=== PATIENT | female | born 1950 | race Caucasian/White ===

== ENCOUNTER 2018-04-26 20:00 | Emergency (ER) | payer MEDICARE, OTHER, SELFPAY ==
[2018-04-26 20:12] VITALS: BP 182/98; PULSE 77; RESP 18; TEMP 36.9; O2SAT 97; BMI 31.4
[2018-04-26 20:30] LABS: Bacteria Urine None Seen; RBC Urine None Seen (0-5/HPF); WBC Urine None Seen (0-5/HPF)
[2018-04-26 20:32] LABS: Appearance Urine UA CLEAR; Bilirubin Urine UA NEGATIVE (NEGATIVE); Color Urine UA YELLOW; Glucose Urine UA NEGATIVE (Normal); Ketones Urine UA NEGATIVE (NEGATIVE); Leukocyte Esterase Urine UA NEGATIVE (NEGATIVE); Nitrite Urine UA Negative (Negative); Occult Blood Urine UA NEGATIVE (Negative); Protein Urine UA NEGATIVE (Negative); Specific Gravity Urine UA <=1.005 (1.000-1.035); Urobilinogen Urine UA 0.2 E.U./dL (0.2)
[2018-04-26 20:35] LABS: Culture Indicated Urine Cult Not Indicated; Urine Comments Microscopic Normal
[2018-04-26 22:00] VITALS: BP 186/99; PULSE 69; O2SAT 97
[2018-04-26 22:30] VITALS: BP 167/99; PULSE 72; O2SAT 97
--- NOTE | 2018-04-26 23:18 | ED.GENADULT ---
HPI - General Adult General Chief complaint: Hypertension Stated complaint: HIGH BLOOD PRESSURE MIGHT HAVE BLADDER INFECTION Time Seen by Provider: 04/26/18 20:34 Source: patient Mode of arrival: ambulatory Limitations: no limitations History of Present Illness HPI narrative: 68-year-old female here for evaluation of high blood pressure not feeling well and also concerns for a bladder infection. Patient sustained a right fibula fracture her approximately 1 week ago. Has been in a walking boot since then. Patient also has a history of hypertrophic cardiomyopathy and history of atrial fibrillation. She has a defibrillator in place. This was placed at the end of last year. She states that since January of this year she has been on metoprolol and lisinopril ordered by her runner worker. She states that since she has been on the metoprolol she has been sick to her stomach and has not been feeling very well. She states that she talk to her runner worker about who states that he recommended that she stay on it for 10 weeks to see if the symptoms did not improve. She states that today she was not feeling well and took her blood pressure and it was elevated. She came in to be evaluated. Related Data Home Medications Medication Instructions Recorded Confirmed warfarin [Coumadin] 2.5 mg PO QDAY #0 11/05/12 04/26/18 lorazepam [Ativan] 0.5 mg PO PRN PRN #0 03/10/13 04/26/18 latanoprost 1 applic EYE-BOTH DAILY 04/26/18 04/26/18 lisinopril 2.5 mg PO DAILY 04/26/18 04/26/18 metoprolol succinate 12.5 mg PO QAM 04/26/18 04/26/18 metoprolol succinate 25 mg PO BEDTIME 04/26/18 04/26/18 omega 3,6,9 combination no.7 1 tab PO DAILY 04/26/18 04/26/18 [[place] DHA] plant stanol alejandro [Cholest Off] 1 tab PO DAILY 04/26/18 04/26/18 vitamin Z62-[id number] acid 1 tab SUBLINGUAL DAILY 04/26/18 04/26/18 Allergies Allergy/AdvReac Type Severity Reaction Status Date / Time flecainide [FLECAINIDE] Allergy Unknown CONFUSION, Verified 04/26/18 20:15 CAN'T THINK, DIZZY meperidine [MEPERIDINE] Allergy Unknown N/V Verified 04/26/18 20:15 atenolol [ATENOLOL] AdvReac Unknown MAKES ME Verified 04/26/18 20:15 VERY TIRED, NO ENERGY Review of Systems Constitutional Denies chills, Reports fatigue, Denies fever(s), Denies frequent falls and Reports lethargy ENT Ears, Nose, Mouth, and Throat: Denies dizziness Cardiovascular Denies chest pain, Denies irregular heart rhythm, Denies lightheadedness, Denies palpitations, Denies dyspnea, Denies dyspnea on exertion and Denies orthopnea Respiratory Denies cough, Denies dyspnea, Denies dyspnea on exertion and Denies wheezing Gastrointestinal Gastrointestinal: Denies abdominal pain, Denies change in bowel habits, Denies diarrhea, Denies nausea and Denies vomiting Genitourinary Reports dysuria Musculoskeletal Denies numbness Comments: Walking the right lower extremity Integumentary/Breasts Denies pruritus, Denies erythema, Denies rash and Denies wounds Neurologic Denies behavioral changes, Denies confusion, Denies dizziness, Denies frequent falls and Denies numbness Psychiatric Denies behavioral changes and Denies confusion Endocrine Reports fatigue and Denies palpitations Allergic/Immunologic Denies wheezing [facility] Social History Smoking Status: Never smoker Exam Initial Vital Signs Initial Vital Signs: Vital Signs Temperature 98.5 F 04/26/18 20:12 Pulse Rate 77 04/26/18 20:12 Respiratory Rate 18 04/26/18 20:12 Blood Pressure 182/98 H 04/26/18 20:12 Pulse Oximetry 97 04/26/18 20:12 [facility] Head: normal to inspection, normocephalic and atraumatic Chest Chest: normal inspection of the chest Resp Effort & Inspection: normal respiratory effort, able to speak in complete sentences, no respiratory distress and no use of accessory muscles Auscultation: clear to auscultation bilaterally, no rales, no rhonchi and no wheezes Cardio Rate: regular rate Rhythm: regular rhythm Heart Sounds: murmur systolic late, III/ and at the left sternal border Skin General: no rashes or lesions noted, No jaundice and No petechiae Extrem Other: Walking to right lower extremity Course Orders Ordered: ED Orders 04/26/18 20:19 Urinalysis and Microscopic Stat Vital Signs - 8 hr 04/26/18 20:12 04/26/18 22:00 04/26/18 22:30 Temperature 98.5 F Pulse Rate 77 69 72 Respiratory Rate 18 Blood Pressure 182/98 H Blood Pressure [Left Arm] 186/99 H 167/99 H Pulse Oximetry 97 97 97 04/26/18 23:24 Temperature Pulse Rate 64 Respiratory Rate 16 Blood Pressure 173/95 H Blood Pressure [Left Arm] Pulse Oximetry 96 Medical Decision Making MDM Narrative Medical decision making narrative: Patient without signs of urinary tract infection. Was hypertensive here in the emergency department but has no physical exam signs or history consistent for end-organ dysfunction. Will hold on any testing for now. She is on metoprolol and lisinopril. Informed her that if she would like to stop her metoprolol secondary to the symptoms that she does need to talk with her runner worker about this. We had a long discussion regarding high blood pressure and what to return to the emergency department for. She was given return precautions. She was instructed she needed to contact her primary doctor and her runner worker. She was instructed on the proper way to take her blood pressure at home. She expressed understanding. Her was at bedside for this discussion. They expressed agreement with plan. Lab Data Lab results reviewed: Yes I reviewed the patient's lab results. Lab Results 04/26/18 Range/Units 20:19 Urine Color Yellow Urine Appearance Clear Urine pH 6.0 (4.5-8.0) Ur Specific [place] <=1.005 (1.000-1.035) Urine Protein Negative (Negative) Urine Glucose (UA) Negative (Normal) g/dL Urine Ketones Negative (NEGATIVE) Urine Occult Blood Negative (Negative) Urine Nitrate Negative (Negative) Urine Bilirubin Negative (NEGATIVE) Urine Urobilinogen 0.2 (0.2) E.U./dL Ur Leukocyte Esterase Negative (NEGATIVE) Urine RBC None seen (0-5/HPF) Urine WBC None seen (0-5/HPF) Urine Bacteria None seen (None) Ur Culture Indicated? Cult not indicated Micro UA Comment Microscopic normal Discharge Plan Departure Patient Disposition: Home, Self-Care Clinical Impression: Hypertension, Cardiomyopathy, hypertrophic Discharge Date/Time: 04/26/18 23:26 Interventions: ED Discharge Assessment Last Done: 04/26/18 23:24 Instructions: DI for High Blood Pressure Activity Restrictions/Additional Instructions: Recommend that you contact your runner worker for a follow-up and to discuss your medications. Return to the emergency department for any new symptoms, year defibrillator going off, chest pain, or any other concerning symptoms. I would also recommend that you continue all of your medications as directed into you talk with your runner worker. Prescriptions: No Action warfarin [Coumadin] 2.5 MG tablet 2.5 mg PO QDAY Qty: 0 RF: 0 lorazepam [Ativan] 0.5 MG tablet 0.5 mg PO PRN PRN (Reason: Anxiety) Qty: 0 RF: 0 metoprolol succinate 25 mg tablet extended release 24 hr 25 mg PO BEDTIME RF: 0 metoprolol succinate 25 mg tablet extended release 24 hr 12.5 mg PO QAM RF: 0 lisinopril 2.5 mg tablet 2.5 mg PO DAILY RF: 0 plant stanol alejandro [Cholest Off] 450 mg Tablet 1 tab PO DAILY RF: 0 omega 3,6,9 combination no.7 [[place] DHA] 92 mg (43 mg-22 [id number]) Tablet,Chewable 1 tab PO DAILY RF: 0 vitamin X04-pjnck acid 1,000-400 mcg Lozenge 1 tab Sublingual DAILY RF: 0 latanoprost 0.005 % drops 1 applic EYE-BOTH DAILY RF: 0
[2018-04-26 23:24] VITALS: BP 173/95; PULSE 64; RESP 16; O2SAT 96
== END 2018-04-26 23:26 | disposition home or self-care (01) ==
PROVIDERS: Nurse Practitioner Family; Emergency Provider Emergency Medicine; Family Provider Family Medicine; PCP Family Medicine
DX: I10 Essential (primary) hypertension (principal); I42.9 Cardiomyopathy, unspecified
CPT/HCPCS: 81001; 99282

== ENCOUNTER 2018-12-10 08:09 | Emergency (ER) | payer MEDICARE, OTHER, SELFPAY ==
[2018-12-10] VITALS (7 sets, daily range): BP systolic 124–138; BP diastolic 71–89; PULSE 57–70; RESP 15–20; TEMP 36.6; O2SAT 96–100; BMI 36.8
--- NOTE | 2018-12-10 08:14 | DI.RAD.S_ITS ---
PROCEDURE: XR CHEST 1V INDICATIONS: chest pain TECHNIQUE: One view of the chest was acquired. COMPARISON: [facility], , CHEST 1 VIEW, 02/02/2018, 17:53. FINDINGS: Surgical changes and devices: Median sternotomy. Left-sided pacer. Lungs and pleura: No pneumothorax. Trace right pleural effusion, new since the prior examination. Mild diffuse interstitial pulmonary opacity. Mediastinum: Mediastinal contours appear normal. Heart size is enlarged. Bones and chest wall: No suspicious bony lesions. Overlying soft tissues appear unremarkable. IMPRESSION: 1. Mild CHF. 2. Trace right pleural effusion. Dictated by: Lico Campuzano M.D. on 12/10/2018 at 9:13 Approved by: Lico Campuzano M.D. on 12/10/2018 at 9:14
--- NOTE | 2018-12-10 08:35 | PC.NURSE ---
Lab unable to draw pt. 2nd lab person to come.
--- NOTE | 2018-12-10 08:39 | ED.CHESTPAIN ---
HPI - Chest Pain General Chief Complaint: Chest Pain Stated Complaint: Nauseated Time Seen by Provider: 12/10/18 08:13 Source: patient Mode of arrival: EMS Limitations: no limitations History of Present Illness HPI narrative: Patient is a 68-year-old female with a pacemaker in place on Coumadin and also on Lasix for edema. She does see a mechanical car checker. She is also on a beta edward. Here for evaluation of nausea and not feeling well for the past couple days. Last week she was started on 80 mg Lasix 2 times a day to try to help with the edema. She states that she has lost 4 lb over the past week but is still quite edematous. No chest pain. Some dyspnea on exertion. Was brought in by EMS. Received Zofran in route which she states has helped her symptoms somewhat. Related Data Home Medications Medication Instructions Recorded Confirmed warfarin [Coumadin] 2.5 mg PO QDAY #0 11/05/12 04/26/18 lorazepam [Ativan] 0.5 mg PO PRN PRN #0 03/10/13 04/26/18 latanoprost 1 applic EYE-BOTH DAILY 04/26/18 04/26/18 lisinopril 2.5 mg PO DAILY 04/26/18 04/26/18 metoprolol succinate 12.5 mg PO QAM 04/26/18 04/26/18 metoprolol succinate 25 mg PO BEDTIME 04/26/18 04/26/18 omega 3,6,9 combination no.7 1 tab PO DAILY 04/26/18 04/26/18 [[place] DHA] plant stanol alejandro [Cholest Off] 1 tab PO DAILY 04/26/18 04/26/18 vitamin X95-hidei acid 1 tab SUBLINGUAL DAILY 04/26/18 04/26/18 Previous Rx's Medication Instructions Recorded ondansetron 4 mg PO Q6-8H PRN #10 tab 12/10/18 spironolactone 12.5 mg PO DAILY #30 tab 12/10/18 torsemide 20 mg PO BID #60 tab 12/10/18 Allergies Allergy/AdvReac Type Severity Reaction Status Date / Time flecainide [FLECAINIDE] Allergy Unknown CONFUSION, Verified 04/26/18 20:15 CAN'T THINK, DIZZY meperidine [MEPERIDINE] Allergy Unknown N/V Verified 04/26/18 20:15 atenolol [ATENOLOL] AdvReac Unknown MAKES ME Verified 04/26/18 20:15 VERY TIRED, NO ENERGY Review of Systems Constitutional Reports fatigue, Denies fever(s) and Reports lethargy Cardiovascular Denies chest pain, Reports edema, Reports leg edema and Reports dyspnea on exertion Respiratory Denies cough and Reports dyspnea on exertion Gastrointestinal Gastrointestinal: Denies abdominal pain, Denies nausea and Denies vomiting Musculoskeletal Denies myalgias and Denies arthralgias Integumentary/Breasts Denies rash Neurologic Denies behavioral changes Psychiatric Denies behavioral changes Endocrine Reports fatigue Hematologic/Lymphatic Comments: On Coumadin PFS Medical History Edema (Acute) Hypertension (Acute) Surgical History History of permanent cardiac pacemaker placement (Acute) Social History Smoking Status: Never smoker Exam Initial Vital Signs Initial Vital Signs: Vital Signs Temperature 97.8 F 12/10/18 08:00 Pulse Rate 57 L 12/10/18 08:00 Respiratory Rate 20 12/10/18 08:00 Blood Pressure 138/85 12/10/18 08:00 Pulse Oximetry 100 12/10/18 08:00 Const General: cooperative, comfortable, well developed, well groomed and No acute distress Orientation: alert, awake and oriented x3 HENMT Head: normal to inspection and normocephalic Resp Effort & Inspection: normal respiratory effort Auscultation: clear to auscultation bilaterally Cardio Rate: regular rate Rhythm: regular rhythm Pulses: radial pulses present GI Inspection: non-distended Palpation: soft and No tender Skin Lesions: no lesions Rashes: no rashes Neuro General: alert, awake and oriented x3 Extrem General: capillary refill normal and edema Psych Appearance: grossly normal and well kempt Course Orders Ordered: ED Orders 12/10/18 08:14 XR chest 1V Stat EKG-12 Lead Stat 12/10/18 08:30 Urine Culture Stat Urine Microscopic Stat 12/10/18 08:55 B Type Natriuretic Peptide Stat Complete Blood Count AUTO DIFF Stat Comprehensive Metabolic Panel Stat Lipase Stat Partial Thromboplastin Time Stat Prothrombin Time INR Stat Troponin & CK Cardiac Panel Stat Discontinued Medications Ondansetron HCl (Zofran) 4 mg IV NOW ONE Stop: 12/10/18 09:14 Last Admin: 12/10/18 09:15 Dose: 4 mg Vital Signs - 8 hr 12/10/18 08:00 12/10/18 09:10 12/10/18 09:30 Temperature 97.8 F Pulse Rate 57 L 59 L 62 Respiratory Rate 20 17 15 Blood Pressure 138/85 Blood Pressure [Right Arm] 128/89 124/71 Pulse Oximetry 100 96 96 12/10/18 10:00 12/10/18 10:30 Temperature Pulse Rate 60 60 Respiratory Rate 16 18 Blood Pressure Blood Pressure [Right Arm] 136/74 132/86 Pulse Oximetry 97 97 MDM - Chest Pain Medical Records Data Attestation: I reviewed the patient's medical records. Lab Data Attestation: I reviewed the patient's lab results. Result diagrams: 12/10/18 08:55 12/10/18 08:55 Lab Results 12/10/18 12/10/18 12/10/18 Range/Units 08:30 08:55 08:55 WBC 9.4 (4.5-11.0) X10^3/uL RBC 5.14 (4.0-5.2) X10^6/uL Hgb 15.0 (12.0-16.0) g/dL Hct 45.1 (36-46) % MCV 87.7 (80-100) fL MCH 29.3 (26-34) PG MCHC 33.4 (30-36) % RDW 16.8 H (11.6-14.8) % Plt Count 328 (150-400) X10^3/uL Neut % (Auto) 73.2 (50-75) % Lymph % (Auto) 14.4 L (25-40) % [place] % (Auto) 10.3 (3-14) % Eos % (Auto) 1.3 L (2-4) % Baso % (Auto) 0.8 (0-2) % Neut # (Auto) 6800 (6225-9394) /uL Lymph # (Auto) 1300 (2980-3932) /uL [place] # (Auto) 1000 H (0-900) /uL Eos # (Auto) 100 (0-450) /uL Baso # (Auto) 100 (0-100) /uL PT 33.5 H (10.1-12.7) SECONDS INR 2.9 H (0.9-1.3) APTT 45 H (26.4-36.2) SECONDS Sodium (137-145) mmol/L Potassium (3.4-5.1) mmol/L Chloride (98-107) mmol/L Carbon Dioxide (22-32) mmol/L BUN (7-17) mg/dL Creatinine (0.52-1.04) mg/dL Estimated GFR (>60) mL/min BUN/Creatinine Ratio (6-22) Glucose (80-110) mg/dL Calcium (8.4-10.2) mg/dL Total Bilirubin (0.2-1.3) mg/dL AST (14-36) IU/L ALT (9-52) IU/L Alkaline Phosphatase (38-126) U/L Total Creatine Kinase (30-135) U/L CK-MB (CK-2) CK-MB (CK-2) Rel Index Troponin I (0.01-0.034) ng/mL B-Natriuretic Peptide (<100) Total Protein (6.3-8.2) g/dL Albumin (3.5-5.0) g/dL Globulin (1.7-4.1) g/dL Albumin/Globulin Ratio (1.0-2.8) Lipase (23-300) U/L Urine RBC 10-30/hpf H (0-5/HPF) Urine WBC 5-10/hpf H (0-5/HPF) Ur Squamous Epith Cells 0-1 /hpf Urine Bacteria Many (>30) H (None) Ur Culture Indicated? Specimen cultured 12/10/18 12/10/18 Range/Units 08:55 08:55 WBC (4.5-11.0) X10^3/uL RBC (4.0-5.2) X10^6/uL Hgb (12.0-16.0) g/dL Hct (36-46) % MCV (80-100) fL MCH (26-34) PG MCHC (30-36) % RDW (11.6-14.8) % Plt Count (150-400) X10^3/uL Neut % (Auto) (50-75) % Lymph % (Auto) (25-40) % [place] % (Auto) (3-14) % Eos % (Auto) (2-4) % Baso % (Auto) (0-2) % Neut # (Auto) (8697-1481) /uL Lymph # (Auto) (3594-8361) /uL [place] # (Auto) (0-900) /uL Eos # (Auto) (0-450) /uL Baso # (Auto) (0-100) /uL PT (10.1-12.7) SECONDS INR (0.9-1.3) APTT (26.4-36.2) SECONDS Sodium 137 (137-145) mmol/L Potassium 3.4 (3.4-5.1) mmol/L Chloride 98 (98-107) mmol/L Carbon Dioxide 27 (22-32) mmol/L BUN 16 (7-17) mg/dL Creatinine 0.70 (0.52-1.04) mg/dL Estimated GFR > 60.0 (>60) mL/min BUN/Creatinine Ratio 22.9 H (6-22) Glucose 102 (80-110) mg/dL Calcium 9.4 (8.4-10.2) mg/dL Total Bilirubin 2.8 H (0.2-1.3) mg/dL AST 28 (14-36) IU/L ALT 21 (9-52) IU/L Alkaline Phosphatase 131 H (38-126) U/L Total Creatine Kinase 43 (30-135) U/L CK-MB (CK-2) TNP CK-MB (CK-2) Rel Index TNP Troponin I 0.029 (0.01-0.034) ng/mL B-Natriuretic Peptide 434 H (<100) Total Protein 7.5 (6.3-8.2) g/dL Albumin 4.1 (3.5-5.0) g/dL Globulin 3.4 (1.7-4.1) g/dL Albumin/Globulin Ratio 1.2 (1.0-2.8) Lipase 109 (23-300) U/L Urine RBC (0-5/HPF) Urine WBC (0-5/HPF) Ur Squamous Epith Cells Urine Bacteria (None) Ur Culture Indicated? Urine Dip Bedside Urine Glucose Negative Bedside Urine Bilirubin - Negative Bedside Urine Ketone +/- 5 Urine Specific [place] 1.025 Bedside Urine Occult Blood +++ Bedside Urine pH 5 Bedside Urine Protein ++ 100 Bedside Urine Urobilinogen +/- 1mg Bedside Urine Nitrite - Negative Bedside Urine Leukocytes + 70 Esterase Imaging Data Chest x-ray: Radiologist's impression: ROCEDURE: XR CHEST 1V INDICATIONS: chest pain TECHNIQUE: One view of the chest was acquired. COMPARISON: [facility], , CHEST 1 VIEW, 02/02/2018, 17:53. FINDINGS: Surgical changes and devices: Median sternotomy. Left-sided pacer. Lungs and pleura: No pneumothorax. Trace right pleural effusion, new since the prior examination. Mild diffuse interstitial pulmonary opacity. Mediastinum: Mediastinal contours appear normal. Heart size is enlarged. Bones and chest wall: No suspicious bony lesions. Overlying soft tissues appear unremarkable. IMPRESSION: 1. Mild CHF. 2. Trace right pleural effusion. Dictated by: Lico Campuzano M.D. on 12/10/2018 at 9:13 Approved by: Lico Campuzano M.D. on 12/10/2018 at 9:14 ECG Data Attestation: I personally reviewed and interpreted this ECG as follows: Prior ECG tracings: not available for review Interpretation: Atrial paced Ventricular rate is 61 Normal axis Normal QRS Normal QTC No ST T wave changes MDM Narrative Medical decision making narrative: Clinically today the patient is not in heart failure. She is not hypoxic. She is not tachypneic. She has clear lung exam. Her BNP is slightly elevated. She does have lower extremity edema. Her urine today does have bacteria and white blood cells however she has no symptoms of UTI. She has self-diagnosed herself with interstitial cystitis. Had a discussion with her regarding this. She would rather wait for the culture results before treating with antibiotics. I do not feel that this is unreasonable. I discussed the case with Dr. montano who was on-call for her mechanical car checker who stated that given her labs in her physical exam today that he did not feel like she needed admitted to the hospital and that her edema could be treated as an outpatient. I agree with this. He recommended switching her to torasemide and spironolactone which I will do. Will also give her Zofran for the nausea. I discussed the case with Dr. Harding who was on-call for the patient's primary doctor who agrees with this plan. Patient was given return precautions. Discharge Plan Departure Patient Disposition: Home Clinical Impression: Edema Instructions: Edema (Alternative Therapy), DI for Dependent Edema, DI for Peripheral Edema -- Bilateral Activity Restrictions/Additional Instructions: The mechanical car checker up at [facility] recommended that you stop the Lasix and start the medications that you were given a prescription for today. They also recommend a low-salt diet. Also keeping her legs elevated as much as possible. You can take the nausea medication to help with those symptoms. Contact your primary doctor on Thursday for a follow-up. Prescriptions: New torsemide 20 mg tablet 20 mg PO BID Qty: 60 RF: 0 spironolactone 25 mg tablet 12.5 mg PO DAILY Qty: 30 RF: 0 ondansetron 4 mg tablet,disintegrating 4 mg PO Q6-8H PRN (Reason: nausea and vomiting) Qty: 10 RF: 0 No Action warfarin [Coumadin] 2.5 MG tablet 2.5 mg PO QDAY Qty: 0 RF: 0 lorazepam [Ativan] 0.5 MG tablet 0.5 mg PO PRN PRN (Reason: Anxiety) Qty: 0 RF: 0 metoprolol succinate 25 mg tablet extended release 24 hr 25 mg PO BEDTIME RF: 0 metoprolol succinate 25 mg tablet extended release 24 hr 12.5 mg PO QAM RF: 0 lisinopril 2.5 mg tablet 2.5 mg PO DAILY RF: 0 plant stanol alejandro [Cholest Off] 450 mg Tablet 1 tab PO DAILY RF: 0 omega 3,6,9 combination no.7 [[place] DHA] 92 mg (43 mg-22 [id number]) Tablet,Chewable 1 tab PO DAILY RF: 0 vitamin I55-jgpxv acid 1,000-400 mcg Lozenge 1 tab Sublingual DAILY RF: 0 latanoprost 0.005 % drops 1 applic EYE-BOTH DAILY RF: 0
--- NOTE | 2018-12-10 08:48 | PC.NURSE ---
Pt will go from atrial pacing to ventricle pacing.
[2018-12-10 09:05] LABS: Add Manual Diff / Slide Review NO; Basophils Absolute Auto 100 /uL (0-100); Basophils Percent Auto 0.8 % (0-2); Eosinophils Absolute Auto 100 /uL (0-450); Eosinophils Percent Auto 1.3 % (2-4); Hematocrit 45.1 % (36-46); Lymphocytes Absolute Auto 1300 /uL (1100-4500); Lymphocytes Percent Auto 14.4 % (25-40); Mean Corpuscular HGB Conc 33.4 % (30-36); Mean Corpuscular Hemoglobin 29.3 PG (26-34); Mean Corpuscular Volume 87.7 fL (80-100); Monocytes Absolute Auto 1000 /uL (0-900); Monocytes Percent Auto 10.3 % (3-14); Neutrophils Absolute Auto 6800 /uL (1500-7000); Neutrophils Percent Auto 73.2 % (50-75); Platelet Count 328 X10^3/uL (150-400); Red Blood Cell Count 5.14 X10^6/uL (4.0-5.2); Red Cell Distribution Width 16.8 % (11.6-14.8); White Blood Cell Count 9.4 X10^3/uL (4.5-11.0)
[2018-12-10 09:10] LABS: INR 2.9 (0.9-1.3); Prothrombin Time 33.5 SECONDS (10.1-12.7)
[2018-12-10 09:13] LABS: PTT Partial Thromboplastin Tim 45 SECONDS (26.4-36.2)
[2018-12-10] MEDS: ONDANSETRON 4 MG/2 ML INJ IV (09:15)
[2018-12-10 09:17] LABS: Alanine Aminotransferase 21 IU/L (9-52); Albumin 4.1 g/dL (3.5-5.0); Albumin Globulin Ratio 1.2 (1.0-2.8); Alkaline Phosphatase 131 U/L (38-126); Aspartate Aminotransferase 28 IU/L (14-36); BUN Creatinine Ratio 22.9 (6-22); Bilirubin Total 2.8 mg/dL (0.2-1.3); Blood Urea Nitrogen 16 mg/dL (7-17); Calcium 9.4 mg/dL (8.4-10.2); Carbon Dioxide 27 mmol/L (22-32); Chloride 98 mmol/L (98-107); Creatine Kinase 43 U/L (30-135); Estimated Glomerular Filt Rate > 60.0 mL/min (>60); Globulin 3.4 g/dL (1.7-4.1); Glucose 102 mg/dL (80-110); Lipase 109 U/L (23-300); Potassium 3.4 mmol/L (3.4-5.1); Sodium 137 mmol/L (137-145); Total Protein 7.5 g/dL (6.3-8.2)
[2018-12-10 09:23] LABS: B Type Natriuretic Peptide 434 (<100)
[2018-12-10 09:30] LABS: RBC Urine 10-30/HPF (0-5/HPF); Squamous Epithelial Cell Urine 0-1 /HPF; WBC Urine 5-10/HPF (0-5/HPF)
[2018-12-10 09:31] LABS: Bacteria Urine Many (>30); Culture Indicated Urine Specimen Cultured
[2018-12-10 10:10] LABS: HEMOLYSIS < 15 (0-50); Troponin I 0.029 ng/mL (0.01-0.034)
[2018-12-10] MEDS: METOCLOPRAMIDE 10 MG/2 ML INJ 5 MG IV (11:05)
== END 2018-12-10 12:02 | disposition home or self-care (01) ==
PROVIDERS: Emergency Provider Emergency Medicine; PCP Family Medicine
DX: R60.9 Edema, unspecified (principal); I10 Essential (primary) hypertension; Z95.0 Presence of cardiac pacemaker
CPT/HCPCS: 36415; 71045; 80053; 81003; 81015; 82550; 83690; 83880; 84484; 85025; 85610; 85730; 87077; 87086; 87186; 93005; 93010; 93041; 96374; 96375; 99285; J2405; J2765

== ENCOUNTER → 2019-01-11 17:00 | Outpatient (CLI) | payer MEDICARE, OTHER, SELFPAY ==
[2019-01-11 19:51] LABS: B Type Natriuretic Peptide 437 (<100)
[2019-01-11 20:57] LABS: Alanine Aminotransferase 23 IU/L (9-52); Albumin 4.4 g/dL (3.5-5.0); Albumin Globulin Ratio 1.3 (1.0-2.8); Alkaline Phosphatase 128 U/L (38-126); Aspartate Aminotransferase 28 IU/L (14-36); BUN Creatinine Ratio 26.3 (6-22); Bilirubin Total 2.4 mg/dL (0.2-1.3); Blood Urea Nitrogen 21 mg/dL (7-17); Calcium 9.6 mg/dL (8.4-10.2); Carbon Dioxide 27 mmol/L (22-32); Chloride 97 mmol/L (98-107); Estimated Glomerular Filt Rate > 60.0 mL/min (>60); Globulin 3.3 g/dL (1.7-4.1); Glucose 107 mg/dL (80-110); HEMOLYSIS < 15 (0-50); Magnesium 2.2 mg/dL (1.6-2.3); Potassium 4.5 mmol/L (3.4-5.1); Sodium 137 mmol/L (137-145); Total Protein 7.7 g/dL (6.3-8.2)
[2019-01-11 21:28] LABS: Cancer Antigen 125 535 U/mL (0-35); Carcinoembryonic Antigen 4.8 ng/mL (0.1-3.0)
== END ==
PROVIDERS: PCP Family Medicine; Referring Provider Nurse Practitioner Acute Care; Visit Provider Family Medicine
DX: R94.5 Abnormal results of liver function studies (principal); R06.02 Shortness of breath; I42.2 Other hypertrophic cardiomyopathy; I48.0 Paroxysmal atrial fibrillation
CPT/HCPCS: 36415; 80053; 82378; 83735; 83880; 86304

== ENCOUNTER → 2019-01-31 13:00 | Outpatient (CLI) | payer MEDICARE, OTHER, SELFPAY ==
--- NOTE | 2019-01-31 | DI.US.S_ITS ---
PROCEDURE: US ABDOMEN LIMITED INDICATIONS: ASCITES TECHNIQUE: Real-time focused scanning was performed of the abdomen, with image documentation. COMPARISON: [facility], US, PELVIC COMPLETE, 09/10/2010, 16:33. US, ABDOMEN COMPLETE, 11/02/2007, 9:18. FINDINGS: Minimal ascites within the right upper quadrant of the abdomen with volume not sufficient for safe diagnostic or therapeutic paracentesis. IMPRESSION: Minimal ascites within the right upper quadrant of the abdomen with volume not sufficient for safe diagnostic or therapeutic paracentesis. Dictated by: Lawson Willis [facility] Interpreted: Jose Rubin MD on 01/31/2019 at 15:48 Approved by: Jose Rubin M.D. on 02/01/2019 at 1:44
[2019-01-31 13:25] LABS: INR 1.8 (0.9-1.3); Prothrombin Time 20.8 SECONDS (10.1-12.7)
[2019-01-31 15:11] LABS: Add Manual Diff / Slide Review NO; Basophils Absolute Auto 100 /uL (0-100); Basophils Percent Auto 1.5 % (0-2); Eosinophils Absolute Auto 200 /uL (0-450); Hematocrit 46.4 % (36-46); Hemoglobin 14.8 g/dL (12.0-16.0); Lymphocytes Absolute Auto 1700 /uL (1100-4500); Lymphocytes Percent Auto 21.3 % (25-40); Mean Corpuscular HGB Conc 31.9 % (30-36); Mean Corpuscular Hemoglobin 28.4 PG (26-34); Monocytes Absolute Auto 800 /uL (0-900); Monocytes Percent Auto 9.7 % (3-14); Neutrophils Absolute Auto 5300 /uL (1500-7000); Neutrophils Percent Auto 65.5 % (50-75); Platelet Count 349 X10^3/uL (150-400); Red Blood Cell Count 5.21 X10^6/uL (4.0-5.2); Red Cell Distribution Width 17.2 % (11.6-14.8)
== END ==
PROVIDERS: PCP Family Medicine; Visit Provider Obstetrics & Gynecology
DX: R18.8 Other ascites (principal); N83.9 Noninflammatory disorder of ovary, fallopian tube and broad ligament, unspecified
CPT/HCPCS: 36415; 76705; 85025; 85610

== ENCOUNTER → 2019-05-06 15:05 | Outpatient (ROUT) | payer MEDICARE, OTHER, SELFPAY ==
[2019-05-06 15:27] LABS: Prothrombin Time 130.9 SECONDS (10.1-12.7)
[2019-05-06 15:36] LABS: INR > 4.5 (0.9-1.3)
== END ==
PROVIDERS: PCP Family Medicine; Visit Provider Student in an Organized Health Care Education/Training Program
DX: Z79.01 Long term (current) use of anticoagulants (principal)
CPT/HCPCS: 85610

== ENCOUNTER → 2019-05-10 13:26 | Outpatient (ROUT) | payer MEDICARE, OTHER, SELFPAY ==
[2019-05-10 14:12] LABS: INR 6.8 (0.9-1.3); Prothrombin Time 80.9 SECONDS (10.1-12.7)
== END ==
PROVIDERS: PCP Family Medicine; Visit Provider Family Medicine
DX: R74.8 Abnormal levels of other serum enzymes (principal); I50.9 Heart failure, unspecified; E80.7 Disorder of bilirubin metabolism, unspecified; R53.81 Other malaise; R53.1 Weakness; I47.2 Ventricular tachycardia; I48.0 Paroxysmal atrial fibrillation; Z79.01 Long term (current) use of anticoagulants
CPT/HCPCS: 85610

== ENCOUNTER 2019-05-17 06:25 | Inpatient (IN) | payer MEDICARE, OTHER, SELFPAY ==
[2019-05-17] VITALS (13 sets, daily range): BP systolic 103–127; BP diastolic 55–88; PULSE 65–95; RESP 15–23; TEMP 36.4–37.4; O2SAT 88–98; BMI 31.5
--- NOTE | 2019-05-17 06:33 | ED.ABDPAIN ---
HPI - Abdominal Pain <Apollo Tenorio, DO - Last Filed: 05/21/19 23:47> General Chief Complaint: Nausea/Vomiting/Diarrhea Stated Complaint: vomiting since yesterday stomach ache Time Seen by Provider: 05/17/19 06:25 Source: patient Mode of arrival: ambulatory Limitations: no limitations History of Present Illness HPI narrative: Patient is a 69-year-old female 2 months status post hysterectomy. A couple days ago had a couple episodes of diarrhea. This was after her grandson and also had similar symptoms. She then started having multiple episodes of nausea and vomiting over the past 24 hours. She states that she has had countless episodes of vomiting. States she has had a problem eating since her hysterectomy. Has generalized abdominal pain. No fevers. No urinary symptoms. Related Data Home Medications Medication Instructions Recorded Confirmed warfarin [Coumadin] 1.25 mg PO QDAY #0 11/05/12 05/17/19 latanoprost 1 applic EYE-BOTH QPM 04/26/18 05/17/19 omega 3,6,9 combination no.7 1 tab PO DAILY 04/26/18 05/17/19 [Gary DHA] plant stanol alejandro [Cholest Off] 1 tab PO DAILY 04/26/18 05/17/19 Cysto Protek 2 cap PO BID 05/17/19 05/17/19 Ortho Molecular Probiotic 1 cap PO QPM 05/17/19 05/17/19 atenolol 50 mg PO QPM 05/17/19 05/17/19 cholecalciferol (vitamin D3) 5,000 unit PO DAILY 05/17/19 05/17/19 [Vitamin D3] coenzyme Q10 [Co Q-10] 300 mg PO DAILY 05/17/19 05/17/19 metoclopramide HCl 10 mg PO PRN PRN 05/17/19 05/17/19 potassium chloride 10 meq PO DAILY 05/17/19 05/17/19 spironolactone 25 mg PO DAILY 05/17/19 05/17/19 torsemide 20 mg PO BID 05/17/19 05/17/19 Allergies Allergy/AdvReac Type Severity Reaction Status Date / Time flecainide [FLECAINIDE] Allergy Unknown CONFUSION, Verified 05/17/19 10:24 CAN'T THINK, DIZZY meperidine [MEPERIDINE] Allergy Unknown N/V Verified 04/26/18 20:15 amiodarone [From Pacerone] AdvReac Intermediate Redness of Verified 05/17/19 10:24 Skin lisinopril AdvReac Intermediate Dizziness Verified 05/17/19 10:24 polyethylene glycol 3350 AdvReac Intermediate Fainting Verified 05/17/19 10:24 [From Miralax] atenolol [ATENOLOL] AdvReac Unknown MAKES ME Verified 04/26/18 20:15 VERY TIRED, NO ENERGY Review of Systems <Apollo Tenorio DO - Last Filed: 05/21/19 23:47> Constitutional Denies fever(s) and Denies headache(s) ENT Ears, Nose, Mouth, and Throat: Denies headache(s) Cardiovascular Denies chest pain and Denies dyspnea Respiratory Denies dyspnea Gastrointestinal Gastrointestinal: Reports abdominal pain, Reports bloating, Reports diarrhea, Reports nausea and Reports vomiting Genitourinary Denies dysuria Musculoskeletal Denies myalgias and Denies arthralgias Integumentary/Breasts Denies rash Neurologic Denies headache(s) Hematologic/Lymphatic Denies easy bleeding and Denies easy bruising PFSH <Apollo Tenorio DO - Last Filed: 05/21/19 23:47> Medical History (Updated 05/17/19 @ 16:46 by Breanna Guerrier MD) Atrial fibrillation (Chronic) Cardiomyopathy (Chronic) Edema (Chronic) History of hysterectomy (Chronic) Hypertension (Chronic) Surgical History (Updated 05/17/19 @ 16:46 by Breanna Guerrier MD) Hx of prior ablation treatment (Chronic) History of permanent cardiac pacemaker placement (Chronic) Social History household members: spouse Smoking Status: Never smoker Social History household members: spouse Smoking Status: Never smoker Exam <DO Michael Samano Last Filed: 05/21/19 23:47> Initial Vital Signs Initial Vital Signs: Vital Signs Temperature 98.9 F 05/17/19 06:32 Pulse Rate 88 05/17/19 06:32 Respiratory Rate 16 05/17/19 06:32 Blood Pressure 127/82 05/17/19 06:32 Pulse Oximetry 93 05/17/19 06:32 Const General: cooperative, well developed and well groomed Orientation: alert and awake Resp Effort & Inspection: normal respiratory effort Auscultation: clear to auscultation bilaterally Cardio Rate: regular rate Rhythm: regular rhythm GI Inspection: distended Palpation: soft, No firm and tender (Diffusely tender) Skin Lesions: no lesions Rashes: no rashes Neuro General: alert and awake Cognition: normal cognition Speech: speech normal Gait: normal gait Extrem General: capillary refill normal and edema Psych Appearance: grossly normal and well kempt <Jessy Alatorre MD - Last Filed: 05/17/19 19:09> Initial Vital Signs Initial Vital Signs: Vital Signs Temperature 98.9 F 05/17/19 06:32 Pulse Rate 88 05/17/19 06:32 Respiratory Rate 16 05/17/19 06:32 Blood Pressure 127/82 05/17/19 06:32 Pulse Oximetry 93 05/17/19 06:32 Scores <Apollo Tenorio DO - Last Filed: 05/21/19 23:47> GCS [place] coma scale eye opening: Spontaneous [place] coma scale verbal response: Orientated [place] coma scale motor response: Obey commands [place] coma scale total score: 15 Course <Apollo Tenorio DO - Last Filed: 05/21/19 23:47> Orders Ordered: ED Orders 05/22/19 05:00 B Type Natriuretic Peptide Routine Complete Blood Count AUTO DIFF Routine Comprehensive Metabolic Panel Routine Prothrombin Time INR Routine Troponin I Routine 06/02/19 12:43 Basic Metabolic Panel Stat Atenolol (Tenormin) 50 mg PO DAILY [facility] Benzocaine (Cepacol Lozenge) 1 each PO Q4HR PRN PRN Reason: Sore Throat Last Admin: 05/18/19 00:49 Dose: 1 each Cholestyramine Resin (Prevalite Packet) 4 gm PO BID [facility] Last Admin: 05/21/19 20:44 Dose: 4 gm Admin: 05/21/19 12:16 Dose: Not Given Ciprofloxacin (Cipro) 500 mg PO BID [facility] Last Admin: 05/21/19 19:59 Dose: 500 mg Admin: 05/21/19 10:21 Dose: Not Given Furosemide (Lasix) 20 mg IV DAILY [facility] Last Admin: 05/21/19 10:58 Dose: 20 mg Lorazepam (Ativan) 0.5 mg PO Q6HR PRN PRN Reason: Anxiety Last Admin: 05/21/19 11:06 Dose: 0.5 mg Morphine Sulfate (Morphine) 2 mg IV Q6H PRN PRN Reason: Pain, Moderate (4-6) Last Admin: 05/18/19 23:39 Dose: 2 mg Ondansetron HCl (Zofran) 4 mg IV Q8HR PRN PRN Reason: Nausea And Vomiting Last Admin: 05/20/19 00:11 Dose: 4 mg Admin: 05/19/19 14:39 Dose: 4 mg Admin: 05/18/19 23:40 Dose: 4 mg Admin: 05/18/19 18:03 Dose: 4 mg Admin: 05/18/19 05:33 Dose: 4 mg Phytonadione (Mephyton) 10 mg PO DAILY [facility] Last Admin: 05/21/19 09:05 Dose: 10 mg Admin: 05/20/19 09:25 Dose: 10 mg Admin: 05/19/19 17:36 Dose: 10 mg Discontinued Medications Atenolol (Tenormin) 50 mg PO DAILY [facility] Last Admin: 05/21/19 09:06 Dose: 50 mg Admin: 05/20/19 09:25 Dose: 50 mg Admin: 05/19/19 09:56 Dose: 50 mg Admin: 05/18/19 10:43 Dose: 50 mg Diltiazem HCl (Cardizem) 10 mg IV NOW ONE Stop: 05/18/19 07:17 Last Admin: 05/18/19 07:21 Dose: 10 mg Furosemide (Lasix) 20 mg IV NOW ONE Stop: 05/19/19 12:20 Last Admin: 05/19/19 14:00 Dose: 20 mg Furosemide (Lasix) 20 mg IV NOW ONE Stop: 05/20/19 12:51 Last Admin: 05/20/19 14:08 Dose: 20 mg Hydromorphone HCl (Dilaudid) 0.5 mg IV NOW ONE Stop: 05/17/19 09:16 Last Admin: 05/17/19 09:28 Dose: 0.5 mg Sodium Chloride (Normal Saline 0.9%) 1,000 mls @ 1,000 mls/hr IV BOLUS ONE Stop: 05/17/19 07:31 Last Infusion: 05/17/19 09:07 Dose: 0 mls/hr Admin: 05/17/19 06:48 Dose: 1,000 mls/hr Sodium Chloride (Normal Saline 0.9%) 1,000 mls @ 80 mls/hr IV CONT MARLEEN Last Infusion: 05/18/19 14:59 Dose: 0 mls/hr Infusion: 05/18/19 14:55 Dose: 0 mls/hr Admin: 05/18/19 08:10 Dose: 80 mls/hr Infusion: 05/18/19 05:03 Dose: 150 mls/hr Admin: 05/18/19 00:46 Dose: 150 mls/hr Infusion: 05/18/19 00:02 Dose: 150 mls/hr Admin: 05/17/19 17:21 Dose: 150 mls/hr Infusion: 05/17/19 16:27 Dose: 150 mls/hr Admin: 05/17/19 09:46 Dose: 150 mls/hr Sodium Chloride (Normal Saline 0.9%) 1,000 mls @ 1,000 mls/hr IV BOLUS ONE Stop: 05/18/19 04:52 Last Infusion: 05/18/19 05:02 Dose: 1,000 mls/hr Admin: 05/18/19 04:00 Dose: 1,000 mls/hr Potassium Chloride 20 meq/ (Sodium Chloride) 260 mls @ 130 mls/hr IV NOW ONE Stop: 05/18/19 06:27 Last Infusion: 05/18/19 14:57 Dose: 0 mls/hr Admin: 05/18/19 05:05 Dose: 130 mls/hr DILTIAZEM (Diltiazem 125 Mg/125 Ml-D5w) 125 mg in 125 mls @ 5 mls/hr IV TITRATE MARLEEN; Protocol Last Titration: 05/18/19 09:20 Dose: 0 mg/hr, 0 mls/hr Titration: 05/18/19 08:30 Dose: 20 mg/hr, 20 mls/hr Titration: 05/18/19 08:20 Dose: 10 mg/hr, 10 mls/hr Admin: 05/18/19 08:14 Dose: 5 mg/hr, 5 mls/hr Ceftriaxone Sodium/Dextrose (Rocephin) 1 gm in 50 mls @ 100 mls/hr IV Q24H MARLEEN Last Infusion: 05/21/19 10:51 Dose: 0 mls/hr Admin: 05/21/19 09:03 Dose: 100 mls/hr Infusion: 05/20/19 09:25 Dose: 0 mls/hr Admin: 05/20/19 08:23 Dose: 100 mls/hr Infusion: 05/19/19 12:13 Dose: 0 mls/hr Admin: 05/19/19 09:59 Dose: 100 mls/hr Infusion: 05/18/19 11:27 Dose: 0 mls/hr Admin: 05/18/19 10:33 Dose: 100 mls/hr Potassium Chloride 40 meq/ (Sodium Chloride) 1,020 mls @ 75 mls/hr IV CONT MARLEEN Last Infusion: 05/21/19 09:40 Dose: 0 mls/hr Admin: 05/20/19 22:39 Dose: 75 mls/hr Infusion: 05/20/19 16:38 Dose: 75 mls/hr Admin: 05/20/19 03:02 Dose: 75 mls/hr Infusion: 05/20/19 03:02 Dose: 75 mls/hr Admin: 05/19/19 14:00 Dose: 75 mls/hr Lorazepam (Ativan) 1 mg IV NOW ONE Stop: 05/18/19 07:34 Last Admin: 05/18/19 07:46 Dose: 1 mg Lorazepam (Ativan) 0.5 mg IV Q2HR PRN PRN Reason: Anxiety Last Admin: 05/21/19 02:21 Dose: 0.5 mg Admin: 05/20/19 10:47 Dose: 0.5 mg Admin: 05/20/19 04:45 Dose: 0.5 mg Admin: 05/19/19 15:43 Dose: 0.5 mg Admin: 05/18/19 20:21 Dose: 0.5 mg Metoprolol Tartrate (Lopressor) 5 mg IV NOW ONE Stop: 05/18/19 04:08 Last Admin: 05/18/19 04:28 Dose: 5 mg Metoprolol Tartrate (Lopressor) 5 mg IV NOW ONE Stop: 05/18/19 04:45 Last Admin: 05/18/19 05:18 Dose: 5 mg Ondansetron HCl (Zofran) 4 mg IV NOW ONE Stop: 05/17/19 06:33 Last Admin: 05/17/19 06:36 Dose: 4 mg Phytonadione (Vitamin K) 10 mg IM NOW ONE Stop: 05/19/19 05:33 Last Admin: 05/19/19 06:15 Dose: Not Given Phytonadione (Mephyton) 5 mg PO NOW ONE Stop: 05/19/19 06:10 Last Admin: 05/19/19 06:20 Dose: 5 mg Potassium Chloride (Potassium Chloride) 60 meq PO NOW ONE Stop: 05/19/19 12:20 Last Admin: 05/19/19 14:00 Dose: 60 meq Vital Signs - 8 hr 05/21/19 20:28 Temperature 97.5 F L Pulse Rate 65 Respiratory Rate 16 Blood Pressure 110/73 Pulse Oximetry 98 <Jessy Alatorre MD - Last Filed: 05/17/19 19:09> Course Narrative: The patient was signed out to me at change of shift by Dr. Tenorio, pending CT of the abdomen and pelvis. This was done, and showed a small-bowel obstruction verses adynamic ileus. I discussed the findings with the patient, and that we would need to put an NG tube in and admit the patient to the hospital. Patient was agreeable to the plan. I spoke with Dr. Alonso who was on-call for surgery, and he stated that the patient could be admitted to medicine service and that he could be consulted if necessary, but that he did not feel further intervention would be undertaken at this time. I spoke with Dr. Guerrier, who did ultimately agree to admit the patient to her service. Orders Ordered: ED Orders 05/22/19 05:00 B Type Natriuretic Peptide Routine Complete Blood Count AUTO DIFF Routine Comprehensive Metabolic Panel Routine Prothrombin Time INR Routine Troponin I Routine 06/02/19 12:43 Basic Metabolic Panel Stat Atenolol (Tenormin) 50 mg PO DAILY [facility] Benzocaine (Cepacol Lozenge) 1 each PO Q4HR PRN PRN Reason: Sore Throat Last Admin: 05/18/19 00:49 Dose: 1 each Cholestyramine Resin (Prevalite Packet) 4 gm PO BID [facility] Last Admin: 05/21/19 20:44 Dose: 4 gm Admin: 05/21/19 12:16 Dose: Not Given Ciprofloxacin (Cipro) 500 mg PO BID [facility] Last Admin: 05/21/19 19:59 Dose: 500 mg Admin: 05/21/19 10:21 Dose: Not Given Furosemide (Lasix) 20 mg IV DAILY [facility] Last Admin: 05/21/19 10:58 Dose: 20 mg Lorazepam (Ativan) 0.5 mg PO Q6HR PRN PRN Reason: Anxiety Last Admin: 05/21/19 11:06 Dose: 0.5 mg Morphine Sulfate (Morphine) 2 mg IV Q6H PRN PRN Reason: Pain, Moderate (4-6) Last Admin: 05/18/19 23:39 Dose: 2 mg Ondansetron HCl (Zofran) 4 mg IV Q8HR PRN PRN Reason: Nausea And Vomiting Last Admin: 05/20/19 00:11 Dose: 4 mg Admin: 05/19/19 14:39 Dose: 4 mg Admin: 05/18/19 23:40 Dose: 4 mg Admin: 05/18/19 18:03 Dose: 4 mg Admin: 05/18/19 05:33 Dose: 4 mg Phytonadione (Mephyton) 10 mg PO DAILY [facility] Last Admin: 05/21/19 09:05 Dose: 10 mg Admin: 05/20/19 09:25 Dose: 10 mg Admin: 05/19/19 17:36 Dose: 10 mg Discontinued Medications Atenolol (Tenormin) 50 mg PO DAILY [facility] Last Admin: 05/21/19 09:06 Dose: 50 mg Admin: 05/20/19 09:25 Dose: 50 mg Admin: 05/19/19 09:56 Dose: 50 mg Admin: 05/18/19 10:43 Dose: 50 mg Diltiazem HCl (Cardizem) 10 mg IV NOW ONE Stop: 05/18/19 07:17 Last Admin: 05/18/19 07:21 Dose: 10 mg Furosemide (Lasix) 20 mg IV NOW ONE Stop: 05/19/19 12:20 Last Admin: 05/19/19 14:00 Dose: 20 mg Furosemide (Lasix) 20 mg IV NOW ONE Stop: 05/20/19 12:51 Last Admin: 05/20/19 14:08 Dose: 20 mg Hydromorphone HCl (Dilaudid) 0.5 mg IV NOW ONE Stop: 05/17/19 09:16 Last Admin: 05/17/19 09:28 Dose: 0.5 mg Sodium Chloride (Normal Saline 0.9%) 1,000 mls @ 1,000 mls/hr IV BOLUS ONE Stop: 05/17/19 07:31 Last Infusion: 05/17/19 09:07 Dose: 0 mls/hr Admin: 05/17/19 06:48 Dose: 1,000 mls/hr Sodium Chloride (Normal Saline 0.9%) 1,000 mls @ 80 mls/hr IV CONT MARLEEN Last Infusion: 05/18/19 14:59 Dose: 0 mls/hr Infusion: 05/18/19 14:55 Dose: 0 mls/hr Admin: 05/18/19 08:10 Dose: 80 mls/hr Infusion: 05/18/19 05:03 Dose: 150 mls/hr Admin: 05/18/19 00:46 Dose: 150 mls/hr Infusion: 05/18/19 00:02 Dose: 150 mls/hr Admin: 05/17/19 17:21 Dose: 150 mls/hr Infusion: 05/17/19 16:27 Dose: 150 mls/hr Admin: 05/17/19 09:46 Dose: 150 mls/hr Sodium Chloride (Normal Saline 0.9%) 1,000 mls @ 1,000 mls/hr IV BOLUS ONE Stop: 05/18/19 04:52 Last Infusion: 05/18/19 05:02 Dose: 1,000 mls/hr Admin: 05/18/19 04:00 Dose: 1,000 mls/hr Potassium Chloride 20 meq/ (Sodium Chloride) 260 mls @ 130 mls/hr IV NOW ONE Stop: 05/18/19 06:27 Last Infusion: 05/18/19 14:57 Dose: 0 mls/hr Admin: 05/18/19 05:05 Dose: 130 mls/hr DILTIAZEM (Diltiazem 125 Mg/125 Ml-D5w) 125 mg in 125 mls @ 5 mls/hr IV TITRATE MARLEEN; Protocol Last Titration: 05/18/19 09:20 Dose: 0 mg/hr, 0 mls/hr Titration: 05/18/19 08:30 Dose: 20 mg/hr, 20 mls/hr Titration: 05/18/19 08:20 Dose: 10 mg/hr, 10 mls/hr Admin: 05/18/19 08:14 Dose: 5 mg/hr, 5 mls/hr Ceftriaxone Sodium/Dextrose (Rocephin) 1 gm in 50 mls @ 100 mls/hr IV Q24H MARLEEN Last Infusion: 05/21/19 10:51 Dose: 0 mls/hr Admin: 05/21/19 09:03 Dose: 100 mls/hr Infusion: 05/20/19 09:25 Dose: 0 mls/hr Admin: 05/20/19 08:23 Dose: 100 mls/hr Infusion: 05/19/19 12:13 Dose: 0 mls/hr Admin: 05/19/19 09:59 Dose: 100 mls/hr Infusion: 05/18/19 11:27 Dose: 0 mls/hr Admin: 05/18/19 10:33 Dose: 100 mls/hr Potassium Chloride 40 meq/ (Sodium Chloride) 1,020 mls @ 75 mls/hr IV CONT MARLEEN Last Infusion: 05/21/19 09:40 Dose: 0 mls/hr Admin: 05/20/19 22:39 Dose: 75 mls/hr Infusion: 05/20/19 16:38 Dose: 75 mls/hr Admin: 05/20/19 03:02 Dose: 75 mls/hr Infusion: 05/20/19 03:02 Dose: 75 mls/hr Admin: 05/19/19 14:00 Dose: 75 mls/hr Lorazepam (Ativan) 1 mg IV NOW ONE Stop: 05/18/19 07:34 Last Admin: 05/18/19 07:46 Dose: 1 mg Lorazepam (Ativan) 0.5 mg IV Q2HR PRN PRN Reason: Anxiety Last Admin: 05/21/19 02:21 Dose: 0.5 mg Admin: 05/20/19 10:47 Dose: 0.5 mg Admin: 05/20/19 04:45 Dose: 0.5 mg Admin: 05/19/19 15:43 Dose: 0.5 mg Admin: 05/18/19 20:21 Dose: 0.5 mg Metoprolol Tartrate (Lopressor) 5 mg IV NOW ONE Stop: 05/18/19 04:08 Last Admin: 05/18/19 04:28 Dose: 5 mg Metoprolol Tartrate (Lopressor) 5 mg IV NOW ONE Stop: 05/18/19 04:45 Last Admin: 05/18/19 05:18 Dose: 5 mg Ondansetron HCl (Zofran) 4 mg IV NOW ONE Stop: 05/17/19 06:33 Last Admin: 05/17/19 06:36 Dose: 4 mg Phytonadione (Vitamin K) 10 mg IM NOW ONE Stop: 05/19/19 05:33 Last Admin: 05/19/19 06:15 Dose: Not Given Phytonadione (Mephyton) 5 mg PO NOW ONE Stop: 05/19/19 06:10 Last Admin: 05/19/19 06:20 Dose: 5 mg Potassium Chloride (Potassium Chloride) 60 meq PO NOW ONE Stop: 05/19/19 12:20 Last Admin: 05/19/19 14:00 Dose: 60 meq Vital Signs - 8 hr 05/21/19 20:28 Temperature 97.5 F L Pulse Rate 65 Respiratory Rate 16 Blood Pressure 110/73 Pulse Oximetry 98 MDM - Abdominal Pain <Apollo Tenorio DO - Last Filed: 05/21/19 23:47> Lab Data Attestation: I reviewed the patient's lab results. Result diagrams: 05/21/19 04:44 05/21/19 04:44 Lab Results 05/17/19 05/17/19 05/17/19 Range/Units 06:45 06:45 06:45 WBC 11.9 H (4.5-11.0) X10^3/uL RBC 4.63 (4.0-5.2) X10^6/uL Hgb 13.7 (12.0-16.0) g/dL Hct 40.2 (36-46) % MCV 86.8 (80-100) fL MCH 29.6 (26-34) PG MCHC 34.1 (30-36) % RDW 16.6 H (11.6-14.8) % Plt Count 649 H (150-400) X10^3/uL Neut % (Auto) 72.5 (50-75) % Lymph % (Auto) 9.2 L (25-40) % [place] % (Auto) 16.8 H (3-14) % Eos % (Auto) 0.8 L (2-4) % Baso % (Auto) 0.7 (0-2) % Neut # (Auto) 8600 H (7006-3110) /uL Lymph # (Auto) 1100 (4089-1716) /uL [place] # (Auto) 2000 H (0-900) /uL Eos # (Auto) 100 (0-450) /uL Baso # (Auto) 100 (0-100) /uL Total Counted Seg Neutrophils % (38-70) % Band Neutrophils % (3-7) % Lymphocytes % (Manual) (25-45) % Atypical Lymphs % ( - 0) % Monocytes % (Manual) (2-11) % Eosinophils % (Manual) (2-4) % Neutrophils # (Manual) (7121-4273) /uL RBC Morphology PT 46.4 H D (10.1-12.7) SECONDS INR 3.9 H (0.9-1.3) APTT 50 H D (26.4-36.2) SECONDS Fibrinogen (211-428) mg/dL Sodium 136 L (137-145) mmol/L Potassium 3.8 (3.4-5.1) mmol/L Chloride 92 L (98-107) mmol/L Carbon Dioxide 32 (22-32) mmol/L BUN 18 H (7-17) mg/dL Creatinine 0.80 (0.52-1.04) mg/dL Estimated GFR > 60.0 (>60) mL/min BUN/Creatinine Ratio 22.5 H (6-22) Glucose 125 H (80-110) mg/dL Calcium 8.9 (8.4-10.2) mg/dL Magnesium (1.6-2.3) mg/dL Total Bilirubin 4.0 H (0.2-1.3) mg/dL Conjugated Bilirubin (0.0-0.3) md/dL AST 20 (14-36) IU/L ALT 7 L (9-52) IU/L Alkaline Phosphatase 224 H (38-126) U/L Lactate Dehydrogenase (313-618) U/L Troponin I (0.01-0.034) ng/mL B-Natriuretic Peptide (<100) Total Protein 7.8 (6.3-8.2) g/dL Albumin 3.4 L (3.5-5.0) g/dL Globulin 4.4 H (1.7-4.1) g/dL Albumin/Globulin Ratio 0.8 L (1.0-2.8) Lipase 98 (23-300) U/L Urine RBC (0-5/HPF) Urine WBC (0-5/HPF) Amorphous Sediment Urine Bacteria (None) Ur Culture Indicated? Nasal Screen MRSA (PCR) (Negative) Stl C. cayetanensis PCR (Not Detect) Stool Rotavirus (PCR) (Not Detect) Stool Adenovirus (PCR) (Not Detect) Stool Astrovirus (PCR) (Not Detect) Stool Cryptosporidium PCR (Not Detect) Stl E.coli Shiga Tox PCR (Not Detect) St Sh/Enteroin Ecoli PCR (Not Detect) Stool E coli O157 PCR (Not Detect) Stl Enterotoxigenic E PCR (Not Detect) Stool EPEC (PCR) (Not Detect) Stl E. histolytica PCR (Not Detect) Stool Giardia Lamblia PCR (Not Detect) Stl P. shigelloides PCR (Not Detect) St Y.enterocolitica PCR (Not Detect) Stool Vibrio (PCR) (Not Detect) Stl Vibrio cholerae PCR (Not Detect) Stl Enteroaggr Ecoli PCR (Not Detect) Stl Norovirus GI/GII PCR (Not Detect) Campylobacter (PCR) (Not Detect) C. difficile Tox (PCR) Salmonella (PCR) (Not Detect) Blood Type Antibody Screen 05/17/19 05/18/19 05/18/19 Range/Units Unknown 04:00 04:00 WBC 11.2 H (4.5-11.0) X10^3/uL RBC 4.64 (4.0-5.2) X10^6/uL Hgb 13.4 (12.0-16.0) g/dL Hct 40.0 (36-46) % MCV 86.2 (80-100) fL MCH 28.9 (26-34) PG MCHC 33.6 (30-36) % RDW 16.8 H (11.6-14.8) % Plt Count 606 H (150-400) X10^3/uL Neut % (Auto) Not Reportable (50-75) % Lymph % (Auto) Not Reportable (25-40) % [place] % (Auto) Not Reportable (3-14) % Eos % (Auto) Not Reportable (2-4) % Baso % (Auto) Not Reportable (0-2) % Neut # (Auto) (5463-4851) /uL Lymph # (Auto) Not Reportable (1292-7815) /uL [place] # (Auto) Not Reportable (0-900) /uL Eos # (Auto) (0-450) /uL Baso # (Auto) Not Reportable (0-100) /uL Total Counted 100 Seg Neutrophils % 61.0 (38-70) % Band Neutrophils % 3.0 (3-7) % Lymphocytes % (Manual) 14.0 L (25-45) % Atypical Lymphs % 1.0 H ( - 0) % Monocytes % (Manual) 20.0 H (2-11) % Eosinophils % (Manual) 1.0 L (2-4) % Neutrophils # (Manual) 7168 H (2910-4465) /uL RBC Morphology Normal morphology PT 59.1 H D (10.1-12.7) SECONDS INR 4.9 H* (0.9-1.3) APTT (26.4-36.2) SECONDS Fibrinogen (211-428) mg/dL Sodium (137-145) mmol/L Potassium (3.4-5.1) mmol/L Chloride (98-107) mmol/L Carbon Dioxide (22-32) mmol/L BUN (7-17) mg/dL Creatinine (0.52-1.04) mg/dL Estimated GFR (>60) mL/min BUN/Creatinine Ratio (6-22) Glucose (80-110) mg/dL Calcium (8.4-10.2) mg/dL Magnesium (1.6-2.3) mg/dL Total Bilirubin (0.2-1.3) mg/dL Conjugated Bilirubin (0.0-0.3) md/dL AST (14-36) IU/L ALT (9-52) IU/L Alkaline Phosphatase (38-126) U/L Lactate Dehydrogenase (313-618) U/L Troponin I (0.01-0.034) ng/mL B-Natriuretic Peptide (<100) Total Protein (6.3-8.2) g/dL Albumin (3.5-5.0) g/dL Globulin (1.7-4.1) g/dL Albumin/Globulin Ratio (1.0-2.8) Lipase (23-300) U/L Urine RBC 5-10/hpf H (0-5/HPF) Urine WBC 30-100/hpf H (0-5/HPF) Amorphous Sediment 1+ Urine Bacteria Many (>30) H (None) Ur Culture Indicated? Specimen cultured Nasal Screen MRSA (PCR) (Negative) Stl C. cayetanensis PCR (Not Detect) Stool Rotavirus (PCR) (Not Detect) Stool Adenovirus (PCR) (Not Detect) Stool Astrovirus (PCR) (Not Detect) Stool Cryptosporidium PCR (Not Detect) Stl E.coli Shiga Tox PCR (Not Detect) St Sh/Enteroin Ecoli PCR (Not Detect) Stool E coli O157 PCR (Not Detect) Stl Enterotoxigenic E PCR (Not Detect) Stool EPEC (PCR) (Not Detect) Stl E. histolytica PCR (Not Detect) Stool Giardia Lamblia PCR (Not Detect) Stl P. shigelloides PCR (Not Detect) St Y.enterocolitica PCR (Not Detect) Stool Vibrio (PCR) (Not Detect) Stl Vibrio cholerae PCR (Not Detect) Stl Enteroaggr Ecoli PCR (Not Detect) Stl Norovirus GI/GII PCR (Not Detect) Campylobacter (PCR) (Not Detect) C. difficile Tox (PCR) Salmonella (PCR) (Not Detect) Blood Type Antibody Screen 05/18/19 05/18/19 05/18/19 Range/Units 04:00 04:00 08:00 WBC (4.5-11.0) X10^3/uL RBC (4.0-5.2) X10^6/uL Hgb (12.0-16.0) g/dL Hct (36-46) % MCV (80-100) fL MCH (26-34) PG MCHC (30-36) % RDW (11.6-14.8) % Plt Count (150-400) X10^3/uL Neut % (Auto) (50-75) % Lymph % (Auto) (25-40) % [place] % (Auto) (3-14) % Eos % (Auto) (2-4) % Baso % (Auto) (0-2) % Neut # (Auto) (0963-6770) /uL Lymph # (Auto) (6564-9382) /uL [place] # (Auto) (0-900) /uL Eos # (Auto) (0-450) /uL Baso # (Auto) (0-100) /uL Total Counted Seg Neutrophils % (38-70) % Band Neutrophils % (3-7) % Lymphocytes % (Manual) (25-45) % Atypical Lymphs % ( - 0) % Monocytes % (Manual) (2-11) % Eosinophils % (Manual) (2-4) % Neutrophils # (Manual) (7382-2023) /uL RBC Morphology PT (10.1-12.7) SECONDS INR (0.9-1.3) APTT (26.4-36.2) SECONDS Fibrinogen (211-428) mg/dL Sodium 141 (137-145) mmol/L Potassium 3.6 (3.4-5.1) mmol/L Chloride 98 (98-107) mmol/L Carbon Dioxide 31 (22-32) mmol/L BUN 19 H (7-17) mg/dL Creatinine 0.70 (0.52-1.04) mg/dL Estimated GFR > 60.0 (>60) mL/min BUN/Creatinine Ratio 27.1 H (6-22) Glucose 110 (80-110) mg/dL Calcium 8.6 (8.4-10.2) mg/dL Magnesium 2.3 (1.6-2.3) mg/dL Total Bilirubin (0.2-1.3) mg/dL Conjugated Bilirubin (0.0-0.3) md/dL AST (14-36) IU/L ALT (9-52) IU/L Alkaline Phosphatase (38-126) U/L Lactate Dehydrogenase (313-618) U/L Troponin I (0.01-0.034) ng/mL B-Natriuretic Peptide (<100) Total Protein (6.3-8.2) g/dL Albumin (3.5-5.0) g/dL Globulin (1.7-4.1) g/dL Albumin/Globulin Ratio (1.0-2.8) Lipase (23-300) U/L Urine RBC (0-5/HPF) Urine WBC (0-5/HPF) Amorphous Sediment Urine Bacteria (None) Ur Culture Indicated? Nasal Screen MRSA (PCR) Negative for mrsa (Negative) Stl C. cayetanensis PCR (Not Detect) Stool Rotavirus (PCR) (Not Detect) Stool Adenovirus (PCR) (Not Detect) Stool Astrovirus (PCR) (Not Detect) Stool Cryptosporidium PCR (Not Detect) Stl E.coli Shiga Tox PCR (Not Detect) St Sh/Enteroin Ecoli PCR (Not Detect) Stool E coli O157 PCR (Not Detect) Stl Enterotoxigenic E PCR (Not Detect) Stool EPEC (PCR) (Not Detect) Stl E. histolytica PCR (Not Detect) Stool Giardia Lamblia PCR (Not Detect) Stl P. shigelloides PCR (Not Detect) St Y.enterocolitica PCR (Not Detect) Stool Vibrio (PCR) (Not Detect) Stl Vibrio cholerae PCR (Not Detect) Stl Enteroaggr Ecoli PCR (Not Detect) Stl Norovirus GI/GII PCR (Not Detect) Campylobacter (PCR) (Not Detect) C. difficile Tox (PCR) Salmonella (PCR) (Not Detect) Blood Type Antibody Screen 05/19/19 05/19/19 05/19/19 Range/Units 04:40 04:40 04:40 WBC 9.7 (4.5-11.0) X10^3/uL RBC 4.39 (4.0-5.2) X10^6/uL Hgb 12.9 (12.0-16.0) g/dL Hct 38.9 (36-46) % MCV 88.6 (80-100) fL MCH 29.3 (26-34) PG MCHC 33.1 (30-36) % RDW 17.0 H (11.6-14.8) % Plt Count 607 H (150-400) X10^3/uL Neut % (Auto) 64.8 (50-75) % Lymph % (Auto) 11.1 L (25-40) % [place] % (Auto) 19.8 H (3-14) % Eos % (Auto) 3.6 (2-4) % Baso % (Auto) 0.7 (0-2) % Neut # (Auto) 6300 (1016-5497) /uL Lymph # (Auto) 1100 (5441-4891) /uL [place] # (Auto) 1900 H (0-900) /uL Eos # (Auto) 300 (0-450) /uL Baso # (Auto) 100 (0-100) /uL Total Counted Seg Neutrophils % (38-70) % Band Neutrophils % (3-7) % Lymphocytes % (Manual) (25-45) % Atypical Lymphs % ( - 0) % Monocytes % (Manual) (2-11) % Eosinophils % (Manual) (2-4) % Neutrophils # (Manual) (8544-7439) /uL RBC Morphology PT (10.1-12.7) SECONDS INR (0.9-1.3) APTT (26.4-36.2) SECONDS Fibrinogen (211-428) mg/dL Sodium 141 (137-145) mmol/L Potassium 3.4 (3.4-5.1) mmol/L Chloride 99 (98-107) mmol/L Carbon Dioxide 33 H (22-32) mmol/L BUN 22 H (7-17) mg/dL Creatinine 0.70 (0.52-1.04) mg/dL Estimated GFR > 60.0 (>60) mL/min BUN/Creatinine Ratio 31.4 H (6-22) Glucose 136 H (80-110) mg/dL Calcium 8.3 L (8.4-10.2) mg/dL Magnesium (1.6-2.3) mg/dL Total Bilirubin 3.5 H (0.2-1.3) mg/dL Conjugated Bilirubin (0.0-0.3) md/dL AST 19 (14-36) IU/L ALT 11 (9-52) IU/L Alkaline Phosphatase 159 H (38-126) U/L Lactate Dehydrogenase (313-618) U/L Troponin I (0.01-0.034) ng/mL B-Natriuretic Peptide 942 H (<100) Total Protein 7.2 (6.3-8.2) g/dL Albumin 3.0 L (3.5-5.0) g/dL Globulin 4.2 H (1.7-4.1) g/dL Albumin/Globulin Ratio 0.7 L (1.0-2.8) Lipase (23-300) U/L Urine RBC (0-5/HPF) Urine WBC (0-5/HPF) Amorphous Sediment Urine Bacteria (None) Ur Culture Indicated? Nasal Screen MRSA (PCR) (Negative) Stl C. cayetanensis PCR (Not Detect) Stool Rotavirus (PCR) (Not Detect) Stool Adenovirus (PCR) (Not Detect) Stool Astrovirus (PCR) (Not Detect) Stool Cryptosporidium PCR (Not Detect) Stl E.coli Shiga Tox PCR (Not Detect) St Sh/Enteroin Ecoli PCR (Not Detect) Stool E coli O157 PCR (Not Detect) Stl Enterotoxigenic E PCR (Not Detect) Stool EPEC (PCR) (Not Detect) Stl E. histolytica PCR (Not Detect) Stool Giardia Lamblia PCR (Not Detect) Stl P. shigelloides PCR (Not Detect) St Y.enterocolitica PCR (Not Detect) Stool Vibrio (PCR) (Not Detect) Stl Vibrio cholerae PCR (Not Detect) Stl Enteroaggr Ecoli PCR (Not Detect) Stl Norovirus GI/GII PCR (Not Detect) Campylobacter (PCR) (Not Detect) C. difficile Tox (PCR) Salmonella (PCR) (Not Detect) Blood Type Antibody Screen 05/19/19 05/19/19 05/19/19 Range/Units 04:40 08:50 08:50 WBC (4.5-11.0) X10^3/uL RBC (4.0-5.2) X10^6/uL Hgb (12.0-16.0) g/dL Hct (36-46) % MCV (80-100) fL MCH (26-34) PG MCHC (30-36) % RDW (11.6-14.8) % Plt Count (150-400) X10^3/uL Neut % (Auto) (50-75) % Lymph % (Auto) (25-40) % [place] % (Auto) (3-14) % Eos % (Auto) (2-4) % Baso % (Auto) (0-2) % Neut # (Auto) (8663-7692) /uL Lymph # (Auto) (8931-1857) /uL [place] # (Auto) (0-900) /uL Eos # (Auto) (0-450) /uL Baso # (Auto) (0-100) /uL Total Counted Seg Neutrophils % (38-70) % Band Neutrophils % (3-7) % Lymphocytes % (Manual) (25-45) % Atypical Lymphs % ( - 0) % Monocytes % (Manual) (2-11) % Eosinophils % (Manual) (2-4) % Neutrophils # (Manual) (4177-5724) /uL RBC Morphology PT 91.6 H D 91.0 H (10.1-12.7) SECONDS INR 7.6 H* 7.5 H* (0.9-1.3) APTT (26.4-36.2) SECONDS Fibrinogen (211-428) mg/dL Sodium (137-145) mmol/L Potassium (3.4-5.1) mmol/L Chloride (98-107) mmol/L Carbon Dioxide (22-32) mmol/L BUN (7-17) mg/dL Creatinine (0.52-1.04) mg/dL Estimated GFR (>60) mL/min BUN/Creatinine Ratio (6-22) Glucose (80-110) mg/dL Calcium (8.4-10.2) mg/dL Magnesium 2.7 H (1.6-2.3) mg/dL Total Bilirubin (0.2-1.3) mg/dL Conjugated Bilirubin (0.0-0.3) md/dL AST (14-36) IU/L ALT (9-52) IU/L Alkaline Phosphatase (38-126) U/L Lactate Dehydrogenase (313-618) U/L Troponin I (0.01-0.034) ng/mL B-Natriuretic Peptide (<100) Total Protein (6.3-8.2) g/dL Albumin (3.5-5.0) g/dL Globulin (1.7-4.1) g/dL Albumin/Globulin Ratio (1.0-2.8) Lipase (23-300) U/L Urine RBC (0-5/HPF) Urine WBC (0-5/HPF) Amorphous Sediment Urine Bacteria (None) Ur Culture Indicated? Nasal Screen MRSA (PCR) (Negative) Stl C. cayetanensis PCR (Not Detect) Stool Rotavirus (PCR) (Not Detect) Stool Adenovirus (PCR) (Not Detect) Stool Astrovirus (PCR) (Not Detect) Stool Cryptosporidium PCR (Not Detect) Stl E.coli Shiga Tox PCR (Not Detect) St Sh/Enteroin Ecoli PCR (Not Detect) Stool E coli O157 PCR (Not Detect) Stl Enterotoxigenic E PCR (Not Detect) Stool EPEC (PCR) (Not Detect) Stl E. histolytica PCR (Not Detect) Stool Giardia Lamblia PCR (Not Detect) Stl P. shigelloides PCR (Not Detect) St Y.enterocolitica PCR (Not Detect) Stool Vibrio (PCR) (Not Detect) Stl Vibrio cholerae PCR (Not Detect) Stl Enteroaggr Ecoli PCR (Not Detect) Stl Norovirus GI/GII PCR (Not Detect) Campylobacter (PCR) (Not Detect) C. difficile Tox (PCR) Salmonella (PCR) (Not Detect) Blood Type Antibody Screen 05/19/19 05/19/19 05/19/19 Range/Units 16:50 16:50 16:50 WBC (4.5-11.0) X10^3/uL RBC (4.0-5.2) X10^6/uL Hgb (12.0-16.0) g/dL Hct (36-46) % MCV (80-100) fL MCH (26-34) PG MCHC (30-36) % RDW (11.6-14.8) % Plt Count (150-400) X10^3/uL Neut % (Auto) (50-75) % Lymph % (Auto) (25-40) % [place] % (Auto) (3-14) % Eos % (Auto) (2-4) % Baso % (Auto) (0-2) % Neut # (Auto) (6060-9336) /uL Lymph # (Auto) (9295-1307) /uL [place] # (Auto) (0-900) /uL Eos # (Auto) (0-450) /uL Baso # (Auto) (0-100) /uL Total Counted Seg Neutrophils % (38-70) % Band Neutrophils % (3-7) % Lymphocytes % (Manual) (25-45) % Atypical Lymphs % ( - 0) % Monocytes % (Manual) (2-11) % Eosinophils % (Manual) (2-4) % Neutrophils # (Manual) (4575-6242) /uL RBC Morphology PT 96.2 H D (10.1-12.7) SECONDS INR 8.0 H* (0.9-1.3) APTT (26.4-36.2) SECONDS Fibrinogen 312 (211-428) mg/dL Sodium (137-145) mmol/L Potassium (3.4-5.1) mmol/L Chloride (98-107) mmol/L Carbon Dioxide (22-32) mmol/L BUN (7-17) mg/dL Creatinine (0.52-1.04) mg/dL Estimated GFR (>60) mL/min BUN/Creatinine Ratio (6-22) Glucose (80-110) mg/dL Calcium (8.4-10.2) mg/dL Magnesium (1.6-2.3) mg/dL Total Bilirubin (0.2-1.3) mg/dL Conjugated Bilirubin 1.3 H (0.0-0.3) md/dL AST (14-36) IU/L ALT (9-52) IU/L Alkaline Phosphatase (38-126) U/L Lactate Dehydrogenase (313-618) U/L Troponin I (0.01-0.034) ng/mL B-Natriuretic Peptide (<100) Total Protein (6.3-8.2) g/dL Albumin (3.5-5.0) g/dL Globulin (1.7-4.1) g/dL Albumin/Globulin Ratio (1.0-2.8) Lipase (23-300) U/L Urine RBC (0-5/HPF) Urine WBC (0-5/HPF) Amorphous Sediment Urine Bacteria (None) Ur Culture Indicated? Nasal Screen MRSA (PCR) (Negative) Stl C. cayetanensis PCR (Not Detect) Stool Rotavirus (PCR) (Not Detect) Stool Adenovirus (PCR) (Not Detect) Stool Astrovirus (PCR) (Not Detect) Stool Cryptosporidium PCR (Not Detect) Stl E.coli Shiga Tox PCR (Not Detect) St Sh/Enteroin Ecoli PCR (Not Detect) Stool E coli O157 PCR (Not Detect) Stl Enterotoxigenic E PCR (Not Detect) Stool EPEC (PCR) (Not Detect) Stl E. histolytica PCR (Not Detect) Stool Giardia Lamblia PCR (Not Detect) Stl P. shigelloides PCR (Not Detect) St Y.enterocolitica PCR (Not Detect) Stool Vibrio (PCR) (Not Detect) Stl Vibrio cholerae PCR (Not Detect) Stl Enteroaggr Ecoli PCR (Not Detect) Stl Norovirus GI/GII PCR (Not Detect) Campylobacter (PCR) (Not Detect) C. difficile Tox (PCR) Salmonella (PCR) (Not Detect) Blood Type Antibody Screen 05/19/19 05/19/19 05/20/19 Range/Units 16:50 17:00 04:39 WBC (4.5-11.0) X10^3/uL RBC (4.0-5.2) X10^6/uL Hgb (12.0-16.0) g/dL Hct (36-46) % MCV (80-100) fL MCH (26-34) PG MCHC (30-36) % RDW (11.6-14.8) % Plt Count (150-400) X10^3/uL Neut % (Auto) (50-75) % Lymph % (Auto) (25-40) % [place] % (Auto) (3-14) % Eos % (Auto) (2-4) % Baso % (Auto) (0-2) % Neut # (Auto) (4173-8404) /uL Lymph # (Auto) (7728-2168) /uL [place] # (Auto) (0-900) /uL Eos # (Auto) (0-450) /uL Baso # (Auto) (0-100) /uL Total Counted Seg Neutrophils % (38-70) % Band Neutrophils % (3-7) % Lymphocytes % (Manual) (25-45) % Atypical Lymphs % ( - 0) % Monocytes % (Manual) (2-11) % Eosinophils % (Manual) (2-4) % Neutrophils # (Manual) (9543-0152) /uL RBC Morphology PT (10.1-12.7) SECONDS INR (0.9-1.3) APTT (26.4-36.2) SECONDS Fibrinogen (211-428) mg/dL Sodium (137-145) mmol/L Potassium (3.4-5.1) mmol/L Chloride (98-107) mmol/L Carbon Dioxide (22-32) mmol/L BUN (7-17) mg/dL Creatinine (0.52-1.04) mg/dL Estimated GFR (>60) mL/min BUN/Creatinine Ratio (6-22) Glucose (80-110) mg/dL Calcium (8.4-10.2) mg/dL Magnesium (1.6-2.3) mg/dL Total Bilirubin (0.2-1.3) mg/dL Conjugated Bilirubin (0.0-0.3) md/dL AST (14-36) IU/L ALT (9-52) IU/L Alkaline Phosphatase (38-126) U/L Lactate Dehydrogenase (313-618) U/L Troponin I (0.01-0.034) ng/mL B-Natriuretic Peptide 635 H (<100) Total Protein (6.3-8.2) g/dL Albumin (3.5-5.0) g/dL Globulin (1.7-4.1) g/dL Albumin/Globulin Ratio (1.0-2.8) Lipase (23-300) U/L Urine RBC (0-5/HPF) Urine WBC (0-5/HPF) Amorphous Sediment Urine Bacteria (None) Ur Culture Indicated? Nasal Screen MRSA (PCR) (Negative) Stl C. cayetanensis PCR (Not Detect) Stool Rotavirus (PCR) (Not Detect) Stool Adenovirus (PCR) (Not Detect) Stool Astrovirus (PCR) (Not Detect) Stool Cryptosporidium PCR (Not Detect) Stl E.coli Shiga Tox PCR (Not Detect) St Sh/Enteroin Ecoli PCR (Not Detect) Stool E coli O157 PCR (Not Detect) Stl Enterotoxigenic E PCR (Not Detect) Stool EPEC (PCR) (Not Detect) Stl E. histolytica PCR (Not Detect) Stool Giardia Lamblia PCR (Not Detect) Stl P. shigelloides PCR (Not Detect) St Y.enterocolitica PCR (Not Detect) Stool Vibrio (PCR) (Not Detect) Stl Vibrio cholerae PCR (Not Detect) Stl Enteroaggr Ecoli PCR (Not Detect) Stl Norovirus GI/GII PCR (Not Detect) Campylobacter (PCR) (Not Detect) C. difficile Tox (PCR) Negative for c. diff Salmonella (PCR) (Not Detect) Blood Type AB Positive Antibody Screen Negative 05/20/19 05/20/19 05/20/19 Range/Units 04:39 04:39 04:39 WBC 10.8 (4.5-11.0) X10^3/uL RBC 4.45 (4.0-5.2) X10^6/uL Hgb 13.3 (12.0-16.0) g/dL Hct 39.2 (36-46) % MCV 88.2 (80-100) fL MCH 29.8 (26-34) PG MCHC 33.8 (30-36) % RDW 17.6 H (11.6-14.8) % Plt Count 596 H (150-400) X10^3/uL Neut % (Auto) 71.0 (50-75) % Lymph % (Auto) 9.7 L (25-40) % [place] % (Auto) 15.9 H (3-14) % Eos % (Auto) 3.0 (2-4) % Baso % (Auto) 0.4 (0-2) % Neut # (Auto) 7600 H (5048-4393) /uL Lymph # (Auto) 1000 L (0579-9274) /uL [place] # (Auto) 1700 H (0-900) /uL Eos # (Auto) 300 (0-450) /uL Baso # (Auto) 0 (0-100) /uL Total Counted Seg Neutrophils % (38-70) % Band Neutrophils % (3-7) % Lymphocytes % (Manual) (25-45) % Atypical Lymphs % ( - 0) % Monocytes % (Manual) (2-11) % Eosinophils % (Manual) (2-4) % Neutrophils # (Manual) (5642-0020) /uL RBC Morphology PT 97.9 H (10.1-12.7) SECONDS INR 8.1 H* (0.9-1.3) APTT (26.4-36.2) SECONDS Fibrinogen (211-428) mg/dL Sodium (137-145) mmol/L Potassium (3.4-5.1) mmol/L Chloride (98-107) mmol/L Carbon Dioxide (22-32) mmol/L BUN (7-17) mg/dL Creatinine (0.52-1.04) mg/dL Estimated GFR (>60) mL/min BUN/Creatinine Ratio (6-22) Glucose (80-110) mg/dL Calcium (8.4-10.2) mg/dL Magnesium 2.5 H (1.6-2.3) mg/dL Total Bilirubin (0.2-1.3) mg/dL Conjugated Bilirubin (0.0-0.3) md/dL AST (14-36) IU/L ALT (9-52) IU/L Alkaline Phosphatase (38-126) U/L Lactate Dehydrogenase (313-618) U/L Troponin I (0.01-0.034) ng/mL B-Natriuretic Peptide (<100) Total Protein (6.3-8.2) g/dL Albumin (3.5-5.0) g/dL Globulin (1.7-4.1) g/dL Albumin/Globulin Ratio (1.0-2.8) Lipase (23-300) U/L Urine RBC (0-5/HPF) Urine WBC (0-5/HPF) Amorphous Sediment Urine Bacteria (None) Ur Culture Indicated? Nasal Screen MRSA (PCR) (Negative) Stl C. cayetanensis PCR (Not Detect) Stool Rotavirus (PCR) (Not Detect) Stool Adenovirus (PCR) (Not Detect) Stool Astrovirus (PCR) (Not Detect) Stool Cryptosporidium PCR (Not Detect) Stl E.coli Shiga Tox PCR (Not Detect) St Sh/Enteroin Ecoli PCR (Not Detect) Stool E coli O157 PCR (Not Detect) Stl Enterotoxigenic E PCR (Not Detect) Stool EPEC (PCR) (Not Detect) Stl E. histolytica PCR (Not Detect) Stool Giardia Lamblia PCR (Not Detect) Stl P. shigelloides PCR (Not Detect) St Y.enterocolitica PCR (Not Detect) Stool Vibrio (PCR) (Not Detect) Stl Vibrio cholerae PCR (Not Detect) Stl Enteroaggr Ecoli PCR (Not Detect) Stl Norovirus GI/GII PCR (Not Detect) Campylobacter (PCR) (Not Detect) C. difficile Tox (PCR) Salmonella (PCR) (Not Detect) Blood Type Antibody Screen 05/20/19 05/20/19 05/20/19 Range/Units 04:39 04:39 17:25 WBC (4.5-11.0) X10^3/uL RBC (4.0-5.2) X10^6/uL Hgb (12.0-16.0) g/dL Hct (36-46) % MCV (80-100) fL MCH (26-34) PG MCHC (30-36) % RDW (11.6-14.8) % Plt Count (150-400) X10^3/uL Neut % (Auto) (50-75) % Lymph % (Auto) (25-40) % [place] % (Auto) (3-14) % Eos % (Auto) (2-4) % Baso % (Auto) (0-2) % Neut # (Auto) (3014-4554) /uL Lymph # (Auto) (3585-2931) /uL [place] # (Auto) (0-900) /uL Eos # (Auto) (0-450) /uL Baso # (Auto) (0-100) /uL Total Counted Seg Neutrophils % (38-70) % Band Neutrophils % (3-7) % Lymphocytes % (Manual) (25-45) % Atypical Lymphs % ( - 0) % Monocytes % (Manual) (2-11) % Eosinophils % (Manual) (2-4) % Neutrophils # (Manual) (7740-6920) /uL RBC Morphology PT 49.6 H D (10.1-12.7) SECONDS INR 4.2 H (0.9-1.3) APTT (26.4-36.2) SECONDS Fibrinogen (211-428) mg/dL Sodium 140 (137-145) mmol/L Potassium 3.9 (3.4-5.1) mmol/L Chloride 101 (98-107) mmol/L Carbon Dioxide 32 (22-32) mmol/L BUN 19 H (7-17) mg/dL Creatinine 0.70 (0.52-1.04) mg/dL Estimated GFR > 60.0 (>60) mL/min BUN/Creatinine Ratio 27.1 H (6-22) Glucose 121 H (80-110) mg/dL Calcium 8.3 L (8.4-10.2) mg/dL Magnesium (1.6-2.3) mg/dL Total Bilirubin 3.4 H (0.2-1.3) mg/dL Conjugated Bilirubin (0.0-0.3) md/dL AST 23 (14-36) IU/L ALT 13 (9-52) IU/L Alkaline Phosphatase 166 H (38-126) U/L Lactate Dehydrogenase 685 H (313-618) U/L Troponin I (0.01-0.034) ng/mL B-Natriuretic Peptide (<100) Total Protein 7.4 (6.3-8.2) g/dL Albumin 3.0 L (3.5-5.0) g/dL Globulin 4.4 H (1.7-4.1) g/dL Albumin/Globulin Ratio 0.7 L (1.0-2.8) Lipase (23-300) U/L Urine RBC (0-5/HPF) Urine WBC (0-5/HPF) Amorphous Sediment Urine Bacteria (None) Ur Culture Indicated? Nasal Screen MRSA (PCR) (Negative) Stl C. cayetanensis PCR (Not Detect) Stool Rotavirus (PCR) (Not Detect) Stool Adenovirus (PCR) (Not Detect) Stool Astrovirus (PCR) (Not Detect) Stool Cryptosporidium PCR (Not Detect) Stl E.coli Shiga Tox PCR (Not Detect) St Sh/Enteroin Ecoli PCR (Not Detect) Stool E coli O157 PCR (Not Detect) Stl Enterotoxigenic E PCR (Not Detect) Stool EPEC (PCR) (Not Detect) Stl E. histolytica PCR (Not Detect) Stool Giardia Lamblia PCR (Not Detect) Stl P. shigelloides PCR (Not Detect) St Y.enterocolitica PCR (Not Detect) Stool Vibrio (PCR) (Not Detect) Stl Vibrio cholerae PCR (Not Detect) Stl Enteroaggr Ecoli PCR (Not Detect) Stl Norovirus GI/GII PCR (Not Detect) Campylobacter (PCR) (Not Detect) C. difficile Tox (PCR) Salmonella (PCR) (Not Detect) Blood Type Antibody Screen 05/21/19 05/21/19 05/21/19 Range/Units 04:44 04:44 04:44 WBC 11.4 H (4.5-11.0) X10^3/uL RBC 4.28 (4.0-5.2) X10^6/uL Hgb 12.6 (12.0-16.0) g/dL Hct 37.7 (36-46) % MCV 88.0 (80-100) fL MCH 29.4 (26-34) PG MCHC 33.4 (30-36) % RDW 17.2 H (11.6-14.8) % Plt Count 532 H (150-400) X10^3/uL Neut % (Auto) 69.8 (50-75) % Lymph % (Auto) 10.7 L (25-40) % [place] % (Auto) 15.8 H (3-14) % Eos % (Auto) 3.4 (2-4) % Baso % (Auto) 0.3 (0-2) % Neut # (Auto) 8000 H (9846-5615) /uL Lymph # (Auto) 1200 (0433-0975) /uL [place] # (Auto) 1800 H (0-900) /uL Eos # (Auto) 400 (0-450) /uL Baso # (Auto) 0 (0-100) /uL Total Counted Seg Neutrophils % (38-70) % Band Neutrophils % (3-7) % Lymphocytes % (Manual) (25-45) % Atypical Lymphs % ( - 0) % Monocytes % (Manual) (2-11) % Eosinophils % (Manual) (2-4) % Neutrophils # (Manual) (3559-6547) /uL RBC Morphology PT 50.3 H (10.1-12.7) SECONDS INR 4.2 H (0.9-1.3) APTT (26.4-36.2) SECONDS Fibrinogen (211-428) mg/dL Sodium 139 (137-145) mmol/L Potassium 4.1 (3.4-5.1) mmol/L Chloride 101 (98-107) mmol/L Carbon Dioxide 31 (22-32) mmol/L BUN 16 (7-17) mg/dL Creatinine 0.70 (0.52-1.04) mg/dL Estimated GFR > 60.0 (>60) mL/min BUN/Creatinine Ratio 22.9 H (6-22) Glucose 84 (80-110) mg/dL Calcium 8.4 (8.4-10.2) mg/dL Magnesium (1.6-2.3) mg/dL Total Bilirubin 3.1 H (0.2-1.3) mg/dL Conjugated Bilirubin (0.0-0.3) md/dL AST 24 (14-36) IU/L ALT 15 (9-52) IU/L Alkaline Phosphatase 156 H (38-126) U/L Lactate Dehydrogenase (313-618) U/L Troponin I < 0.012 (0.01-0.034) ng/mL B-Natriuretic Peptide 571 H (<100) Total Protein 7.4 (6.3-8.2) g/dL Albumin 3.1 L (3.5-5.0) g/dL Globulin 4.3 H (1.7-4.1) g/dL Albumin/Globulin Ratio 0.7 L (1.0-2.8) Lipase (23-300) U/L Urine RBC (0-5/HPF) Urine WBC (0-5/HPF) Amorphous Sediment Urine Bacteria (None) Ur Culture Indicated? Nasal Screen MRSA (PCR) (Negative) Stl C. cayetanensis PCR (Not Detect) Stool Rotavirus (PCR) (Not Detect) Stool Adenovirus (PCR) (Not Detect) Stool Astrovirus (PCR) (Not Detect) Stool Cryptosporidium PCR (Not Detect) Stl E.coli Shiga Tox PCR (Not Detect) St Sh/Enteroin Ecoli PCR (Not Detect) Stool E coli O157 PCR (Not Detect) Stl Enterotoxigenic E PCR (Not Detect) Stool EPEC (PCR) (Not Detect) Stl E. histolytica PCR (Not Detect) Stool Giardia Lamblia PCR (Not Detect) Stl P. shigelloides PCR (Not Detect) St Y.enterocolitica PCR (Not Detect) Stool Vibrio (PCR) (Not Detect) Stl Vibrio cholerae PCR (Not Detect) Stl Enteroaggr Ecoli PCR (Not Detect) Stl Norovirus GI/GII PCR (Not Detect) Campylobacter (PCR) (Not Detect) C. difficile Tox (PCR) Salmonella (PCR) (Not Detect) Blood Type Antibody Screen 05/21/19 Range/Units 09:10 WBC (4.5-11.0) X10^3/uL RBC (4.0-5.2) X10^6/uL Hgb (12.0-16.0) g/dL Hct (36-46) % MCV (80-100) fL MCH (26-34) PG MCHC (30-36) % RDW (11.6-14.8) % Plt Count (150-400) X10^3/uL Neut % (Auto) (50-75) % Lymph % (Auto) (25-40) % [place] % (Auto) (3-14) % Eos % (Auto) (2-4) % Baso % (Auto) (0-2) % Neut # (Auto) (2934-3791) /uL Lymph # (Auto) (5653-4151) /uL [place] # (Auto) (0-900) /uL Eos # (Auto) (0-450) /uL Baso # (Auto) (0-100) /uL Total Counted Seg Neutrophils % (38-70) % Band Neutrophils % (3-7) % Lymphocytes % (Manual) (25-45) % Atypical Lymphs % ( - 0) % Monocytes % (Manual) (2-11) % Eosinophils % (Manual) (2-4) % Neutrophils # (Manual) (8744-6119) /uL RBC Morphology PT (10.1-12.7) SECONDS INR (0.9-1.3) APTT (26.4-36.2) SECONDS Fibrinogen (211-428) mg/dL Sodium (137-145) mmol/L Potassium (3.4-5.1) mmol/L Chloride (98-107) mmol/L Carbon Dioxide (22-32) mmol/L BUN (7-17) mg/dL Creatinine (0.52-1.04) mg/dL Estimated GFR (>60) mL/min BUN/Creatinine Ratio (6-22) Glucose (80-110) mg/dL Calcium (8.4-10.2) mg/dL Magnesium (1.6-2.3) mg/dL Total Bilirubin (0.2-1.3) mg/dL Conjugated Bilirubin (0.0-0.3) md/dL AST (14-36) IU/L ALT (9-52) IU/L Alkaline Phosphatase (38-126) U/L Lactate Dehydrogenase (313-618) U/L Troponin I (0.01-0.034) ng/mL B-Natriuretic Peptide (<100) Total Protein (6.3-8.2) g/dL Albumin (3.5-5.0) g/dL Globulin (1.7-4.1) g/dL Albumin/Globulin Ratio (1.0-2.8) Lipase (23-300) U/L Urine RBC (0-5/HPF) Urine WBC (0-5/HPF) Amorphous Sediment Urine Bacteria (None) Ur Culture Indicated? Nasal Screen MRSA (PCR) (Negative) Stl C. cayetanensis PCR Not detected (Not Detect) Stool Rotavirus (PCR) Not detected (Not Detect) Stool Adenovirus (PCR) Not detected (Not Detect) Stool Astrovirus (PCR) Not detected (Not Detect) Stool Cryptosporidium PCR Not detected (Not Detect) Stl E.coli Shiga Tox PCR Not detected (Not Detect) St Sh/Enteroin Ecoli PCR Not detected (Not Detect) Stool E coli O157 PCR Not detected (Not Detect) Stl Enterotoxigenic E PCR Not detected (Not Detect) Stool EPEC (PCR) Not detected (Not Detect) Stl E. histolytica PCR Not detected (Not Detect) Stool Giardia Lamblia PCR Not detected (Not Detect) Stl P. shigelloides PCR Not detected (Not Detect) St Y.enterocolitica PCR Not detected (Not Detect) Stool Vibrio (PCR) Not detected (Not Detect) Stl Vibrio cholerae PCR Not detected (Not Detect) Stl Enteroaggr Ecoli PCR Not detected (Not Detect) Stl Norovirus GI/GII PCR Not detected (Not Detect) Campylobacter (PCR) Not detected (Not Detect) C. difficile Tox (PCR) Not detected Salmonella (PCR) Not detected (Not Detect) Blood Type Antibody Screen Point of care testing: Urine Dip Bedside Urine Glucose Negative Bedside Urine Bilirubin + 1 Bedside Urine Ketone - Negative Urine Specific [place] 1.025 Bedside Urine Occult Blood +++ Bedside Urine pH 5.5 Bedside Urine Protein + 30 Bedside Urine Urobilinogen 1+ 2mg Bedside Urine Nitrite - Negative Bedside Urine Leukocytes +++ 500 Esterase <Jessy Alatorre MD - Last Filed: 05/17/19 19:09> Medical Records Attestation: I reviewed the patient's medical records. Lab Data Attestation: I reviewed the patient's lab results. Lab Results 05/17/19 05/17/19 05/17/19 Range/Units 06:45 06:45 06:45 WBC 11.9 H (4.5-11.0) X10^3/uL RBC 4.63 (4.0-5.2) X10^6/uL Hgb 13.7 (12.0-16.0) g/dL Hct 40.2 (36-46) % MCV 86.8 (80-100) fL MCH 29.6 (26-34) PG MCHC 34.1 (30-36) % RDW 16.6 H (11.6-14.8) % Plt Count 649 H (150-400) X10^3/uL Neut % (Auto) 72.5 (50-75) % Lymph % (Auto) 9.2 L (25-40) % [place] % (Auto) 16.8 H (3-14) % Eos % (Auto) 0.8 L (2-4) % Baso % (Auto) 0.7 (0-2) % Neut # (Auto) 8600 H (8251-4817) /uL Lymph # (Auto) 1100 (7030-7812) /uL [place] # (Auto) 2000 H (0-900) /uL Eos # (Auto) 100 (0-450) /uL Baso # (Auto) 100 (0-100) /uL Total Counted Seg Neutrophils % (38-70) % Band Neutrophils % (3-7) % Lymphocytes % (Manual) (25-45) % Atypical Lymphs % ( - 0) % Monocytes % (Manual) (2-11) % Eosinophils % (Manual) (2-4) % Neutrophils # (Manual) (4707-0811) /uL RBC Morphology PT 46.4 H D (10.1-12.7) SECONDS INR 3.9 H (0.9-1.3) APTT 50 H D (26.4-36.2) SECONDS Fibrinogen (211-428) mg/dL Sodium 136 L (137-145) mmol/L Potassium 3.8 (3.4-5.1) mmol/L Chloride 92 L (98-107) mmol/L Carbon Dioxide 32 (22-32) mmol/L BUN 18 H (7-17) mg/dL Creatinine 0.80 (0.52-1.04) mg/dL Estimated GFR > 60.0 (>60) mL/min BUN/Creatinine Ratio 22.5 H (6-22) Glucose 125 H (80-110) mg/dL Calcium 8.9 (8.4-10.2) mg/dL Magnesium (1.6-2.3) mg/dL Total Bilirubin 4.0 H (0.2-1.3) mg/dL Conjugated Bilirubin (0.0-0.3) md/dL AST 20 (14-36) IU/L ALT 7 L (9-52) IU/L Alkaline Phosphatase 224 H (38-126) U/L Lactate Dehydrogenase (313-618) U/L Troponin I (0.01-0.034) ng/mL B-Natriuretic Peptide (<100) Total Protein 7.8 (6.3-8.2) g/dL Albumin 3.4 L (3.5-5.0) g/dL Globulin 4.4 H (1.7-4.1) g/dL Albumin/Globulin Ratio 0.8 L (1.0-2.8) Lipase 98 (23-300) U/L Urine RBC (0-5/HPF) Urine WBC (0-5/HPF) Amorphous Sediment Urine Bacteria (None) Ur Culture Indicated? Nasal Screen MRSA (PCR) (Negative) Stl C. cayetanensis PCR (Not Detect) Stool Rotavirus (PCR) (Not Detect) Stool Adenovirus (PCR) (Not Detect) Stool Astrovirus (PCR) (Not Detect) Stool Cryptosporidium PCR (Not Detect) Stl E.coli Shiga Tox PCR (Not Detect) St Sh/Enteroin Ecoli PCR (Not Detect) Stool E coli O157 PCR (Not Detect) Stl Enterotoxigenic E PCR (Not Detect) Stool EPEC (PCR) (Not Detect) Stl E. histolytica PCR (Not Detect) Stool Giardia Lamblia PCR (Not Detect) Stl P. shigelloides PCR (Not Detect) St Y.enterocolitica PCR (Not Detect) Stool Vibrio (PCR) (Not Detect) Stl Vibrio cholerae PCR (Not Detect) Stl Enteroaggr Ecoli PCR (Not Detect) Stl Norovirus GI/GII PCR (Not Detect) Campylobacter (PCR) (Not Detect) C. difficile Tox (PCR) Salmonella (PCR) (Not Detect) Blood Type Antibody Screen 05/17/19 05/18/19 05/18/19 Range/Units Unknown 04:00 04:00 WBC 11.2 H (4.5-11.0) X10^3/uL RBC 4.64 (4.0-5.2) X10^6/uL Hgb 13.4 (12.0-16.0) g/dL Hct 40.0 (36-46) % MCV 86.2 (80-100) fL MCH 28.9 (26-34) PG MCHC 33.6 (30-36) % RDW 16.8 H (11.6-14.8) % Plt Count 606 H (150-400) X10^3/uL Neut % (Auto) Not Reportable (50-75) % Lymph % (Auto) Not Reportable (25-40) % [place] % (Auto) Not Reportable (3-14) % Eos % (Auto) Not Reportable (2-4) % Baso % (Auto) Not Reportable (0-2) % Neut # (Auto) (1906-0739) /uL Lymph # (Auto) Not Reportable (0138-7347) /uL [place] # (Auto) Not Reportable (0-900) /uL Eos # (Auto) (0-450) /uL Baso # (Auto) Not Reportable (0-100) /uL Total Counted 100 Seg Neutrophils % 61.0 (38-70) % Band Neutrophils % 3.0 (3-7) % Lymphocytes % (Manual) 14.0 L (25-45) % Atypical Lymphs % 1.0 H ( - 0) % Monocytes % (Manual) 20.0 H (2-11) % Eosinophils % (Manual) 1.0 L (2-4) % Neutrophils # (Manual) 7168 H (5797-7944) /uL RBC Morphology Normal morphology PT 59.1 H D (10.1-12.7) SECONDS INR 4.9 H* (0.9-1.3) APTT (26.4-36.2) SECONDS Fibrinogen (211-428) mg/dL Sodium (137-145) mmol/L Potassium (3.4-5.1) mmol/L Chloride (98-107) mmol/L Carbon Dioxide (22-32) mmol/L BUN (7-17) mg/dL Creatinine (0.52-1.04) mg/dL Estimated GFR (>60) mL/min BUN/Creatinine Ratio (6-22) Glucose (80-110) mg/dL Calcium (8.4-10.2) mg/dL Magnesium (1.6-2.3) mg/dL Total Bilirubin (0.2-1.3) mg/dL Conjugated Bilirubin (0.0-0.3) md/dL AST (14-36) IU/L ALT (9-52) IU/L Alkaline Phosphatase (38-126) U/L Lactate Dehydrogenase (313-618) U/L Troponin I (0.01-0.034) ng/mL B-Natriuretic Peptide (<100) Total Protein (6.3-8.2) g/dL Albumin (3.5-5.0) g/dL Globulin (1.7-4.1) g/dL Albumin/Globulin Ratio (1.0-2.8) Lipase (23-300) U/L Urine RBC 5-10/hpf H (0-5/HPF) Urine WBC 30-100/hpf H (0-5/HPF) Amorphous Sediment 1+ Urine Bacteria Many (>30) H (None) Ur Culture Indicated? Specimen cultured Nasal Screen MRSA (PCR) (Negative) Stl C. cayetanensis PCR (Not Detect) Stool Rotavirus (PCR) (Not Detect) Stool Adenovirus (PCR) (Not Detect) Stool Astrovirus (PCR) (Not Detect) Stool Cryptosporidium PCR (Not Detect) Stl E.coli Shiga Tox PCR (Not Detect) St Sh/Enteroin Ecoli PCR (Not Detect) Stool E coli O157 PCR (Not Detect) Stl Enterotoxigenic E PCR (Not Detect) Stool EPEC (PCR) (Not Detect) Stl E. histolytica PCR (Not Detect) Stool Giardia Lamblia PCR (Not Detect) Stl P. shigelloides PCR (Not Detect) St Y.enterocolitica PCR (Not Detect) Stool Vibrio (PCR) (Not Detect) Stl Vibrio cholerae PCR (Not Detect) Stl Enteroaggr Ecoli PCR (Not Detect) Stl Norovirus GI/GII PCR (Not Detect) Campylobacter (PCR) (Not Detect) C. difficile Tox (PCR) Salmonella (PCR) (Not Detect) Blood Type Antibody Screen 05/18/19 05/18/19 05/18/19 Range/Units 04:00 04:00 08:00 WBC (4.5-11.0) X10^3/uL RBC (4.0-5.2) X10^6/uL Hgb (12.0-16.0) g/dL Hct (36-46) % MCV (80-100) fL MCH (26-34) PG MCHC (30-36) % RDW (11.6-14.8) % Plt Count (150-400) X10^3/uL Neut % (Auto) (50-75) % Lymph % (Auto) (25-40) % [place] % (Auto) (3-14) % Eos % (Auto) (2-4) % Baso % (Auto) (0-2) % Neut # (Auto) (2216-6794) /uL Lymph # (Auto) (7835-5250) /uL [place] # (Auto) (0-900) /uL Eos # (Auto) (0-450) /uL Baso # (Auto) (0-100) /uL Total Counted Seg Neutrophils % (38-70) % Band Neutrophils % (3-7) % Lymphocytes % (Manual) (25-45) % Atypical Lymphs % ( - 0) % Monocytes % (Manual) (2-11) % Eosinophils % (Manual) (2-4) % Neutrophils # (Manual) (9914-4195) /uL RBC Morphology PT (10.1-12.7) SECONDS INR (0.9-1.3) APTT (26.4-36.2) SECONDS Fibrinogen (211-428) mg/dL Sodium 141 (137-145) mmol/L Potassium 3.6 (3.4-5.1) mmol/L Chloride 98 (98-107) mmol/L Carbon Dioxide 31 (22-32) mmol/L BUN 19 H (7-17) mg/dL Creatinine 0.70 (0.52-1.04) mg/dL Estimated GFR > 60.0 (>60) mL/min BUN/Creatinine Ratio 27.1 H (6-22) Glucose 110 (80-110) mg/dL Calcium 8.6 (8.4-10.2) mg/dL Magnesium 2.3 (1.6-2.3) mg/dL Total Bilirubin (0.2-1.3) mg/dL Conjugated Bilirubin (0.0-0.3) md/dL AST (14-36) IU/L ALT (9-52) IU/L Alkaline Phosphatase (38-126) U/L Lactate Dehydrogenase (313-618) U/L Troponin I (0.01-0.034) ng/mL B-Natriuretic Peptide (<100) Total Protein (6.3-8.2) g/dL Albumin (3.5-5.0) g/dL Globulin (1.7-4.1) g/dL Albumin/Globulin Ratio (1.0-2.8) Lipase (23-300) U/L Urine RBC (0-5/HPF) Urine WBC (0-5/HPF) Amorphous Sediment Urine Bacteria (None) Ur Culture Indicated? Nasal Screen MRSA (PCR) Negative for mrsa (Negative) Stl C. cayetanensis PCR (Not Detect) Stool Rotavirus (PCR) (Not Detect) Stool Adenovirus (PCR) (Not Detect) Stool Astrovirus (PCR) (Not Detect) Stool Cryptosporidium PCR (Not Detect) Stl E.coli Shiga Tox PCR (Not Detect) St Sh/Enteroin Ecoli PCR (Not Detect) Stool E coli O157 PCR (Not Detect) Stl Enterotoxigenic E PCR (Not Detect) Stool EPEC (PCR) (Not Detect) Stl E. histolytica PCR (Not Detect) Stool Giardia Lamblia PCR (Not Detect) Stl P. shigelloides PCR (Not Detect) St Y.enterocolitica PCR (Not Detect) Stool Vibrio (PCR) (Not Detect) Stl Vibrio cholerae PCR (Not Detect) Stl Enteroaggr Ecoli PCR (Not Detect) Stl Norovirus GI/GII PCR (Not Detect) Campylobacter (PCR) (Not Detect) C. difficile Tox (PCR) Salmonella (PCR) (Not Detect) Blood Type Antibody Screen 05/19/19 05/19/19 05/19/19 Range/Units 04:40 04:40 04:40 WBC 9.7 (4.5-11.0) X10^3/uL RBC 4.39 (4.0-5.2) X10^6/uL Hgb 12.9 (12.0-16.0) g/dL Hct 38.9 (36-46) % MCV 88.6 (80-100) fL MCH 29.3 (26-34) PG MCHC 33.1 (30-36) % RDW 17.0 H (11.6-14.8) % Plt Count 607 H (150-400) X10^3/uL Neut % (Auto) 64.8 (50-75) % Lymph % (Auto) 11.1 L (25-40) % [place] % (Auto) 19.8 H (3-14) % Eos % (Auto) 3.6 (2-4) % Baso % (Auto) 0.7 (0-2) % Neut # (Auto) 6300 (7378-8626) /uL Lymph # (Auto) 1100 (8110-7580) /uL [place] # (Auto) 1900 H (0-900) /uL Eos # (Auto) 300 (0-450) /uL Baso # (Auto) 100 (0-100) /uL Total Counted Seg Neutrophils % (38-70) % Band Neutrophils % (3-7) % Lymphocytes % (Manual) (25-45) % Atypical Lymphs % ( - 0) % Monocytes % (Manual) (2-11) % Eosinophils % (Manual) (2-4) % Neutrophils # (Manual) (9606-8343) /uL RBC Morphology PT (10.1-12.7) SECONDS INR (0.9-1.3) APTT (26.4-36.2) SECONDS Fibrinogen (211-428) mg/dL Sodium 141 (137-145) mmol/L Potassium 3.4 (3.4-5.1) mmol/L Chloride 99 (98-107) mmol/L Carbon Dioxide 33 H (22-32) mmol/L BUN 22 H (7-17) mg/dL Creatinine 0.70 (0.52-1.04) mg/dL Estimated GFR > 60.0 (>60) mL/min BUN/Creatinine Ratio 31.4 H (6-22) Glucose 136 H (80-110) mg/dL Calcium 8.3 L (8.4-10.2) mg/dL Magnesium (1.6-2.3) mg/dL Total Bilirubin 3.5 H (0.2-1.3) mg/dL Conjugated Bilirubin (0.0-0.3) md/dL AST 19 (14-36) IU/L ALT 11 (9-52) IU/L Alkaline Phosphatase 159 H (38-126) U/L Lactate Dehydrogenase (313-618) U/L Troponin I (0.01-0.034) ng/mL B-Natriuretic Peptide 942 H (<100) Total Protein 7.2 (6.3-8.2) g/dL Albumin 3.0 L (3.5-5.0) g/dL Globulin 4.2 H (1.7-4.1) g/dL Albumin/Globulin Ratio 0.7 L (1.0-2.8) Lipase (23-300) U/L Urine RBC (0-5/HPF) Urine WBC (0-5/HPF) Amorphous Sediment Urine Bacteria (None) Ur Culture Indicated? Nasal Screen MRSA (PCR) (Negative) Stl C. cayetanensis PCR (Not Detect) Stool Rotavirus (PCR) (Not Detect) Stool Adenovirus (PCR) (Not Detect) Stool Astrovirus (PCR) (Not Detect) Stool Cryptosporidium PCR (Not Detect) Stl E.coli Shiga Tox PCR (Not Detect) St Sh/Enteroin Ecoli PCR (Not Detect) Stool E coli O157 PCR (Not Detect) Stl Enterotoxigenic E PCR (Not Detect) Stool EPEC (PCR) (Not Detect) Stl E. histolytica PCR (Not Detect) Stool Giardia Lamblia PCR (Not Detect) Stl P. shigelloides PCR (Not Detect) St Y.enterocolitica PCR (Not Detect) Stool Vibrio (PCR) (Not Detect) Stl Vibrio cholerae PCR (Not Detect) Stl Enteroaggr Ecoli PCR (Not Detect) Stl Norovirus GI/GII PCR (Not Detect) Campylobacter (PCR) (Not Detect) C. difficile Tox (PCR) Salmonella (PCR) (Not Detect) Blood Type Antibody Screen 05/19/19 05/19/19 05/19/19 Range/Units 04:40 08:50 08:50 WBC (4.5-11.0) X10^3/uL RBC (4.0-5.2) X10^6/uL Hgb (12.0-16.0) g/dL Hct (36-46) % MCV (80-100) fL MCH (26-34) PG MCHC (30-36) % RDW (11.6-14.8) % Plt Count (150-400) X10^3/uL Neut % (Auto) (50-75) % Lymph % (Auto) (25-40) % [place] % (Auto) (3-14) % Eos % (Auto) (2-4) % Baso % (Auto) (0-2) % Neut # (Auto) (9086-8577) /uL Lymph # (Auto) (6960-2934) /uL [place] # (Auto) (0-900) /uL Eos # (Auto) (0-450) /uL Baso # (Auto) (0-100) /uL Total Counted Seg Neutrophils % (38-70) % Band Neutrophils % (3-7) % Lymphocytes % (Manual) (25-45) % Atypical Lymphs % ( - 0) % Monocytes % (Manual) (2-11) % Eosinophils % (Manual) (2-4) % Neutrophils # (Manual) (8919-9945) /uL RBC Morphology PT 91.6 H D 91.0 H (10.1-12.7) SECONDS INR 7.6 H* 7.5 H* (0.9-1.3) APTT (26.4-36.2) SECONDS Fibrinogen (211-428) mg/dL Sodium (137-145) mmol/L Potassium (3.4-5.1) mmol/L Chloride (98-107) mmol/L Carbon Dioxide (22-32) mmol/L BUN (7-17) mg/dL Creatinine (0.52-1.04) mg/dL Estimated GFR (>60) mL/min BUN/Creatinine Ratio (6-22) Glucose (80-110) mg/dL Calcium (8.4-10.2) mg/dL Magnesium 2.7 H (1.6-2.3) mg/dL Total Bilirubin (0.2-1.3) mg/dL Conjugated Bilirubin (0.0-0.3) md/dL AST (14-36) IU/L ALT (9-52) IU/L Alkaline Phosphatase (38-126) U/L Lactate Dehydrogenase (313-618) U/L Troponin I (0.01-0.034) ng/mL B-Natriuretic Peptide (<100) Total Protein (6.3-8.2) g/dL Albumin (3.5-5.0) g/dL Globulin (1.7-4.1) g/dL Albumin/Globulin Ratio (1.0-2.8) Lipase (23-300) U/L Urine RBC (0-5/HPF) Urine WBC (0-5/HPF) Amorphous Sediment Urine Bacteria (None) Ur Culture Indicated? Nasal Screen MRSA (PCR) (Negative) Stl C. cayetanensis PCR (Not Detect) Stool Rotavirus (PCR) (Not Detect) Stool Adenovirus (PCR) (Not Detect) Stool Astrovirus (PCR) (Not Detect) Stool Cryptosporidium PCR (Not Detect) Stl E.coli Shiga Tox PCR (Not Detect) St Sh/Enteroin Ecoli PCR (Not Detect) Stool E coli O157 PCR (Not Detect) Stl Enterotoxigenic E PCR (Not Detect) Stool EPEC (PCR) (Not Detect) Stl E. histolytica PCR (Not Detect) Stool Giardia Lamblia PCR (Not Detect) Stl P. shigelloides PCR (Not Detect) St Y.enterocolitica PCR (Not Detect) Stool Vibrio (PCR) (Not Detect) Stl Vibrio cholerae PCR (Not Detect) Stl Enteroaggr Ecoli PCR (Not Detect) Stl Norovirus GI/GII PCR (Not Detect) Campylobacter (PCR) (Not Detect) C. difficile Tox (PCR) Salmonella (PCR) (Not Detect) Blood Type Antibody Screen 05/19/19 05/19/19 05/19/19 Range/Units 16:50 16:50 16:50 WBC (4.5-11.0) X10^3/uL RBC (4.0-5.2) X10^6/uL Hgb (12.0-16.0) g/dL Hct (36-46) % MCV (80-100) fL MCH (26-34) PG MCHC (30-36) % RDW (11.6-14.8) % Plt Count (150-400) X10^3/uL Neut % (Auto) (50-75) % Lymph % (Auto) (25-40) % [place] % (Auto) (3-14) % Eos % (Auto) (2-4) % Baso % (Auto) (0-2) % Neut # (Auto) (3367-3512) /uL Lymph # (Auto) (7210-3836) /uL [place] # (Auto) (0-900) /uL Eos # (Auto) (0-450) /uL Baso # (Auto) (0-100) /uL Total Counted Seg Neutrophils % (38-70) % Band Neutrophils % (3-7) % Lymphocytes % (Manual) (25-45) % Atypical Lymphs % ( - 0) % Monocytes % (Manual) (2-11) % Eosinophils % (Manual) (2-4) % Neutrophils # (Manual) (5313-1478) /uL RBC Morphology PT 96.2 H D (10.1-12.7) SECONDS INR 8.0 H* (0.9-1.3) APTT (26.4-36.2) SECONDS Fibrinogen 312 (211-428) mg/dL Sodium (137-145) mmol/L Potassium (3.4-5.1) mmol/L Chloride (98-107) mmol/L Carbon Dioxide (22-32) mmol/L BUN (7-17) mg/dL Creatinine (0.52-1.04) mg/dL Estimated GFR (>60) mL/min BUN/Creatinine Ratio (6-22) Glucose (80-110) mg/dL Calcium (8.4-10.2) mg/dL Magnesium (1.6-2.3) mg/dL Total Bilirubin (0.2-1.3) mg/dL Conjugated Bilirubin 1.3 H (0.0-0.3) md/dL AST (14-36) IU/L ALT (9-52) IU/L Alkaline Phosphatase (38-126) U/L Lactate Dehydrogenase (313-618) U/L Troponin I (0.01-0.034) ng/mL B-Natriuretic Peptide (<100) Total Protein (6.3-8.2) g/dL Albumin (3.5-5.0) g/dL Globulin (1.7-4.1) g/dL Albumin/Globulin Ratio (1.0-2.8) Lipase (23-300) U/L Urine RBC (0-5/HPF) Urine WBC (0-5/HPF) Amorphous Sediment Urine Bacteria (None) Ur Culture Indicated? Nasal Screen MRSA (PCR) (Negative) Stl C. cayetanensis PCR (Not Detect) Stool Rotavirus (PCR) (Not Detect) Stool Adenovirus (PCR) (Not Detect) Stool Astrovirus (PCR) (Not Detect) Stool Cryptosporidium PCR (Not Detect) Stl E.coli Shiga Tox PCR (Not Detect) St Sh/Enteroin Ecoli PCR (Not Detect) Stool E coli O157 PCR (Not Detect) Stl Enterotoxigenic E PCR (Not Detect) Stool EPEC (PCR) (Not Detect) Stl E. histolytica PCR (Not Detect) Stool Giardia Lamblia PCR (Not Detect) Stl P. shigelloides PCR (Not Detect) St Y.enterocolitica PCR (Not Detect) Stool Vibrio (PCR) (Not Detect) Stl Vibrio cholerae PCR (Not Detect) Stl Enteroaggr Ecoli PCR (Not Detect) Stl Norovirus GI/GII PCR (Not Detect) Campylobacter (PCR) (Not Detect) C. difficile Tox (PCR) Salmonella (PCR) (Not Detect) Blood Type Antibody Screen 05/19/19 05/19/19 05/20/19 Range/Units 16:50 17:00 04:39 WBC (4.5-11.0) X10^3/uL RBC (4.0-5.2) X10^6/uL Hgb (12.0-16.0) g/dL Hct (36-46) % MCV (80-100) fL MCH (26-34) PG MCHC (30-36) % RDW (11.6-14.8) % Plt Count (150-400) X10^3/uL Neut % (Auto) (50-75) % Lymph % (Auto) (25-40) % [place] % (Auto) (3-14) % Eos % (Auto) (2-4) % Baso % (Auto) (0-2) % Neut # (Auto) (9420-6094) /uL Lymph # (Auto) (0865-5755) /uL [place] # (Auto) (0-900) /uL Eos # (Auto) (0-450) /uL Baso # (Auto) (0-100) /uL Total Counted Seg Neutrophils % (38-70) % Band Neutrophils % (3-7) % Lymphocytes % (Manual) (25-45) % Atypical Lymphs % ( - 0) % Monocytes % (Manual) (2-11) % Eosinophils % (Manual) (2-4) % Neutrophils # (Manual) (9375-2883) /uL RBC Morphology PT (10.1-12.7) SECONDS INR (0.9-1.3) APTT (26.4-36.2) SECONDS Fibrinogen (211-428) mg/dL Sodium (137-145) mmol/L Potassium (3.4-5.1) mmol/L Chloride (98-107) mmol/L Carbon Dioxide (22-32) mmol/L BUN (7-17) mg/dL Creatinine (0.52-1.04) mg/dL Estimated GFR (>60) mL/min BUN/Creatinine Ratio (6-22) Glucose (80-110) mg/dL Calcium (8.4-10.2) mg/dL Magnesium (1.6-2.3) mg/dL Total Bilirubin (0.2-1.3) mg/dL Conjugated Bilirubin (0.0-0.3) md/dL AST (14-36) IU/L ALT (9-52) IU/L Alkaline Phosphatase (38-126) U/L Lactate Dehydrogenase (313-618) U/L Troponin I (0.01-0.034) ng/mL B-Natriuretic Peptide 635 H (<100) Total Protein (6.3-8.2) g/dL Albumin (3.5-5.0) g/dL Globulin (1.7-4.1) g/dL Albumin/Globulin Ratio (1.0-2.8) Lipase (23-300) U/L Urine RBC (0-5/HPF) Urine WBC (0-5/HPF) Amorphous Sediment Urine Bacteria (None) Ur Culture Indicated? Nasal Screen MRSA (PCR) (Negative) Stl C. cayetanensis PCR (Not Detect) Stool Rotavirus (PCR) (Not Detect) Stool Adenovirus (PCR) (Not Detect) Stool Astrovirus (PCR) (Not Detect) Stool Cryptosporidium PCR (Not Detect) Stl E.coli Shiga Tox PCR (Not Detect) St Sh/Enteroin Ecoli PCR (Not Detect) Stool E coli O157 PCR (Not Detect) Stl Enterotoxigenic E PCR (Not Detect) Stool EPEC (PCR) (Not Detect) Stl E. histolytica PCR (Not Detect) Stool Giardia Lamblia PCR (Not Detect) Stl P. shigelloides PCR (Not Detect) St Y.enterocolitica PCR (Not Detect) Stool Vibrio (PCR) (Not Detect) Stl Vibrio cholerae PCR (Not Detect) Stl Enteroaggr Ecoli PCR (Not Detect) Stl Norovirus GI/GII PCR (Not Detect) Campylobacter (PCR) (Not Detect) C. difficile Tox (PCR) Negative for c. diff Salmonella (PCR) (Not Detect) Blood Type AB Positive Antibody Screen Negative 05/20/19 05/20/19 05/20/19 Range/Units 04:39 04:39 04:39 WBC 10.8 (4.5-11.0) X10^3/uL RBC 4.45 (4.0-5.2) X10^6/uL Hgb 13.3 (12.0-16.0) g/dL Hct 39.2 (36-46) % MCV 88.2 (80-100) fL MCH 29.8 (26-34) PG MCHC 33.8 (30-36) % RDW 17.6 H (11.6-14.8) % Plt Count 596 H (150-400) X10^3/uL Neut % (Auto) 71.0 (50-75) % Lymph % (Auto) 9.7 L (25-40) % [place] % (Auto) 15.9 H (3-14) % Eos % (Auto) 3.0 (2-4) % Baso % (Auto) 0.4 (0-2) % Neut # (Auto) 7600 H (5184-8794) /uL Lymph # (Auto) 1000 L (4980-2502) /uL [place] # (Auto) 1700 H (0-900) /uL Eos # (Auto) 300 (0-450) /uL Baso # (Auto) 0 (0-100) /uL Total Counted Seg Neutrophils % (38-70) % Band Neutrophils % (3-7) % Lymphocytes % (Manual) (25-45) % Atypical Lymphs % ( - 0) % Monocytes % (Manual) (2-11) % Eosinophils % (Manual) (2-4) % Neutrophils # (Manual) (8043-7632) /uL RBC Morphology PT 97.9 H (10.1-12.7) SECONDS INR 8.1 H* (0.9-1.3) APTT (26.4-36.2) SECONDS Fibrinogen (211-428) mg/dL Sodium (137-145) mmol/L Potassium (3.4-5.1) mmol/L Chloride (98-107) mmol/L Carbon Dioxide (22-32) mmol/L BUN (7-17) mg/dL Creatinine (0.52-1.04) mg/dL Estimated GFR (>60) mL/min BUN/Creatinine Ratio (6-22) Glucose (80-110) mg/dL Calcium (8.4-10.2) mg/dL Magnesium 2.5 H (1.6-2.3) mg/dL Total Bilirubin (0.2-1.3) mg/dL Conjugated Bilirubin (0.0-0.3) md/dL AST (14-36) IU/L ALT (9-52) IU/L Alkaline Phosphatase (38-126) U/L Lactate Dehydrogenase (313-618) U/L Troponin I (0.01-0.034) ng/mL B-Natriuretic Peptide (<100) Total Protein (6.3-8.2) g/dL Albumin (3.5-5.0) g/dL Globulin (1.7-4.1) g/dL Albumin/Globulin Ratio (1.0-2.8) Lipase (23-300) U/L Urine RBC (0-5/HPF) Urine WBC (0-5/HPF) Amorphous Sediment Urine Bacteria (None) Ur Culture Indicated? Nasal Screen MRSA (PCR) (Negative) Stl C. cayetanensis PCR (Not Detect) Stool Rotavirus (PCR) (Not Detect) Stool Adenovirus (PCR) (Not Detect) Stool Astrovirus (PCR) (Not Detect) Stool Cryptosporidium PCR (Not Detect) Stl E.coli Shiga Tox PCR (Not Detect) St Sh/Enteroin Ecoli PCR (Not Detect) Stool E coli O157 PCR (Not Detect) Stl Enterotoxigenic E PCR (Not Detect) Stool EPEC (PCR) (Not Detect) Stl E. histolytica PCR (Not Detect) Stool Giardia Lamblia PCR (Not Detect) Stl P. shigelloides PCR (Not Detect) St Y.enterocolitica PCR (Not Detect) Stool Vibrio (PCR) (Not Detect) Stl Vibrio cholerae PCR (Not Detect) Stl Enteroaggr Ecoli PCR (Not Detect) Stl Norovirus GI/GII PCR (Not Detect) Campylobacter (PCR) (Not Detect) C. difficile Tox (PCR) Salmonella (PCR) (Not Detect) Blood Type Antibody Screen 05/20/19 05/20/19 05/20/19 Range/Units 04:39 04:39 17:25 WBC (4.5-11.0) X10^3/uL RBC (4.0-5.2) X10^6/uL Hgb (12.0-16.0) g/dL Hct (36-46) % MCV (80-100) fL MCH (26-34) PG MCHC (30-36) % RDW (11.6-14.8) % Plt Count (150-400) X10^3/uL Neut % (Auto) (50-75) % Lymph % (Auto) (25-40) % [place] % (Auto) (3-14) % Eos % (Auto) (2-4) % Baso % (Auto) (0-2) % Neut # (Auto) (2267-4181) /uL Lymph # (Auto) (6317-2241) /uL [place] # (Auto) (0-900) /uL Eos # (Auto) (0-450) /uL Baso # (Auto) (0-100) /uL Total Counted Seg Neutrophils % (38-70) % Band Neutrophils % (3-7) % Lymphocytes % (Manual) (25-45) % Atypical Lymphs % ( - 0) % Monocytes % (Manual) (2-11) % Eosinophils % (Manual) (2-4) % Neutrophils # (Manual) (4026-6815) /uL RBC Morphology PT 49.6 H D (10.1-12.7) SECONDS INR 4.2 H (0.9-1.3) APTT (26.4-36.2) SECONDS Fibrinogen (211-428) mg/dL Sodium 140 (137-145) mmol/L Potassium 3.9 (3.4-5.1) mmol/L Chloride 101 (98-107) mmol/L Carbon Dioxide 32 (22-32) mmol/L BUN 19 H (7-17) mg/dL Creatinine 0.70 (0.52-1.04) mg/dL Estimated GFR > 60.0 (>60) mL/min BUN/Creatinine Ratio 27.1 H (6-22) Glucose 121 H (80-110) mg/dL Calcium 8.3 L (8.4-10.2) mg/dL Magnesium (1.6-2.3) mg/dL Total Bilirubin 3.4 H (0.2-1.3) mg/dL Conjugated Bilirubin (0.0-0.3) md/dL AST 23 (14-36) IU/L ALT 13 (9-52) IU/L Alkaline Phosphatase 166 H (38-126) U/L Lactate Dehydrogenase 685 H (313-618) U/L Troponin I (0.01-0.034) ng/mL B-Natriuretic Peptide (<100) Total Protein 7.4 (6.3-8.2) g/dL Albumin 3.0 L (3.5-5.0) g/dL Globulin 4.4 H (1.7-4.1) g/dL Albumin/Globulin Ratio 0.7 L (1.0-2.8) Lipase (23-300) U/L Urine RBC (0-5/HPF) Urine WBC (0-5/HPF) Amorphous Sediment Urine Bacteria (None) Ur Culture Indicated? Nasal Screen MRSA (PCR) (Negative) Stl C. cayetanensis PCR (Not Detect) Stool Rotavirus (PCR) (Not Detect) Stool Adenovirus (PCR) (Not Detect) Stool Astrovirus (PCR) (Not Detect) Stool Cryptosporidium PCR (Not Detect) Stl E.coli Shiga Tox PCR (Not Detect) St Sh/Enteroin Ecoli PCR (Not Detect) Stool E coli O157 PCR (Not Detect) Stl Enterotoxigenic E PCR (Not Detect) Stool EPEC (PCR) (Not Detect) Stl E. histolytica PCR (Not Detect) Stool Giardia Lamblia PCR (Not Detect) Stl P. shigelloides PCR (Not Detect) St Y.enterocolitica PCR (Not Detect) Stool Vibrio (PCR) (Not Detect) Stl Vibrio cholerae PCR (Not Detect) Stl Enteroaggr Ecoli PCR (Not Detect) Stl Norovirus GI/GII PCR (Not Detect) Campylobacter (PCR) (Not Detect) C. difficile Tox (PCR) Salmonella (PCR) (Not Detect) Blood Type Antibody Screen 05/21/19 05/21/19 05/21/19 Range/Units 04:44 04:44 04:44 WBC 11.4 H (4.5-11.0) X10^3/uL RBC 4.28 (4.0-5.2) X10^6/uL Hgb 12.6 (12.0-16.0) g/dL Hct 37.7 (36-46) % MCV 88.0 (80-100) fL MCH 29.4 (26-34) PG MCHC 33.4 (30-36) % RDW 17.2 H (11.6-14.8) % Plt Count 532 H (150-400) X10^3/uL Neut % (Auto) 69.8 (50-75) % Lymph % (Auto) 10.7 L (25-40) % [place] % (Auto) 15.8 H (3-14) % Eos % (Auto) 3.4 (2-4) % Baso % (Auto) 0.3 (0-2) % Neut # (Auto) 8000 H (9677-1722) /uL Lymph # (Auto) 1200 (9098-1184) /uL [place] # (Auto) 1800 H (0-900) /uL Eos # (Auto) 400 (0-450) /uL Baso # (Auto) 0 (0-100) /uL Total Counted Seg Neutrophils % (38-70) % Band Neutrophils % (3-7) % Lymphocytes % (Manual) (25-45) % Atypical Lymphs % ( - 0) % Monocytes % (Manual) (2-11) % Eosinophils % (Manual) (2-4) % Neutrophils # (Manual) (7632-5090) /uL RBC Morphology PT 50.3 H (10.1-12.7) SECONDS INR 4.2 H (0.9-1.3) APTT (26.4-36.2) SECONDS Fibrinogen (211-428) mg/dL Sodium 139 (137-145) mmol/L Potassium 4.1 (3.4-5.1) mmol/L Chloride 101 (98-107) mmol/L Carbon Dioxide 31 (22-32) mmol/L BUN 16 (7-17) mg/dL Creatinine 0.70 (0.52-1.04) mg/dL Estimated GFR > 60.0 (>60) mL/min BUN/Creatinine Ratio 22.9 H (6-22) Glucose 84 (80-110) mg/dL Calcium 8.4 (8.4-10.2) mg/dL Magnesium (1.6-2.3) mg/dL Total Bilirubin 3.1 H (0.2-1.3) mg/dL Conjugated Bilirubin (0.0-0.3) md/dL AST 24 (14-36) IU/L ALT 15 (9-52) IU/L Alkaline Phosphatase 156 H (38-126) U/L Lactate Dehydrogenase (313-618) U/L Troponin I < 0.012 (0.01-0.034) ng/mL B-Natriuretic Peptide 571 H (<100) Total Protein 7.4 (6.3-8.2) g/dL Albumin 3.1 L (3.5-5.0) g/dL Globulin 4.3 H (1.7-4.1) g/dL Albumin/Globulin Ratio 0.7 L (1.0-2.8) Lipase (23-300) U/L Urine RBC (0-5/HPF) Urine WBC (0-5/HPF) Amorphous Sediment Urine Bacteria (None) Ur Culture Indicated? Nasal Screen MRSA (PCR) (Negative) Stl C. cayetanensis PCR (Not Detect) Stool Rotavirus (PCR) (Not Detect) Stool Adenovirus (PCR) (Not Detect) Stool Astrovirus (PCR) (Not Detect) Stool Cryptosporidium PCR (Not Detect) Stl E.coli Shiga Tox PCR (Not Detect) St Sh/Enteroin Ecoli PCR (Not Detect) Stool E coli O157 PCR (Not Detect) Stl Enterotoxigenic E PCR (Not Detect) Stool EPEC (PCR) (Not Detect) Stl E. histolytica PCR (Not Detect) Stool Giardia Lamblia PCR (Not Detect) Stl P. shigelloides PCR (Not Detect) St Y.enterocolitica PCR (Not Detect) Stool Vibrio (PCR) (Not Detect) Stl Vibrio cholerae PCR (Not Detect) Stl Enteroaggr Ecoli PCR (Not Detect) Stl Norovirus GI/GII PCR (Not Detect) Campylobacter (PCR) (Not Detect) C. difficile Tox (PCR) Salmonella (PCR) (Not Detect) Blood Type Antibody Screen 05/21/19 Range/Units 09:10 WBC (4.5-11.0) X10^3/uL RBC (4.0-5.2) X10^6/uL Hgb (12.0-16.0) g/dL Hct (36-46) % MCV (80-100) fL MCH (26-34) PG MCHC (30-36) % RDW (11.6-14.8) % Plt Count (150-400) X10^3/uL Neut % (Auto) (50-75) % Lymph % (Auto) (25-40) % [place] % (Auto) (3-14) % Eos % (Auto) (2-4) % Baso % (Auto) (0-2) % Neut # (Auto) (0504-0401) /uL Lymph # (Auto) (8392-9332) /uL [place] # (Auto) (0-900) /uL Eos # (Auto) (0-450) /uL Baso # (Auto) (0-100) /uL Total Counted Seg Neutrophils % (38-70) % Band Neutrophils % (3-7) % Lymphocytes % (Manual) (25-45) % Atypical Lymphs % ( - 0) % Monocytes % (Manual) (2-11) % Eosinophils % (Manual) (2-4) % Neutrophils # (Manual) (6225-8296) /uL RBC Morphology PT (10.1-12.7) SECONDS INR (0.9-1.3) APTT (26.4-36.2) SECONDS Fibrinogen (211-428) mg/dL Sodium (137-145) mmol/L Potassium (3.4-5.1) mmol/L Chloride (98-107) mmol/L Carbon Dioxide (22-32) mmol/L BUN (7-17) mg/dL Creatinine (0.52-1.04) mg/dL Estimated GFR (>60) mL/min BUN/Creatinine Ratio (6-22) Glucose (80-110) mg/dL Calcium (8.4-10.2) mg/dL Magnesium (1.6-2.3) mg/dL Total Bilirubin (0.2-1.3) mg/dL Conjugated Bilirubin (0.0-0.3) md/dL AST (14-36) IU/L ALT (9-52) IU/L Alkaline Phosphatase (38-126) U/L Lactate Dehydrogenase (313-618) U/L Troponin I (0.01-0.034) ng/mL B-Natriuretic Peptide (<100) Total Protein (6.3-8.2) g/dL Albumin (3.5-5.0) g/dL Globulin (1.7-4.1) g/dL Albumin/Globulin Ratio (1.0-2.8) Lipase (23-300) U/L Urine RBC (0-5/HPF) Urine WBC (0-5/HPF) Amorphous Sediment Urine Bacteria (None) Ur Culture Indicated? Nasal Screen MRSA (PCR) (Negative) Stl C. cayetanensis PCR Not detected (Not Detect) Stool Rotavirus (PCR) Not detected (Not Detect) Stool Adenovirus (PCR) Not detected (Not Detect) Stool Astrovirus (PCR) Not detected (Not Detect) Stool Cryptosporidium PCR Not detected (Not Detect) Stl E.coli Shiga Tox PCR Not detected (Not Detect) St Sh/Enteroin Ecoli PCR Not detected (Not Detect) Stool E coli O157 PCR Not detected (Not Detect) Stl Enterotoxigenic E PCR Not detected (Not Detect) Stool EPEC (PCR) Not detected (Not Detect) Stl E. histolytica PCR Not detected (Not Detect) Stool Giardia Lamblia PCR Not detected (Not Detect) Stl P. shigelloides PCR Not detected (Not Detect) St Y.enterocolitica PCR Not detected (Not Detect) Stool Vibrio (PCR) Not detected (Not Detect) Stl Vibrio cholerae PCR Not detected (Not Detect) Stl Enteroaggr Ecoli PCR Not detected (Not Detect) Stl Norovirus GI/GII PCR Not detected (Not Detect) Campylobacter (PCR) Not detected (Not Detect) C. difficile Tox (PCR) Not detected Salmonella (PCR) Not detected (Not Detect) Blood Type Antibody Screen Point of care testing: Urine Dip Bedside Urine Glucose Negative Bedside Urine Bilirubin + 1 Bedside Urine Ketone - Negative Urine Specific [place] 1.025 Bedside Urine Occult Blood +++ Bedside Urine pH 5.5 Bedside Urine Protein + 30 Bedside Urine Urobilinogen 1+ 2mg Bedside Urine Nitrite - Negative Bedside Urine Leukocytes +++ [address] scan - abdomen: Radiologist's impression: PROCEDURE: CT ABDOMEN PELVIS W CON INDICATIONS: Abdominal distention with nausea and vomiting TECHNIQUE: After the administration of intravenous contrast, 5 mm thick sections acquired from the diaphragm to the symphysis. 5 mm coronal and sagittal reformats were acquired. For radiation dose reduction, the following was used: automated exposure control, adjustment of mA and/or kV according to patient size. COMPARISON: None. FINDINGS: Image quality: Excellent. ABDOMEN: Lung bases: Small-moderate right pleural effusion with adjacent atelectasis. Marked cardiomegaly. Fluid is seen within the distal esophagus. Solid organs: Extensive diffuse hepatic steatosis noted. Focal enhancement with slightly tubular configuration seen within the right lobe liver image 30 series 2 which could represent vascular anomaly although continued surveillance and monitoring with ultrasound could be performed as clinically warranted. Gallbladder contracted otherwise unremarkable. Biliary system is non dilated. Pancreas enhances normally. Spleen is normal in size and enhancement. No adrenal nodules. Prominent right pelviectasis, and dilatation of the proximal right ureter although the exact etiology is unclear. Bilateral cortical thinning and atrophy. No urolithiasis is seen. Peritoneum and bowel: Mild scattered ascites. There is also prominent thickening and possible diffuse enhancement of the peritoneum. Dilatation of the stomach, duodenum and proximal small bowel. The ileum appears relatively decompressed although there is diffuse small bowel wall thickening. No definite transition point is seen. The rectum contains stool and gas and is otherwise unremarkable. The colon is relatively decompressed. Nodes and vessels: Shotty retroperitoneal and mesenteric lymph nodes without definite pathologic enlargement. Appendix is not clearly identified however no suspicious pericecal inflammatory changes are identified Miscellaneous: No ventral hernias. PELVIS: Genitourinary: Bladder partially contracted otherwise unremarkable Miscellaneous: No inguinal hernias or adenopathy. Bones: No suspicious bony lesions. No vertebral body compression fractures. Diffuse spondylosis IMPRESSION: Jejunal and gastric dilatation, with diffuse small bowel mural thickening suggestive of nonspecific enteritis with superimposed obstruction versus adynamic ileus. Please correlate clinically recommend continued surveillance with abdominal series. Diffuse hepatic steatosis. Possible 1 cm hyperenhancing lesion within the right lobe liver although this could be vascular in nature, or atypical flash filling hemangioma. Recommend continued surveillance with ultrasound, or at clinical discretion, MRI/ CT. Small-moderate right pleural effusion with adjacent atelectasis. Severe cardiomegaly. Mild to moderate scattered ascites, with prominent thickening/enhancement of the peritoneum suggestive of peritonitis. Dictated by: Pete Neal M.D. on 05/17/2019 at 8:08 Approved by: Pete Neal M.D. on 05/17/2019 at 8:22 Discharge Plan Departure Patient Disposition: Admitted As Inpatient Clinical Impression: SBO (small bowel obstruction) Discharge Date/Time: 05/17/19 11:13 Interventions: ED Discharge Assessment Last Done: 05/17/19 10:50 Referrals: Lizzie Bailey MD [Primary Care Provider] - Admit Date/Time: 05/17/19 10:18 Admit Provider: Breanna Guerrier
[2019-05-17] MEDS: ONDANSETRON 4 MG/2 ML INJ IV (06:36)
[2019-05-17] MEDS: SODIUM CHLORIDE 0.9% 1,000 ML 1000 ML IV (06:48)
--- NOTE | 2019-05-17 07:01 | DI.CT.S_ITS ---
PROCEDURE: CT ABDOMEN PELVIS W CON INDICATIONS: Abdominal distention with nausea and vomiting TECHNIQUE: After the administration of intravenous contrast, 5 mm thick sections acquired from the diaphragm to the symphysis. 5 mm coronal and sagittal reformats were acquired. For radiation dose reduction, the following was used: automated exposure control, adjustment of mA and/or kV according to patient size. COMPARISON: None. FINDINGS: Image quality: Excellent. ABDOMEN: Lung bases: Small-moderate right pleural effusion with adjacent atelectasis. Marked cardiomegaly. Fluid is seen within the distal esophagus. Solid organs: Extensive diffuse hepatic steatosis noted. Focal enhancement with slightly tubular configuration seen within the right lobe liver image 30 series 2 which could represent vascular anomaly although continued surveillance and monitoring with ultrasound could be performed as clinically warranted. Gallbladder contracted otherwise unremarkable. Biliary system is non dilated. Pancreas enhances normally. Spleen is normal in size and enhancement. No adrenal nodules. Prominent right pelviectasis, and dilatation of the proximal right ureter although the exact etiology is unclear. Bilateral cortical thinning and atrophy. No urolithiasis is seen. Peritoneum and bowel: Mild scattered ascites. There is also prominent thickening and possible diffuse enhancement of the peritoneum. Dilatation of the stomach, duodenum and proximal small bowel. The ileum appears relatively decompressed although there is diffuse small bowel wall thickening. No definite transition point is seen. The rectum contains stool and gas and is otherwise unremarkable. The colon is relatively decompressed. Nodes and vessels: Shotty retroperitoneal and mesenteric lymph nodes without definite pathologic enlargement. Appendix is not clearly identified however no suspicious pericecal inflammatory changes are identified Miscellaneous: No ventral hernias. PELVIS: Genitourinary: Bladder partially contracted otherwise unremarkable Miscellaneous: No inguinal hernias or adenopathy. Bones: No suspicious bony lesions. No vertebral body compression fractures. Diffuse spondylosis IMPRESSION: Jejunal and gastric dilatation, with diffuse small bowel mural thickening suggestive of nonspecific enteritis with superimposed obstruction versus adynamic ileus. Please correlate clinically recommend continued surveillance with abdominal series. Diffuse hepatic steatosis. Possible 1 cm hyperenhancing lesion within the right lobe liver although this could be vascular in nature, or atypical flash filling hemangioma. Recommend continued surveillance with ultrasound, or at clinical discretion, MRI/ CT. Small-moderate right pleural effusion with adjacent atelectasis. Severe cardiomegaly. Mild to moderate scattered ascites, with prominent thickening/enhancement of the peritoneum suggestive of peritonitis. Dictated by: Pete Neal M.D. on 05/17/2019 at 8:08 Approved by: Pete Neal M.D. on 05/17/2019 at 8:22
[2019-05-17 07:03] LABS: INR 3.9 (0.9-1.3); Prothrombin Time 46.4 SECONDS (10.1-12.7)
[2019-05-17 07:04] LABS: Add Manual Diff / Slide Review NO; Basophils Absolute Auto 100 /uL (0-100); Basophils Percent Auto 0.7 % (0-2); Eosinophils Absolute Auto 100 /uL (0-450); Eosinophils Percent Auto 0.8 % (2-4); Hematocrit 40.2 % (36-46); Hemoglobin 13.7 g/dL (12.0-16.0); Lymphocytes Absolute Auto 1100 /uL (1100-4500); Lymphocytes Percent Auto 9.2 % (25-40); Mean Corpuscular HGB Conc 34.1 % (30-36); Mean Corpuscular Hemoglobin 29.6 PG (26-34); Mean Corpuscular Volume 86.8 fL (80-100); Monocytes Absolute Auto 2000 /uL (0-900); Monocytes Percent Auto 16.8 % (3-14); Neutrophils Absolute Auto 8600 /uL (1500-7000); Neutrophils Percent Auto 72.5 % (50-75); Platelet Count 649 X10^3/uL (150-400); Red Blood Cell Count 4.63 X10^6/uL (4.0-5.2); Red Cell Distribution Width 16.6 % (11.6-14.8); White Blood Cell Count 11.9 X10^3/uL (4.5-11.0)
[2019-05-17 07:05] LABS: PTT Partial Thromboplastin Tim 50 SECONDS (26.4-36.2)
[2019-05-17 07:08] LABS: Alanine Aminotransferase 7 IU/L (9-52); Albumin 3.4 g/dL (3.5-5.0); Albumin Globulin Ratio 0.8 (1.0-2.8); Alkaline Phosphatase 224 U/L (38-126); Aspartate Aminotransferase 20 IU/L (14-36); BUN Creatinine Ratio 22.5 (6-22); Blood Urea Nitrogen 18 mg/dL (7-17); Calcium 8.9 mg/dL (8.4-10.2); Carbon Dioxide 32 mmol/L (22-32); Chloride 92 mmol/L (98-107); Estimated Glomerular Filt Rate > 60.0 mL/min (>60); Globulin 4.4 g/dL (1.7-4.1); Glucose 125 mg/dL (80-110); HEMOLYSIS < 15 (0-50); Lipase 98 U/L (23-300); Potassium 3.8 mmol/L (3.4-5.1); Sodium 136 mmol/L (137-145); Total Protein 7.8 g/dL (6.3-8.2)
[2019-05-17] MEDS: HYDROMORPHONE 1 MG INJ 0.5 MG IV (09:28)
[2019-05-17] MEDS: SODIUM CHLORIDE 0.9% 1,000 ML 150 ML IV ×2 (09:46→17:21)
[2019-05-17 10:17] LABS: Amorphous Sediment Urine 1+; Bacteria Urine Many (>30); Culture Indicated Urine Specimen Cultured; RBC Urine 5-10/HPF (0-5/HPF); WBC Urine 30-100/HPF (0-5/HPF)
--- NOTE | 2019-05-17 10:53 | PC.NURSE ---
0700 Per Abdiaziz RN, patient was 88% on room air placed, on 2L NC.
--- NOTE | 2019-05-17 10:59 | PC.NURSE ---
Patient has Nasal cannula in R nare, NG tube in Left nare. Patient trialed on room air and is still 86-90% on room air. Patient reports she normally has a CPAP while lying down/resting but cannot use it since it is a nasal CPAP.
--- NOTE | 2019-05-17 16:43 | P.HP_ITS ---
History of Present Illness Date Patient Seen: 05/17/19 Time Patient Seen: 16:31 Chief complaint: vomiting since yesterday stomach ache Narrative: 69-year-old female with past medical history of hypertrophic cardiomyopathy status post ICD placed, atrial fibrillation on Coumadin therapy, status post recent hysterectomy, status post ablation x2, Lilly Maze procedure presented to emergency department with nausea and vomiting. Patient states 2 days ago she developed moderate stomach cramps and had 1 episode of volume is nonbloody nonbilious diarrhea. Patient did not think much of it, as her grandson had viral bug at the same time, so patient's thought she got it from him. The next day patient became nauseous and started vomiting in the morning, and continued all through the day. She had multiple episodes of vomiting, which initially was yellow in color, however turned green later on. It was volume is despite patient not eating much food or drinking anything. Because patient was getting up to the bathroom every hour to vomit, she came to emergency room for further elevation. She denies any fevers or chills, loss of consciousness, headache, blurry vision, but did have a little bit of dizziness and lightheadedness. Denied any chest pain, shortness of breath, cough. Denied any symptoms. Denied any bowel movements after 1 episode of diarrhea 2 days ago. Patient is passing gas. She does not have much of an appetite. Patient continues to have mild bloody spotting status post hysterectomy, which is normal. In ED, patient's vitals revealed blood pressure 127/82, pulse 88, respirations 16, saturating 93% on room air, and temperature 98.9? F. lab work revealed CBC pertinent for WBC of 11.9, hemoglobin 13.7, hematocrit 40.2, platelet count 649. BMP revealed sodium of 136, potassium 3.8, chloride 92, carbon dioxide 32, BUN 18, creatinine 0.8, blood glucose 125. Total bilirubin elevated of 4.0, AST normal at 20, ALT normal at 7, alkaline phosphatase elevated at 224. PT prolonged at 46.4, INR at 3.9. Lipase normal at 98. CT abdomen/pelvis was performed which revealed jejunal and gastric dilation, with diffuse small bowel mural thickening suggestive of nonspecific enteritis with superimposed obstruction versus adynamic ileus. There was also 1 cm hyper enhancing lesion within the hepatic right lower lobe likely vascular in nature. There was also severe cardiomegaly, diffuse hepatic steatosis, small moderate right pleural effusion, and mild to moderate scattered ascites with prominent thickening/enhancement of peritoneum suggestive of peritonitis. Surgery was called from the emergency room, who recommended patient be admitted under hospitalist team and monitored. No surgical intervention was indicated at this time, however they were willing to be consulted. Patient was given Zofran for nausea, 1 L normal saline bolus and continued on maintenance 0.9 NS at 150 cc/hour, and Dilaudid x1 IV for pain control. NG tube to low suctioning was placed and patient was admitted for further management of SBO. Patient History Medical History (Updated 05/17/19 @ 16:46 by Breanna Guerrier MD) Atrial fibrillation (Chronic) Cardiomyopathy (Chronic) Edema (Chronic) History of hysterectomy (Chronic) Hypertension (Chronic) Surgical History (Updated 05/17/19 @ 16:46 by Breanna Guerrier MD) Hx of prior ablation treatment (Chronic) History of permanent cardiac pacemaker placement (Chronic) Social History household members: spouse Smoking Status: Never smoker Family & Social History Social History: household members spouse Prior Living Arrangements House Safety & Behavioral: Feels Safe in Current Yes Environment Been Physically Hurt or No Threatened By a Person Suicidal Ideation Description None Suicide Plan Description No Plan Tobacco & Substance use: Smoking Status Never smoker alcohol intake frequency 0-2 drinks per day Substance Use Type does not use Meds Home Medications Medication Instructions Recorded Confirmed Type warfarin [Coumadin] 1.25 mg PO QDAY #0 11/05/12 05/17/19 History latanoprost 1 applic EYE-BOTH QPM 04/26/18 05/17/19 History omega 3,6,9 combination no.7 1 tab PO DAILY 04/26/18 05/17/19 History [[place] DHA] plant stanol alejandro [Cholest Off] 1 tab PO DAILY 04/26/18 05/17/19 History Cysto Protek 2 cap PO BID 05/17/19 05/17/19 History Ortho Molecular Probiotic 1 cap PO QPM 05/17/19 05/17/19 History atenolol 50 mg PO QPM 05/17/19 05/17/19 History cholecalciferol (vitamin D3) 5,000 unit PO DAILY 05/17/19 05/17/19 History [Vitamin D3] coenzyme Q10 [Co Q-10] 300 mg PO DAILY 05/17/19 05/17/19 History metoclopramide HCl 10 mg PO PRN PRN 05/17/19 05/17/19 History potassium chloride 10 meq PO DAILY 05/17/19 05/17/19 History spironolactone 25 mg PO DAILY 05/17/19 05/17/19 History torsemide 20 mg PO BID 05/17/19 05/17/19 History Allergies Allergy/AdvReac Type Severity Reaction Status Date / Time flecainide [FLECAINIDE] Allergy Unknown CONFUSION, Verified 05/17/19 10:24 CAN'T THINK, DIZZY meperidine [MEPERIDINE] Allergy Unknown N/V Verified 04/26/18 20:15 amiodarone [From Pacerone] AdvReac Intermediate Redness of Verified 05/17/19 10:24 Skin lisinopril AdvReac Intermediate Dizziness Verified 05/17/19 10:24 polyethylene glycol 3350 AdvReac Intermediate Fainting Verified 05/17/19 10:24 [From Miralax] atenolol [ATENOLOL] AdvReac Unknown MAKES ME Verified 04/26/18 20:15 VERY TIRED, NO ENERGY Review of Systems Review of Systems All systems reviewed & are unremarkable except as noted in HPI and below Exam Vital Signs (past 8 hours): - 05/17/19 09:00 05/17/19 09:53 05/17/19 10:30 Temperature Pulse Rate 68 76 68 Respiratory Rate 17 17 19 Blood Pressure Blood Pressure [Left Arm] 114/63 106/79 107/73 Pulse Oximetry 95 95 96 05/17/19 10:50 05/17/19 13:28 05/17/19 15:25 Temperature 98.7 F 99.3 F 97.6 F Pulse Rate 82 68 86 Respiratory Rate 15 16 18 Blood Pressure 122/88 103/55 L 104/66 Blood Pressure [Left Arm] Pulse Oximetry 93 97 98 Oxygen Delivery Method Nasal Cannula Oxygen Flow Rate 1 Narrative Exam Narrative: General: No acute distress, A/O x3 HEENT: PERRLA and EOMI bilaterally. NG tube in place, to low intermittent suctioning, draining green bile. Moist mucous membranes Neck: Supple, no LAD or JVD CV: Regular rate rhythm, no murmurs or gallops. ICD in place Respiratory: Clear to auscultation bilaterally, no wheezing or crackles GI: Positive bowel sounds in all quadrants, hypoactive. No organomegaly. Mild ascites present. Musculoskeletal: Normal range of motion Extremities: Trace pitting edema in lower extremities bilaterally up to knees. 2+ pulses in all extremities Neuro: No focal deficits Psych: AAO x3, patient is able to make her own decisions Objective Labs Result Diagrams: 05/17/19 06:45 05/17/19 06:45 Labs: Laboratory Results - last 24 hr 05/17/19 05/17/19 05/17/19 06:45 06:45 06:45 WBC 11.9 H RBC 4.63 Hgb 13.7 Hct 40.2 MCV 86.8 MCH 29.6 MCHC 34.1 RDW 16.6 H Plt Count 649 H Neut % (Auto) 72.5 Lymph % (Auto) 9.2 L [place] % (Auto) 16.8 H Eos % (Auto) 0.8 L Baso % (Auto) 0.7 Neut # (Auto) 8600 H Lymph # (Auto) 1100 [place] # (Auto) 2000 H Eos # (Auto) 100 Baso # (Auto) 100 PT 46.4 H D INR 3.9 H APTT 50 H D Sodium 136 L Potassium 3.8 Chloride 92 L Carbon Dioxide 32 BUN 18 H Creatinine 0.80 Estimated GFR > 60.0 BUN/Creatinine Ratio 22.5 H Glucose 125 H Calcium 8.9 Total Bilirubin 4.0 H AST 20 ALT 7 L Alkaline Phosphatase 224 H Total Protein 7.8 Albumin 3.4 L Globulin 4.4 H Albumin/Globulin Ratio 0.8 L Lipase 98 Urine RBC Urine WBC Amorphous Sediment Urine Bacteria Ur Culture Indicated? 05/17/19 Unknown WBC RBC Hgb Hct MCV MCH MCHC RDW Plt Count Neut % (Auto) Lymph % (Auto) [place] % (Auto) Eos % (Auto) Baso % (Auto) Neut # (Auto) Lymph # (Auto) [place] # (Auto) Eos # (Auto) Baso # (Auto) PT INR APTT Sodium Potassium Chloride Carbon Dioxide BUN Creatinine Estimated GFR BUN/Creatinine Ratio Glucose Calcium Total Bilirubin AST ALT Alkaline Phosphatase Total Protein Albumin Globulin Albumin/Globulin Ratio Lipase Urine RBC 5-10/hpf H Urine WBC 30-100/hpf H Amorphous Sediment 1+ Urine Bacteria Many (>30) H Ur Culture Indicated? Specimen cultured Assessment & Plan Assessment & Plan narrative: 69-year-old female with past medical history of hypertrophic cardiomyopathy status post ICD placed, atrial fibrillation on Coumadin therapy, status post recent hysterectomy, status post ablation x2, Lilly Maze procedure presented to emergency department with nausea and vomiting. She was found to have small-bowel obstruction versus adynamic ileus and admitted for further management. 1. Nausea/vomiting, acute, present on admission -likely due to small bowel obstruction versus adynamic ileus due to viral gastroenteritis -patient is hemodynamically stable, afebrile -WBCs 11.9 -CT abdomen and pelvis revealedjejunal and gastric dilation, with diffuse small bowel mural thickening suggestive of nonspecific enteritis with superimposed o bstruction versus adynamic ileus. There was also 1 cm hyper enhancing lesion within the hepatic right lower lobe likely vascular in nature. There was also severe cardiomegaly, diffuse hepatic steatosis, small moderate right pleural effusion, and mild to moderate scattered ascites with prominent th ickening/enhancement of peritoneum suggestive of peritonitis. -NG tube to low intermittent suctioning placed, will continue at this time -will continue NPO and monitor for improvement. Advanced to clear liquid diet possibly tomorrow -Zofran as needed for nausea, morphine as needed for pain, 0.9 NS at 80 cc/hour -KUB repeated in the morning and consider surgical consult if patient is not better 2. Atrial fibrillation chronic, present on admission, stable -status post ablation x2 and Lilly Maze procedure. Patient failed multiple antiarrhythmic trials in the past, as she was sensitive to all the medications. -will hold patient's atenolol in light of NPO -will hold Coumadin as patient's INR 3.9 today and repeat INR levels in the morning 3. Chronic lower extremity edema, present on admission, stable -likely due to atenolol side effect -hold spironolactone and torsemide at this time because patient is NPO, but resume in the morning if she improves -decreased hydration of 0.9 NS to 80 cc/hour -monitor for fluid overload 4. Hypertrophic cardiomyopathy, present on admission, chronic -status post ICD placement -will resume atenolol once patient is able to tolerate p.o. DNR/DNI DVT prophylaxis with SCD and holding warfarin due to supratherapeutic INR Disposition: Patient is here with SBO/adynamic ileus. Supportive care. Quality VTE Deep Vein Thrombosis/Pulmonary Embolism Present on Admission: No
[2019-05-18] VITALS (18 sets, daily range): BP systolic 97–139; BP diastolic 58–96; PULSE 64–168; RESP 16–28; TEMP 36.8–37.1; O2SAT 88–99
[2019-05-18] MEDS: SODIUM CHLORIDE 0.9% 1,000 ML 150 ML IV (00:46)
[2019-05-18] MEDS: BENZOCAINE/MENTHOL 1 LOZ PKT 1 EACH PO (00:49)
[2019-05-18] MEDS: SODIUM CHLORIDE 0.9% 1,000 ML 1000 ML IV (04:00)
[2019-05-18 04:14] LABS: Hemoglobin 13.4 g/dL (12.0-16.0); Mean Corpuscular HGB Conc 33.6 % (30-36); Mean Corpuscular Hemoglobin 28.9 PG (26-34); Mean Corpuscular Volume 86.2 fL (80-100); Platelet Count 606 X10^3/uL (150-400); Prothrombin Time 59.1 SECONDS (10.1-12.7); Red Blood Cell Count 4.64 X10^6/uL (4.0-5.2); Red Cell Distribution Width 16.8 % (11.6-14.8); White Blood Cell Count 11.2 X10^3/uL (4.5-11.0)
[2019-05-18 04:18] LABS: Magnesium 2.3 mg/dL (1.6-2.3)
[2019-05-18 04:23] LABS: INR 4.9 (0.9-1.3)
--- NOTE | 2019-05-18 04:23 | PM.EVENT ---
Date Patient Seen: 05/18/19 Time Patient Seen: 04:24 Patient went into AFib RVR (rate 130). Asymptomatic. NG output of 650 mL since 11:00 p.m. - EKG - Started NS 1L bolus - STAT lab mg, bmp, and rest of am labs (cbc, coags) - place 2nd IV, as likely will have depleted electrolytes
[2019-05-18] MEDS: METOPROLOL TARTRATE 5 MG/5 ML INJ IV ×2 (04:28→05:18)
[2019-05-18 04:32] LABS: Add Manual Diff / Slide Review YES
[2019-05-18 04:35] LABS: BUN Creatinine Ratio 27.1 (6-22); Blood Urea Nitrogen 19 mg/dL (7-17); Calcium 8.6 mg/dL (8.4-10.2); Carbon Dioxide 31 mmol/L (22-32); Chloride 98 mmol/L (98-107); Estimated Glomerular Filt Rate > 60.0 mL/min (>60); Glucose 110 mg/dL (80-110); HEMOLYSIS < 15 (0-50); Potassium 3.6 mmol/L (3.4-5.1); Sodium 141 mmol/L (137-145)
--- NOTE | 2019-05-18 04:53 | PC.NURSE ---
Pt was feeling like her heart was racing when she got up to the bathroom. Pulse showed 150's BP 125/72. Arianne was notified and ordered Tele, EKG, STAT labs. Tele showed pt was in rapid A-fib. Pt was given fluid bolus 1000ml/hr of NS over one hour, 2nd IV was started and at 0441 Pt was given 5mg metoprolol. Pt started on K+ rider at 130ml/hr, had to turn down to 120ml/hr for burning. Vitals at 0446 were 116/83 P 120's. 0509 vitals 124/81 P 121. 5 mg metoprolol given at 0520. 0530 Pt complains of nausea 4mg zofran given. 0640 BP 116/68 P 118
--- NOTE | 2019-05-18 05:00 | DI.RAD.S_ITS ---
PROCEDURE: XR KUB INDICATIONS: SBO follow up TECHNIQUE: One view of the abdomen acquired. COMPARISON: [facility], CT, CT ABDOMEN PELVIS W CON, 05/17/2019, 7:38. FINDINGS: Surgical changes and devices: None. Bowel: Dilated, gas-filled loops of small bowel persist within the left mid abdomen. Stool and gas are visualized throughout the colon. Soft tissues: No suspicious abdominal calcifications. Visualized solid organ contours appear normal in size. Bones: No suspicious bony lesions. IMPRESSION: Persistent gas-filled dilated small bowel within the left mid abdomen in the presence of gas and stool within the colon suggesting persistent partial small bowel obstruction. Dictated by: Sara Torres M.D. on 05/18/2019 at 9:10 Approved by: Sara Torres M.D. on 05/18/2019 at 9:12
[2019-05-18] MEDS: POTASSIUM CHLORIDE 20 MEQ in SODIUM CHLORIDE 0.9% 250 ML 130 ML IV (05:05)
[2019-05-18] MEDS: ONDANSETRON 4 MG/2 ML INJ IV ×3 (05:33→23:40)
[2019-05-18 05:48] LABS: Neutrophils Absolute Manual 7168 /uL (3000-5900); RBC Morphology Normal Morphology; Total Cells Counted 100
[2019-05-18] MEDS: dilTIAZem 5 MG/ML SDV 10 MG IV (07:21)
[2019-05-18] MEDS: LORazepam 2 MG/ML INJ 1 MG IV (07:46)
--- NOTE | 2019-05-18 07:54 | PC.NURSE ---
Transfer Arrived on shift and alerted by ICU that pt was tachy. Pt upset and anxious bc she wanted to get up to bathroom but cant bc of elevated HR. agreed to use the bedpan but this increases her anxiety. arrived in room and she is in tears, hands clenched at her chest. Denies chest pain but states she can feel her heart beating fast and that the rate is going up and down. Gave pt 10 mg IVP diltiazem, HR decreased to 120-130's after giving however, within a few minutes back up to 150-170's. EKG obtained. Notified MD of pt's anxiety level and gave pt 1mg IV ativan. Pt transfered down to ICU for closer monitoring. Belongings were packed and sent with pt. Report given to LIZANDRO Trujillo. Pt re-educated on limiting ice chips while on NGT. She states understanding.
[2019-05-18] MEDS: SODIUM CHLORIDE 0.9% 1,000 ML 80 ML IV (08:10)
[2019-05-18] MEDS: DILTIAZEM 125 MG/125 ML PIGGYBACK IV (08:14)
--- NOTE | 2019-05-18 08:54 | P.PN_ITS ---
Subjective Date Patient Seen: 05/18/19 Time Patient Seen: 08:44 Interval history: Follow-up on small bowel obstruction, as well as AFib with RVR. Patient seen at bedside. Her heart rate increased to 130 over night, but was asymptomatic. Stat EKG revealed AFib with RVR. Patient received 1 L bolus with no improvement in heart rate. Patient then received metoprolol 5 mg IV x2 with mild resolution of heart rate to 115-120. Patient then became severely anxious and tearful, but continued to have no chest pain or abdominal pain or shortness of breath. Heart rate again increased to 160-170. Patient was given Cardizem 10 mg IV push and Ativan 1 mg IV without any improvement. Patient was transferred to ICU and started on Cardizem drip. Patient is now calm, not agitated, but is somnolent. She denies any abdominal pain, nausea, vomiting. States that she is overall improving. When reviewing labs, patient was noted to have UA with WBCs 30-100. Reflex urine culture was positive for over 100, 000 g negative bacilli. I re- interviewed patient, who now tells me that she indeed has been having trouble urinating. She states that she has the urge to urinate, however it does not come out as much as it should. She also has slight burning with urination. She states she has been treated for UTI just recently and symptoms have mildly improved, but not fully went away. Exam Vital Signs (past 8 hours): - 05/18/19 03:33 05/18/19 04:58 05/18/19 05:00 Pulse Rate 154 H 120 H 120 H Respiratory Rate 18 Blood Pressure 125/72 116/83 124/81 Pulse Oximetry 97 97 96 05/18/19 05:38 05/18/19 06:00 05/18/19 07:00 Pulse Rate 118 H 113 H 165 H Respiratory Rate 18 22 Blood Pressure 116/68 120/84 129/90 Pulse Oximetry 96 99 96 05/18/19 07:21 05/18/19 08:09 Pulse Rate 168 H 151 H Respiratory Rate 27 H Blood Pressure 129/90 111/65 Pulse Oximetry 93 Oxygen Delivery Method Nasal Cannula Oxygen Flow Rate 1.5 Narrative Exam Narrative: General: No acute distress, A/O x3. Slightly somnolent from Ativan push. HEENT: PERRLA and EOMI bilaterally. NG tube in place, to low intermittent suctioning, draining small amount of brown fluid. Moist mucous membranes Neck: Supple, no LAD or JVD CV: Regular rate rhythm, no murmurs or gallops. ICD in place Respiratory: Clear to auscultation bilaterally, no wheezing or crackles GI: Positive bowel sounds in all quadrants, normooactive. No organomegaly. Mild ascites present. Musculoskeletal: Normal range of motion Extremities: Trace pitting edema in lower extremities bilaterally up to knees. 2+ pulses in all extremities Neuro: No focal deficits. Psych: AAO x3, patient is able to make her own decisions Objective Labs Result Diagrams: 05/18/19 04:00 05/18/19 04:00 Labs: Laboratory Results - last 24 hr 05/17/19 05/18/19 05/18/19 Unknown 04:00 04:00 WBC 11.2 H RBC 4.64 Hgb 13.4 Hct 40.0 MCV 86.2 MCH 28.9 MCHC 33.6 RDW 16.8 H Plt Count 606 H Neut % (Auto) Not Reportable Lymph % (Auto) Not Reportable Davidson % (Auto) Not Reportable Eos % (Auto) Not Reportable Baso % (Auto) Not Reportable Lymph # (Auto) Not Reportable Davidson # (Auto) Not Reportable Baso # (Auto) Not Reportable Total Counted 100 Seg Neutrophils % 61.0 Band Neutrophils % 3.0 Lymphocytes % (Manual) 14.0 L Atypical Lymphs % 1.0 H Monocytes % (Manual) 20.0 H Eosinophils % (Manual) 1.0 L Neutrophils # (Manual) 7168 H RBC Morphology Normal morphology PT 59.1 H D INR 4.9 H* Sodium Potassium Chloride Carbon Dioxide BUN Creatinine Estimated GFR BUN/Creatinine Ratio Glucose Calcium Magnesium Urine RBC 5-10/hpf H Urine WBC 30-100/hpf H Amorphous Sediment 1+ Urine Bacteria Many (>30) H Ur Culture Indicated? Specimen cultured 05/18/19 05/18/19 04:00 04:00 WBC RBC Hgb Hct MCV MCH MCHC RDW Plt Count Neut % (Auto) Lymph % (Auto) Davidson % (Auto) Eos % (Auto) Baso % (Auto) Lymph # (Auto) Davidson # (Auto) Baso # (Auto) Total Counted Seg Neutrophils % Band Neutrophils % Lymphocytes % (Manual) Atypical Lymphs % Monocytes % (Manual) Eosinophils % (Manual) Neutrophils # (Manual) RBC Morphology PT INR Sodium 141 Potassium 3.6 Chloride 98 Carbon Dioxide 31 BUN 19 H Creatinine 0.70 Estimated GFR > 60.0 BUN/Creatinine Ratio 27.1 H Glucose 110 Calcium 8.6 Magnesium 2.3 Urine RBC Urine WBC Amorphous Sediment Urine Bacteria Ur Culture Indicated? Assessment & Plan Assessment & Plan narrative: 69-year-old female with past medical history of hypertrophic cardiomyopathy status post ICD placed, atrial fibrillation on Coumadin therapy, status post recent hysterectomy, status post ablation x2, Lilly Maze procedure presented to emergency department with nausea and vomiting. She was found to have small-bowel obstruction versus adynamic ileus and admitted for further management. 1. Small Bowel obstruction vs Adynamic Ileus, acute, present on admission, improving -patient is hemodynamically stable, afebrile -WBCs 11.9->11.2 -CT abdomen and pelvis revealedjejunal and gastric dilation, with diffuse small bowel mural thickening suggestive of nonspecific enteritis with superimposed obstruction versus adynamic ileus. There was also 1 cm hyper enhancing lesion within the hepatic right lower lobe likely vascular in nature. There was also severe cardiomegaly, diffuse hepatic steatosis, small moderate right pleural effusion, and mild to moderate scattered ascites with prominent thickening/enhancement of peritoneum suggestive of peritonitis. -NG tube to low intermittent suctioning in place, drained 650cc out overnight (however has been taking a lot of ice chips). Patient is passing gas -If KUB is showing improvement in bowel gas pattern, will take out NG tube and advance to CLD -Zofran as needed for nausea, morphine as needed for pain, 0.9 NS at 80 cc/hour 2. Urinary tract infection, acute, present on admission -UA revealed WBC 30-100, with many bacteria -urine culture revealed gram-negative bacilli,>100K -will start patient on ceftriaxone IV 1 g Q 24 hours -pending blood cultures 3. Atrial fibrillation now in RVR, not present on admission, active -status post ablation x2 and Lilly Maze procedure. Patient failed multiple antiarrhythmic trials in the past, as she was sensitive to all the medications. -EKG shows Afib with RVR, HR 130-160 -s/p metoprolol 5 mg IV x2 and Cardizem 10 mg IV without improvement of heart rate -started on Cardizem drip, will continue and titrate off as possible -if patient is able to tolerate p.o., will start on home regimen atenolol 50mg QPM -will continue to hold Coumadin as patient's INR is 4.9 today 4. Supratherapeutic INR, present on admission, active -patient states her INR is always erratic, with constant need for readjustment -INR increased from 3.6->4.9 this morning -continue to hold Coumadin and recheck INR levels in the morning 5. Chronic lower extremity edema, present on admission, stable -likely due to atenolol side effect -resume spironolactone and torsemide when patient is able to tolerate p.o. -continue hydration of 0.9 NS to 80 cc/hour and stop if patient is able to take clear liquid diet -monitor for fluid overload 6. Hypertrophic cardiomyopathy, present on admission, chronic -status post ICD placement -will resume atenolol once patient is able to tolerate p.o. DNR/DNI DVT prophylaxis with SCD and holding warfarin due to supratherapeutic INR Disposition: Patient is here with SBO/adynamic ileus, improving. Will advance to clear liquid diet if KUB is improved. Treating AFib with RVR with Cardizem drip. Treating UTI with ceftriaxone. Quality VTE Deep Vein Thrombosis/Pulmonary Embolism Present on Admission: No
[2019-05-18] MEDS: CEFTRIAXONE 1 GM/50 ML FROZ.PIGGY IV (10:33)
[2019-05-18] MEDS: ATENOLOL 50 MG TABLET PO (10:43)
--- NOTE | 2019-05-18 12:14 | PC.NURSE ---
Addendum entered by Ameena Laurent R.N. 05/18/19 15:15: Callback from Dr. Bailey and updated on HR, PVR, and diet. New orders received. NG tube discontinued at 1505 without issue. Addendum entered by Ameena Laurent R.N. 05/18/19 14:29: Notified by Dr. Guerrier that Dr. Bailey now attending. Call placed to Dr. Bailey's office and message left concerning intermittent HR increases up to 120s (while V paced), PVR of 330 ml, and update on diet toleration. Awaiting callback. Original Note: Day Shift Note Pt transferred to ICU room 106 at 0810 via bed. Drowsy but oriented. In afib RVR with rate in the 160s. Rate unchanged post-Ativan administration. Started on diltiazem gtt at 0815, titrating up to 20 mg/hr - see MAR. Pt declining any chest pain or SOB but states she can feel my heart racing and stating I don't feel well. On 2L NC with oxygen sats 92-94%. Pt converted to NSR in the 60s at 0917 and confirmed via EKG, diltiazem gtt off at 0920. Dr. Guerrier updated on the above and ordered PO atenolol which was administered. Pt reports feeling much better and is taking in a clear liquid diet. NG tube clamped. Up 1 person assist to bathroom without issue. HR continues in the 60s with occasional A/V pacing. Call light within reach, using appropriately to make needs known.
--- NOTE | 2019-05-18 15:04 | CM.DANOTE ---
DCP/Assessment: Reviewed chart. Patient is a 69yr old female admitted to [facility] with abdominal pain. PCP is Dr. Bailey. Primary payor is 1)Medicare 2)Errol ALEXANDRA. Met with patient and spouse/Ochoa at bedside explained CM/SW role. Patient currently with NG tube and started on clears today. It is anticipated that patient will have NG removed later today. Patient and spouse report that patient I with all ADL's. Patient resides in [place] with spouse. Spouse reports that they have senior friendly residence. Patient does have DME if needed. Does not use any devices at baseline. P: Home when stable. CM team to continue to follow. DANETTE Fields Discharge Planning/Care Management CM Discharge Assessment Start: 05/18/19 15:02 Freq: Status: Active Protocol: Document 05/18/19 15:02 KJS (Rec: 05/18/19 15:04 KJS [id number]) Discharge Planning Assessment Assigned Motor Coach Tour Operator DANETTE Fields Contact Information Ochoa Kathleenhelder (spouse) Advance Directives? Yes: in old hospital files Advance Directives on File No History Provided By Patient Significant Other Medical Record Prior Living Arrangements House Household Members spouse Type of transporation used prior to Drives own vehicle admit Independent with ADL's Yes Is patient alert and oriented? Yes Caregiver for Another No Comment Has DME in the residence but does not use. Barriers to Discharge No Discharge Plan Home Transportation Arrangement Spouse to provide transport. Whiteboard Updated in Patient Room with Yes name and ext. # of Motor Coach Tour Operator Review Status In Process Next Review Type Continued Stay Review
--- NOTE | 2019-05-18 17:06 | PC.NURSE ---
Addendum entered by Ayleen Fu R.N. 05/18/19 20:33: 2000 - Pt continues to be mildly anxious. C/o abd upset, no emesis. Taking sips of clears. Reports erructation and flatus. No emesis, no BM. Pt agreeable to ambulate, around unit x 1. Return to bed. Assist to position for comfort. SCD's on. Ativan given. Call light in reach. Bed alarm on. Addendum entered by Ayleen Fu R.N. 05/18/19 19:01: 1830 - Pt up to the bathroom. Tearful, reports stomach upset. When asked if she was nauseated pt said yes, offered nausea rx and pt was agreeable. Returned with nausea medication pt is crying, I need to eat my food. Discussed nausea, pt states that maybe she was just feeling hungry. Encouraged slow po intake. Set up for sips of tea. Dr. Bailey at bedside. Pt poor historian r/t events of recent illness. Verbal order obtained to replace NGT if pt has emesis. Reviewed orders for labs, current vitals, and test results. Pt agreeable to try ativan if anxiety persists. Monitor. Original Note: 1600 - Pt had NGT d/c'd at 1500. Pt reports mild intermittent nausea, with sour burps. Denies need for nausea rx. Encouraged ambulation. Pt agreeable. Placed on portable telemetry. FWW provided. Pt ambulate, SBA in [place] x2. Pt reports abd feeling distended. +Flatus. Encouraged slow PO intake and repeat ambulation this shift. Pt verbalized understanding. Denies lightheadedness, dizziness or pain. Request break from SCDs upon return to bed. O2 sats 88% on RA, replaced on 1L, 92%. Pt to bring in home c-pap tomorrow. Monitor. Reinforced safety and call light use. Call light in reach.
[2019-05-18] MEDS: LORazepam 2 MG/ML INJ 0.5 MG IV (20:21)
[2019-05-18] MEDS: MORPHINE 2 MG/ML INJ IV (23:39)
[2019-05-19] VITALS (9 sets, daily range): BP systolic 113–153; BP diastolic 63–89; PULSE 63–71; RESP 16–20; TEMP 35.9–37.1; O2SAT 92–96
--- NOTE | 2019-05-19 | DI.RAD.S_ITS ---
PROCEDURE: XR ABDOMEN 1V INDICATIONS: SBO TECHNIQUE: One view of the abdomen acquired. COMPARISON: [facility], CR, XR KUB, 05/18/2019, 8:46. FINDINGS: Surgical changes and devices: None. Bowel: There is oral contrast seen within distended stomach lumen and small bowel loops. Small bowel loops in left side of abdomen measures up to 4.5 cm in diameter. Oral contrast is seen reaching sigmoid colon and rectum. Soft tissues: No suspicious abdominal calcifications. Visualized solid organ contours appear normal in size. Bones: No suspicious bony lesions. IMPRESSION: The finding is suggestive of resolving small bowel obstruction with oral contrast seen reaching the rectum. Dictated by: Edward Raymond M.D. on 05/19/2019 at 16:33 Approved by: Edward Raymond M.D. on 05/19/2019 at 16:35
--- NOTE | 2019-05-19 | PC.NURSE ---
Addendum entered by Loan Morrow R.N. 05/19/19 05:39: Pt with one more emesis episode around 0400 of approximately 40 mL. She still declines to have an NGT at this time. Education of need provided and pt continues to decline. Critical INR 7.6 - no signs of bleeding. Dr. Packer made aware, orders for vitamin K and to recheck level in 2 hours. Original Note: Pt up to BR with SBA at start of shift. Upon return to bed she reports that she had emesis - per CONSTRUCTION TRADES TEACHER Roopa it was approximately 20 mL at most. Discussed option and plan of care, pt declines NGT reinsertion at this time. Discussed that if emesis continues we will need to revisit the idea and she is agreeable to that. She reports nausea improved at this time but c/o abd pain localized to the epigastrium. Medicated with zofran and morphine per orders.
[2019-05-19 05:07] LABS: Add Manual Diff / Slide Review NO; Basophils Absolute Auto 100 /uL (0-100); Basophils Percent Auto 0.7 % (0-2); Eosinophils Absolute Auto 300 /uL (0-450); Eosinophils Percent Auto 3.6 % (2-4); Hematocrit 38.9 % (36-46); Hemoglobin 12.9 g/dL (12.0-16.0); Lymphocytes Absolute Auto 1100 /uL (1100-4500); Lymphocytes Percent Auto 11.1 % (25-40); Mean Corpuscular HGB Conc 33.1 % (30-36); Mean Corpuscular Hemoglobin 29.3 PG (26-34); Mean Corpuscular Volume 88.6 fL (80-100); Monocytes Absolute Auto 1900 /uL (0-900); Monocytes Percent Auto 19.8 % (3-14); Neutrophils Absolute Auto 6300 /uL (1500-7000); Neutrophils Percent Auto 64.8 % (50-75); Platelet Count 607 X10^3/uL (150-400); Red Blood Cell Count 4.39 X10^6/uL (4.0-5.2); White Blood Cell Count 9.7 X10^3/uL (4.5-11.0)
[2019-05-19 05:09] LABS: Prothrombin Time 91.6 SECONDS (10.1-12.7)
[2019-05-19 05:17] LABS: Alanine Aminotransferase 11 IU/L (9-52); Albumin Globulin Ratio 0.7 (1.0-2.8); Alkaline Phosphatase 159 U/L (38-126); Aspartate Aminotransferase 19 IU/L (14-36); BUN Creatinine Ratio 31.4 (6-22); Bilirubin Total 3.5 mg/dL (0.2-1.3); Blood Urea Nitrogen 22 mg/dL (7-17); Calcium 8.3 mg/dL (8.4-10.2); Carbon Dioxide 33 mmol/L (22-32); Chloride 99 mmol/L (98-107); Estimated Glomerular Filt Rate > 60.0 mL/min (>60); Globulin 4.2 g/dL (1.7-4.1); Glucose 136 mg/dL (80-110); HEMOLYSIS < 15 (0-50); Potassium 3.4 mmol/L (3.4-5.1); Sodium 141 mmol/L (137-145); Total Protein 7.2 g/dL (6.3-8.2)
[2019-05-19 05:18] LABS: INR 7.6 (0.9-1.3)
[2019-05-19 05:30] LABS: B Type Natriuretic Peptide 942 (<100)
[2019-05-19] MEDS: PHYTONADIONE (VIT K1) 5 MG TABLET PO (06:20)
--- NOTE | 2019-05-19 08:31 | DI.US.S_ITS ---
PROCEDURE: US ABDOMEN COMPLETE INDICATIONS: ASCITIES TECHNIQUE: Real-time scanning was performed of the abdominal and retroperitoneal organs, with image documentation. COMPARISON: [facility], CT, CT ABDOMEN PELVIS W CON, 05/17/2019, 7:38. [facility], US, ABDOMEN COMPLETE, 11/02/2007, 9:18. FINDINGS: Liver: Liver is normal in size and homogeneous in echotexture. Gallbladder: There is no gallstone. No gallbladder wall thickening. No sonographic Valdez's sign. Ill-defined soft tissue septation in the dependent portion of gallbladder is seen. Biliary ducts: Intrahepatic bile ducts are non-dilated. Extrahepatic bile duct caliber measures 5.3 mm. Normal is 6-7 mm or less in diameter, or 10 mm or less post-cholecystectomy. Pancreas: Visualized portions of the pancreas are sonographically normal. Spleen: Spleen is normal in size and homogeneous in echotexture. Kidneys: Kidneys are normal in size and echotexture. Right kidney measures 11.1 cm long; left kidney measures 11.2 cm long. No hydronephrosis or nephrolithiasis. No solid masses. Aorta: Visualized aorta is normal in caliber at less than 3 cm. Iliacs: Not well-seen due to overlying bowel gas. IVC: Intrahepatic inferior vena cava is patent. Miscellaneous: Trace amount of free fluid is seen in right and left lower quadrant abdomen. IMPRESSION: 1. No significant ascites fluid is seen. Small amount of fluid is noted in lower abdomen. 2. Ill-defined soft tissue septation in dependent portion of gallbladder, which could represent folds. No gallstones or sonographic signs of acute cholecystitis is seen. Dictated by: Edward Raymond M.D. on 05/19/2019 at 8:41 Approved by: Edward Raymond M.D. on 05/19/2019 at 8:45
--- NOTE | 2019-05-19 08:33 | DI.RAD.S_ITS ---
PROCEDURE: XR CHEST 2V INDICATIONS: pleural effusion TECHNIQUE: 2 views of the chest were acquired. COMPARISON: None. FINDINGS: Surgical changes and devices: Left chest wall cardiac device and median sternotomy wires are seen. Lungs and pleura: Moderate size right pleural effusion with atelectasis of right middle and lower lobe is seen. Mild pulmonary vascular congestion is noted with pulmonary edema. No gross pneumothorax. Mediastinum: Mediastinal contours are normal. Heart size is normal. Bones and chest wall: No suspicious bony abnormalities. Soft tissues appear unremarkable. IMPRESSION: Moderate right pleural effusion. Mild pulmonary vascular congestion and pulmonary edema. Dictated by: Edward Raymond M.D. on 05/19/2019 at 8:37 Approved by: Edward Raymond M.D. on 05/19/2019 at 8:38
--- NOTE | 2019-05-19 08:44 | PC.NURSE ---
Addendum entered by Unique Galeano R.N. 05/19/19 14:26: Gastrograph PO given and finished @ 1300 , films to be obtained at 4, 8 and 12 hours post. Monitor until contrast is in colon. IVF started @ 75mls/hr 1/2 NS with 40 K added. Po K+ given as well. Pt didn't tolerate this PO well, retching sounds, no emesis. Pt 1PA to BR, voiding hematuria and concentrated output. Addendum entered by Unique Galeano R.N. 05/19/19 13:43: 1130-Dr Bailey into see Pt, update given on imaging this Am. Plan to give Lasix and continue with supportive IV therapy for poor PO intake. Pt reporting that she is feeling a lot better, no nausea. Remains on 1L for O2 sats > 94% Original Note: Am shift Pt Is A/o x4, ambulating to BR with 1PA and FWW, denies nausea, tolerating clear liq. Voiding small amounts, with hematuria noted. Denies bleeding to peripad this am, left in place. U/s in this am for ABD study. Pt tolerating well. Xrays ordered. Tele remains in place. Apaced. Up to w/c for xrays @ 0900.
[2019-05-19 09:11] LABS: INR 7.5 (0.9-1.3)
[2019-05-19] MEDS: ATENOLOL 50 MG TABLET PO (09:56)
[2019-05-19] MEDS: CEFTRIAXONE 1 GM/50 ML FROZ.PIGGY IV (09:59)
--- NOTE | 2019-05-19 12:25 | PM.PN.1 ---
Subjective Date Patient Seen: 05/19/19 Time Patient Seen: 12:25 Interval history: The patient who is well known to me who was unfortunately admitted to the hospitalist service and we resumed care last night. I met with patient last night and she was given lorazepam for anxiety. She did very well and slept well. She is feeling much better. In fact today she feels 100% better than she did yesterday. She is weak and tired but is able to ambulate and perform activities of daily living with some help. She is having in urine output. She is not taking significant amounts of fluid in. Her IV fluids were stopped last night. She is passing gas but is not having any stool. She has 2 small episodes of emesis last night after she had clear liquids after the NG tube was removed. She feels that her stomach is not as distended and she feels that she is not cramping. She denies any shortness of breath she denies any racing heart. She still having some blood in her urine which is related to her urinary tract infection. Twelve point review of systems is negative. Met with patient and reviewed chart and proceedings and workup from ThursdayMay 17 and May 18. Exam Vital Signs (past 8 hours): - 05/19/19 04:55 05/19/19 07:00 05/19/19 07:49 Temperature 96.6 F L 97.2 F L Pulse Rate 63 71 Respiratory Rate 16 18 Blood Pressure 123/76 127/80 Pulse Oximetry 93 94 92 05/19/19 11:00 05/19/19 12:00 Temperature 98 F 98.5 F Pulse Rate 68 70 Respiratory Rate 18 18 Blood Pressure 130/72 130/72 Pulse Oximetry 95 95 Oxygen Delivery Method Nasal Cannula Oxygen Flow Rate 0 Narrative Exam Narrative: Patient has continued to be afebrile. Patient had AFib with rapid ventricular rate and now heart rate has been stable and regular. Blood pressure has been stable. She has been afebrile. She is alert and oriented x3 today. She is less anxious. HEENT: Mucous membranes slightly dry and pink Neck: Supple without significant jugular venous Distention or bruits Cor regular rate and rhythm with distant S1 and S2 and unchanged murmur. Chest: Decreased breath sounds on the right base but otherwise clear to auscultation without wheezes rhonchi or crackles Abdomen: Hypoactive bowel sounds, distended, guarding, diffusely tender Extremities: No lower extremity edema which is unusual for patient. Skin no rashes. Incisions healing. Neurologic exam nonfocal Objective Labs Result Diagrams: 05/19/19 04:40 05/19/19 04:40 Labs: Laboratory Results - last 24 hr 05/19/19 05/19/19 05/19/19 04:40 04:40 04:40 WBC 9.7 RBC 4.39 Hgb 12.9 Hct 38.9 MCV 88.6 MCH 29.3 MCHC 33.1 RDW 17.0 H Plt Count 607 H Neut % (Auto) 64.8 Lymph % (Auto) 11.1 L Prentiss % (Auto) 19.8 H Eos % (Auto) 3.6 Baso % (Auto) 0.7 Neut # (Auto) 6300 Lymph # (Auto) 1100 Prentiss # (Auto) 1900 H Eos # (Auto) 300 Baso # (Auto) 100 PT INR Sodium 141 Potassium 3.4 Chloride 99 Carbon Dioxide 33 H BUN 22 H Creatinine 0.70 Estimated GFR > 60.0 BUN/Creatinine Ratio 31.4 H Glucose 136 H Calcium 8.3 L Total Bilirubin 3.5 H AST 19 ALT 11 Alkaline Phosphatase 159 H B-Natriuretic Peptide 942 H Total Protein 7.2 Albumin 3.0 L Globulin 4.2 H Albumin/Globulin Ratio 0.7 L 05/19/19 05/19/19 04:40 08:50 WBC RBC Hgb Hct MCV MCH MCHC RDW Plt Count Neut % (Auto) Lymph % (Auto) Prentiss % (Auto) Eos % (Auto) Baso % (Auto) Neut # (Auto) Lymph # (Auto) Prentiss # (Auto) Eos # (Auto) Baso # (Auto) PT 91.6 H D 91.0 H INR 7.6 H* 7.5 H* Sodium Potassium Chloride Carbon Dioxide BUN Creatinine Estimated GFR BUN/Creatinine Ratio Glucose Calcium Total Bilirubin AST ALT Alkaline Phosphatase B-Natriuretic Peptide Total Protein Albumin Globulin Albumin/Globulin Ratio Assessment & Plan Assessment & Plan narrative: 69-year-old female admitted for intractable nausea, vomiting and diarrhea with suspected small bowel obstruction versus adynamic ileus secondary to gastroenteritis. Assessment 1. Ileus versus small-bowel obstruction. Patient is tolerating clears but is not having significant intake. Her abdominal exam is concerning for worsening condition in this regard. I discussed with Dr. Montoya who graciously agrees to see the patient. We will start with a Gastrografin 200 cc orally and then do KUB at 4 8 and 12 hours to see if there is truly an obstruction or this is an ileus. In the interim we will continue just with clear liquids. We will add IV fluids. We will check a magnesium level and we will optimize electrolytes. We will give potassium orally. Assessment 2. Infectious Disease. Patient with gram-negative bacilli in her urine and being treated with ceftriaxone. She seems to be improving and that she is afebrile and her white count has normalized. We will continue the same. At this juncture no other evidence of infectious process although continuing to monitor her for intra-abdominal infection. Assessment 3. Atrial fibrillation with rapid ventricular rate now well controlled. Plan: She will continue on the atenolol. She will continue with telemetry. Assessment 4. Supratherapeutic INR of unclear etiology. Concern for possible liver dysfunction versus dysmotility in the gut contributing to prolonged supratherapeutic INR. She has not had Coumadin for over a week. She was given vitamin K today. We will reassess in the a.m.. She is not acutely bleeding. Assessment 5. Elevated liver function tests with supratherapeutic INR. Ultrasound reviewed. Call in to Radiology about findings. No acute findings. Will continue to monitor. No significan ascites found on abdominal ultrasound today. Assessment 6. Right pleural effusion with interstitial edema suspected fluid overload and acute on chronic congestive heart failure Plan: Will give 20 mg IV Lasix and then reassess Assessment 7. Anxiety and depression related to situational stressor doing much better and lorazepam. Failed serotonin reuptake inhibitors previously and was unable to tolerate side effects. Assessment 8. DVT prophylaxis. Continue SCDs. Other anticoagulation contraindicated due to INR supratherapeutic Quality VTE Deep Vein Thrombosis/Pulmonary Embolism Present on Admission: No
[2019-05-19 12:38] LABS: Magnesium 2.7 mg/dL (1.6-2.3)
[2019-05-19] MEDS: POTASSIUM CHLORIDE 20 MEQ/15 ML UDC 60 MEQ PO (14:00)
[2019-05-19] MEDS: POTASSIUM CHLORIDE 40 MEQ in SODIUM CHLORIDE 0.45% 1,000 ML 75 MEQ IV (14:00)
[2019-05-19] MEDS: FUROSEMIDE 20 MG/2 ML VIAL IV (14:00)
[2019-05-19] MEDS: ONDANSETRON 4 MG/2 ML INJ IV (14:39)
[2019-05-19] MEDS: LORazepam 2 MG/ML INJ 0.5 MG IV (15:43)
--- NOTE | 2019-05-19 16:30 | PC.NURSE ---
Addendum entered by Ayleen Fu R.N. 05/20/19 00:53: 1215 - Pt up to the bathroom. Diarrhea persists. Pt also continues to have emesis with activity/up to bathroom. Pt reports feeling acid Zofran given. Set up to brush teeth. Pt requesting tea. Repeated attempts to encourage pt to decrease po intake r/t emesis. Pt states but I need something. Pt continues to insist that she is only taking small sips. Tea provided. C-pap available for sleep, 1L O2 bleed in. Pt on 1L NC while awake, sats 95%. Reinforced safety and call light use. Pt verbalized understanding. Original Note: 1530 - Pt up to the bathroom. 200cc emesis. Inc of small amount of brown stool. Assist with care. Abd distended and mildly tender. Tearful and anxious. Supportive at bedside. Reassurance provided. Ativan given. Reinforced safety and call light use. Bed alarm on.
--- NOTE | 2019-05-19 16:45 | P.CONS_ITS ---
History of Present Illness Date Patient Seen: 05/19/19 Time Patient Seen: 16:42 Chief complaint: vomiting since yesterday stomach ache Reason for consult: sbo and coagulopathy Requesting provider: Lizzie Bailey Narrative: 69 yo woman HD3 admitted for what was thought to be SBO vs enteritis based on CT read in the setting of supratheriputic INR on warfarin for afib. Pt reports several weeks on nausea followed 5days ago by diarrhea and emesis. An NGT was place near admission and subsiquently removed yesterday. Pt reports today feeling better with passage of loose stool and gas. Continues to report abdominal pain and distention. [facility] Medical History (Updated 05/17/19 @ 16:46 by Breanna Guerrier MD) Atrial fibrillation (Chronic) Cardiomyopathy (Chronic) Edema (Chronic) History of hysterectomy (Chronic) Hypertension (Chronic) Surgical History (Updated 05/17/19 @ 16:46 by Breanna Guerrier MD) Hx of prior ablation treatment (Chronic) History of permanent cardiac pacemaker placement (Chronic) Social History household members: spouse Smoking Status: Never smoker Social History household members: spouse Smoking Status: Never smoker Meds Home Medications Medication Instructions Recorded Confirmed Type warfarin [Coumadin] 1.25 mg PO QDAY #0 11/05/12 05/17/19 History latanoprost 1 applic EYE-BOTH QPM 04/26/18 05/17/19 History omega 3,6,9 combination no.7 1 tab PO DAILY 04/26/18 05/17/19 History [[place] DHA] plant stanol alejandro [Cholest Off] 1 tab PO DAILY 04/26/18 05/17/19 History Cysto Protek 2 cap PO BID 05/17/19 05/17/19 History Ortho Molecular Probiotic 1 cap PO QPM 05/17/19 05/17/19 History atenolol 50 mg PO QPM 05/17/19 05/17/19 History cholecalciferol (vitamin D3) 5,000 unit PO DAILY 05/17/19 05/17/19 History [Vitamin D3] coenzyme Q10 [Co Q-10] 300 mg PO DAILY 05/17/19 05/17/19 History metoclopramide HCl 10 mg PO PRN PRN 05/17/19 05/17/19 History potassium chloride 10 meq PO DAILY 05/17/19 05/17/19 History spironolactone 25 mg PO DAILY 05/17/19 05/17/19 History torsemide 20 mg PO BID 05/17/19 05/17/19 History Allergies Allergy/AdvReac Type Severity Reaction Status Date / Time flecainide [FLECAINIDE] Allergy Unknown CONFUSION, Verified 05/17/19 10:24 CAN'T THINK, DIZZY meperidine [MEPERIDINE] Allergy Unknown N/V Verified 04/26/18 20:15 amiodarone [From Pacerone] AdvReac Intermediate Redness of Verified 05/17/19 10: 24 Skin lisinopril AdvReac Intermediate Dizziness Verified 05/17/19 10:24 polyethylene glycol 3350 AdvReac Intermediate Fainting Verified 05/17/19 10:24 [From Miralax] atenolol [ATENOLOL] AdvReac Unknown MAKES ME Verified 04/26/18 20:15 VERY TIRED, NO ENERGY Review of Systems Constitutional Constitutional: Denies fever(s) Eyes Eyes: Denies bulging eyes ENT Ears, Nose, Mouth, and Throat: No lip swelling Cardiovascular Cardiovascular: Denies generalize swelling Respiratory Respiratory: Denies stridor Gastrointestinal Gastrointestinal: Denies coffee ground emesis Musculoskeletal Musculoskeletal: Denies loss of height Integumentary/Breasts Skin/Breast: Denies wounds Neurologic Neurologic: Denies abnormal speech and Denies confusion Psychiatric Psychiatric: Denies confusion Endocrine Endocrine: Denies deepening of the voice Hematologic/Lymphatic Hematologic/Lymphatic: Denies lymphadenopathy Allergic/Immunologic Allergic/Immunologic: Denies lip swelling Exam Vital Signs (past 8 hours): - 05/19/19 11:00 05/19/19 12:00 05/19/19 14:24 Temperature 98 F 98.5 F Pulse Rate 68 70 Respiratory Rate 18 18 Blood Pressure 130/72 130/72 Pulse Oximetry 95 95 96 05/19/19 15:30 Temperature Pulse Rate Respiratory Rate Blood Pressure Pulse Oximetry 93 Oxygen Delivery Method Nasal Cannula Oxygen Flow Rate 1 Const General: cooperative HENMT Head: normal to inspection Nose: nares normal Mouth: oral mucosae normal and lip normal Eyes Eyelids: eyelids normal Conjunctivae: conjunctivae normal Sclera: sclerae normal Neck Neck: supple and other (No thyromegally) Chest Chest: other (LCTAB , regular respiratory effort) Cardio Rhythm: regular rhythm Heart Sounds: S1 normal, S2 normal, no gallops, no murmurs and no rubs GI Other: abdomen with single port site scar near umbilicus. distended, dull to percussion. Globally and moderately tender without reflexive guarding. Not peritoneal Skin General: no rashes or lesions noted Neuro General: alert and awake Psych Appearance: grossly normal Affect: normal affect Objective Labs Result Diagrams: 05/19/19 04:40 05/19/19 04:40 Labs: Laboratory Results - last 24 hr 05/19/19 05/19/19 05/19/19 04:40 04:40 04:40 WBC 9.7 RBC 4.39 Hgb 12.9 Hct 38.9 MCV 88.6 MCH 29.3 MCHC 33.1 RDW 17.0 H Plt Count 607 H Neut % (Auto) 64.8 Lymph % (Auto) 11.1 L [place] % (Auto) 19.8 H Eos % (Auto) 3.6 Baso % (Auto) 0.7 Neut # (Auto) 6300 Lymph # (Auto) 1100 [place] # (Auto) 1900 H Eos # (Auto) 300 Baso # (Auto) 100 PT INR Sodium 141 Potassium 3.4 Chloride 99 Carbon Dioxide 33 H BUN 22 H Creatinine 0.70 Estimated GFR > 60.0 BUN/Creatinine Ratio 31.4 H Glucose 136 H Calcium 8.3 L Magnesium Total Bilirubin 3.5 H AST 19 ALT 11 Alkaline Phosphatase 159 H B-Natriuretic Peptide 942 H Total Protein 7.2 Albumin 3.0 L Globulin 4.2 H Albumin/Globulin Ratio 0.7 L 05/19/19 05/19/19 05/19/19 04:40 08:50 08:50 WBC RBC Hgb Hct MCV MCH MCHC RDW Plt Count Neut % (Auto) Lymph % (Auto) [place] % (Auto) Eos % (Auto) Baso % (Auto) Neut # (Auto) Lymph # (Auto) [place] # (Auto) Eos # (Auto) Baso # (Auto) PT 91.6 H D 91.0 H INR 7.6 H* 7.5 H* Sodium Potassium Chloride Carbon Dioxide BUN Creatinine Estimated GFR BUN/Creatinine Ratio Glucose Calcium Magnesium 2.7 H Total Bilirubin AST ALT Alkaline Phosphatase B-Natriuretic Peptide Total Protein Albumin Globulin Albumin/Globulin Ratio Assessment & Plan Assessment & Plan narrative: 69 yo woman with rising INR after 5mg of vit k this am in the setting of abdominal pain with distention Abdominal pain - pt with clear enteritis - majority of small bowel is thickened with significant mesenteric stranding and some free fluid and increased vascularity within the bowel dhaliwal. - all suggestive of small bowel inflamation. While there are some loops of dialated small bowel the signfiicant amount of gas in the colon and abscence of a transition point are not suggestive of a small bowel obstruciton. Clinically her GI track is open with passage of stool and flatus today. Gastrographin study shows contrast in rectum 4hrs after ingestion. Does not have SBO Enteritis with bowel edema is the source of abdominal distention Rec- Stool culture to eval for salmonella, campylobacter, shigella Sending C diff Elevated INR Dx - delayed absorption of warfarin with intestinal dysmotility from enteritis. However in the setting of hyperbilirubinemia and ascites on CT may be underlying liver synthetic dysfuntion, consumption process also possible ie DIC from infection: Rec: Scheduled Vit K 10/daily to remove wafarin effect from differential fractionate hyperbili - direct hyperbilirubiemia much less ominous then indirect picture. Sending fibrinogen - if low supports a consumptive process type and screen in case of bleeding - will need plasma May be non obsorbed warfarin still
[2019-05-19 17:08] LABS: Prothrombin Time 96.2 SECONDS (10.1-12.7)
[2019-05-19 17:10] LABS: Bilirubin Conjugated 1.3 md/dL (0.0-0.3)
[2019-05-19 17:18] LABS: Fibrinogen 312 mg/dL (211-428)
[2019-05-19] MEDS: PHYTONADIONE (VIT K1) 5 MG TABLET 10 MG PO (17:36)
[2019-05-19 18:27] LABS: Clostridium Difficile Tox PCR Negative for C. diff
[2019-05-20] VITALS (15 sets, daily range): BP systolic 109–130; BP diastolic 62–76; PULSE 68–78; RESP 16–18; TEMP 36.2–36.9; O2SAT 90–98
[2019-05-20] MEDS: ONDANSETRON 4 MG/2 ML INJ IV (00:11)
[2019-05-20] MEDS: POTASSIUM CHLORIDE 40 MEQ in SODIUM CHLORIDE 0.45% 1,000 ML 75 MEQ IV ×2 (03:02→22:39)
[2019-05-20] MEDS: LORazepam 2 MG/ML INJ 0.5 MG IV ×2 (04:45→10:47)
[2019-05-20 05:15] LABS: Prothrombin Time 97.9 SECONDS (10.1-12.7)
[2019-05-20 05:18] LABS: Add Manual Diff / Slide Review NO; Basophils Absolute Auto 0 /uL (0-100); Basophils Percent Auto 0.4 % (0-2); Eosinophils Absolute Auto 300 /uL (0-450); Hematocrit 39.2 % (36-46); Hemoglobin 13.3 g/dL (12.0-16.0); Lymphocytes Absolute Auto 1000 /uL (1100-4500); Lymphocytes Percent Auto 9.7 % (25-40); Mean Corpuscular HGB Conc 33.8 % (30-36); Mean Corpuscular Hemoglobin 29.8 PG (26-34); Mean Corpuscular Volume 88.2 fL (80-100); Monocytes Absolute Auto 1700 /uL (0-900); Monocytes Percent Auto 15.9 % (3-14); Neutrophils Absolute Auto 7600 /uL (1500-7000); Platelet Count 596 X10^3/uL (150-400); Red Blood Cell Count 4.45 X10^6/uL (4.0-5.2); Red Cell Distribution Width 17.6 % (11.6-14.8); White Blood Cell Count 10.8 X10^3/uL (4.5-11.0)
[2019-05-20 05:20] LABS: Alanine Aminotransferase 13 IU/L (9-52); Albumin Globulin Ratio 0.7 (1.0-2.8); Alkaline Phosphatase 166 U/L (38-126); Aspartate Aminotransferase 23 IU/L (14-36); BUN Creatinine Ratio 27.1 (6-22); Bilirubin Total 3.4 mg/dL (0.2-1.3); Blood Urea Nitrogen 19 mg/dL (7-17); Calcium 8.3 mg/dL (8.4-10.2); Carbon Dioxide 32 mmol/L (22-32); Chloride 101 mmol/L (98-107); Estimated Glomerular Filt Rate > 60.0 mL/min (>60); Globulin 4.4 g/dL (1.7-4.1); Glucose 121 mg/dL (80-110); HEMOLYSIS < 15 (0-50); Potassium 3.9 mmol/L (3.4-5.1); Sodium 140 mmol/L (137-145); Total Protein 7.4 g/dL (6.3-8.2)
[2019-05-20 05:21] LABS: INR 8.1 (0.9-1.3)
[2019-05-20 05:30] LABS: Magnesium 2.5 mg/dL (1.6-2.3)
[2019-05-20 05:36] LABS: B Type Natriuretic Peptide 635 (<100)
[2019-05-20] MEDS: CEFTRIAXONE 1 GM/50 ML FROZ.PIGGY IV (08:23)
--- NOTE | 2019-05-20 08:47 | P.PN_ITS ---
Subjective Date Patient Seen: 05/20/19 Time Patient Seen: 08:11 Interval history: Patient is 69 year old female who is sent to hospital and is admitted for a complex presentation of multiple issues. Seems to be in an infectious with an enteritis and fluid within the abdomen suggestive of a possible peritonitis is on IV antibiotics for that. Also urinary tract infection growing out gram-negative rods. This covered for that as well. Also has significant history of cardiac arrhythmia is based on cardiomyopathy in good rhythm and blood pressure control at this point. Has implanted defibrillator because of her cardiomyopathy and prior cardiac arrest secondary to rhythm issue. Chest pain significant shortness breath using her CPAP appropriately without complication is tolerating clear liquids without any nausea sings are moving through her gut even though she has on scan what looks like enteritis. Her ascites does not seem to be increasing is nontender this morning. Some que stion as to whether her ascites is due to the got abnormality possible enteritis or being contributed to by her cardiomyopathy shows a small pleural effusion and some liver changes. Could possibly be a combination of liver and cardiac issues. BNP was 900 early in this admission is down to 650 today. Patient is listed her preference as no code Patient also has an increase in her INR which is of uncertain etiology she has not had any Coumadin does not show other signs of progressing liver insu fficiency. Could be congestive issues. Today's INR has gone up to 8.1. No sign of bleeding Patient's past medical history complex with fatty liver arrhythmia hypertension congestive heart failure secondary to cardiomyopathy glaucoma and atrial arrhythmia with anticoagulation. Has implanted defibrillator Patient surgical history with ablation and permanent implantable defibrillator Past medical history as above Social history patient lives with spouse in home. Nonsmoker. 0-2 alcoholic b everages a day. Exam Vital Signs (past 8 hours): - 05/20/19 00:43 05/20/19 04:47 Temperature 98.5 F Pulse Rate 69 Respiratory Rate 18 Blood Pressure 119/73 Pulse Oximetry 95 95 Oxygen Delivery Method Nasal Cannula Oxygen Flow Rate 1 Narrative Exam Narrative: PERRLA EOMs intact Lang comfortably in bed without complaints of pain vital signs stable Neck without mass Lungs decreased breath sounds slight crackle and intermittently. Not floridly wet or consistent with congestive failure Cardiovascular shows regular rate and rhythm at pulse at about 60 with a pacing regularity. Trace murmur. No dependent edema on exam this morning Abdomen feels is bullish slightly firm but nontender no significant mass or hepatosplenomegaly noted Extremities without edema Skin without significant rashes Neuro intact symmetrical cognitive clear sensory motor intact and symmetrical as well Objective Labs Result Diagrams: 05/20/19 04:39 05/20/19 04:39 Labs: Laboratory Results - last 24 hr 05/19/19 05/19/19 05/19/19 08:50 08:50 16:50 WBC RBC Hgb Hct MCV MCH MCHC RDW Plt Count Neut % (Auto) Lymph % (Auto) [place] % (Auto) Eos % (Auto) Baso % (Auto) Neut # (Auto) Lymph # (Auto) [place] # (Auto) Eos # (Auto) Baso # (Auto) PT 91.0 H INR 7.5 H* Fibrinogen 312 Sodium Potassium Chloride Carbon Dioxide BUN Creatinine Estimated GFR BUN/Creatinine Ratio Glucose Calcium Magnesium 2.7 H Total Bilirubin Conjugated Bilirubin AST ALT Alkaline Phosphatase B-Natriuretic Peptide Total Protein Albumin Globulin Albumin/Globulin Ratio C. difficile Tox (PCR) Blood Type Antibody Screen 05/19/19 05/19/19 05/19/19 16:50 16:50 16:50 WBC RBC Hgb Hct MCV MCH MCHC RDW Plt Count Neut % (Auto) Lymph % (Auto) [place] % (Auto) Eos % (Auto) Baso % (Auto) Neut # (Auto) Lymph # (Auto) [place] # (Auto) Eos # (Auto) Baso # (Auto) PT 96.2 H D INR 8.0 H* Fibrinogen Sodium Potassium Chloride Carbon Dioxide BUN Creatinine Estimated GFR BUN/Creatinine Ratio Glucose Calcium Magnesium Total Bilirubin Conjugated Bilirubin 1.3 H AST ALT Alkaline Phosphatase B-Natriuretic Peptide Total Protein Albumin Globulin Albumin/Globulin Ratio C. difficile Tox (PCR) Blood Type AB Positive Antibody Screen Negative 05/19/19 05/20/19 05/20/19 17:00 04:39 04:39 WBC RBC Hgb Hct MCV MCH MCHC RDW Plt Count Neut % (Auto) Lymph % (Auto) [place] % (Auto) Eos % (Auto) Baso % (Auto) Neut # (Auto) Lymph # (Auto) [place] # (Auto) Eos # (Auto) Baso # (Auto) PT 97.9 H INR 8.1 H* Fibrinogen Sodium Potassium Chloride Carbon Dioxide BUN Creatinine Estimated GFR BUN/Creatinine Ratio Glucose Calcium Magnesium Total Bilirubin Conjugated Bilirubin AST ALT Alkaline Phosphatase B-Natriuretic Peptide 635 H Total Protein Albumin Globulin Albumin/Globulin Ratio C. difficile Tox (PCR) Negative for c. diff Blood Type Antibody Screen 05/20/19 05/20/19 05/20/19 04:39 04:39 04:39 WBC 10.8 RBC 4.45 Hgb 13.3 Hct 39.2 MCV 88.2 MCH 29.8 MCHC 33.8 RDW 17.6 H Plt Count 596 H Neut % (Auto) 71.0 Lymph % (Auto) 9.7 L [place] % (Auto) 15.9 H Eos % (Auto) 3.0 Baso % (Auto) 0.4 Neut # (Auto) 7600 H Lymph # (Auto) 1000 L [place] # (Auto) 1700 H Eos # (Auto) 300 Baso # (Auto) 0 PT INR Fibrinogen Sodium 140 Potassium 3.9 Chloride 101 Carbon Dioxide 32 BUN 19 H Creatinine 0.70 Estimated GFR > 60.0 BUN/Creatinine Ratio 27.1 H Glucose 121 H Calcium 8.3 L Magnesium 2.5 H Total Bilirubin 3.4 H Conjugated Bilirubin AST 23 ALT 13 Alkaline Phosphatase 166 H B-Natriuretic Peptide Total Protein 7.4 Albumin 3.0 L Globulin 4.4 H Albumin/Globulin Ratio 0.7 L C. difficile Tox (PCR) Blood Type Antibody Screen Assessment & Plan Assessment & Plan narrative: Assist 1. Enteritis with structural changes and dilatation in proximal gut consistent with an enteritis potentially a cause of her ascites. Assessment 2. Ascites. I think this probably has a component from her current got inflammatory process. One wonders if there could be some ischemic bowel but that did not look consistent with that on her scan. Assessment 3. Cardiomyopathy with fluid management issues dilated heart and good rate control at this point is slight pleural effusion with ongoing history of diuretics for her management with her glove boarder. Her BNP dropped from 950- 650 this morning. Will continue on current regimen Assessment 4. Hypertension blood pressure in good control at this point will continue with her atenolol and monitor closely. Assessment 5. Coagulopathy patient INR is up to 8.1. Will continue her on vitamin K at 5 mg per day but will give her 2 units of fresh frozen plasma this morning. There is no acute sign of bleeding but that is awfully high. Assessment 6. History of significant arrhythmias including AFib and previous dysrhythmic cardiac arrest that required cardioversion. Concurrently good rate control negative cardiac enzymes and improving BNP will continue to monitor. Assessment 7 possible liver disease there is fatty liver changes no enlargement of spleen noted on imaging but part of her ascites another edema issues superimposed over her cardiomyopathy may be contributing. Quality VTE Deep Vein Thrombosis/Pulmonary Embolism Present on Admission: No
[2019-05-20] MEDS: PHYTONADIONE (VIT K1) 5 MG TABLET 10 MG PO (09:25)
[2019-05-20] MEDS: ATENOLOL 50 MG TABLET PO (09:25)
--- NOTE | 2019-05-20 09:42 | PC.NURSE ---
Addendum entered by Lucia Baca R.N. 05/20/19 14:21: 2nd unit of ffp transfusing well will check pt/int at 1730 ( 2 h post transfusion) awaiting bm for gi panel to send- echo complete Original Note: PT SLEPT WELL WITH IV LORAZEPAM GIVEN ON NOC SHIFT- THIS ALLOWED HER SEVERAL HOURS OF COMFORTABLE SLEEP WITH NO EMESIS DURING FELA TIME- ALSO, LESSENED SENSE OF DREAD THIS AM. TOOK SMALL AMOUNT OF FULL LIQUID BREAKFAST (APPLESAUCE/YOGURT) WITH NO PROBLEMS- WILL BE TRANSFUSING FFP X 2 U FOR ELEVATED INR AND RECHECK PT/INR LATER THIS DATE 2-3 HOURS POST TRANSFUSION
--- NOTE | 2019-05-20 09:48 | PT.IIE ---
Current Diagnoses Unspecified intestinal obstruction, unspecified as to partial versus complete obstruction (05/17/19) Surgical History (Last Updated 05/17/19 @ 16:46 by Breanna Guerrier MD) Hx of prior ablation treatment (Chronic) History of permanent cardiac pacemaker placement (Chronic) Medical History (Last Updated 05/17/19 @ 16:46 by Breanna Guerrier MD) Atrial fibrillation (Chronic) Cardiomyopathy (Chronic) Edema (Chronic) History of hysterectomy (Chronic) Hypertension (Chronic) Physical Therapy Inpatient Evaluation/Re-Eval M1 PT/OT-IP Prior Functional Status Start: 05/20/19 14:26 Freq: NEEDED Status: Active Protocol: Document 05/20/19 09:48 AB (Rec: 05/20/19 14:42 AB [id number]) Medical Review Prior Functional Status Medical History Reviewed Yes Communication able to make needs known Mobility and Gait pt stated that she is independent with all mobilities and ambulation without AD Social History Household Members spouse Living Arrangements House Number of Floors (Floors) One Floor Number of Stairs To Enter/Railing? 2 steps to enter with R rail Home Environment High Toilet Walk in Shower Home Equipment Front Wheel Walker Shower Seat without Backrest Hand Held Shower Grab Bars Near Toilet Grab Bars In Shower Employment Status Retired M2 PT-IP Current Condition Start: 05/20/19 14:26 Freq: NEEDED Status: Active Protocol: Document 05/20/19 09:48 AB (Rec: 05/20/19 14:42 AB [id number]) Physical Therapy Current Condition Current Condition Evaluation Date 05/20/19 Treatment Diagnosis enteritis; generalized weakness Onset Date 05/17/19 M3 PT-IP Subjective Start: 05/20/19 14:26 Freq: NEEDED Status: Active Protocol: Document 05/20/19 09:48 AB (Rec: 05/20/19 14:42 AB [id number]) Subjective Physical Therapy Visit Type Type Initial Evaluation Visit Start Time 09:48 Visit Stop Time 10:28 Total Visit Minutes 40 Number of SENIOR INTERACTION DESIGNER Visits 0 Physical Therapy Visit Comments Patient Comments pt agreeable to do PT Therapy Pain Assessment Pain Present Pain Present Denied Pain M4 PT-IP Mobility and Gait Start: 05/20/19 14:26 Freq: NEEDED Status: Active Protocol: Document 05/20/19 09:48 AB (Rec: 07/05/19 14:42 AB [id number]) PT-Bed Mobility Assessment Supine to Sit Supine to Sit Standby Assistance Sit to Supine Sit to Supine Standby Assistance Scooting Scooting to Edge of Bed Standby Assistance Scooting Up and Down in Bed Standby Assistance PT-Transfer Assessment Sit to and From Stand Sit to and from Stand Standby Assistance Equipment Transfer Assistive Device Gait Belt Front Wheeled Walker Orthotic/Prosthetic Devices or Brace: No Transfers Transfer Destination Toilet Transfer Technique pt ambulated using FWW Transfer Ability Level of Assist Standby Assistance Comments Mobility Comments pt requested to use the toilet and ambulated using FWW SBA. Pt also ambulated towards the sink using FWW SBA and was able to maintain standing SBA while completing ADLs (tooth brushing, grooming) Gait Assessment Gait Gait Assistance Required: Standby Assistance Contact Guard Assist Distance (Feet) 100 Able to Maintain Weight Bearing Status Yes During Gait Assistive Devices Assistive Device None Gait Belt Front Wheeled Walker Orthotic/Prosthetic Devices or Brace: No Factors Limiting Gait Function Factors Limiting Gait Function Decreased Activity Tolerance Comments Gait Comments pt completed ambulation using FWW ~ 100 ft SBA. Assessed ambulation without AD and pt completed with CGA ~ 20 ft. pt presents with unsteady step to gait. PT-Balance Assessment Sitting Balance and Reactions Static Sitting Balance Ability Good Dynamic Sitting Balance Ability Good Standing Balance and Reactions Static Standing Balance Ability Fair Dynamic Standing Balance Ability Fair Device Used without AD M5 PT-IP Objective Assessments Start: 05/20/19 14:26 Freq: NEEDED Status: Active Protocol: Document 05/20/19 09:48 AB (Rec: 05/20/19 14:42 AB [id number]) Orientation Orientation/Cognition Orientation Name Place Situation Language Function Ability No Deficits Noted Safety Awareness Decreased Safety Awareness Gross Range of Motion Lower Extremity ROM Assessment Within Functional Limits Strength Lower Extremity Strength Assessment Bilaterally Impaired Hip 4-/5 Knee 4-/5 Coordination Assessment Gross Coordination Gross Coordination WNL Sensation Assessment Sensation Gross Sensation WNL Muscle Tone Muscle Tone WNL Yes M6 PT-IP Treatment Start: 05/20/19 14:26 Freq: NEEDED Status: Active Protocol: Document 05/20/19 09:48 AB (Rec: 05/20/19 14:42 AB [id number]) Physical Therapy Treatment Education Education Provided Safety M7 PT-IP Assessment and Plan Start: 05/20/19 14:26 Freq: NEEDED Status: Active Protocol: Document 05/20/19 09:48 AB (Rec: 05/20/19 14:42 AB [id number]) PT Summary Assessment and Plan Potential Rehabilitation Potential Good Status of Condition at Evaluation Stable Summary Impairments Pain ROM Strength Balance Coordination Sensation Tone Cognition Bed Mobility Transfers Gait Activity Tolerance Assessment Summary pt requiring SBA with ambulation using FWW but is unsteady ambulating without AD . pt will likely progress during hospital stay and may go home when medicall stable. Goals Bed Mobility Goal Independent Transfer Goal Independent Gait Goal Independent Gait Distance 200 Other Goals up/down 2 steps with R rail ascending SBA Days to Meet Goals 5 Frequency of Treatment Frequency Of Treatment Once a Day Treatment Plan Physical Therapy Treatment Plan Bed Mobility Training Transfer Training Gait Training Therapeutic Exercise Balance Retraining Discharge Planning Neuromuscular Re-ed Recommendations To Nursing Amount of Assist Needed Standby Assistance Discharge Recommendations PT Discharge Recommendations Home with Assistance
--- NOTE | 2019-05-20 12:48 | P.PN_ITS ---
Subjective Date Patient Seen: 05/20/19 Time Patient Seen: 12:42 Interval history: Less abdominal pain today Now having regular stools -diarrhea Requesting more solid food/advancement of clear liquid diet notes presence of rat poison on property, feels cross contamination with food extremely unlikely Exam Vital Signs (past 8 hours): - 05/20/19 04:47 05/20/19 08:40 05/20/19 08:45 Temperature 98.5 F 98.5 F Pulse Rate 69 68 Respiratory Rate 18 18 Blood Pressure 119/73 114/65 Pulse Oximetry 95 95 96 05/20/19 11:10 05/20/19 11:30 Temperature 97.2 F L 97.6 F Pulse Rate 68 69 Respiratory Rate 16 16 Blood Pressure 109/76 Pulse Oximetry Oxygen Delivery Method Room Air Oxygen Flow Rate 1 Narrative Exam Narrative: Comfortable, heart hard to arouse however, this been given dose of benzodiazepine Breathing comfortably on room air Has in jugular venous distension to earlobes, lower extremity edema present Irregular heart rate Abdomen is soft, distended, minimally tender, exam improved over yesterday Periphery warm Objective Labs Result Diagrams: 05/20/19 04:39 05/20/19 04:39 Labs: Laboratory Results - last 24 hr 05/19/19 05/19/19 05/19/19 08:50 16:50 16:50 WBC RBC Hgb Hct MCV MCH MCHC RDW Plt Count Neut % (Auto) Lymph % (Auto) [place] % (Auto) Eos % (Auto) Baso % (Auto) Neut # (Auto) Lymph # (Auto) [place] # (Auto) Eos # (Auto) Baso # (Auto) PT 96.2 H D INR 8.0 H* Fibrinogen 312 Sodium Potassium Chloride Carbon Dioxide BUN Creatinine Estimated GFR BUN/Creatinine Ratio Glucose Calcium Magnesium 2.7 H Total Bilirubin Conjugated Bilirubin AST ALT Alkaline Phosphatase B-Natriuretic Peptide Total Protein Albumin Globulin Albumin/Globulin Ratio C. difficile Tox (PCR) Blood Type Antibody Screen 05/19/19 05/19/19 05/19/19 16:50 16:50 17:00 WBC RBC Hgb Hct MCV MCH MCHC RDW Plt Count Neut % (Auto) Lymph % (Auto) [place] % (Auto) Eos % (Auto) Baso % (Auto) Neut # (Auto) Lymph # (Auto) [place] # (Auto) Eos # (Auto) Baso # (Auto) PT INR Fibrinogen Sodium Potassium Chloride Carbon Dioxide BUN Creatinine Estimated GFR BUN/Creatinine Ratio Glucose Calcium Magnesium Total Bilirubin Conjugated Bilirubin 1.3 H AST ALT Alkaline Phosphatase B-Natriuretic Peptide Total Protein Albumin Globulin Albumin/Globulin Ratio C. difficile Tox (PCR) Negative for c. diff Blood Type AB Positive Antibody Screen Negative 05/20/19 05/20/19 05/20/19 04:39 04:39 04:39 WBC RBC Hgb Hct MCV MCH MCHC RDW Plt Count Neut % (Auto) Lymph % (Auto) [place] % (Auto) Eos % (Auto) Baso % (Auto) Neut # (Auto) Lymph # (Auto) [place] # (Auto) Eos # (Auto) Baso # (Auto) PT 97.9 H INR 8.1 H* Fibrinogen Sodium Potassium Chloride Carbon Dioxide BUN Creatinine Estimated GFR BUN/Creatinine Ratio Glucose Calcium Magnesium 2.5 H Total Bilirubin Conjugated Bilirubin AST ALT Alkaline Phosphatase B-Natriuretic Peptide 635 H Total Protein Albumin Globulin Albumin/Globulin Ratio C. difficile Tox (PCR) Blood Type Antibody Screen 05/20/19 05/20/19 04:39 04:39 WBC 10.8 RBC 4.45 Hgb 13.3 Hct 39.2 MCV 88.2 MCH 29.8 MCHC 33.8 RDW 17.6 H Plt Count 596 H Neut % (Auto) 71.0 Lymph % (Auto) 9.7 L [place] % (Auto) 15.9 H Eos % (Auto) 3.0 Baso % (Auto) 0.4 Neut # (Auto) 7600 H Lymph # (Auto) 1000 L [place] # (Auto) 1700 H Eos # (Auto) 300 Baso # (Auto) 0 PT INR Fibrinogen Sodium 140 Potassium 3.9 Chloride 101 Carbon Dioxide 32 BUN 19 H Creatinine 0.70 Estimated GFR > 60.0 BUN/Creatinine Ratio 27.1 H Glucose 121 H Calcium 8.3 L Magnesium Total Bilirubin 3.4 H Conjugated Bilirubin AST 23 ALT 13 Alkaline Phosphatase 166 H B-Natriuretic Peptide Total Protein 7.4 Albumin 3.0 L Globulin 4.4 H Albumin/Globulin Ratio 0.7 L C. difficile Tox (PCR) Blood Type Antibody Screen Assessment & Plan Assessment & Plan narrative: 69-year-old female current we with diagnostic history with enteritis, bowel edema in the setting of indirect hyperbilirubinemia, and quite elevated INR even after significant vitamin K adm inistration. Surgery 1st consulted for evaluation of possible small bowel obstruction -no small-bowel obstruction present Patient does appear to be volume overloaded with right-sided pleural effusion, congestive ascites, JVD, peripheral edema -suggest trial of diuresis, administration of FFP today may exacerbate volume overload. Strongly consider echo. Elevated INR -hepatic dysfunction versus sustained warfarin effect in the setting of intestinal dysfunction. Agree with continuing Vit K. Consider hematology consult. Quality VTE Deep Vein Thrombosis/Pulmonary Embolism Present on Admission: No
--- NOTE | 2019-05-20 12:48 | DI.ECHO.S_ITS ---
[place] [facility]---------+ [facility] +---------+ : : [address] [place] : : : : [id number] : : : : Phone: [phone] Echocardiogram Report + + :Name: HANSEL MONTERO Study Date: 05/20/2019 Height: 63 in : :[facility] Weight: 182 lb : : Gender: Female BSA: 1.9 m2 : :: 1950 Age: 69 yrs BP: 120/71 mmHg: :Reason For Study: Hypertension : : Performed By: Ivania Fish : :Referring: BRENDA BARRIOS : + + Interpretation Summary Normal sinus rhythm. Normal LV size; severe eccentric LVH particularly involving the septum. There is septal dyskinesis. EF is 60-65%. Stage III diasolic dysfunction. Severe biatrial enlargement; otherwise normal chamber sizes. Mitral valve leaflets are normal; moderate MAC with mild MR. Aortic valve is a trileaflet structure. There is mild thickening of the left coronary leaflet. There is a small threadlike lesion protruding into the proximal aorta, most consistent with lambl's excrescence. There is a pacing lead traversing the tricuspid valve with severe associated tricuspid regurgitation. Estimated pulmonary artery systolic pressure is 35 mmHg assuming right atrial pressure of 15 mmHg. Compared to prior study performed February 19, 2012, pacemaker placement is new. Otherwise no significant changes have occurred. In hindsight, small aortic valve filamentous lesion was there back in 2011. Procedure: A two-dimensional transthoracic echocardiogram with color flow and Doppler was performed. The study quality was technically good. Comparison is made with the echocardiogram of 02-19-12. The heart rate ranged between 65-71 bpm during the study. Left Ventricle: The left ventricle is normal in size. There is moderate asymmetric left ventricular hypertrophy. Apical hypertrophy is present. The ejection fraction is estimated to be 55-60%. Flattened septum is consistent with RV pressure/volume overload. Right Ventricle: The right ventricle is moderately dilated. There is a pacemaker lead in the right ventricle. Right ventricular systolic function is mild to moderately reduced. Atria: The left atrium is severely dilated. The right atrium is severely dilated. The interatrial septum is intact with no evidence for an atrial septal defect. Mitral Valve: The mitral valve leaflets appear moderately thickened, but open well. There is moderate mitral annular calcification. There is trace mitral regurgitation. Aortic Valve: The aortic valve is trileaflet. The aortic valve opens well. Mobile echogenic structure measuring approx. 0.07 cm is noted on the distal side of aortic valve. There is trace aortic regurgitation. Tricuspid Valve: The tricuspid valve leaflets are thin and pliable. TV annulus measures arrpx. 4 cm. TV leaflets do not coapt. There is severe tricuspid regurgitation. The right ventricular systolic pressure is estimated to be at least 35 mmHg based on an estimated right atrial pressure of 15 mm Hg. Pulmonic Valve: The pulmonic valve is normal in structure and function. There is trace pulmonic regurgitation. Great Vessels: The aortic root is normal size. The dimensions of the ascending aorta are normal. The aortic arch is at the upper limits of normal in size. The IVC is dilated (diameter is greater than 2.1 cm) and it collapses less than 50% with a sniff. This suggests a high right atrial pressure of 15 mm Hg. Pericardium/ Pleura There is no pericardial effusion. There is a small right-sided pleural effusion. MMode/2D Measurements & Calculations LVIDd: 4.0 cm Ao root diam: 3.0 cm LVIDs: 2.4 cm Aortic Jxn: 2.8 cm FS: 39.0 % asc Aorta Diam: 3.2 cm IVSd: 1.3 cm Ao Arch Diam (Prox Trans): 3.1 cm LVPWd: 0.82 cm LV long. diameter/BSA (cm/m^2): 2.1 LV sys. diameter/BSA (cm/m^2): 1.3 LA dimension: 5.6 cm RA long axis: 7.4 cm LA A2 area: 34.0 cm2 RA area: 34.9 cm2 LA A4 area: 31.2 cm2 RA vol: 140.7 ml LA length (vol): 7.3 cm RA : 75.8 ml/m2 LA vol: 123.3 ml IVC diam: 2.9 cm LA vol index: 66.4 ml/m2 RVDd major: 6.6 cm RVD1 (basal): 4.9 cm RVD2 (mid): 4.0 cm Doppler Measurements & Calculations Ao V2 max: 155.6 cm/sec MV E max buddy: 119.8 cm/sec Ao V2 mean: 97.6 cm/sec MV A max buddy: 42.4 cm/sec Ao max P.7 mmHg MV E/A: 2.8 Ao mean P.5 mmHg Med Peak E' Buddy: 4.3 cm/sec Ao V2 VTI: 27.6 cm E/E' med: 27.8 Lat Peak E' Buddy: 10.0 cm/sec E/E' lat: 12.0 E/e' average: 19.9 MV dec time: 0.18 sec MV P1/2t: 53.1 msec TR max buddy: 222.3 cm/sec MV V2 mean: 51.1 cm/sec TR max P.8 mmHg MV mean P.4 mmHg PA V2 max: 78.6 cm/sec MV V2 VTI: 23.8 cm PA V2 mean: 43.9 cm/sec PA mean P.0 mmHg PA Accel Time: 0.13 sec MV P1/2t max buddy: 119.3 cm/sec MVA(P1/2t): 4.1 cm2 Electronically signed by: Santa Jansen M.D. on Reading Physician:05/20/2019 04:01 PM
[2019-05-20 13:00] LABS: Lactate Dehydrogenase 685 U/L (313-618)
[2019-05-20] MEDS: FUROSEMIDE 20 MG/2 ML VIAL IV (14:08)
--- NOTE | 2019-05-20 16:05 | PC.NURSE ---
1600- Nuclear medicine called to say gastric emptying study could not be done as there is no isotope available and the patient has been having nausea and vomiting. Study can be done as out patient or reordered if the nausea and vomiting carmela.
--- NOTE | 2019-05-20 16:42 | PC.NURSE ---
1630- FFP infused patient tolerated well. Will monitor.
[2019-05-20 17:44] LABS: INR 4.2 (0.9-1.3); Prothrombin Time 49.6 SECONDS (10.1-12.7)
[2019-05-21] VITALS (9 sets, daily range): BP systolic 110–148; BP diastolic 61–88; PULSE 60–78; RESP 16–18; TEMP 35.9–36.9; O2SAT 91–98
[2019-05-21] MEDS: LORazepam 2 MG/ML INJ 0.5 MG IV (02:21)
[2019-05-21 05:00] LABS: INR 4.2 (0.9-1.3); Prothrombin Time 50.3 SECONDS (10.1-12.7)
[2019-05-21 05:02] LABS: Add Manual Diff / Slide Review NO; Basophils Absolute Auto 0 /uL (0-100); Basophils Percent Auto 0.3 % (0-2); Eosinophils Absolute Auto 400 /uL (0-450); Eosinophils Percent Auto 3.4 % (2-4); Hematocrit 37.7 % (36-46); Hemoglobin 12.6 g/dL (12.0-16.0); Lymphocytes Absolute Auto 1200 /uL (1100-4500); Lymphocytes Percent Auto 10.7 % (25-40); Mean Corpuscular HGB Conc 33.4 % (30-36); Mean Corpuscular Hemoglobin 29.4 PG (26-34); Monocytes Absolute Auto 1800 /uL (0-900); Monocytes Percent Auto 15.8 % (3-14); Neutrophils Absolute Auto 8000 /uL (1500-7000); Neutrophils Percent Auto 69.8 % (50-75); Platelet Count 532 X10^3/uL (150-400); Red Blood Cell Count 4.28 X10^6/uL (4.0-5.2); Red Cell Distribution Width 17.2 % (11.6-14.8); White Blood Cell Count 11.4 X10^3/uL (4.5-11.0)
[2019-05-21 05:06] LABS: Alanine Aminotransferase 15 IU/L (9-52); Albumin 3.1 g/dL (3.5-5.0); Albumin Globulin Ratio 0.7 (1.0-2.8); Alkaline Phosphatase 156 U/L (38-126); Aspartate Aminotransferase 24 IU/L (14-36); BUN Creatinine Ratio 22.9 (6-22); Bilirubin Total 3.1 mg/dL (0.2-1.3); Blood Urea Nitrogen 16 mg/dL (7-17); Calcium 8.4 mg/dL (8.4-10.2); Carbon Dioxide 31 mmol/L (22-32); Chloride 101 mmol/L (98-107); Estimated Glomerular Filt Rate > 60.0 mL/min (>60); Globulin 4.3 g/dL (1.7-4.1); Glucose 84 mg/dL (80-110); HEMOLYSIS < 15 (0-50); Potassium 4.1 mmol/L (3.4-5.1); Sodium 139 mmol/L (137-145); Total Protein 7.4 g/dL (6.3-8.2)
[2019-05-21 05:16] LABS: Troponin I < 0.012 ng/mL (0.01-0.034)
[2019-05-21 05:28] LABS: B Type Natriuretic Peptide 571 (<100)
[2019-05-21] MEDS: CEFTRIAXONE 1 GM/50 ML FROZ.PIGGY IV (09:03)
[2019-05-21] MEDS: PHYTONADIONE (VIT K1) 5 MG TABLET 10 MG PO (09:05)
[2019-05-21] MEDS: ATENOLOL 50 MG TABLET PO (09:06)
--- NOTE | 2019-05-21 09:25 | PT.IPTN ---
Current Diagnoses Unspecified intestinal obstruction, unspecified as to partial versus complete obstruction (05/17/19) Physical Therapy Treatment Note M2 PT-IP Current Condition Start: 05/20/19 14:26 Freq: NEEDED Status: Active Protocol: Document 05/20/19 09:48 AB (Rec: 05/20/19 14:42 AB [id number]) Physical Therapy Current Condition Current Condition Evaluation Date 05/20/19 Treatment Diagnosis enteritis; generalized weakness Onset Date 05/17/19 M3 PT-IP Subjective Start: 05/20/19 14:26 Freq: NEEDED Status: Active Protocol: Document 05/21/19 09:25 GGD (Rec: 05/21/19 11:55 GGD [email or web address]) Subjective Physical Therapy Visit Type Type Treatment Note Visit Start Time 09:00 Visit Stop Time 09:25 Total Visit Minutes 25 Number of [employer] VICE PRESIDENT Visits 1 Physical Therapy Visit Comments Patient Comments Pt willing to work with PT. M4 PT-IP Mobility and Gait Start: 05/20/19 14:26 Freq: NEEDED Status: Active Protocol: Document 05/21/19 09:25 GGD (Rec: 05/21/19 11:55 GGD [email or web address]) PT-Transfer Assessment Sit to and From Stand Sit to and from Stand Standby Assistance Equipment Transfer Assistive Device Gait Belt Front Wheeled Walker Orthotic/Prosthetic Devices or Brace: No Transfers Transfer Destination Bed Transfer Ability Level of Assist Standby Assistance Gait Assessment Gait Gait Assistance Required: Standby Assistance Contact Guard Assist Distance (Feet) 800 Able to Maintain Weight Bearing Status Yes During Gait Assistive Devices Assistive Device None Gait Belt Front Wheeled Walker Orthotic/Prosthetic Devices or Brace: No Factors Limiting Gait Function Factors Limiting Gait Function Decreased Activity Tolerance Comments Gait Comments pt completed ambulation using FWW ~ 780 ft SBA with standing rest breaks. ambulation without AD and pt completed with CGA ~ 20 ft. M5 PT-IP Objective Assessments Start: 05/20/19 14:26 Freq: NEEDED Status: Active Protocol: Document 05/20/19 09:48 AB (Rec: 05/20/19 14:42 AB [id number]) Orientation Orientation/Cognition Orientation Name Place Situation Language Function Ability No Deficits Noted Safety Awareness Decreased Safety Awareness Gross Range of Motion Lower Extremity ROM Assessment Within Functional Limits Strength Lower Extremity Strength Assessment Bilaterally Impaired Hip 4-/5 Knee 4-/5 Coordination Assessment Gross Coordination Gross Coordination WNL Sensation Assessment Sensation Gross Sensation WNL Muscle Tone Muscle Tone WNL Yes M6 PT-IP Treatment Start: 05/20/19 14:26 Freq: NEEDED Status: Active Protocol: Document 05/20/19 09:48 AB (Rec: 05/20/19 14:42 AB [id number]) Physical Therapy Treatment Education Education Provided Safety M7 PT-IP Assessment and Plan Start: 05/20/19 14:26 Freq: NEEDED Status: Active Protocol: Document 05/21/19 09:25 GGD (Rec: 05/21/19 11:55 GGD [email or web address]) PT Summary Assessment and Plan Summary Assessment Summary Pt able to progress gait with FWW. Clotilde is unsteady with gait without AD. She did need standing rest breaks during gait. Frequency of Treatment Frequency Of Treatment Once a Day Treatment Plan Physical Therapy Treatment Plan Bed Mobility Training Transfer Training Gait Training Therapeutic Exercise Balance Retraining Discharge Planning Neuromuscular Re-ed Recommendations To Nursing Amount of Assist Needed Standby Assistance Discharge Recommendations PT Discharge Recommendations Home with Assistance
--- NOTE | 2019-05-21 10:32 | P.PN_ITS ---
Subjective Date Patient Seen: 05/21/19 Time Patient Seen: 09:41 Interval history: Patient 69-year-old female admitted earlier this week for progressive nausea difficulty swallowing shortness of breath weakness fatigue found to be probably fluid overloaded with abdominal pain and ascites pos sibility of bowel obstruction and which is evaluated and found to be the case and presence of urinary tract infection. 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 Small right pleural effusion small to moderate. And ascites diffusely spread out through the abdomen. The scans also showed enteritis approximately 2 bowel. Patient has not had any bleeding. Patient on anticoagulation for history of atrial fibrillation and arrhythmias with a previous resuscitation. When on presentation a INR found to be in the 88.1 range even though medicine had been held. That was reversed with ongoing vitamin K and fresh frozen plasma. His Patient also been diuresed since that point to try to minimize fluid overload and cardiac status. 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 Patient socially lives here in town with her do supportive. Habits patient not a smoker. Past surgical history reviewed. Exam Vital Signs (past 8 hours): - 05/21/19 02:25 05/21/19 04:50 05/21/19 08:11 Temperature 96.6 F L 97.3 F L Pulse Rate 78 76 Respiratory Rate 16 16 Blood Pressure 148/88 H 127/81 Pulse Oximetry 93 94 91 Oxygen Delivery Method CPAP Oxygen Flow Rate 1 Narrative Exam Narrative: Patient much more comfortable this morning. Speaking comfortabl y continues look fatigued but symmetrically functional PERRLA EOMs intact Neck without mass improved jugular venous distention Lungs was slight crackles at bases Heart shows regular rate and rhythm murmur present but continues as a systolic murmur probably secondary to hypertrophic septum affecting aortic function along with some sclerosis of the aortic valve Abdomen is still a little distended very tender feels less painful to patient bowel sounds present Minna she has having bowel movements without any sign of bleeding Neuro is intact symmetrical to sensory motor speech is clear cognition intact skin no breakdown or redness. Objective Labs Result Diagrams: 05/21/19 04:44 05/21/19 04:44 Labs: Laboratory Results - last 24 hr 05/19/19 05/20/1905/20/19 16:50 04:39 17:25 WBC RBC Hgb Hct MCV MCH MCHC RDW Plt Count Neut % (Auto) Lymph % (Auto) [place] % (Auto) Eos % (Auto) Baso % (Auto) Neut # (Auto) Lymph # (Auto) [place] # (Auto) Eos # (Auto) Baso # (Auto) PT 49.6 H D INR 4.2 H Sodium Potassium Chloride Carbon Dioxide BUN Creatinine Estimated GFR BUN/Creatinine Ratio Glucose Calcium Total Bilirubin AST ALT Alkaline Phosphatase Lactate Dehydrogenase 685 H Troponin I B-Natriuretic Peptide Total Protein Albumin Globulin Albumin/Globulin Ratio Blood Type AB Positive Antibody Screen Negative 05/21/19 05/21/19 05/21/19 04:44 04:44 04:44 WBC 11.4 H RBC 4.28 Hgb 12.6 Hct 37.7 MCV 88.0 MCH 29.4 MCHC 33.4 RDW 17.2 H Plt Count 532 H Neut % (Auto) 69.8 Lymph % (Auto) 10.7 L [place] % (Auto) 15.8 H Eos % (Auto) 3.4 Baso % (Auto) 0.3 Neut # (Auto) 8000 H Lymph # (Auto) 1200 [place] # (Auto) 1800 H Eos # (Auto) 400 Baso # (Auto) 0 PT 50.3 H INR 4.2 H Sodium 139 Potassium 4.1 Chloride 101 Carbon Dioxide 31 BUN 16 Creatinine 0.70 Estimated GFR > 60.0 BUN/Creatinine Ratio 22.9 H Glucose 84 Calcium 8.4 Total Bilirubin 3.1 H AST 24 ALT 15 Alkaline Phosphatase 156 H Lactate Dehydrogenase Troponin I < 0.012 B-Natriuretic Peptide 571 H Total Protein 7.4 Albumin 3.1 L Globulin 4.3 H Albumin/Globulin Ratio 0.7 L Blood Type Antibody Screen Assessment & Plan Assessment & Plan narrative: Assessment 1. Cardiomyopathy I think that is secondary to that issue she has got some almost cor pulmonale like fluid back up into the lungs. Improved BNP today and improved symptoms. Patient currently not on any oxygen during my exam. Because of her cardiomyopathy and dilation dilatation she has had a significant dysrhythmia issue with atrial fibrillation and in fact had a prior cardiac arrest secondary to arrhythmia requiring cardioversion and resuscitation. Will stay on current rate control medications. Am currently holding anticoagulation for her AFib because her INR even without meds is for a little bit better yet than yesterday day but had been as high as 8 even without Coumadin. Assessment 2. Fluid overload has been treated with a little diuresis and patient again does feel better will continue that today give her little more Lasix. Also will discontinue her IV fluids at this point. Will continue to watch renal function INR and electrolytes and liver function. Assessment 3 patient had urinary tract infection with E coli she seems to be improving significantly and we have no other source for infection located yet at this point will switch her since she has improved so much to oral Cipro which will cover her E coli and hopefully it if there is occult infection elsewhere cover that. Assessment 4. Enteritis as this may also be aggravated by fluid congestion in although spleen is not enlarged Taniya liver looks more fatty. However the infectious enteritis part could be supported her white count is up a little bit today no fevers at this time he feels better to her. Assessment 5. Anticoagulation. I think this elevation of her INR is not a reflection of underlying coagulopathy as much as it was a factor of her liver status fluid congestion issues since she had been on Coumadin for prolonged period time. Will continue to monitor INR and if that continues to improve and she gets below therapeutic none will need to consider reinstituting much lower dose and can patient I think can be looked at hematologically on outpatient basis. Assessment 6. Patient with hypertension and blood pressure is as is in excellent control at this point only medication that we have her on at this point for her blood pressure is her a tunnel which also important for rate control. Patient has a pacer and I think perhaps medic defibrillator in place but have reviewed her echo which shows thickened septum and preserved left ventricular ejection fraction enlarged heart and significantly enlarged atria. Bilaterally Time Spent With Patient Time with patient: Greater than 35 minutes Quality VTE Deep Vein Thrombosis/Pulmonary Embolism Present on Admission: No
[2019-05-21] MEDS: FUROSEMIDE 20 MG/2 ML VIAL IV (10:58)
[2019-05-21] MEDS: LORazepam 0.5 MG TABLET PO (11:06)
--- NOTE | 2019-05-21 11:27 | PC.NURSE ---
PT WITH [facility]- REQUIRING STRONG ENCOURAGEMENT FOR ALL PERSONAL NEEDS BUT DOES WELL WITH MOST- WORKING WITH PT, AMBULATING IN HALLS, OT TO EVAL AND GIVE TIPS FOR HOME CARE, MENTIONED HOME HEALTH TO BOTH SPOUSE AND PT FOR AT TIME OF DISCHARGE AND THEY ARE CONSIDERING. SALINE LOCKED AND DIET ADVANCED TO GENERAL, ALSO CAHNGED STATUS TO FLOOR CARE WITH TELE MONITORING- ALL RX CHANGED TO PO- LABS IMPROVING,. ROOM AIR
[2019-05-21 12:05] LABS: Adenovirus F 40/41 Not Detected (Not Detect); Astrovirus Not Detected (Not Detect); Campylobacter Not Detected (Not Detect); Clostridium difficile toxin AB Not Detected (Not Detect); Cryptosporidium Not Detected (Not Detect); Cyclospora cayetanensis Not Detected (Not Detect); Entamoeba histolytica Not Detected (Not Detect); Enteroaggregative E.coli Not Detected (Not Detect); Enteropathogenic E.coli Not Detected (Not Detect); Enterotoxigenic E.coli It/st Not Detected (Not Detect); Giardia lamblia Not Detected (Not Detect); Norovirus GI/GII Not Detected (Not Detect); Plesiomonsa shigelloides Not Detected (Not Detect); Rotavirus A Not Detected (Not Detect); Salmonella Not Detected (Not Detect); Shiga-like toxin-prod E.coli Not Detected (Not Detect); Shigella/Enteroinvasive E.coli Not Detected (Not Detect); Vibrio Not Detected (Not Detect); Vibrio cholerae Not Detected (Not Detect); Yersinia enterocolitica Not Detected (Not Detect)
--- NOTE | 2019-05-21 13:14 | OT.IP.EVAL ---
Current Diagnoses Unspecified intestinal obstruction, unspecified as to partial versus complete obstruction (05/17/19) Past Medical History (Last Updated 05/17/19 @ 16:46 by Breanna Guerrier MD) Atrial fibrillation (Chronic) Cardiomyopathy (Chronic) Edema (Chronic) History of hysterectomy (Chronic) Hypertension (Chronic) Surgical History (Last Updated 05/17/19 @ 16:46 by Breanna Guerrier MD) Hx of prior ablation treatment (Chronic) History of permanent cardiac pacemaker placement (Chronic) Occupational Therapy Inpatient Evaluation/Re-Eval M1 PT/OT-IP Prior Functional Status Start: 05/20/19 14:26 Freq: NEEDED Status: Active Protocol: Document 05/21/19 13:06 CGR (Rec: 05/21/19 13:14 CGR [email or web address]) Medical Review Prior Functional Status Medical History Reviewed Yes Communication able to make needs known Mobility and Gait pt stated that she is independent with all mobilities and ambulation without AD Activities of Daily Living and IADL's Pt was IND to MOD I for all ADLs. Pt states she can put on her socks and shoes with the hip kit but that her often does that for her. Social History Household Members spouse Living Arrangements House Number of Floors (Floors) One Floor Number of Stairs To Enter/Railing? 2 steps to enter with R rail Home Environment High Toilet Walk in Shower Home Equipment Front Wheel Walker Shower Seat without Backrest Hand Held Shower Grab Bars In Shower Employment Status Retired M2 OT-IP Current Condition Start: 05/21/19 13:05 Freq: Status: Active Protocol: Document 05/21/19 13:06 CGR (Rec: 05/21/19 13:14 CGR [email or web address]) Occupational Therapy Current Condition Current Condition Evaluation Date 05/21/19 Treatment Diagnosis SBO M3 OT- IP Subjective and Pain Start: 05/21/19 13:05 Freq: Status: Active Protocol: Document 05/21/19 13:06 CGR (Rec: 05/21/19 13:14 CGR [email or web address]) OT- Subjective Occupational Therapy Visit Type Type Initial Evaluation Visit Start Time 12:43 Visit Stop Time 10:01 Total Visit Minutes 18 Occupational Therapy Visit Comments Patient Comments Lets do the shwoer tomorrow. OT Pain Assessment Pain When Pain Assessed At Rest Pain Present Pain Present Denied Pain M4 OT- IP ADL's Start: 05/21/19 13:05 Freq: Status: Active Protocol: Document 05/21/19 13:06 CGR (Rec: 05/21/19 13:14 CGR [email or web address]) OT ADL-Grooming Comments OT Grooming Comments Pt declined OT ADL-Oral Care Comments Oral Care Comments Pt declined OT ADL-Dressing General Eval Lower Body Dressing Ability Maximum Assistance Areas Needing Assistance Socks Comments OT Dressing Comments max a for socks, min a for threading of clean brief OT ADL-Toileting General Evaluation Toileting Ability Standby Assistance Areas Needing Assistance Manage Clothing Perform Perineal Hygiene Devices Toileting Assistive Devices Grab Bars OT ADL-Bathing Comments OT Bathing Comments Pt declined at this time. M5 OT- IP IADL's Start: 05/21/19 13:05 Freq: Status: Active Protocol: Document 05/21/19 13:06 CGR (Rec: 05/21/19 13:14 CGR [email or web address]) OT-Instrumental Activities of Daily Living Deficits IADL Deficits Identified No Deficits Home Safety Awareness Awareness of Need for Assistance at Home Good Awareness Ability to Problem Solve Emergency Able to Problem Solve Situations Medication Management Medication Management No Deficits Identified Money Management Money Management Caregiver Provides Assistance Meal Preparation Meal Preparation Caregiver Provides Assist Hot Roll Laminator Hot Roll Laminator Caregiver Provides Assist Driving Driving Comments Pt does not drive M6 OT- IP Functional Cognition Start: 05/21/19 13:05 Freq: Status: Active Protocol: Document 05/21/19 13:06 CGR (Rec: 05/21/19 13:14 CGR [email or web address]) Cognitive Factors Limiting Selfcare Function Cognitive Ability Level of Alertness Alert Patient Orientation Name Age Birthday Month Date Year Day of Week Place Situation Attention Span Ability Capable of Focused Attention Capable of Sustained Attention Ability to Follow Commands Able to Follow One Step Commands Memory Description No Deficits Noted Safety Awareness No Deficits Noted Problem Solving Ability No deficits Noted Executive Function Ability No Deficits Noted Abstract Thinking Ability No Deficits Noted Cognitive Comments Cognitive Assessment Comments Pt is slow in her responses but this appears to be d/t feeling poorly vs cog. OT- Vision and Hearing OT- Hearing Assessment OT- Hearing Assessment WFL OT- Vision Assessment Visual Acuity Glasses All The Time Visual Attentiveness WFL Occular Pursuits WFL Visual Convergence WFL Visual Haq WFL Vision Assessment Comments bifocals M7 OT- IP Mobility and Balance Start: 05/21/19 13:05 Freq: Status: Active Protocol: Document 05/21/19 13:06 CGR (Rec: 05/21/19 13:14 CGR [email or web address]) OT- Bed Mobility Assessment Rolling Level of Assistance Standby Assistance Supine to Sit Supine to Sit Assist Standby Assistance Bedrails Sit to Supine Sit to Supine Assist Standby Assistance Bedrails Scooting Scooting to Edge of Bed Independent OT-Transfer Assessment Sit to and From Stand Sit to and from Stand Standby Assistance Transfers Transfer Ability Standby Assistance Technique Transfer Destination Bed Toilet Transfer Technique Stand Step Pivot Devices Transfer Assistive Devices Bed Rail Front Wheeled Walker OT- Gait Assessment Gait Gait Assistance Required: Standby Assistance Assistive Devices Assistive Device Front Wheeled Walker Comments Gait Ability Comments Mobility within room. OT- Balance Assessment Sitting Balance and Reactions Static Sitting Balance Ability Good Dynamic Sitting Balance Ability Good Standing Balance and Reactions Static Standing Balance Ability Good Dynamic Standing Balance Ability Good M8 OT- IP Objective Assessments Start: 05/21/19 13:05 Freq: Status: Active Protocol: Document 05/21/19 13:06 CGR (Rec: 05/21/19 13:14 CGR [email or web address]) OT Gross Range of Motion Upper Extremity Range of Motion Assessment Within Functional Limits OT Strength Upper Extremity Strength Assessment Within Functional Limits Comments Strength Comments Grossly 4-/5 OT- Coordination Assessment Upper Extremity Finger to Nose Test Within Functional Limits Finger Tapping Test Within Functional Limits OT-Muscle Tone Assessment Muscle Tone WNL Yes OT Sensation Assessment Edema Edema Absent M9 OT- IP Assessment and Plan Start: 05/21/19 13:05 Freq: Status: Active Protocol: Document 05/21/19 13:06 CGR (Rec: 05/21/19 13:14 CGR [email or web address]) OT Summary Assessment and Plan Potential Rehabilitation Potential Good Analytic Complexity at Evaluation Low Summary OT Impairments Functional Mobility Grooming Dressing Toileting Bathing Toilet Transfers Shower Transfers Progress Towards Goals Slow Progress due to Activity Tolerance Assessment Summary Pt tolerated session well but is slow with all mobility and verbal responses. Pt declined most activity stating that she is just very tired. Pt will benefit from OT services for increased endurance and self care. Goals Grooming Goal Independent Toileting Goal Independent Bathing Goal Independent Toilet Transfer Goal Independent Shower Transfer Goal Independent OT-Other Goals Pt to be ind for donning underwear/brief and pants. Days to Meet Goals 5 Frequency of Treatment Frequency Of Treatment Once a Day Treatment Plan OT Treatment Plan ADL Training Functional Mobility Therapeutic Exercises Patient/Family Education Discharge Planning Other Treatment Recommendations and Next Shower Treatment Focus Discharge Recommendations OT Discharge Recommendations Home with Assistance Home Equipment Needs TBD but likely no needs.
--- NOTE | 2019-05-21 14:02 | PM.PN.1 ---
Subjective Date Patient Seen: 05/21/19 Time Patient Seen: 12:00 Interval history: Feeling better today tolerating regular food Abdominal pain resolved Still with loose stools s/p 2 units FFP yesterday with drop in INR from 8->4 Review of echo: Substantial diasystolic dysfunction (Stage III) with severe tricuspid valve regurg and mild MR. High RV pressures and substantial atrial enlargement all support dx of heart failure and elevated R atrial pressures. Exam Vital Signs (past 8 hours): - 05/21/19 08:11 05/21/19 09:00 05/21/19 11:50 Temperature 98.2 F 98.5 F Pulse Rate 69 60 Respiratory Rate 18 18 Blood Pressure 119/70 120/72 Pulse Oximetry 91 93 94 Oxygen Delivery Method CPAP Oxygen Flow Rate 1 Narrative Exam Narrative: NAD Neck veins dialated to 9cm with JVD Abd distended but improving with minimal tenderness now periphery warm 3+ LE edema - pitting Objective Labs Result Diagrams: 05/21/19 04:44 05/21/19 04:44 Labs: Laboratory Results - last 24 hr 05/20/19 05/21/19 05/21/19 17:25 04:44 04:44 WBC 11.4 H RBC 4.28 Hgb 12.6 Hct 37.7 MCV 88.0 MCH 29.4 MCHC 33.4 RDW 17.2 H Plt Count 532 H Neut % (Auto) 69.8 Lymph % (Auto) 10.7 L [place] % (Auto) 15.8 H Eos % (Auto) 3.4 Baso % (Auto) 0.3 Neut # (Auto) 8000 H Lymph # (Auto) 1200 [place] # (Auto) 1800 H Eos # (Auto) 400 Baso # (Auto) 0 PT 49.6 H D 50.3 H INR 4.2 H 4.2 H Sodium Potassium Chloride Carbon Dioxide BUN Creatinine Estimated GFR BUN/Creatinine Ratio Glucose Calcium Total Bilirubin AST ALT Alkaline Phosphatase Troponin I B-Natriuretic Peptide 571 H Total Protein Albumin Globulin Albumin/Globulin Ratio Stl C. cayetanensis PCR Stool Rotavirus (PCR) Stool Adenovirus (PCR) Stool Astrovirus (PCR) Stool Cryptosporidium PCR Stl E.coli Shiga Tox PCR St Sh/Enteroin Ecoli PCR Stool E coli O157 PCR Stl Enterotoxigenic E PCR Stool EPEC (PCR) Stl E. histolytica PCR Stool Giardia Lamblia PCR Stl P. shigelloides PCR St Y.enterocolitica PCR Stool Vibrio (PCR) Stl Vibrio cholerae PCR Stl Enteroaggr Ecoli PCR Stl Norovirus GI/GII PCR Campylobacter (PCR) C. difficile Tox (PCR) Salmonella (PCR) 05/21/19 05/21/19 04:44 09:10 WBC RBC Hgb Hct MCV MCH MCHC RDW Plt Count Neut % (Auto) Lymph % (Auto) [place] % (Auto) Eos % (Auto) Baso % (Auto) Neut # (Auto) Lymph # (Auto) [place] # (Auto) Eos # (Auto) Baso # (Auto) PT INR Sodium 139 Potassium 4.1 Chloride 101 Carbon Dioxide 31 BUN 16 Creatinine 0.70 Estimated GFR > 60.0 BUN/Creatinine Ratio 22.9 H Glucose 84 Calcium 8.4 Total Bilirubin 3.1 H AST 24 ALT 15 Alkaline Phosphatase 156 H Troponin I < 0.012 B-Natriuretic Peptide Total Protein 7.4 Albumin 3.1 L Globulin 4.3 H Albumin/Globulin Ratio 0.7 L Stl C. cayetanensis PCR Not detected Stool Rotavirus (PCR) Not detected Stool Adenovirus (PCR) Not detected Stool Astrovirus (PCR) Not detected Stool Cryptosporidium PCR Not detected Stl E.coli Shiga Tox PCR Not detected St Sh/Enteroin Ecoli PCR Not detected Stool E coli O157 PCR Not detected Stl Enterotoxigenic E PCR Not detected Stool EPEC (PCR) Not detected Stl E. histolytica PCR Not detected Stool Giardia Lamblia PCR Not detected Stl P. shigelloides PCR Not detected St Y.enterocolitica PCR Not detected Stool Vibrio (PCR) Not detected Stl Vibrio cholerae PCR Not detected Stl Enteroaggr Ecoli PCR Not detected Stl Norovirus GI/GII PCR Not detected Campylobacter (PCR) Not detected C. difficile Tox (PCR) Not detected Salmonella (PCR) Not detected Assessment & Plan Assessment & Plan narrative: 69 yo woman with by CT scan significant bowel edema seen on CT with mesenteric edema and mild ascites with congested hepatic veins. Initially felt to be due to enteritis. However significant work up with GI PCR panel (18 organisms) negative as well as studies for C diff, salmonella, shigella, and campylobacter. Upon rereview of images of abdominal CT on admission - majority of abnormally could be explained by venous congestion in the intestines as a consequence of pts elevated R sided heart pressures and advanced diastolic dysfunction on recent echo. This would account for intestinal wall thickening, diffuse mesenteric edema, and mild amount of free fluid/ascites. It is also possible she in addition to cardiac source intestinal edema pt had an additional infectious source not identified on GI panel. Cardiac intestinal edema would better fit the pts history of a more prolonged prodrome with poor po and nausea weeks ahead of admission. Upon literature review elevated INR could be explained by entrohepatic recycling of warfarin in an dysfunctional gut. In short warfarin is absorbed into portal circulation excreted by the liver into bile and reabsorbed by the gut. This phenomonon is known to occure with chronic and acute diarrhea and other sources of GI dysfunction that reduce motility and enterocyte health. This has the effect of quite protracted half lives of warfarin and resistance to Vit K. Tx is use of bile acid sequesterents. Rec: Treat for Heart failure - volume overloaded clinically, consider aggressive diuresis. Will reduce bowel wall edema and improve GI function I have started cholestyramine Quality VTE Deep Vein Thrombosis/Pulmonary Embolism Present on Admission: No
--- NOTE | 2019-05-21 14:54 | CM.DPC ---
DCP Cont: Per MD, surgical consult and pt currently does not have SBO but small bowel inflamation. Per RN, pt likely could be changed to floor care and making slow progress but off oxygen now and on room air with bowel movements/diarrhea. Per PT, pt ambulated fairly well and will likely progress to home with assist when stable. OT ordered and pending. Pt hesitant with ambulation and self care as well as worried about advancing diet too quickly. Plan: SW to continue to follow for further PT/OT to confirm safe for d/c home with spouse assist when medically stable in likely a couple days. DANETTE Yu
[2019-05-21] MEDS: CIPROFLOXACIN 500 MG TABLET PO (19:59)
[2019-05-21] MEDS: CHOLESTYRAMINE/ASPARTAME 4 GM PACK PO (20:44)
[2019-05-22] VITALS (8 sets, daily range): BP systolic 107–124; BP diastolic 67–77; PULSE 63–75; RESP 16–20; TEMP 36.2–37.2; O2SAT 93–96
[2019-05-22 04:58] LABS: Add Manual Diff / Slide Review NO; Basophils Absolute Auto 0 /uL (0-100); Eosinophils Absolute Auto 400 /uL (0-450); Eosinophils Percent Auto 3.3 % (2-4); Hematocrit 39.6 % (36-46); Hemoglobin 12.8 g/dL (12.0-16.0); Lymphocytes Absolute Auto 1500 /uL (1100-4500); Lymphocytes Percent Auto 12.5 % (25-40); Mean Corpuscular HGB Conc 32.3 % (30-36); Mean Corpuscular Hemoglobin 28.7 PG (26-34); Mean Corpuscular Volume 88.8 fL (80-100); Monocytes Absolute Auto 1600 /uL (0-900); Monocytes Percent Auto 13.1 % (3-14); Neutrophils Absolute Auto 8700 /uL (1500-7000); Neutrophils Percent Auto 71.1 % (50-75); Platelet Count 523 X10^3/uL (150-400); Red Blood Cell Count 4.46 X10^6/uL (4.0-5.2); Red Cell Distribution Width 17.3 % (11.6-14.8); White Blood Cell Count 12.2 X10^3/uL (4.5-11.0)
[2019-05-22 05:01] LABS: INR 3.1 (0.9-1.3); Prothrombin Time 37.1 SECONDS (10.1-12.7)
[2019-05-22 05:06] LABS: Alanine Aminotransferase 8 IU/L (9-52); Albumin 2.9 g/dL (3.5-5.0); Albumin Globulin Ratio 0.7 (1.0-2.8); Alkaline Phosphatase 145 U/L (38-126); Aspartate Aminotransferase 21 IU/L (14-36); BUN Creatinine Ratio 23.3 (6-22); Bilirubin Total 2.8 mg/dL (0.2-1.3); Blood Urea Nitrogen 14 mg/dL (7-17); Calcium 8.3 mg/dL (8.4-10.2); Carbon Dioxide 29 mmol/L (22-32); Chloride 100 mmol/L (98-107); Estimated Glomerular Filt Rate > 60.0 mL/min (>60); Globulin 4.2 g/dL (1.7-4.1); Glucose 82 mg/dL (80-110); HEMOLYSIS < 15 (0-50); Potassium 4.1 mmol/L (3.4-5.1); Sodium 135 mmol/L (137-145); Total Protein 7.1 g/dL (6.3-8.2)
[2019-05-22 05:17] LABS: Troponin I < 0.012 ng/mL (0.01-0.034)
[2019-05-22 05:19] LABS: B Type Natriuretic Peptide 491 (<100)
[2019-05-22] MEDS: SODIUM CHLORIDE 0.9% FLUSH 10 ML IV ×2 (09:10→19:20)
[2019-05-22] MEDS: ATENOLOL 50 MG TABLET PO (09:11)
[2019-05-22] MEDS: PHYTONADIONE (VIT K1) 5 MG TABLET 10 MG PO (09:11)
[2019-05-22] MEDS: FUROSEMIDE 20 MG/2 ML VIAL IV (09:11)
[2019-05-22] MEDS: CHOLESTYRAMINE/ASPARTAME 4 GM PACK PO ×2 (09:11→20:25)
[2019-05-22] MEDS: CIPROFLOXACIN 500 MG TABLET PO ×2 (09:11→20:25)
[2019-05-22] MEDS: LORazepam 0.5 MG TABLET PO (11:05)
--- NOTE | 2019-05-22 11:14 | P.PN_ITS ---
Subjective Date Patient Seen: 05/22/19 Time Patient Seen: 11:02 Interval history: Feeling about the same today as yesterday Minimal abd pain fatigue fustrated with length of hospitalization Pt reports significant abdominal distention started in january. Longer hx of LE edema Exam Vital Signs (past 8 hours): - 05/22/19 05:00 05/22/19 08:20 05/22/19 09:53 Temperature 97.3 F L 97.3 F L Pulse Rate 72 63 Respiratory Rate 18 18 Blood Pressure 124/67 122/70 Pulse Oximetry 93 96 96 Oxygen Delivery Method Room Air Oxygen Flow Rate 0 Narrative Exam Narrative: looks fatigued Neck veins dialated to 11cm, near angle of jaw. bronchial breathsounds with early insp crackles Irregular HR abd distended - dull to percussion. On bed side US bowel wall edemitous with small to moderate pockets of ascites. Very dialated hepatic veins. Periphery warm 3+ LE edema to knees Objective Labs Result Diagrams: 05/22/19 04:43 05/22/19 04:43 Labs: Laboratory Results - last 24 hr 05/21/19 05/22/19 05/22/19 09:10 04:43 04:43 WBC 12.2 H RBC 4.46 Hgb 12.8 Hct 39.6 MCV 88.8 MCH 28.7 MCHC 32.3 RDW 17.3 H Plt Count 523 H Neut % (Auto) 71.1 Lymph % (Auto) 12.5 L [place] % (Auto) 13.1 Eos % (Auto) 3.3 Baso % (Auto) 0.0 Neut # (Auto) 8700 H Lymph # (Auto) 1500 [place] # (Auto) 1600 H Eos # (Auto) 400 Baso # (Auto) 0 PT 37.1 H D INR 3.1 H Sodium Potassium Chloride Carbon Dioxide BUN Creatinine Estimated GFR BUN/Creatinine Ratio Glucose Calcium Total Bilirubin AST ALT Alkaline Phosphatase Troponin I B-Natriuretic Peptide 491 H Total Protein Albumin Globulin Albumin/Globulin Ratio Stl C. cayetanensis PCR Not detected Stool Rotavirus (PCR) Not detected Stool Adenovirus (PCR) Not detected Stool Astrovirus (PCR) Not detected Stool Cryptosporidium PCR Not detected Stl E.coli Shiga Tox PCR Not detected St Sh/Enteroin Ecoli PCR Not detected Stool E coli O157 PCR Not detected Stl Enterotoxigenic E PCR Not detected Stool EPEC (PCR) Not detected Stl E. histolytica PCR Not detected Stool Giardia Lamblia PCR Not detected Stl P. shigelloides PCR Not detected St Y.enterocolitica PCR Not detected Stool Vibrio (PCR) Not detected Stl Vibrio cholerae PCR Not detected Stl Enteroaggr Ecoli PCR Not detected Stl Norovirus GI/GII PCR Not detected Campylobacter (PCR) Not detected C. difficile Tox (PCR) Not detected Salmonella (PCR) Not detected 05/22/19 04:43 WBC RBC Hgb Hct MCV MCH MCHC RDW Plt Count Neut % (Auto) Lymph % (Auto) [place] % (Auto) Eos % (Auto) Baso % (Auto) Neut # (Auto) Lymph # (Auto) [place] # (Auto) Eos # (Auto) Baso # (Auto) PT INR Sodium 135 L Potassium 4.1 Chloride 100 Carbon Dioxide 29 BUN 14 Creatinine 0.60 Estimated GFR > 60.0 BUN/Creatinine Ratio 23.3 H Glucose 82 Calcium 8.3 L Total Bilirubin 2.8 H AST 21 ALT 8 L Alkaline Phosphatase 145 H Troponin I < 0.012 B-Natriuretic Peptide Total Protein 7.1 Albumin 2.9 L Globulin 4.2 H Albumin/Globulin Ratio 0.7 L Stl C. cayetanensis PCR Stool Rotavirus (PCR) Stool Adenovirus (PCR) Stool Astrovirus (PCR) Stool Cryptosporidium PCR Stl E.coli Shiga Tox PCR St Sh/Enteroin Ecoli PCR Stool E coli O157 PCR Stl Enterotoxigenic E PCR Stool EPEC (PCR) Stl E. histolytica PCR Stool Giardia Lamblia PCR Stl P. shigelloides PCR St Y.enterocolitica PCR Stool Vibrio (PCR) Stl Vibrio cholerae PCR Stl Enteroaggr Ecoli PCR Stl Norovirus GI/GII PCR Campylobacter (PCR) C. difficile Tox (PCR) Salmonella (PCR) Assessment & Plan Assessment & Plan narrative: 69 yo woman with HF with presurved ejection fraction/diastolic dysfuntion with dysfunctional gut. Suspect ascites and bowel edema from cardiac source. infectious enteritis less likely. Rec: Continue cholestyramine to clear warfarin with enterohepatic cycling - see not yesterday consider diagnostic paracentesis to make definitive dx of cardiac ascities More aggressive diuresis Quality VTE Deep Vein Thrombosis/Pulmonary Embolism Present on Admission: No
--- NOTE | 2019-05-22 11:19 | P.PN_ITS ---
Subjective Date Patient Seen: 05/22/19 Time Patient Seen: 10:13 Interval history: Patient is a 69-year-old female admitted with a constellation of symptoms including abdominal pain distention and coagulopathy with a INR 8 on her usual dose of Coumadin. Concerns about ascites and possible congestive failure versus infectious ascites versus liver failure [place] no insufficiency. Been trying to sort this out diurese decrease cardiac component and evaluate for complications of infection or other causes of abdominal pain distention and ascites. Ultrasound done today with surgery shows pockets of fluid. Patient is been gently diuresed and her BNP is dropped her O2 sats and blood pressures are good and renal function is stable electrolytes also in good control. This issue that she has been struggling with with abdominal pain and distension and a social symptoms has been going on for several months she feels as though might have been triggered by her atenolol which is for fib control. Her anticoagulation also for fib related issues. She has got a chronic cardiomyopathy of the hypertrophic type with biatrial enlargement and significant diastolic dysfunction. Exam Vital Signs (past 8 hours): - 05/22/19 05:00 05/22/19 08:20 05/22/19 09:53 Temperature 97.3 F L 97.3 F L Pulse Rate 72 63 Respiratory Rate 18 18 Blood Pressure 124/67 122/70 Pulse Oximetry 93 96 96 Oxygen Delivery Method Room Air Oxygen Flow Rate 0 Narrative Exam Narrative: Patient emotional with some tears today although she reports feeling better and numbers look a little bit better. Her BNP has dropped in her lab work looks as though it is slowly improving. Certainly her INR is down into the 3 range. PERRLA Neck with JVD Lungs with rales and crackles. Cardiovascular exam shows a slightly irregular but well controlled rate was trace murmur. Abdomen distension little bit full mildly tender no major mass. CTs and ultrasound reviewed Neuro speech clear cognitive function intact sensory and motor intact and symmetrical Objective Labs Result Diagrams: 05/22/19 04:43 05/22/19 04:43 Labs: Laboratory Results - last 24 hr 05/21/19 05/22/19 05/22/19 09:10 04:43 04:43 WBC 12.2 H RBC 4.46 Hgb 12.8 Hct 39.6 MCV 88.8 MCH 28.7 MCHC 32.3 RDW 17.3 H Plt Count 523 H Neut % (Auto) 71.1 Lymph % (Auto) 12.5 L [place] % (Auto) 13.1 Eos % (Auto) 3.3 Baso % (Auto) 0.0 Neut # (Auto) 8700 H Lymph # (Auto) 1500 [place] # (Auto) 1600 H Eos # (Auto) 400 Baso # (Auto) 0 PT 37.1 H D INR 3.1 H Sodium Potassium Chloride Carbon Dioxide BUN Creatinine Estimated GFR BUN/Creatinine Ratio Glucose Calcium Total Bilirubin AST ALT Alkaline Phosphatase Troponin I B-Natriuretic Peptide 491 H Total Protein Albumin Globulin Albumin/Globulin Ratio Stl C. cayetanensis PCR Not detected Stool Rotavirus (PCR) Not detected Stool Adenovirus (PCR) Not detected Stool Astrovirus (PCR) Not detected Stool Cryptosporidium PCR Not detected Stl E.coli Shiga Tox PCR Not detected St Sh/Enteroin Ecoli PCR Not detected Stool E coli O157 PCR Not detected Stl Enterotoxigenic E PCR Not detected Stool EPEC (PCR) Not detected Stl E. histolytica PCR Not detected Stool Giardia Lamblia PCR Not detected Stl P. shigelloides PCR Not detected St Y.enterocolitica PCR Not detected Stool Vibrio (PCR) Not detected Stl Vibrio cholerae PCR Not detected Stl Enteroaggr Ecoli PCR Not detected Stl Norovirus GI/GII PCR Not detected Campylobacter (PCR) Not detected C. difficile Tox (PCR) Not detected Salmonella (PCR) Not detected 05/22/19 04:43 WBC RBC Hgb Hct MCV MCH MCHC RDW Plt Count Neut % (Auto) Lymph % (Auto) [place] % (Auto) Eos % (Auto) Baso % (Auto) Neut # (Auto) Lymph # (Auto) [place] # (Auto) Eos # (Auto) Baso # (Auto) PT INR Sodium 135 L Potassium 4.1 Chloride 100 Carbon Dioxide 29 BUN 14 Creatinine 0.60 Estimated GFR > 60.0 BUN/Creatinine Ratio 23.3 H Glucose 82 Calcium 8.3 L Total Bilirubin 2.8 H AST 21 ALT 8 L Alkaline Phosphatase 145 H Troponin I < 0.012 B-Natriuretic Peptide Total Protein 7.1 Albumin 2.9 L Globulin 4.2 H Albumin/Globulin Ratio 0.7 L Stl C. cayetanensis PCR Stool Rotavirus (PCR) Stool Adenovirus (PCR) Stool Astrovirus (PCR) Stool Cryptosporidium PCR Stl E.coli Shiga Tox PCR St Sh/Enteroin Ecoli PCR Stool E coli O157 PCR Stl Enterotoxigenic E PCR Stool EPEC (PCR) Stl E. histolytica PCR Stool Giardia Lamblia PCR Stl P. shigelloides PCR St Y.enterocolitica PCR Stool Vibrio (PCR) Stl Vibrio cholerae PCR Stl Enteroaggr Ecoli PCR Stl Norovirus GI/GII PCR Campylobacter (PCR) C. difficile Tox (PCR) Salmonella (PCR) Assessment & Plan Assessment & Plan narrative: Assessment 1. Abdominal pain and distension. At least some component of this has to do with ascites. Surgeon believes that this is most likely to be secondary to cardiac contribution. Next swing and talked prior with coordinator hotels felt it was more likely to be a neuropathic in some way or liver related. Possibly a combination of multiple factors. Will continue wi th diuresis. Surgeon is considering arranging for ultrasound-guided paracentesis for clearly of source of ascites. Assessment 2. Cardiomyopathy. Patient has got a preserved left ventricular ejection fraction but structurally very hypertrophic septum and S2 in diastolic dysfunction. Will diurese but want to be somewhat careful because of the asymmetry and an and and decreased diastolic function we diuresed too much could limit cardiac output. Assessment 3. I think her initial urinary tract infection is taking care of at this point will just finish course of her Cipro which was changed to orally yesterday Assessment 4. Patient beginning to become emotional. I think she has been feeling crummy for number of months and is wondering with if things are going to improve. Reassurance offered and will be more aggressive with the medical treatment and continue to see some slow improvement Assessment 5. History of hypertension. Blood pressure in good control at this point with her combination of atenolol which is also for fib rate control and Lasix and will readmit her spironolactone at this point as well. Assessment 6. History of atrial fibrillation with prior cardiac arrest and c ardioversion requirements in the past. Has an implanted pacer and I believe defibrillator. Will continue with rate control and telemetry and as noted increase diuresis. Assessment 7. Anticoagulation with Coumadin got profoundly elevated at 8 and was resistant to reversal. FFP and vitamin K and binding salts altogether and got it down to 3. Hold on any further administration of Coumadin but continue to monitor her INR. Time Spent With Patient Time with patient: Greater than 35 minutes Quality VTE Deep Vein Thrombosis/Pulmonary Embolism Present on Admission: No
--- NOTE | 2019-05-22 11:28 | DI.US.S_ITS ---
PROCEDURE: US ABDOMEN LIMITED INDICATIONS: EVALUATE FOR CARDIAC ASCITES TECHNIQUE: Real-time scanning was performed of the abdominal and retroperitoneal organs, with image documentation. COMPARISON: [facility], , US ABDOMEN LIMITED, 01/31/2019, 14:30. FINDINGS: Minimal ascites present interdigitating between bowel loops deep within the lower pelvis. IMPRESSION: Insufficient minimal ascites for safe paracentesis. Reportedly the INR also is abnormally elevated. Paracentesis will not be performed. Dictated by: Bud Peoples M.D. on 05/23/2019 at 12:09 Approved by: Bud Peoples M.D. on 05/23/2019 at 12:11
[2019-05-22] MEDS: FUROSEMIDE 40 MG/4 ML VIAL IV (13:01)
--- NOTE | 2019-05-22 13:35 | PT.IPTN ---
Current Diagnoses Unspecified intestinal obstruction, unspecified as to partial versus complete obstruction (05/17/19) Physical Therapy Treatment Note M2 PT-IP Current Condition Start: 05/20/19 14:26 Freq: NEEDED Status: Active Protocol: Document 05/20/19 09:48 AB (Rec: 05/20/19 14:42 AB [id number]) Physical Therapy Current Condition Current Condition Evaluation Date 05/20/19 Treatment Diagnosis enteritis; generalized weakness Onset Date 05/17/19 M3 PT-IP Subjective Start: 05/20/19 14:26 Freq: NEEDED Status: Active Protocol: Document 05/22/19 13:05 CLB (Rec: 05/22/19 13:35 CLB [id number]) Subjective Physical Therapy Visit Type Type Treatment Note Visit Start Time 13:05 Visit Stop Time 13:30 Total Visit Minutes 25 Number of JUKEBOX CHECKER Visits 2 Physical Therapy Visit Comments Patient Comments Pt willing to work with PT. Therapy Pain Assessment Pain Present Pain Present Denied Pain M4 PT-IP Mobility and Gait Start: 05/20/19 14:26 Freq: NEEDED Status: Active Protocol: Document 05/22/19 13:05 CLB (Rec: 05/22/19 13:35 CLB [id number]) PT-Bed Mobility Assessment Supine to Sit Supine to Sit Standby Assistance Sit to Supine Sit to Supine Standby Assistance Scooting Scooting to Edge of Bed Standby Assistance Scooting Up and Down in Bed Standby Assistance PT-Transfer Assessment Sit to and From Stand Sit to and from Stand Standby Assistance Equipment Transfer Assistive Device Bed Rail Front Wheeled Walker Transfers Transfer Destination Bed Toilet Transfer Technique pt ambulated using FWW Transfer Ability Level of Assist Standby Assistance Comments Mobility Comments Pt had BM requiring assist with pericare. Gait Assessment Gait Gait Assistance Required: Standby Assistance Distance (Feet) 600 Assistive Devices Assistive Device Gait Belt Front Wheeled Walker Orthotic/Prosthetic Devices or Brace: No Factors Limiting Gait Function Factors Limiting Gait Function Decreased Activity Tolerance Comments Gait Comments Pt ambulated ~600ft with FWW/ SBA with several rest breaks and slow pace. M5 PT-IP Objective Assessments Start: 05/20/19 14:26 Freq: NEEDED Status: Active Protocol: Document 05/20/19 09:48 AB (Rec: 05/20/19 14:42 AB [id number]) Orientation Orientation/Cognition Orientation Name Place Situation Language Function Ability No Deficits Noted Safety Awareness Decreased Safety Awareness Gross Range of Motion Lower Extremity ROM Assessment Within Functional Limits Strength Lower Extremity Strength Assessment Bilaterally Impaired Hip 4-/5 Knee 4-/5 Coordination Assessment Gross Coordination Gross Coordination WNL Sensation Assessment Sensation Gross Sensation WNL Muscle Tone Muscle Tone WNL Yes M6 PT-IP Treatment Start: 05/20/19 14:26 Freq: NEEDED Status: Active Protocol: Document 05/20/19 09:48 AB (Rec: 05/20/19 14:42 AB [id number]) Physical Therapy Treatment Education Education Provided Safety M7 PT-IP Assessment and Plan Start: 05/20/19 14:26 Freq: NEEDED Status: Active Protocol: Document 05/22/19 13:05 CLB (Rec: 05/22/19 13:35 CLB [id number]) PT Summary Assessment and Plan Summary Assessment Summary Pt continues to require several rest breaks during ambulation but is SBA for all mobility. Goals Bed Mobility Goal Independent Transfer Goal Independent Gait Goal Independent Gait Distance 200 Other Goals up/down 2 steps with R rail ascending SBA Days to Meet Goals 5 Frequency of Treatment Frequency Of Treatment Once a Day Treatment Plan Physical Therapy Treatment Plan Bed Mobility Training Transfer Training Gait Training Therapeutic Exercise Balance Retraining Discharge Planning Neuromuscular Re-ed Recommendations To Nursing Amount of Assist Needed Standby Assistance Discharge Recommendations PT Discharge Recommendations Home with Assistance
--- NOTE | 2019-05-22 13:59 | PC.NURSE ---
pt reports sleeping well- appetite improved as have labs- new rx for spironlactone to start this evening also increased iv lasix dose this date for improved diuresis- lungs with few fine crackles as well on left base. requiring no o2 but does use cpap from home at night. plan is for ultrasound guided pericentesis for am - tolerating regular diet and working with pt/ot- report given to WENCESLAO OLGUIN and pt transferred from room 106 to 211.
--- NOTE | 2019-05-22 14:45 | PC.NURSE ---
ICU TRANSFER 1420 - on arrival, ambul to br using fww, standby assist to void and small loose brown bm, ret to bed, had slight nausea after up, declines medication at this time, positioned comfort in bed, spouse at bedside.
[2019-05-22] MEDS: ONDANSETRON 4 MG/2 ML INJ IV (19:20)
--- NOTE | 2019-05-22 19:24 | PC.NURSE ---
Addendum entered by Siomara Cerda R.N. 05/22/19 22:41: TRANSIT PROOF MACHINE OPERATOR reports pt assisted into bathroom to void and pt had 300 cc's emesis. Reports feeling better and informed TRANSIT PROOF MACHINE OPERATOR does not need any intervention. Original Note: Pt attempts out of bed and alarm sounds. Assisted by staff into bathroom. Walker use with one person assistance. Admits to nausea with eating and with movement. Returned to bed and administered zofran iv. BL calf scd's replaced. Bowel tones are quiet. Distended abdomen. Breath sounds are diminished to posterior chase. Irregular apical rate. Tele in place. Bed alarm in place.
[2019-05-23] VITALS (9 sets, daily range): BP systolic 113–129; BP diastolic 68–81; PULSE 60–66; RESP 16–60; TEMP 36.6–37.2; O2SAT 93–96
[2019-05-23] MEDS: LORazepam 0.5 MG TABLET PO (01:15)
--- NOTE | 2019-05-23 01:36 | PC.NURSE ---
Addendum entered by Kamilla Leigh R.N. 05/23/19 05:53: 600cc bile green emesis after getting out of bed and up to bathroom. States she gets nauseated upon sitting up and then she stick my finger down my throat to make it come up otherwise it'll just keep getting worse and worse. States once she vomits she feels better. Medicated with Zofran. Original Note: Patient is alert and oriented. Breath sounds diminished at bases but CTA with RA sat of 93%. HRR and telemetry reading was a-paced at 0000. Complaining of heartburn so Dr Packer contacted and order received for Zantac per patient request. BT present and is passing flatus; abdomen appears distended. Still with occasional dysuria related to UTI; complains of frequency related to diuretic use. Able to turn self in bed. Up with walker and SBA. Denies pain. Wearing bilateral SCD's. Fall risk score is high and bed alarm is activated.
[2019-05-23] MEDS: SODIUM CHLORIDE 0.9% FLUSH 10 ML IV ×2 (05:46→21:42)
[2019-05-23] MEDS: ONDANSETRON 4 MG/2 ML INJ IV ×2 (05:46→18:45)
[2019-05-23 06:00] LABS: Add Manual Diff / Slide Review NO; Basophils Absolute Auto 100 /uL (0-100); Basophils Percent Auto 0.9 % (0-2); Eosinophils Absolute Auto 400 /uL (0-450); Eosinophils Percent Auto 2.8 % (2-4); Hematocrit 41.2 % (36-46); Hemoglobin 13.4 g/dL (12.0-16.0); Lymphocytes Absolute Auto 1500 /uL (1100-4500); Lymphocytes Percent Auto 10.5 % (25-40); Mean Corpuscular HGB Conc 32.6 % (30-36); Mean Corpuscular Hemoglobin 28.6 PG (26-34); Mean Corpuscular Volume 87.9 fL (80-100); Monocytes Absolute Auto 1800 /uL (0-900); Monocytes Percent Auto 12.3 % (3-14); Neutrophils Absolute Auto 10500 /uL (1500-7000); Neutrophils Percent Auto 73.5 % (50-75); Platelet Count 542 X10^3/uL (150-400); Red Blood Cell Count 4.68 X10^6/uL (4.0-5.2); Red Cell Distribution Width 17.4 % (11.6-14.8); White Blood Cell Count 14.3 X10^3/uL (4.5-11.0)
[2019-05-23 06:04] LABS: INR 3.6 (0.9-1.3); Prothrombin Time 42.7 SECONDS (10.1-12.7)
[2019-05-23 06:13] LABS: Alanine Aminotransferase 9 IU/L (9-52); Albumin Globulin Ratio 0.7 (1.0-2.8); Alkaline Phosphatase 141 U/L (38-126); Aspartate Aminotransferase 19 IU/L (14-36); BUN Creatinine Ratio 21.7 (6-22); Bilirubin Total 2.9 mg/dL (0.2-1.3); Blood Urea Nitrogen 13 mg/dL (7-17); Calcium 8.5 mg/dL (8.4-10.2); Carbon Dioxide 29 mmol/L (22-32); Chloride 97 mmol/L (98-107); Estimated Glomerular Filt Rate > 60.0 mL/min (>60); Globulin 4.4 g/dL (1.7-4.1); Glucose 96 mg/dL (80-110); HEMOLYSIS < 15 (0-50); Sodium 135 mmol/L (137-145); Total Protein 7.4 g/dL (6.3-8.2)
[2019-05-23 06:40] LABS: Thyroid Stimulating Hormone 4.35 uIU/mL (0.47-4.68)
--- NOTE | 2019-05-23 08:40 | PM.PN.1 ---
Subjective Date Patient Seen: 05/23/19 Time Patient Seen: 08:40 Interval history: Patient seen in follow-up of abdominal pain cardiomyopathy Overall not feeling a lot better. Mostly feeling slightly better. Just wants to get out of the hospital. Minimal appetite. Still having quite a bit a reflux. Diarrhea slowed down. Breathing pretty well. No other significant change. No bleeding. No other complaint no chest pain. No shortness of breath dyspnea or orthopnea. Exam Vital Signs (past 8 hours): - 05/23/19 05:30 05/23/19 08:05 Temperature 97.9 F 98.2 F Pulse Rate 60 66 Respiratory Rate 18 16 Blood Pressure 123/78 113/70 Pulse Oximetry 95 95 Oxygen Delivery Method Room Air Oxygen Flow Rate 0 Narrative Exam Narrative: Alert elderly female interactive no acute distress. No JVD or bruits. Lungs are clear. Heart regular rate and rhythm. Abdomen is soft positive bowel sounds mildly distended no past splenomegaly no tenderness. Extremities without cyanosis clubbing edema. Objective Labs Result Diagrams: 05/23/19 05:30 05/23/19 05:30 Labs: Laboratory Results - last 24 hr 05/23/19 05/23/19 05/23/19 05:30 05:30 05:30 WBC 14.3 H RBC 4.68 Hgb 13.4 Hct 41.2 MCV 87.9 MCH 28.6 MCHC 32.6 RDW 17.4 H Plt Count 542 H Neut % (Auto) 73.5 Lymph % (Auto) 10.5 L [place] % (Auto) 12.3 Eos % (Auto) 2.8 Baso % (Auto) 0.9 Neut # (Auto) 41367 H Lymph # (Auto) 1500 [place] # (Auto) 1800 H Eos # (Auto) 400 Baso # (Auto) 100 PT 42.7 H D INR 3.6 H Sodium 135 L Potassium 4.0 Chloride 97 L Carbon Dioxide 29 BUN 13 Creatinine 0.60 Estimated GFR > 60.0 BUN/Creatinine Ratio 21.7 Glucose 96 Calcium 8.5 Total Bilirubin 2.9 H AST 19 ALT 9 Alkaline Phosphatase 141 H Total Protein 7.4 Albumin 3.0 L Globulin 4.4 H Albumin/Globulin Ratio 0.7 L TSH 05/23/19 05:30 WBC RBC Hgb Hct MCV MCH MCHC RDW Plt Count Neut % (Auto) Lymph % (Auto) [place] % (Auto) Eos % (Auto) Baso % (Auto) Neut # (Auto) Lymph # (Auto) [place] # (Auto) Eos # (Auto) Baso # (Auto) PT INR Sodium Potassium Chloride Carbon Dioxide BUN Creatinine Estimated GFR BUN/Creatinine Ratio Glucose Calcium Total Bilirubin AST ALT Alkaline Phosphatase Total Protein Albumin Globulin Albumin/Globulin Ratio TSH 4.35 Assessment & Plan Assessment & Plan narrative: Reflux. Patient breath significant reflux. Will try IV Protonix and see how she does. Seems to be affecting her mostly. May be related to abdominal issue and ascites but will see how things go. Abdominal pain and distention. Ascites believed to be secondary to cardiac output. Biopsy of fluid today. Will see what actual fluid shows. Otherwise no change. Elevated white count. Etiology is somewhat unclear has been persistently elevated. Treated for acute urinary tract infection. No symptoms. Will follow. UTI. On treatment. Cardiomyopathy. Maybe issue. Mostly diastolic. Certainly if fluid is secondary to cardiomyopathy along with INR dysfunction and liver congestion then certainly plaster maker needs to be consulted. Will consider that today or tomorrow. History of hypertension. Stable. History of elevated INR. Slowly improving. Will follow. Hepatitis. [place] to be secondary to fluid congestion. We will see how things go. But may need plaster maker. Atrial fibrillation. Appears stable at this time. INR still 3.5 will follow. Disposition. Appears to be something that will take us for a few more days. Will see what ultrasound shows today. Will consider cardiology consult see how she does over the next 24 hours Quality VTE Deep Vein Thrombosis/Pulmonary Embolism Present on Admission: No
--- NOTE | 2019-05-23 08:46 | P.PN_ITS ---
Subjective Date Patient Seen: 05/23/19 Time Patient Seen: 08:40 Interval history: Patient seen in follow-up of abdominal pain cardiomyopathy Overall not feeling a lot better. Mostly feeling slightly better. Just wants to get out of the hospital. Minimal appetite. Still having quite a bit a reflux. Diarrhea slowed down. Breathing pretty well. No other significant change. No bleeding. No other complaint no chest pain. No shortness of breath dyspnea or orthopnea. Exam Vital Signs (past 8 hours): - 05/23/19 05:30 05/23/19 08:05 Temperature 97.9 F 98.2 F Pulse Rate 60 66 Respiratory Rate 18 16 Blood Pressure 123/78 113/70 Pulse Oximetry 95 95 Oxygen Delivery Method Room Air Oxygen Flow Rate 0 Narrative Exam Narrative: Alert elderly female interactive no acute distress. No JVD or bruits. Lungs are clear. Heart regular rate and rhythm. Abdomen is soft positive bowel sounds mildly distended no past splenomegaly no tenderness. Extremities without cyanosis clubbing edema. Objective Labs Result Diagrams: 05/23/19 05:30 05/23/19 05:30 Labs: Laboratory Results - last 24 hr 05/23/19 05/23/19 05/23/19 05:30 05:30 05:30 WBC 14.3 H RBC 4.68 Hgb 13.4 Hct 41.2 MCV 87.9 MCH 28.6 MCHC 32.6 RDW 17.4 H Plt Count 542 H Neut % (Auto) 73.5 Lymph % (Auto) 10.5 L [place] % (Auto) 12.3 Eos % (Auto) 2.8 Baso % (Auto) 0.9 Neut # (Auto) 02127 H Lymph # (Auto) 1500 [place] # (Auto) 1800 H Eos # (Auto) 400 Baso # (Auto) 100 PT 42.7 H D INR 3.6 H Sodium 135 L Potassium 4.0 Chloride 97 L Carbon Dioxide 29 BUN 13 Creatinine 0.60 Estimated GFR > 60.0 BUN/Creatinine Ratio 21.7 Glucose 96 Calcium 8.5 Total Bilirubin 2.9 H AST 19 ALT 9 Alkaline Phosphatase 141 H Total Protein 7.4 Albumin 3.0 L Globulin 4.4 H Albumin/Globulin Ratio 0.7 L TSH 05/23/19 05:30 WBC RBC Hgb Hct MCV MCH MCHC RDW Plt Count Neut % (Auto) Lymph % (Auto) [place] % (Auto) Eos % (Auto) Baso % (Auto) Neut # (Auto) Lymph # (Auto) [place] # (Auto) Eos # (Auto) Baso # (Auto) PT INR Sodium Potassium Chloride Carbon Dioxide BUN Creatinine Estimated GFR BUN/Creatinine Ratio Glucose Calcium Total Bilirubin AST ALT Alkaline Phosphatase Total Protein Albumin Globulin Albumin/Globulin Ratio TSH 4.35 Assessment & Plan Assessment & Plan narrative: Reflux. Patient breath significant reflux. Will try IV Protonix and see how she does. Seems to be affecting her mostly. May be related to abdominal issue and ascites but will see how things go. Abdominal pain and distention. Ascites believed to be secondary to cardiac output. Biopsy of fluid today. Will see what actual fluid shows. Otherwise no change. Elevated white count. Etiology is somewhat unclear has been persistently elevated. Treated for acute urinary tract infection. No symptoms. Will follow. UTI. On treatment. Cardiomyopathy. Maybe issue. Mostly diastolic. Certainly if fluid is secondary to cardiomyopathy along with INR dysfunction and liver congestion then certainly ethylene compressor operator needs to be consulted. Will consider that today or tomorrow. History of hypertension. Stable. History of elevated INR. Slowly improving. Will follow. Hepatitis. [place] to be secondary to fluid congestion. We will see how things go. But may need ethylene compressor operator. Atrial fibrillation. Appears stable at this time. INR still 3.5 will follow. Disposition. Appears to be something that will take us for a few more days. Will see what ultrasound shows today. Will consider cardiology consult see how she does over the next 24 hours Quality VTE Deep Vein Thrombosis/Pulmonary Embolism Present on Admission: No
--- NOTE | 2019-05-23 09:19 | PT.IPTN ---
Current Diagnoses Unspecified intestinal obstruction, unspecified as to partial versus complete obstruction (05/17/19) Physical Therapy Treatment Note M2 PT-IP Current Condition Start: 05/20/19 14:26 Freq: NEEDED Status: Active Protocol: Document 05/20/19 09:48 AB (Rec: 05/20/19 14:42 AB [id number]) Physical Therapy Current Condition Current Condition Evaluation Date 05/20/19 Treatment Diagnosis enteritis; generalized weakness Onset Date 05/17/19 M3 PT-IP Subjective Start: 05/20/19 14:26 Freq: NEEDED Status: Active Protocol: Document 05/23/19 08:45 CLB (Rec: 05/23/19 09:19 CLB [id number]) Subjective Physical Therapy Visit Type Type Treatment Note Visit Start Time 08:45 Visit Stop Time 09:10 Total Visit Minutes 25 Number of EXPANDER Visits 3 Physical Therapy Visit Comments Patient Comments Pt willing to work with PT. Therapy Pain Assessment Pain Present Pain Present Denied Pain M4 PT-IP Mobility and Gait Start: 05/20/19 14:26 Freq: NEEDED Status: Active Protocol: Document 05/23/19 08:45 CLB (Rec: 05/23/19 09:19 CLB [id number]) PT-Bed Mobility Assessment Supine to Sit Supine to Sit Standby Assistance Sit to Supine Sit to Supine Standby Assistance Scooting Scooting to Edge of Bed Standby Assistance Scooting Up and Down in Bed Standby Assistance PT-Transfer Assessment Sit to and From Stand Sit to and from Stand Standby Assistance Equipment Transfer Assistive Device Bed Rail Front Wheeled Walker Transfers Transfer Destination Bed Toilet Transfer Ability Level of Assist Standby Assistance Comments Mobility Comments Pt required assistance doffing /donning brief. Gait Assessment Gait Gait Assistance Required: Standby Assistance Contact Guard Assist Distance (Feet) 600 Assistive Devices Assistive Device None Gait Belt Front Wheeled Walker Orthotic/Prosthetic Devices or Brace: No Factors Limiting Gait Function Factors Limiting Gait Function Decreased Activity Tolerance Comments Gait Comments Pt ambulated to BR and sink w/ o AD requiring CGA, pt was unsteady and felt she had to reach out for dhaliwal and counters. Pt should continue to use FWW for gait. Pt only required one standing rest break during gait. Pt w/o LOB while standing at sink to brush hair and wash her face. M5 PT-IP Objective Assessments Start: 05/20/19 14:26 Freq: NEEDED Status: Active Protocol: Document 05/20/19 09:48 AB (Rec: 05/20/19 14:42 AB [id number]) Orientation Orientation/Cognition Orientation Name Place Situation Language Function Ability No Deficits Noted Safety Awareness Decreased Safety Awareness Gross Range of Motion Lower Extremity ROM Assessment Within Functional Limits Strength Lower Extremity Strength Assessment Bilaterally Impaired Hip 4-/5 Knee 4-/5 Coordination Assessment Gross Coordination Gross Coordination WNL Sensation Assessment Sensation Gross Sensation WNL Muscle Tone Muscle Tone WNL Yes M6 PT-IP Treatment Start: 05/20/19 14:26 Freq: NEEDED Status: Active Protocol: Document 05/23/19 08:45 CLB (Rec: 05/23/19 09:19 CLB [id number]) Physical Therapy Treatment Exercises Exercises Ankle Pumps Quad Sets Other Treatments Other Treatment Performed Pt refused SCD's but did have them on upon arrival. M7 PT-IP Assessment and Plan Start: 05/20/19 14:26 Freq: NEEDED Status: Active Protocol: Document 05/23/19 08:45 CLB (Rec: 05/23/19 09:19 CLB [id number]) PT Summary Assessment and Plan Summary Assessment Summary Pt required only one rest break today. Pt continues to be unsteady during ambulation w/o AD, pt should continue to use FWW. Goals Bed Mobility Goal Independent Transfer Goal Independent Gait Goal Independent Gait Distance 200 Other Goals up/down 2 steps with R rail ascending SBA Days to Meet Goals 5 Frequency of Treatment Frequency Of Treatment Once a Day Treatment Plan Physical Therapy Treatment Plan Bed Mobility Training Transfer Training Gait Training Therapeutic Exercise Balance Retraining Discharge Planning Neuromuscular Re-ed Recommendations To Nursing Amount of Assist Needed 1 Person Assist Discharge Recommendations PT Discharge Recommendations Home with Assistance
[2019-05-23] MEDS: CHOLESTYRAMINE/ASPARTAME 4 GM PACK PO ×2 (09:58→21:41)
[2019-05-23] MEDS: CIPROFLOXACIN 500 MG TABLET PO ×2 (09:58→21:41)
[2019-05-23] MEDS: ATENOLOL 50 MG TABLET PO (09:58)
[2019-05-23] MEDS: SPIRONOLACTONE 25 MG TABLET PO ×2 (09:59→16:46)
[2019-05-23] MEDS: PHYTONADIONE (VIT K1) 5 MG TABLET 10 MG PO (09:59)
--- NOTE | 2019-05-23 14:04 | OT.IP.TRT ---
Current Diagnoses Unspecified intestinal obstruction, unspecified as to partial versus complete obstruction (05/17/19) Occupational Therapy Treatment Note M2 OT-IP Current Condition Start: 05/21/19 13:05 Freq: Status: Active Protocol: Document 05/21/19 13:06 CGR (Rec: 05/21/19 13:14 CGR [id number]) Occupational Therapy Current Condition Current Condition Evaluation Date 05/21/19 Treatment Diagnosis SBO M3 OT- IP Subjective and Pain Start: 05/21/19 13:05 Freq: Status: Active Protocol: Document 05/23/19 14:10 PJM (Rec: 05/23/19 14:22 PJ [id number]) OT- Subjective Occupational Therapy Visit Type Visit Start Time 13:40 Visit Stop Time 14:04 Total Visit Minutes 24 Notes here observing this session. Pt asleep in bed, but alerts easily to voice and agreeable to tx. Occupational Therapy Visit Comments Patient Comments I just feel like sleeping all the time. I get nauseous when I sit up. Patient/Caregiver Goals to feel better, be able to eat more and go home OT Pain Assessment Pain When Pain Assessed After Treatment Location Upper Abdomen Intensity 3 Scale Used Nausea when sitting on toilet, improved in standing M4 OT- IP ADL's Start: 05/21/19 13:05 Freq: Status: Active Protocol: Document 05/23/19 14:10 PJM (Rec: 05/23/19 14:22 PJ [id number]) OT [id number] Comments OT Self-Feeding Comments poor appetite due to stomach discomfort OT ADL-Grooming General Evaluation Grooming Ability Standby Assistance Areas Needing Assistance Combing/Brushing Hair Comments OT Grooming Comments standing at sink OT ADL-Oral Care Comments Oral Care Comments pt declined this session OT ADL-Dressing Comments OT Dressing Comments Pt has sock aid but pt/ prefer to have assist her at home. Pt independent with slip on shoes. Provided education re: use of abrasive wheel molder to get brief on/off over feet while sitting on toilet. will order abrasive wheel molder for pt on [employer]. OT ADL-Toileting General Evaluation Toileting Ability Standby Assistance Areas Needing Assistance Manage Clothing Perform Perineal Hygiene Devices Toileting Assistive Devices Raised Toilet Seat OT ADL-Bathing Comments OT Bathing Comments pt states seh showered yesterday with SBA to min assist from MUSIC COMPOSITION TEACHER M6 OT- IP Functional Cognition Start: 05/21/19 13:05 Freq: Status: Active Protocol: Document 05/23/19 14:10 PJM (Rec: 05/23/19 14:22 PJ [id number]) Cognitive Factors Limiting Selfcare Function Cognitive Ability Level of Alertness Drowsy Attention Span Ability Capable of Focused Attention Ability to Follow Commands Able to Follow One Step Commands Cognitive Comments Cognitive Assessment Comments Pt needs occasional min cues to avoid obstacles while walking in hallway and to keep FWW moving in straight line. M7 OT- IP Mobility and Balance Start: 05/21/19 13:05 Freq: Status: Active Protocol: Document 05/23/19 14:10 PJM (Rec: 05/23/19 14:22 [facility] [id number]) OT- Bed Mobility Assessment Rolling Type of Rolling Roll to Right Level of Assistance Standby Assistance 1 Person Assistance Head of Bed Elevated Supine to Sit Supine to Sit Assist Standby Assistance 1 Person Assistance Head of Bed Elevated Sit to Supine Sit to Supine Assist Standby Assistance Head of Bed Elevated Scooting Scooting to Edge of Bed Standby Assistance Scooting Up and Down in Bed 1 Person Assistance OT-Transfer Assessment Sit to and From Stand Sit to and from Stand Standby Assistance 1 Person Assistance Transfers Transfer Ability Standby Assistance 1 Person Assistance Technique Transfer Destination Bed Toilet Transfer Technique Stand Step Pivot Devices Transfer Assistive Devices Gait Belt Front Wheeled Walker OT- Gait Assessment Gait Gait Assistance Required: Standby Assistance Distance (Feet) 600 Assistive Devices Assistive Device Gait Belt Front Wheeled Walker Comments Gait Ability Comments pt requesting to walk inhallway to maintain strength OT- Balance Assessment Sitting Balance and Reactions Static Sitting Balance Ability Good Dynamic Sitting Balance Ability Fair Standing Balance and Reactions Static Standing Balance Ability Good Dynamic Standing Balance Ability Good Comments Other Balance Tests/Deviations/Treatment pt has difficulty reaching to M9 OT- IP Assessment and Plan Start: 05/21/19 13:05 Freq: Status: Active Protocol: Document 05/23/19 14:10 PJM (Rec: 05/23/19 14:22 [facility] [id number]) OT Summary Assessment and Plan Potential Rehabilitation Potential Good Summary OT Impairments Pain Functional Mobility Dressing Bathing Shower Transfers Progress Towards Goals Progressing Toward Goals Assessment Summary Pt presents with mildly slowed speed of processing and decreased self monitoring when walking in hallway with FWW with min cues needed to avoid obstacles. Pt progressing with functional mobility and independence in basic self care. will obtain abrasive wheel molder for pt to increase independence with lower body dressing due to large abdomen. Activity tolerance remains limited by abdominal discomfort and nausea when sitting up. Anticipate pt will be able to d/c home with 24 hr assist from supportive when medically stable. Goals Grooming Goal Independent Dressing Goal Standby Assistance Toileting Goal Independent Bathing Goal Independent Toilet Transfer Goal Independent Shower Transfer Goal Independent OT-Other Goals Pt to be ind for donning underwear/brief and pants with abrasive wheel molder Days to Meet Goals 4 Frequency of Treatment Frequency Of Treatment Once a Day Treatment Plan OT Treatment Plan ADL Training Functional Mobility Therapeutic Exercises Patient/Family Education Discharge Planning Discharge Recommendations OT Discharge Recommendations Home with Assistance Home Equipment Needs abrasive wheel molder
--- NOTE | 2019-05-23 14:12 | P.PN_ITS ---
Subjective Date Patient Seen: 05/23/19 Time Patient Seen: 14:11 Interval history: Feeling about the same today. Continues to have abdominal distention Continues to tolerate some diet but also be nauseated with intermitent emesis Exam Vital Signs (past 8 hours): - 05/23/19 08:05 05/23/19 10:02 05/23/19 11:35 Temperature 98.2 F 98.6 F Pulse Rate 66 62 Respiratory Rate 16 16 Blood Pressure 113/70 123/72 Pulse Oximetry 95 96 96 Oxygen Delivery Method Room Air Oxygen Flow Rate 0 Narrative Exam Narrative: Fatigued appearing Dilated neck veins, Abdomen continues to be fairly distended, nontender at this point Objective Labs Result Diagrams: 05/23/19 05:30 05/23/19 05:30 Labs: Laboratory Results - last 24 hr 05/23/19 05/23/19 05/23/19 05:30 05:30 05:30 WBC 14.3 H RBC 4.68 Hgb 13.4 Hct 41.2 MCV 87.9 MCH 28.6 MCHC 32.6 RDW 17.4 H Plt Count 542 H Neut % (Auto) 73.5 Lymph % (Auto) 10.5 L [place] % (Auto) 12.3 Eos % (Auto) 2.8 Baso % (Auto) 0.9 Neut # (Auto) 59298 H Lymph # (Auto) 1500 [place] # (Auto) 1800 H Eos # (Auto) 400 Baso # (Auto) 100 PT 42.7 H D INR 3.6 H Sodium 135 L Potassium 4.0 Chloride 97 L Carbon Dioxide 29 BUN 13 Creatinine 0.60 Estimated GFR > 60.0 BUN/Creatinine Ratio 21.7 Glucose 96 Calcium 8.5 Total Bilirubin 2.9 H AST 19 ALT 9 Alkaline Phosphatase 141 H Total Protein 7.4 Albumin 3.0 L Globulin 4.4 H Albumin/Globulin Ratio 0.7 L TSH 05/23/19 05:30 WBC RBC Hgb Hct MCV MCH MCHC RDW Plt Count Neut % (Auto) Lymph % (Auto) [place] % (Auto) Eos % (Auto) Baso % (Auto) Neut # (Auto) Lymph # (Auto) [place] # (Auto) Eos # (Auto) Baso # (Auto) PT INR Sodium Potassium Chloride Carbon Dioxide BUN Creatinine Estimated GFR BUN/Creatinine Ratio Glucose Calcium Total Bilirubin AST ALT Alkaline Phosphatase Total Protein Albumin Globulin Albumin/Globulin Ratio TSH 4.35 Assessment & Plan Assessment & Plan narrative: 69-year-old woman with dysfunctional GI tract, generalized bowel edema, and small volume ascites. Given her stage III diastolic dysfunction, I suspect she has portal hypertension from high right- sided heart pressures -i.e. post sinusoital portal htn. May be some degree of underlying liver dysfunction given history of fatty liver disease. Recommend Diagnostic paracentesis -to calculate SAAG, and total protein to evaluate for cardiac ascites. Will solve diagnositc dilema re - cardiac vs liver Aggressive diuresis I suspect that once she becomes euvolemic the bowel edema will significantly improve and GI function will improve as well General surgery will sign off Quality VTE Deep Vein Thrombosis/Pulmonary Embolism Present on Admission: No
--- NOTE | 2019-05-23 15:14 | PC.NURSE ---
Shift summary: Alert and oriented X3. SBA with FWW. Just had an episode of 500 ml green colored emesis, did NOT have any emesis earlier in the shift. Complains of intermittent slight nausea, worse with movement. Denies pain or discomfort. BT+, hypoactive. Abd soft, nontender. Flatus+. Peripheral IV was dc'd accidentally this morning. DI in now to place midline IV. Paracentesis cancelled for today. Nuc. med study delayed due to unavailability of isotopes. Resting quietly in bed. Light in reach, bed alarm on. at bedside and attentive.
[2019-05-23] MEDS: FUROSEMIDE 40 MG/4 ML VIAL IV ×2 (16:07→21:41)
[2019-05-23] MEDS: PANTOPRAZOLE 40 MG VIAL IV (21:41)
--- NOTE | 2019-05-23 23:22 | PC.NURSE ---
shift summary- No no emesis this shift, but c/o of mild nausea medicated with zofran @ 1845. ALICIA midline placed and flusing @ 1600. BT hypo, mild distention. VSS. 1PA FWW to BRP to void several times this shift r/t new orders 40mg lasix now (1599) and BID. INR-3.6. @ 2240 ICU informed this typewriter aligner of a 10 beat VT, self limiting, asymptomatic. Bed alarm on.
--- NOTE | 2019-05-23 23:36 | PC.NURSE ---
Addendum entered by Kamilla Leigh R.N. 05/24/19 06:09: Up to bathroom several times at start of shift but then was able to get several hours of sleep. Complains of slight nausea this morning so medicated with Zofran; no emesis this shift. Original Note: Patient is alert and oriented but expressing frustration with having to go to the bathroom so frequently due to IV Lasix. Affect is flat and appears fatigued. Breath sounds diminished at bases but CTA with RA sat of 95%. HRR. Is on telemetry with last recorded rhythm of SR w/1st degree AVB although did have a 10 beat run of v-tach reported on previous shift at 2240. Denies nausea. BT hypoactive. Abdomen is distended, ascites but non tender to palpation. Having urinary frequency, urgency and incontinence related to diuretics but denies further dysuria. Able to move self in bed. Up to bathroom with walker and SBA; due to being up frequently does seem to be weaker tonight. Wearing bilateral SCD's. Denies pain. Fall risk score is high and bed alarm is activated.
[2019-05-24] VITALS (7 sets, daily range): BP systolic 104–115; BP diastolic 53–68; PULSE 61–79; RESP 16–18; TEMP 36.4–37.2; O2SAT 93–96
[2019-05-24 05:52] LABS: Add Manual Diff / Slide Review NO; Basophils Absolute Auto 100 /uL (0-100); Basophils Percent Auto 0.6 % (0-2); Eosinophils Absolute Auto 200 /uL (0-450); Eosinophils Percent Auto 1.8 % (2-4); Hematocrit 37.8 % (36-46); Hemoglobin 12.7 g/dL (12.0-16.0); Lymphocytes Absolute Auto 1500 /uL (1100-4500); Mean Corpuscular HGB Conc 33.6 % (30-36); Mean Corpuscular Hemoglobin 29.2 PG (26-34); Monocytes Absolute Auto 2000 /uL (0-900); Monocytes Percent Auto 15.1 % (3-14); Neutrophils Absolute Auto 9500 /uL (1500-7000); Neutrophils Percent Auto 71.5 % (50-75); Platelet Count 501 X10^3/uL (150-400); Red Blood Cell Count 4.34 X10^6/uL (4.0-5.2); Red Cell Distribution Width 17.3 % (11.6-14.8); White Blood Cell Count 13.3 X10^3/uL (4.5-11.0)
[2019-05-24 06:05] LABS: Alanine Aminotransferase 7 IU/L (9-52); Albumin Globulin Ratio 0.7 (1.0-2.8); Alkaline Phosphatase 129 U/L (38-126); Aspartate Aminotransferase 19 IU/L (14-36); BUN Creatinine Ratio 16.7 (6-22); Blood Urea Nitrogen 10 mg/dL (7-17); Calcium 8.3 mg/dL (8.4-10.2); Carbon Dioxide 28 mmol/L (22-32); Chloride 99 mmol/L (98-107); Estimated Glomerular Filt Rate > 60.0 mL/min (>60); Globulin 4.4 g/dL (1.7-4.1); Glucose 89 mg/dL (80-110); HEMOLYSIS < 15 (0-50); Potassium 3.8 mmol/L (3.4-5.1); Sodium 135 mmol/L (137-145); Total Protein 7.4 g/dL (6.3-8.2)
[2019-05-24] MEDS: ONDANSETRON 4 MG/2 ML INJ IV (06:05)
[2019-05-24] MEDS: SODIUM CHLORIDE 0.9% FLUSH 10 ML IV ×3 (06:06→21:45)
[2019-05-24 06:10] LABS: Prothrombin Time 47.4 SECONDS (10.1-12.7)
--- NOTE | 2019-05-24 08:26 | PM.PN.1 ---
Subjective Date Patient Seen: 05/24/19 Time Patient Seen: 08:26 Interval history: Patient seen in follow-up of small-bowel obstruction and congestive heart failure. Overall she is feeling better this morning. As the 1st morning she has not thrown up since she had been admitted. Was able to eat a little bit. Feels like she is filling up pretty quick after she eats. Was up all night with urine output. Somewhat disappointed in that period otherwise no chest pain. She feels as if everything started after she started her beta-blockers weeks ago. Has been telling the temperature regulator pyrometer about this. Heart rate has been well controlled but feels like the atrial fibrillation is her main problem. She is otherwise feeling pretty good today. Got up and walked around twice yesterday no other changes. Patient thinks she has a long-standing history of elevated bilirubin. Her daughter has similar problem. Reflux is much improved today. Unable to get fluid secondary to 2 small pockets Exam Vital Signs (past 8 hours): - 05/24/19 05:00 Temperature 97.6 F Pulse Rate 63 Respiratory Rate 18 Blood Pressure 104/53 L Pulse Oximetry 95 Oxygen Delivery Method Room Air Oxygen Flow Rate 0 Narrative Exam Narrative: Alert much less fatigued female no acute distress. Mucous membranes are moist. Neck is supple without adenopathy JVD or bruits. Heart irregular rhythm without murmurs clicks rubs or gallops. Lungs are clear. Abdomen is mildly distended soft positive bowel sounds minimally tender diffusely. No past splenomegaly or masses that I can identify. Extremities without cyanosis clubbing edema. Otherwise no changes. Neurologically intact. Psychologically actually improved today seems to be more interactive Objective Labs Result Diagrams: 05/24/19 05:25 05/24/19 05:25 Labs: Laboratory Results - last 24 hr 05/24/19 05/24/19 05/24/19 05:25 05:25 05:25 WBC 13.3 H RBC 4.34 Hgb 12.7 Hct 37.8 MCV 87.0 MCH 29.2 MCHC 33.6 RDW 17.3 H Plt Count 501 H Neut % (Auto) 71.5 Lymph % (Auto) 11.0 L [place] % (Auto) 15.1 H Eos % (Auto) 1.8 L Baso % (Auto) 0.6 Neut # (Auto) 9500 H Lymph # (Auto) 1500 [place] # (Auto) 2000 H Eos # (Auto) 200 Baso # (Auto) 100 PT 47.4 H INR 4.0 H Sodium 135 L Potassium 3.8 Chloride 99 Carbon Dioxide 28 BUN 10 Creatinine 0.60 Estimated GFR > 60.0 BUN/Creatinine Ratio 16.7 Glucose 89 Calcium 8.3 L Total Bilirubin 3.0 H AST 19 ALT 7 L Alkaline Phosphatase 129 H Total Protein 7.4 Albumin 3.0 L Globulin 4.4 H Albumin/Globulin Ratio 0.7 L Assessment & Plan Assessment & Plan narrative: Reflux. Actually improved today. Feeling better. Question whether it is secondary to this or her diuresis is unclear. Still has some abdominal distention but she feels quite a bit better. Will continue Protonix for now. May need to consider EGD. Abdominal pain and distention. Patient certainly had gastric distention on CT scan with some small bowel changes. Circ while this could be from congestive heart failure and now that her diuresis was better yesterday she is feeling better but what the true cause is unclear at this time. Discussed with Dr. Villavicencio. Will have her see her. Interesting that her echo really has not changed over the last several years but she is now having so much more trouble right now. Will continue diuresis and PPI. We will see how she responds. Unable to get gastric emptying study until least . I do not think this is secondary to her beta-blockers but I guess it is possible. Elevated white count with increased platelets. No evidence of definitive infection. She has a pleural effusion she has some ascites exam certainly is not consistent with that. Had history of UTI. Will consider discontinuing treatment soon. Will follow all other areas of exam. Elevated bilirubin. Patient feels as if this is not something significant due to the fact that she has a history or her daughter as a history of elevated bilirubin. She has a documented normal bilirubin back in 2018 so I think this is probably real. She does have some mild elevation of her alk-phos and this could be related to fluid. We will see what happens tomorrow. Re-evaluate after aggressive diuresis. Elevated INR. Concern for liver failure. OT and PT numbers are normal. Would have to consider pretty significant cirrhosis which I would think and likely. We will see what happens with diuresis and Dr. peck consult. Congestive heart failure. Certainly got good diuresis over the last 24 hours will continue aggressive diuresis today and probably decrease tomorrow. We will see how things go. She seems to be doing better. Unsure how much of this is fluid or not. History of hypertension. Stable. Hepatitis. Really just 1000 mild elevation of her alk-phos except for the elevated bilirubin and INR. Will have to see. Follow from there. Atrial fibrillation appears stable. Not sure how much of her symptoms are coming from atenolol but temperature regulator pyrometer will have to make that choice. Disposition. Appears to be improved today. Although unclear which intervention made that difference. We will continue diuresis and PPI and follow from there. We will see what internal medicine consult Fines. Certainly going to be in the next 24-48 hours. Quality VTE Deep Vein Thrombosis/Pulmonary Embolism Present on Admission: No
--- NOTE | 2019-05-24 08:38 | P.PN_ITS ---
Subjective Date Patient Seen: 05/24/19 Time Patient Seen: 08:26 Interval history: Patient seen in follow-up of small-bowel obstruction and congestive heart failure. Overall she is feeling better this morning. As the 1st morning she has not thrown up since she had been admitted. Was able to eat a little bit. Feels like she is filling up pretty quick after she eats. Was up all night with urine output. Somewhat disappointed in that period otherwise no chest pain. She feels as if everything started after she started her beta- blockers weeks ago. Has been telling the electroencephalograph technician about this. Heart rate has been well controlled but feels like the atrial fibrillation is her main pr oblem. She is otherwise feeling pretty good today. Got up and walked around twice yesterday no other changes. Patient thinks she has a long-standing history of elevated bilirubin. Her daughter has similar problem. Reflux is much improved today. Unable to get fluid secondary to 2 small pockets Exam Vital Signs (past 8 hours): - 05/24/19 05:00 Temperature 97.6 F Pulse Rate 63 Respiratory Rate 18 Blood Pressure 104/53 L Pulse Oximetry 95 Oxygen Delivery Method Room Air Oxygen Flow Rate 0 Narrative Exam Narrative: Alert much less fatigued female no acute distress. Mucous membranes are moist. Neck is supple without adenopathy JVD or bruits. Heart irregular rhythm without murmurs clicks rubs or gallops. Lungs are clear. Abdomen is mildly distended soft positive bowel sounds minimally tender d iffusely. No past splenomegaly or masses that I can identify. Extremities without cyanosis clubbing edema. Otherwise no changes. Neurologically intact. Psychologically actually improved today seems to be more interactive Objective Labs Result Diagrams: 05/24/19 05:25 05/24/19 05:25 Labs: Laboratory Results - last 24 hr 05/24/19 05/24/19 05/24/19 05:25 05:25 05:25 WBC 13.3 H RBC 4.34 Hgb 12.7 Hct 37.8 MCV 87.0 MCH 29.2 MCHC 33.6 RDW 17.3 H Plt Count 501 H Neut % (Auto) 71.5 Lymph % (Auto) 11.0 L [place] % (Auto) 15.1 H Eos % (Auto) 1.8 L Baso % (Auto) 0.6 Neut # (Auto) 9500 H Lymph # (Auto) 1500 [place] # (Auto) 2000 H Eos # (Auto) 200 Baso # (Auto) 100 PT 47.4 H INR 4.0 H Sodium 135 L Potassium 3.8 Chloride 99 Carbon Dioxide 28 BUN 10 Creatinine 0.60 Estimated GFR > 60.0 BUN/Creatinine Ratio 16.7 Glucose 89 Calcium 8.3 L Total Bilirubin 3.0 H AST 19 ALT 7 L Alkaline Phosphatase 129 H Total Protein 7.4 Albumin 3.0 L Globulin 4.4 H Albumin/Globulin Ratio 0.7 L Assessment & Plan Assessment & Plan narrative: Reflux. Actually improved today. Feeling better. Question whether it is secondary to this or her diuresis is unclear. Still has some abdominal distention but she feels quite a bit better. Will continue Protonix for now. May need to consider EGD. Abdominal pain and distention. Patient certainly had gastric distention on CT scan with some small bowel changes. Circ while this could be from congestive heart failure and now that her diuresis was better yesterday she is feeling better but what the true cause is unclear at this time. Discussed with Dr. Villavicencio. Will have her see her. Interesting that her echo really has not changed over the last several years but she is now having so much more trouble right now. Will continue diuresis and PPI. We will see how she responds. Unable to get gastric emptying study until least . I do not think this is secondary to her beta-blockers but I guess it is possible. Elevated white count with increased platelets. No evidence of definitive infection. She has a pleural effusion she has some ascites exam certainly is not consistent with that. Had history of UTI. Will consider discontinuing treatment soon. Will follow all other areas of exam. Elevated bilirubin. Patient feels as if this is not something significant due to the fact that she has a history or her daughter as a history of elevated bilirubin. She has a documented normal bilirubin back in 2018 so I think this is probably real. She does have some mild elevation of her alk-phos and this could be related to fluid. We will see what happens tomorrow. Re-evaluate after aggressive diuresis. Elevated INR. Concern for liver failure. OT and PT numbers are normal. Would have to consider pretty significant cirrhosis which I would think and likely. We will see what happens with diuresis and Dr. peck consult. Congestive heart failure. Certainly got good diuresis over the last 24 hours will continue aggressive diuresis today and probably decrease tomorrow. We will see how things go. She seems to be doing better. Unsure how much of this is fluid or not. History of hypertension. Stable. Hepatitis. Really just 1000 mild elevation of her alk-phos except for the elevated bilirubin and INR. Will have to see. Follow from there. Atrial fibrillation appears stable. Not sure how much of her symptoms are coming from atenolol but electroencephalograph technician will have to make that choice. Disposition. Appears to be improved today. Although unclear which intervention made that difference. We will continue diuresis and PPI and follow from there. We will see what internal medicine consult Fines. Certainly going to be in the next 24-48 hours. Quality VTE Deep Vein Thrombosis/Pulmonary Embolism Present on Admission: No
[2019-05-24] MEDS: CHOLESTYRAMINE/ASPARTAME 4 GM PACK PO ×2 (08:58→21:45)
[2019-05-24] MEDS: CIPROFLOXACIN 500 MG TABLET PO (08:59)
[2019-05-24] MEDS: FUROSEMIDE 40 MG/4 ML VIAL IV (09:00)
[2019-05-24] MEDS: PHYTONADIONE (VIT K1) 5 MG TABLET 10 MG PO (09:00)
[2019-05-24] MEDS: SPIRONOLACTONE 25 MG TABLET PO ×2 (09:00→16:40)
[2019-05-24] MEDS: PANTOPRAZOLE 40 MG VIAL IV ×2 (09:00→21:45)
[2019-05-24] MEDS: ATENOLOL 50 MG TABLET PO (09:01)
--- NOTE | 2019-05-24 09:53 | PT.IPTN ---
Current Diagnoses Unspecified intestinal obstruction, unspecified as to partial versus complete obstruction (05/17/19) Physical Therapy Treatment Note M2 PT-IP Current Condition Start: 05/20/19 14:26 Freq: NEEDED Status: Active Protocol: Document 05/20/19 09:48 AB (Rec: 05/20/19 14:42 AB [id number]) Physical Therapy Current Condition Current Condition Evaluation Date 05/20/19 Treatment Diagnosis enteritis; generalized weakness Onset Date 05/17/19 M3 PT-IP Subjective Start: 05/20/19 14:26 Freq: NEEDED Status: Active Protocol: Document 05/24/19 08:55 CLB (Rec: 05/24/19 09:53 CLB [id number]) Subjective Physical Therapy Visit Type Type Treatment Note Visit Start Time 08:55 Visit Stop Time 09:15 Total Visit Minutes 20 Number of [employer]TERNAT[employer] ENGINEER Visits 4 Physical Therapy Visit Comments Patient Comments Pt up ambulating with OT, pt agreed to continue to walk and trial stairs. Therapy Pain Assessment Pain Present Pain Present Denied Pain M4 PT-IP Mobility and Gait Start: 05/20/19 14:26 Freq: NEEDED Status: Active Protocol: Document 05/24/19 08:55 CLB (Rec: 05/24/19 09:53 CLB [id number]) PT-Bed Mobility Assessment Sit to Supine Sit to Supine Standby Assistance Scooting Scooting Up and Down in Bed Standby Assistance PT-Transfer Assessment Sit to and From Stand Sit to and from Stand Standby Assistance Equipment Transfer Assistive Device Front Wheeled Walker Transfers Transfer Destination Bed Transfer Ability Level of Assist Standby Assistance Gait Assessment Gait Gait Assistance Required: Standby Assistance Contact Guard Assist Distance (Feet) 300 Assistive Devices Assistive Device Gait Belt Front Wheeled Walker Factors Limiting Gait Function Factors Limiting Gait Function Decreased Activity Tolerance Comments Gait Comments Pt ambulated in [place] w/o need for rest break, pt with faster pacing and increased foot clearance. Stair Climbing Assessment Evaluation Level of Assist On Stairs Standby Assistance 1 Person Assistance Devices Stair Climbing Assistive Devices Right Railing Technique/Endurance Stair Climbing Direction Ascend and Descend Stair Climbing Technique Step Over Step Step to Step Number of Steps Climbed 3 Stair Climbing Set # Repetitions (reps) 1 Comments Stair Climbing Comments Pt able to climb three steps once but did not feel she would be able to perform another set. M5 PT-IP Objective Assessments Start: 05/20/19 14:26 Freq: NEEDED Status: Active Protocol: Document 05/20/19 09:48 AB (Rec: 05/20/19 14:42 AB [id number]) Orientation Orientation/Cognition Orientation Name Place Situation Language Function Ability No Deficits Noted Safety Awareness Decreased Safety Awareness Gross Range of Motion Lower Extremity ROM Assessment Within Functional Limits Strength Lower Extremity Strength Assessment Bilaterally Impaired Hip 4-/5 Knee 4-/5 Coordination Assessment Gross Coordination Gross Coordination WNL Sensation Assessment Sensation Gross Sensation WNL Muscle Tone Muscle Tone WNL Yes M6 PT-IP Treatment Start: 05/20/19 14:26 Freq: NEEDED Status: Active Protocol: Document 05/24/19 08:55 CLB (Rec: 05/24/19 09:53 CLB [id number]) Physical Therapy Treatment Exercises Exercises Ankle Pumps Quad Sets Other Treatments Other Treatment Performed Pt refused SCD's M7 PT-IP Assessment and Plan Start: 05/20/19 14:26 Freq: NEEDED Status: Active Protocol: Document 05/24/19 08:55 CLB (Rec: 05/24/19 09:53 CLB [id number]) PT Summary Assessment and Plan Summary Assessment Summary Pt improving with pacing and foot clearance during gait. Pt able to climb three steps SBA . Goals Bed Mobility Goal Independent Transfer Goal Independent Gait Goal Independent Gait Distance 200 Other Goals up/down 2 steps with R rail ascending SBA Days to Meet Goals 5 Frequency of Treatment Frequency Of Treatment Once a Day Treatment Plan Physical Therapy Treatment Plan Bed Mobility Training Transfer Training Gait Training Therapeutic Exercise Balance Retraining Discharge Planning Neuromuscular Re-ed Recommendations To Nursing Amount of Assist Needed Standby Assistance Discharge Recommendations PT Discharge Recommendations Home with Assistance
--- NOTE | 2019-05-24 10:04 | OT.IP.TRT ---
Current Diagnoses Unspecified intestinal obstruction, unspecified as to partial versus complete obstruction (05/17/19) Occupational Therapy Treatment Note M2 OT-IP Current Condition Start: 05/21/19 13:05 Freq: Status: Active Protocol: Document 05/21/19 13:06 CGR (Rec: 05/21/19 13:14 CGR [email or web address]) Occupational Therapy Current Condition Current Condition Evaluation Date 05/21/19 Treatment Diagnosis SBO M3 OT- IP Subjective and Pain Start: 05/21/19 13:05 Freq: Status: Active Protocol: Document 05/24/19 10:04 PJM (Rec: 05/24/19 18:19 PJM [id number]) OT- Subjective Occupational Therapy Visit Type Type Treatment Note Visit Start Time 09:40 Visit Stop Time 10:04 Total Visit Minutes 24 Occupational Therapy Visit Comments Patient Comments I didn't get any sleep last night because they gave me Lasix. Patient/Caregiver Goals to figure out what is wrong with me so I can go home OT Pain Assessment Pain When Pain Assessed After Treatment Pain Present Pain Present Denied Pain M4 OT- IP ADL's Start: 05/21/19 13:05 Freq: Status: Active Protocol: Document 05/24/19 10:04 PJM (Rec: 05/24/19 18:19 PJM [id number]) OT UQT-[place] General Evaluation Self-Feeding Ability Independent OT ADL-Grooming General Evaluation Grooming Ability Independent Areas Needing Assistance Combing/Brushing Hair Face Washing Comments OT Grooming Comments standing at sink 4-5 min with no LOB OT ADL-Oral Care Comments Oral Care Comments standing at sink 4-5 min with no LOB OT ADL-Dressing General Eval Upper Body Dressing Ability Independent Lower Body Dressing Ability Minimal Assistance Comments OT Dressing Comments Pt verbalizes understanding of use of packing supervisor for donning and doffing pants/brief. to order packing supervisor online. Pt declines sock aid, prefers to assist with compression hose; has slip on shoes. OT ADL-Toileting General Evaluation Toileting Ability Independent Areas Needing Assistance Manage Clothing Perform Perineal Hygiene OT ADL-Bathing Comments OT Bathing Comments SBA from [employer]RI[employer] WORK[employer] after set up; pt has shower seat at home; can assist PRN M5 OT- IP IADL's Start: 05/21/19 13:05 Freq: Status: Active Protocol: Document 05/21/19 13:06 CGR (Rec: 05/21/19 13:14 CGR [email or web address]) OT-Instrumental Activities of Daily Living Deficits IADL Deficits Identified No Deficits Home Safety Awareness Awareness of Need for Assistance at Home Good Awareness Ability to Problem Solve Emergency Able to Problem Solve Situations Medication Management Medication Management No Deficits Identified Money Management Money Management Caregiver Provides Assistance Meal Preparation Meal Preparation Caregiver Provides Assist Infant Toddler Lead Teacher Infant Toddler Lead Teacher Caregiver Provides Assist Driving Driving Comments Pt does not drive M6 OT- IP Functional Cognition Start: 05/21/19 13:05 Freq: Status: Active Protocol: Document 05/23/19 14:10 PJM (Rec: 05/23/19 14:22 PJM [id number]) Cognitive Factors Limiting Selfcare Function Cognitive Ability Level of Alertness Drowsy Attention Span Ability Capable of Focused Attention Ability to Follow Commands Able to Follow One Step Commands Cognitive Comments Cognitive Assessment Comments Pt needs occasional min cues to avoid obstacles while walking in hallway and to keep FWW moving in straight line. M7 OT- IP Mobility and Balance Start: 05/21/19 13:05 Freq: Status: Active Protocol: Document 05/24/19 10:04 PJM (Rec: 05/24/19 18:19 PJM [email or web address]) OT- Bed Mobility Assessment Rolling Type of Rolling Roll to Right Level of Assistance Independent Supine to Sit Supine to Sit Assist Independent Sit to Supine Sit to Supine Assist Independent Scooting Scooting to Edge of Bed Independent OT-Transfer Assessment Sit to and From Stand Sit to and from Stand Standby Assistance Transfers Transfer Ability Standby Assistance Technique Transfer Destination Chair Transfer Technique Stand Step Pivot Devices Transfer Assistive Devices Front Wheeled Walker OT- Gait Assessment Gait Gait Assistance Required: Standby Assistance Distance (Feet) 300 Comments Gait Ability Comments better awareness of obstacles in [place] today, no cues for steering FWW OT- Balance Assessment Sitting Balance and Reactions Static Sitting Balance Ability Good Dynamic Sitting Balance Ability Good Standing Balance and Reactions Static Standing Balance Ability Good Dynamic Standing Balance Ability Good M8 OT- IP Objective Assessments Start: 05/21/19 13:05 Freq: Status: Active Protocol: Document 05/21/19 13:06 CGR (Rec: 05/21/19 13:14 CGR [email or web address]) OT Gross Range of Motion Upper Extremity Range of Motion Assessment Within Functional Limits OT Strength Upper Extremity Strength Assessment Within Functional Limits Comments Strength Comments Grossly 4-/5 OT- Coordination Assessment Upper Extremity Finger to Nose Test Within Functional Limits Finger Tapping Test Within Functional Limits OT-Muscle Tone Assessment Muscle Tone WNL Yes OT Sensation Assessment Edema Edema Absent M9 OT- IP Assessment and Plan Start: 05/21/19 13:05 Freq: Status: Active Protocol: Document 05/24/19 10:04 PJBrigid (Rec: 05/24/19 18:19 [email or web address] [email or web address]) OT Summary Assessment and Plan Summary Progress Towards Goals Safe For Discharge Assessment Summary All OT goals achieved for this admission. Pt is SBA to independent with basic self care skills in room with FWW. Provided education re: energy conservation/pacing. Supportive will provide 24 hr assist at d/c, when medically stable and clears P.T. Frequency of Treatment Frequency Of Treatment Discharge Discharge Recommendations OT Discharge Recommendations Home with Assistance
--- NOTE | 2019-05-24 11:40 | PM.CN ---
History of Present Illness Date Patient Seen: 05/24/19 Chief complaint: vomiting since yesterday stomach ache Reason for consult: Persistant Nausea Narrative: The patient is a 69-year-old female with a complicated past medical history including atrial fibrillation cardiomyopathy, hypertension history of hysterectomy, and a Lilly procedure. The patient has also had a prior ablation with permanent cardiac pacemaker placement. Patient reports she was well until 2 days prior to admission on May 17. She developed moderate stomach cramps and had an episode nonbloody nonbilious diarrhea. Her grandson had a bug so she did not think much of it. Later that evening she developed persistent nausea and vomiting. The emesis was initially yellow then green. The patient had no fever or chills her laboratory studies upon arrival showed a white count of 11.9. Her total bilirubin was 4.0. Her AST and ALT were normal. The patient underwent a CT scan of the abdomen which showed jejunal and gastric dilatation with diffuse small-bowel nonspecific findings to suggest enteritis. The patient was also found to have severe cardiomegaly and hepatic steatosis. Since then she has continued to have persistent nausea, some intermittent abdominal pain, and abdominal distension. Initially it was felt that the patient had abdominal ascites that however she was unable to undergo a paracentesis because there was no significant fluid identified. In addition she was started on ciprofloxacin for urinary tract infection. Her urinary tract infection appears to be resolved. The patient had a cardiac echo which was markedly abnormal. The cardiac echo showed the following : Normal sinus rhythm. Normal LV size; severe eccentric LVH particularly involving the septum. There is septal dyskinesis. EF is 60-65%. Stage III diasolic dysfunction. Severe biatrial enlargement; otherwise normal chamber sizes. Mitral valve leaflets are normal; moderate MAC with mild MR. Aortic valve is a trileaflet structure. There is mild thickening of the left coronary leaflet. There is a small threadlike lesion protruding into the proximal aorta, most consistent with lambl's excrescence. There is a pacing lead traversing the tricuspid valve with severe associated tricuspid regurgitation. Estimated pulmonary artery systolic pressure is 35 mmHg assuming right atrial pressure of 15 mmHg. The patient feels somewhat better today. However her major complaint is nausea and acid indigestion. She also reports having difficulty swallowing pills for the past several weeks. Of note the patient's white count has increased since admission. Initially was 11.9 and has gone up to 14.9 and now down to 13.3 despite being on ciprofloxacin for her urinary tract infection. At this time she has no abdominal pain. She denies any shortness of breath. She denies any chest pain. Patient is receiving IV Lasix for diuresis. Overall she feels she has made some improved but is markedly concerned about recurrent nausea and symptoms upon returning home. The patient was seen by General surgery. They recommended a GI panel which was completely normal. They suggested her symptoms most likely were really to passive congestion from her right ventricular dysfunction. I have been asked Dr. Thakur to evaluate her case make recommendations for further evaluation. COUNTS INCLUDE 234 BEDS AT THE [facility] Medical History Atrial fibrillation (Chronic) Cardiomyopathy (Chronic) Edema (Chronic) History of hysterectomy (Chronic) Hypertension (Chronic) Surgical History Hx of prior ablation treatment (Chronic) History of permanent cardiac pacemaker placement (Chronic) Social History household members: spouse Smoking Status: Never smoker Social History household members: spouse Smoking Status: Never smoker Meds Home Medications Medication Instructions Recorded Confirmed Type warfarin [Coumadin] 1.25 mg PO QDAY #0 11/05/12 05/17/19 History latanoprost 1 applic EYE-BOTH QPM 04/26/18 05/17/19 History omega 3,6,9 combination no.7 1 tab PO DAILY 04/26/18 05/17/19 History [[place] DHA] plant stanol alejandro [Cholest Off] 1 tab PO DAILY 04/26/18 05/17/19 History Cysto Protek 2 cap PO BID 05/17/19 05/17/19 History Ortho Molecular Probiotic 1 cap PO QPM 05/17/19 05/17/19 History atenolol 50 mg PO QPM 05/17/19 05/17/19 History cholecalciferol (vitamin D3) 5,000 unit PO DAILY 05/17/19 05/17/19 History [Vitamin D3] coenzyme Q10 [Co Q-10] 300 mg PO DAILY 05/17/19 05/17/19 History metoclopramide HCl 10 mg PO PRN PRN 05/17/19 05/17/19 History potassium chloride 10 meq PO DAILY 05/17/19 05/17/19 History spironolactone 25 mg PO DAILY 05/17/19 05/17/19 History torsemide 20 mg PO BID 05/17/19 05/17/19 History Allergies Allergy/AdvReac Type Severity Reaction Status Date / Time flecainide [FLECAINIDE] Allergy Unknown CONFUSION, Verified 05/17/19 10:24 CAN'T THINK, DIZZY meperidine [MEPERIDINE] Allergy Unknown N/V Verified 04/26/18 20:15 amiodarone [From Pacerone] AdvReac Intermediate Redness of Verified 05/17/19 10:24 Skin lisinopril AdvReac Intermediate Dizziness Verified 05/17/19 10:24 polyethylene glycol 3350 AdvReac Intermediate Fainting Verified 05/17/19 10:24 [From Miralax] atenolol [ATENOLOL] AdvReac Unknown MAKES ME Verified 04/26/18 20:15 VERY TIRED, NO ENERGY Review of Systems Review of Systems All systems reviewed & are unremarkable except as noted in HPI and below Exam Vital Signs (past 8 hours): - 05/24/19 05:00 05/24/19 08:00 05/24/19 09:47 Temperature 97.6 F 97.6 F Pulse Rate 63 63 Respiratory Rate 18 16 Blood Pressure 104/53 L 110/67 Pulse Oximetry 95 93 96 05/24/19 11:35 Temperature 98.8 F Pulse Rate 79 Respiratory Rate 17 Blood Pressure 107/53 L Pulse Oximetry 95 Oxygen Delivery Method Room Air Oxygen Flow Rate 0 Narrative Exam Narrative: Pleasant female resting comfortably in no obvious distress HEENT: Normocephalic atraumatic sclerae anicteric extraocular muscles are oropharynx is clear neck is supple without adenopathy or thyromegaly Lungs: Clear to auscultation Cardiac exam: Regular rate and rhythm normal S1-S2 with a 2/6 systolic ejection Abdomen: Soft mildly distended non without hepatosplenomegaly, no board-like rigidity, no palpable mass Extremities: No edema Objective Labs Result Diagrams: 05/24/19 05:25 05/24/19 05:25 Labs: Laboratory Results - last 24 hr 05/24/19 05/24/1905/24/19 05:25 05:25 05:25 WBC 13.3 H RBC 4.34 Hgb 12.7 Hct 37.8 MCV 87.0 MCH 29.2 MCHC 33.6 RDW 17.3 H Plt Count 501 H Neut % (Auto) 71.5 Lymph % (Auto) 11.0 L [place] % (Auto) 15.1 H Eos % (Auto) 1.8 L Baso % (Auto) 0.6 Neut # (Auto) 9500 H Lymph # (Auto) 1500 [place] # (Auto) 2000 H Eos # (Auto) 200 Baso # (Auto) 100 PT 47.4 H INR 4.0 H Sodium 135 L Potassium 3.8 Chloride 99 Carbon Dioxide 28 BUN 10 Creatinine 0.60 Estimated GFR > 60.0 BUN/Creatinine Ratio 16.7 Glucose 89 Calcium 8.3 L Total Bilirubin 3.0 H AST 19 ALT 7 L Alkaline Phosphatase 129 H Total Protein 7.4 Albumin 3.0 L Globulin 4.4 H Albumin/Globulin Ratio 0.7 L Assessment & Plan Assessment & Plan narrative: Number 69-year-old female admitted to the hospital with nausea vomiting and persistent abdominal symptoms. She has had a thorough workup at this point. It is concerning that her white count remains elevated despite the antibiotics for her UTI. Her initial CT suggested enteritis. That coupled with nausea vomiting and diarrhea is highly suggestive. The patient's GI panel a was negative. Despite that she continues to have recurrent symptoms. In addition the patient also complains of nausea and gastric reflux. She was started on Protonix twice daily yesterday for symptomatology. She has had multiple ultrasounds which failed to demonstrate significant ascites. She was unable to undergo a paracentesis. Recommendation: Given the patient's recurrent symptoms of nausea intermittent bloating, and reflux symptoms would continue Protonix as you are doing but recommend upper endoscopy to evaluate further. In addition given the patient's elevated white count while on antibiotic would consider procalcitonin to rule out bacterial infection. Would also consider repeat CT of her abdomen and if evidence of enteritis switch antibiotics from ciprofloxacin to IV levofloxacin and Flagyl. Agree with plan to continue diuresis but unclear whether right heart failure is a major contributor or not. If the patient does not have remarkable findings on endoscopy in repeat abdominal CT would consider outpatient GI consultation. Thank you very much for this consultation.
--- NOTE | 2019-05-24 12:52 | DI.CT.S_ITS ---
PROCEDURE: CT ABDOMEN PELVIS W CON INDICATIONS: Elevated white count/ nausea/ history of enteritis. TECHNIQUE: After the administration of oral and intravenous contrast, 5 mm thick sections acquired from the diaphragms to the symphysis. 5 mm thick coronal and sagittal reformats were performed. For radiation dose reduction, the following was used: automated exposure control, adjustment of mA and/or kV according to patient size. COMPARISON: [facility], US, PELVIC COMPLETE, 09/10/2010, 16:33. [facility], US, US ABDOMEN LIMITED, 01/31/2019, 14:30. [facility], CR, XR ABDOMEN 1V, 05/19/2019, 17:20. [facility], CR, XR CHEST 2V, 05/19/2019, 8:33. [facility], CR, XR KUB, 05/18/2019, 8:46. [facility], CT, CT ABDOMEN PELVIS W CON, 05/17/2019, 7:38. FINDINGS: Image quality: Excellent. ABDOMEN: Lung bases: [id number] size right pleural effusion, similar to the prior exam. Partial collapse of the right lower lobe. Bibasilar atelectasis. Right atrial and right ventricular AICD leads. Marked right atrial enlargement. Mild left atrial enlargement. Dense mitral valvular calcification. Superior IVC is enlarged. Poststernotomy. Solid organs: No focal hepatic lesion. Portal venous shunt in the posterior right hepatic lobe, (2/), is again noted. Diffuse hepatic steatosis. The gallbladder is decompressed. No calcified gallstones. No biliary ductal dilatation. Spleen is unremarkable. There is fatty atrophy of the pancreas. No pancreatic ductal dilatation. No adrenal nodule. Right kidney extrarenal pelvis and prominent proximal right ureter are similar in appearance. Question minimal enhancement of the proximal right ureter. The kidneys enhance symmetrically. No solid renal mass. Peritoneum and bowel: Overall stable moderate small bowel dilatation involving the proximal jejunum. There is a gradual caliber change in the left lower abdomen (2/59). Indeed mural enhancement is less conspicuous likely due to technique with oral contrast now being present, however, the proximal small bowel wall appears thickened. The ileum demonstrates mural enhancement. Mild to moderate volume of ascites with similar-appearing peritoneal enhancement in the stomach is not significantly distended. Small volume of extraluminal gas in the mid pelvis near the vaginal cuff, (5/46), unchanged in quantity, location, and similar configuration compared to 05/17/2019. The colon is nondilated. There is increased on the right colon. Dense contrast in the colon and rectum from the prior small bowel follow-through. Nodes and vessels: No pathologically enlarged nodes. A few shotty retroperitoneal nodes similar to the prior exam. Mildly prominent right pelvic sidewall node measuring 1 cm, (/71). Favor reactive etiology. Aorta and inferior vena cava are normal in caliber. Moderate calcified atherosclerotic plaque Miscellaneous: No ventral hernias. PELVIS: Genitourinary: The superior bladder wall appears thickened possibly reactive adjacent to the enhancing peritoneum. Nondistended. The uterus is surgically absent. Miscellaneous: No inguinal hernias or adenopathy. Bones: No suspicious bony lesions. Intraosseous hemangioma at the T8 level. No vertebral body compression fractures. Marked disc space height loss at L2-L3. Mild anteriolisthesis of L4 on L5. IMPRESSION: 1. Similar-appearing peritonitis with mild to moderate volume of ascites and small volume of extraluminal gas in the pelvis near the vaginal cuff. 2. Similar-appearing small bowel dilatation most evident in the proximal small bowel where there is corresponding wall thickening. Additionally, there is mural enhancement involving the ileum. Findings are most compatible with enteritis with possible ileus rather than a mechanical small bowel obstruction. 3. Stable right pleural effusion and adjacent consolidation which most likely represents compressive atelectasis. The findings were discussed with Dr. Carlee Villavicencio at 2:45 PM. Dictated by: Keshawn Pina M.D. on 05/24/2019 at 13:37 Approved by: Keshawn Pina M.D. on 05/24/2019 at 14:48
--- NOTE | 2019-05-24 13:11 | PC.NURSE ---
Day shift: Pt off unit for CT swallow scan at this time.
--- NOTE | 2019-05-24 13:23 | PC.NURSE ---
Day shift: Pt back on unit at this time.
[2019-05-24 13:41] LABS: Haptoglobin 314 mg/dL (43-212)
[2019-05-24 14:35] LABS: Lactate (Lactic Acid) 1.4 mmol/L (0.7-2.1)
[2019-05-24 15:03] LABS: Procalcitonin 0.15 ng/mL (<0.5)
[2019-05-24] MEDS: PIPERACILLIN-TAZO 3.375 GM/50 ML FROZ.PIGGY IV ×2 (16:00→21:47)
[2019-05-24] MEDS: FUROSEMIDE 20 MG/2 ML VIAL 40 MG IV (16:39)
[2019-05-24] MEDS: LORazepam 0.5 MG TABLET PO (22:43)
--- NOTE | 2019-05-24 23:49 | PC.NURSE ---
shift summary- Pt reports feeling better today, denies nausea, BT hypoactive, mild distention, and at end of shift and after ambulating in hallway, some sharp intermittent pains, but remains denying nausea. medicated with ativan 0.5mg PO, pt reports effective. ALICIA [facility]line SL. Bed alarm on.
[2019-05-25] VITALS (11 sets, daily range): BP systolic 101–120; BP diastolic 52–68; PULSE 60–66; RESP 16–20; TEMP 35.7–36.9; O2SAT 95–97
[2019-05-25] MEDS: SODIUM CHLORIDE 0.9% 250 ML 21 ML IV (02:30)
[2019-05-25] MEDS: BENZOCAINE/MENTHOL 1 LOZ PKT 1 EACH PO (02:36)
[2019-05-25] MEDS: SODIUM CHLORIDE 0.9% FLUSH 10 ML IV ×3 (02:37→09:06)
[2019-05-25] MEDS: PIPERACILLIN-TAZO 3.375 GM/50 ML FROZ.PIGGY IV ×3 (02:43→15:04)
[2019-05-25 06:35] LABS: Add Manual Diff / Slide Review NO; Basophils Absolute Auto 100 /uL (0-100); Basophils Percent Auto 0.8 % (0-2); Eosinophils Absolute Auto 300 /uL (0-450); Eosinophils Percent Auto 1.9 % (2-4); Lymphocytes Absolute Auto 1500 /uL (1100-4500); Lymphocytes Percent Auto 11.2 % (25-40); Mean Corpuscular HGB Conc 33.3 % (30-36); Mean Corpuscular Hemoglobin 29.1 PG (26-34); Mean Corpuscular Volume 87.3 fL (80-100); Monocytes Absolute Auto 1700 /uL (0-900); Monocytes Percent Auto 12.4 % (3-14); Neutrophils Absolute Auto 10100 /uL (1500-7000); Neutrophils Percent Auto 73.7 % (50-75); Platelet Count 505 X10^3/uL (150-400); Red Blood Cell Count 4.47 X10^6/uL (4.0-5.2); Red Cell Distribution Width 17.3 % (11.6-14.8); White Blood Cell Count 13.8 X10^3/uL (4.5-11.0)
[2019-05-25 06:38] LABS: INR 3.6 (0.9-1.3); Prothrombin Time 42.2 SECONDS (10.1-12.7)
--- NOTE | 2019-05-25 06:38 | PC.NURSE ---
Assumed care of pt at 2300 on 05/24/19. Pt resting in bed during bedside hand-off. Denies pain, nausea or sob. Own CPAP on for the night. Denies flatus; BS hypoactive. Attempted to draw blood for morning labs from [facility]. Only small amt of blood return, not enough for labs. precision agriculture technician in to draw. Cap changed flushed with heparin.
[2019-05-25 06:51] LABS: Alanine Aminotransferase 9 IU/L (9-52); Albumin 3.1 g/dL (3.5-5.0); Albumin Globulin Ratio 0.7 (1.0-2.8); Alkaline Phosphatase 140 U/L (38-126); Aspartate Aminotransferase 20 IU/L (14-36); BUN Creatinine Ratio 12.9 (6-22); Bilirubin Total 3.3 mg/dL (0.2-1.3); Blood Urea Nitrogen 9 mg/dL (7-17); Calcium 8.5 mg/dL (8.4-10.2); Carbon Dioxide 26 mmol/L (22-32); Chloride 99 mmol/L (98-107); Estimated Glomerular Filt Rate > 60.0 mL/min (>60); Globulin 4.5 g/dL (1.7-4.1); Glucose 92 mg/dL (80-110); HEMOLYSIS < 15 (0-50); Potassium 3.8 mmol/L (3.4-5.1); Sodium 135 mmol/L (137-145); Total Protein 7.6 g/dL (6.3-8.2)
[2019-05-25] MEDS: FUROSEMIDE 20 MG/2 ML VIAL 40 MG IV (06:54)
--- NOTE | 2019-05-25 08:48 | PM.PN.1 ---
Subjective Date Patient Seen: 05/25/19 Time Patient Seen: 08:48 Interval history: Patient seen in follow-up of abdominal pain and distension. Overall patient had a harder night. Feeling more distended today. No other significant change. Some nausea no vomiting. Has not had as much heartburn today. More upper gastric discomfort. No other changes. No fevers or chills. Exam Vital Signs (past 8 hours): - 05/25/19 06:12 05/25/19 07:45 Temperature 97.9 F 98.5 F Pulse Rate 61 60 Respiratory Rate 20 18 Blood Pressure 107/60 102/52 L Pulse Oximetry 95 96 Oxygen Delivery Method Room Air,CPAP Oxygen Flow Rate 0 Narrative Exam Narrative: Alert female much less comfortable today no definitive acute distress. Lungs are clear. Heart regular rate and rhythm. Abdomen is distended tympanic positive bowel sounds. Tenderness diffusely but maybe slightly worse in the lower quadrants and in the epigastric area no rebound or guarding. Extremities without cyanosis clubbing edema. Neurologic exam is normal. Psychologically intermittently crying with no other change. Objective Labs Result Diagrams: 05/25/19 06:15 05/25/19 06:15 Labs: Laboratory Results - last 24 hr 05/19/19 05/24/19 05/24/19 08:50 14:10 14:10 WBC RBC Hgb Hct MCV MCH MCHC RDW Plt Count Neut % (Auto) Lymph % (Auto) [place] % (Auto) Eos % (Auto) Baso % (Auto) Neut # (Auto) Lymph # (Auto) [place] # (Auto) Eos # (Auto) Baso # (Auto) Haptoglobin 314 H PT INR Sodium Potassium Chloride Carbon Dioxide BUN Creatinine Estimated GFR BUN/Creatinine Ratio Glucose Lactate 1.4 Calcium Total Bilirubin AST ALT Alkaline Phosphatase Total Protein Albumin Globulin Albumin/Globulin Ratio Procalcitonin 0.15 05/25/19 05/25/19 05/25/19 06:15 06:15 06:15 WBC 13.8 H RBC 4.47 Hgb 13.0 Hct 39.0 MCV 87.3 MCH 29.1 MCHC 33.3 RDW 17.3 H Plt Count 505 H Neut % (Auto) 73.7 Lymph % (Auto) 11.2 L [place] % (Auto) 12.4 Eos % (Auto) 1.9 L Baso % (Auto) 0.8 Neut # (Auto) 35767 H Lymph # (Auto) 1500 [place] # (Auto) 1700 H Eos # (Auto) 300 Baso # (Auto) 100 Haptoglobin PT 42.2 H D INR 3.6 H Sodium 135 L Potassium 3.8 Chloride 99 Carbon Dioxide 26 BUN 9 Creatinine 0.70 Estimated GFR > 60.0 BUN/Creatinine Ratio 12.9 Glucose 92 Lactate Calcium 8.5 Total Bilirubin 3.3 H AST 20 ALT 9 Alkaline Phosphatase 140 H Total Protein 7.6 Albumin 3.1 L Globulin 4.5 H Albumin/Globulin Ratio 0.7 L Procalcitonin Assessment & Plan Assessment & Plan narrative: Abdominal pain and distension. Reviewed CT scan with Dr. Camacho. Appears as if there may have been a pelvic abscess there all this time. 10 x 4 cm. She did have surgery 2 months ago. This may be the issue could be a reactive bowel response to infection. Certainly with her elevated white count will check CRP and sed rate. Will discuss with surgeon. We discussed with Dr. Camacho about possible access through needle he does feel like it is possible. We will see what surgeon recommends. I do not know if all of this is related to this since she has been hurting long before her 2 months. I still think she has some epigastric discomfort and an EGD might be something that should be done. Will again discuss with surgeon. Hard to tell all cause. Specially with reflux Reflux. Maybe slightly improved still with epigastric pain consider EGD will continue on high-dose pantoprazole. Elevated white count with increased platelets. May be coming from pelvic issue. Discussed with patient. Will change to Unasyn for now on till we have bacteria. Re-evaluate after that. Congestive heart failure. Patient is down quite a bit. Will go to once a day Lasix and follow. Not sold that this is the definitive cause of all her problem. Elevated bilirubin with elevated alk-phos. May be secondary to liver irritation could be something completely different unknown period may need to still see conditioner tumbler operator. This may be part of her longstanding issue. Will have to see what happens with treatment. Elevated INR. Will check again tomorrow. No other changes. History of hypertension. Stable. Atrial fibrillation stable. Disposition clearly going to need some time to clear abscess if that is the issue. Hopefully once drained and on antibiotics should be better. We will see how things go. Discussed with surgeon Quality VTE Deep Vein Thrombosis/Pulmonary Embolism Present on Admission: No
[2019-05-25] MEDS: ONDANSETRON 4 MG/2 ML INJ IV (09:03)
[2019-05-25] MEDS: MORPHINE 2 MG/ML INJ IV (09:04)
[2019-05-25] MEDS: PHYTONADIONE (VIT K1) 5 MG TABLET 10 MG PO (09:04)
[2019-05-25] MEDS: SPIRONOLACTONE 25 MG TABLET PO ×2 (09:06→16:17)
[2019-05-25] MEDS: CHOLESTYRAMINE/ASPARTAME 4 GM PACK PO ×2 (09:09→22:49)
[2019-05-25] MEDS: ATENOLOL 50 MG TABLET PO (09:09)
[2019-05-25] MEDS: PANTOPRAZOLE 40 MG VIAL IV (09:09)
[2019-05-25 09:59] LABS: Erythrocyte Sedimentation Rate 49 MM/HR (0-20)
--- NOTE | 2019-05-25 10:18 | PT.IPTN ---
Current Diagnoses Unspecified intestinal obstruction, unspecified as to partial versus complete obstruction (05/17/19) Physical Therapy Treatment Note M2 PT-IP Current Condition Start: 05/20/19 14:26 Freq: NEEDED Status: Active Protocol: Document 05/20/19 09:48 AB (Rec: 05/20/19 14:42 AB [id number]) Physical Therapy Current Condition Current Condition Evaluation Date 05/20/19 Treatment Diagnosis enteritis; generalized weakness Onset Date 05/17/19 M3 PT-IP Subjective Start: 05/20/19 14:26 Freq: NEEDED Status: Active Protocol: Document 05/25/19 10:16 SA (Rec: 05/25/19 10:18 SA [id number]) Subjective Physical Therapy Visit Type Type Patient Refusal Visit Start Time 10:05 Notes Pt declined PT this AM d/t nausea and having a rough morning. NSG present and confirmed. M4 PT-IP Mobility and Gait Start: 05/20/19 14:26 Freq: NEEDED Status: Active Protocol: Document 05/24/19 08:55 CLB (Rec: 05/24/19 09:53 CLB [id number]) PT-Bed Mobility Assessment Sit to Supine Sit to Supine Standby Assistance Scooting Scooting Up and Down in Bed Standby Assistance PT-Transfer Assessment Sit to and From Stand Sit to and from Stand Standby Assistance Equipment Transfer Assistive Device Front Wheeled Walker Transfers Transfer Destination Bed Transfer Ability Level of Assist Standby Assistance Gait Assessment Gait Gait Assistance Required: Standby Assistance Contact Guard Assist Distance (Feet) 300 Assistive Devices Assistive Device Gait Belt Front Wheeled Walker Factors Limiting Gait Function Factors Limiting Gait Function Decreased Activity Tolerance Comments Gait Comments Pt ambulated in [place] w/o need for rest break, pt with faster pacing and increased foot clearance. Stair Climbing Assessment Evaluation Level of Assist On Stairs Standby Assistance 1 Person Assistance Devices Stair Climbing Assistive Devices Right Railing Technique/Endurance Stair Climbing Direction Ascend and Descend Stair Climbing Technique Step Over Step Step to Step Number of Steps Climbed 3 Stair Climbing Set # Repetitions (reps) 1 Comments Stair Climbing Comments Pt able to climb three steps once but did not feel she would be able to perform another set. M5 PT-IP Objective Assessments Start: 05/20/19 14:26 Freq: NEEDED Status: Active Protocol: Document 05/20/19 09:48 AB (Rec: 05/20/19 14:42 AB [id number]) Orientation Orientation/Cognition Orientation Name Place Situation Language Function Ability No Deficits Noted Safety Awareness Decreased Safety Awareness Gross Range of Motion Lower Extremity ROM Assessment Within Functional Limits Strength Lower Extremity Strength Assessment Bilaterally Impaired Hip 4-/5 Knee 4-/5 Coordination Assessment Gross Coordination Gross Coordination WNL Sensation Assessment Sensation Gross Sensation WNL Muscle Tone Muscle Tone WNL Yes M6 PT-IP Treatment Start: 05/20/19 14:26 Freq: NEEDED Status: Active Protocol: Document 05/24/19 08:55 CLB (Rec: 05/24/19 09:53 CLB [id number]) Physical Therapy Treatment Exercises Exercises Ankle Pumps Quad Sets Other Treatments Other Treatment Performed Pt refused SCD's M7 PT-IP Assessment and Plan Start: 05/20/19 14:26 Freq: NEEDED Status: Active Protocol: Document 05/24/19 08:55 CLB (Rec: 05/24/19 09:53 CLB [id number]) PT Summary Assessment and Plan Summary Assessment Summary Pt improving with pacing and foot clearance during gait. Pt able to climb three steps SBA . Goals Bed Mobility Goal Independent Transfer Goal Independent Gait Goal Independent Gait Distance 200 Other Goals up/down 2 steps with R rail ascending SBA Days to Meet Goals 5 Frequency of Treatment Frequency Of Treatment Once a Day Treatment Plan Physical Therapy Treatment Plan Bed Mobility Training Transfer Training Gait Training Therapeutic Exercise Balance Retraining Discharge Planning Neuromuscular Re-ed Recommendations To Nursing Amount of Assist Needed Standby Assistance Discharge Recommendations PT Discharge Recommendations Home with Assistance
--- NOTE | 2019-05-25 11:00 | PM.PN.1 ---
Subjective Date Patient Seen: 05/25/19 Interval history: Patient is 69-year-old female with history of hypertrophic cardiomyopathy, ICD, atrial fibrillation, ablation x2 and Maze procedure, on warfarin therapy, status post hysterectomy about 2 months ago admitted due to acute abdominal pain, nausea, vomiting and diarrhea. She had reported similar but self-limited illness in her and daughter. She does report approximately 1 year history of abdominal bloating although not any vomiting or diarrhea. Initial and repeat abdomen CT showing findings of small bowel thickening and dilation, mild ascites and peritoneal irritation. There is question of a right pelvic abscess not noted on official CT report and patient is scheduled for CT-guided aspiration. There was insufficient ascites for ultrasound-guided aspiration. Her antibiotic was switched to Zosyn on 05/24/2019. She has also been getting IV diuresis for possible cardiogenic source of her GI problem. This morning she reports pain in the high epigastric area. She remains distended and finally had 1st bowel movement since admission. Has persistent nausea without vomiting. WBC remains mildly elevated. Exam Vital Signs (past 8 hours): - 05/25/19 06:12 05/25/19 07:40 05/25/19 07:45 Temperature 97.9 F 98.5 F Pulse Rate 61 60 Respiratory Rate 20 18 Blood Pressure 107/60 102/52 L Pulse Oximetry 95 95 96 Oxygen Delivery Method Room Air Oxygen Flow Rate 0 Narrative Exam Narrative: GENERAL: Alert pleasant cooperative female in no acute distress HEENT: Head normocephalic, atraumatic. Mucous membranes moist. CHEST: Clear to auscultation bilaterally. CARDIAC: Regular rate and rhythm. ABDOMEN: Distended, tender epigastric EXTREMITIES: no edema. NEUROLOGICAL: Nonfocal SKIN: Warm, dry, no petechiae, no rash Objective Labs Result Diagrams: 05/25/19 06:15 05/25/19 06:15 Labs: Laboratory Results - last 24 hr 05/19/19 05/24/19 05/24/19 08:50 14:10 14:10 WBC RBC Hgb Hct MCV MCH MCHC RDW Plt Count Neut % (Auto) Lymph % (Auto) [place] % (Auto) Eos % (Auto) Baso % (Auto) Neut # (Auto) Lymph # (Auto) [place] # (Auto) Eos # (Auto) Baso # (Auto) ESR Haptoglobin 314 H PT INR Sodium Potassium Chloride Carbon Dioxide BUN Creatinine Estimated GFR BUN/Creatinine Ratio Glucose Lactate 1.4 Calcium Total Bilirubin AST ALT Alkaline Phosphatase C-Reactive Protein Total Protein Albumin Globulin Albumin/Globulin Ratio Procalcitonin 0.15 05/25/19 05/25/19 05/25/19 06:15 06:15 06:15 WBC 13.8 H RBC 4.47 Hgb 13.0 Hct 39.0 MCV 87.3 MCH 29.1 MCHC 33.3 RDW 17.3 H Plt Count 505 H Neut % (Auto) 73.7 Lymph % (Auto) 11.2 L [place] % (Auto) 12.4 Eos % (Auto) 1.9 L Baso % (Auto) 0.8 Neut # (Auto) 14278 H Lymph # (Auto) 1500 [place] # (Auto) 1700 H Eos # (Auto) 300 Baso # (Auto) 100 ESR Haptoglobin PT 42.2 H D INR 3.6 H Sodium 135 L Potassium 3.8 Chloride 99 Carbon Dioxide 26 BUN 9 Creatinine 0.70 Estimated GFR > 60.0 BUN/Creatinine Ratio 12.9 Glucose 92 Lactate Calcium 8.5 Total Bilirubin 3.3 H AST 20 ALT 9 Alkaline Phosphatase 140 H C-Reactive Protein Total Protein 7.6 Albumin 3.1 L Globulin 4.5 H Albumin/Globulin Ratio 0.7 L Procalcitonin 05/25/19 05/25/19 06:15 06:15 WBC RBC Hgb Hct MCV MCH MCHC RDW Plt Count Neut % (Auto) Lymph % (Auto) [place] % (Auto) Eos % (Auto) Baso % (Auto) Neut # (Auto) Lymph # (Auto) [place] # (Auto) Eos # (Auto) Baso # (Auto) ESR 49 H Haptoglobin PT INR Sodium Potassium Chloride Carbon Dioxide BUN Creatinine Estimated GFR BUN/Creatinine Ratio Glucose Lactate Calcium Total Bilirubin AST ALT Alkaline Phosphatase C-Reactive Protein 5.0 H Total Protein Albumin Globulin Albumin/Globulin Ratio Procalcitonin Assessment & Plan Assessment & Plan narrative: 1. Acute enteritis -uncertain etiology, could still be infectious with history of multiple family members with recent acute GI illness versus secondary due to cardiogenic edema versus inflammatory bowel disease -CT scan with possible pelvic abscess and patient is scheduled for CT-guided aspiration -I do not think that EGD would be helpful to explain the CT finding although patient does have significant epigastric distress and currently on high-dose pantoprazole -consider colonoscopy to help rule out Crohn's disease if patient not improving -recommend continuing IV Zosyn -continue IV Lasix 40 mg once daily for diuresis as long as lytes, BUN and creatinine are stable 2. Elevated bilirubin with elevated alkaline phosphatase -mild elevations probably secondary to primary GI process or passive congestion from CHF 3. Hypertrophic cardiomyopathy -echo showed dilated SVC consistent with volume overload but she has been diuresed and unclear whether that is truly source of GI findings -paracentesis with assessment of ascites fluid albumin and protein would be helpful in elucidating ascites due to infectious cause versus ascites from CHF, however there was insufficient fluid on ultrasound to perform paracentesis 4. Coagulopathy, on warfarin -INR has drifted down and being monitored Hospitalist Service has no further recommendations at this time and will sign off but available to see patient again on request. Quality VTE Deep Vein Thrombosis/Pulmonary Embolism Present on Admission: No
--- NOTE | 2019-05-25 15:00 | PT.IPTN ---
Current Diagnoses Unspecified intestinal obstruction, unspecified as to partial versus complete obstruction (05/17/19) Physical Therapy Treatment Note M2 PT-IP Current Condition Start: 05/20/19 14:26 Freq: NEEDED Status: Active Protocol: Document 05/20/19 09:48 AB (Rec: 05/20/19 14:42 AB [id number]) Physical Therapy Current Condition Current Condition Evaluation Date 05/20/19 Treatment Diagnosis enteritis; generalized weakness Onset Date 05/17/19 M3 PT-IP Subjective Start: 05/20/19 14:26 Freq: NEEDED Status: Active Protocol: Document 05/25/19 15:00 GGD (Rec: 05/25/19 16:18 GGD [id number]) Subjective Physical Therapy Visit Type Type Treatment Note Visit Start Time 14:40 Visit Stop Time 15:00 Total Visit Minutes 20 Physical Therapy Visit Comments Patient Comments Pt states she needs to move. M4 PT-IP Mobility and Gait Start: 05/20/19 14:26 Freq: NEEDED Status: Active Protocol: Document 05/25/19 15:00 GGD (Rec: 05/25/19 16:18 GGD [id number]) PT-Bed Mobility Assessment Supine to Sit Supine to Sit Standby Assistance Sit to Supine Sit to Supine Standby Assistance Scooting Scooting to Edge of Bed Standby Assistance Scooting Up and Down in Bed Standby Assistance PT-Transfer Assessment Sit to and From Stand Sit to and from Stand Standby Assistance Equipment Transfer Assistive Device Gait Belt Straight Cane Transfers Transfer Destination Bed Toilet Transfer Ability Level of Assist Standby Assistance Gait Assessment Gait Gait Assistance Required: Standby Assistance Contact Guard Assist Distance (Feet) 400 Assistive Devices Assistive Device Gait Belt Straight Cane Factors Limiting Gait Function Factors Limiting Gait Function Decreased Activity Tolerance M5 PT-IP Objective Assessments Start: 05/20/19 14:26 Freq: NEEDED Status: Active Protocol: Document 05/20/19 09:48 AB (Rec: 05/20/19 14:42 AB [id number]) Orientation Orientation/Cognition Orientation Name Place Situation Language Function Ability No Deficits Noted Safety Awareness Decreased Safety Awareness Gross Range of Motion Lower Extremity ROM Assessment Within Functional Limits Strength Lower Extremity Strength Assessment Bilaterally Impaired Hip 4-/5 Knee 4-/5 Coordination Assessment Gross Coordination Gross Coordination WNL Sensation Assessment Sensation Gross Sensation WNL Muscle Tone Muscle Tone WNL Yes M6 PT-IP Treatment Start: 05/20/19 14:26 Freq: NEEDED Status: Active Protocol: Document 05/24/19 08:55 CLB (Rec: 05/24/19 09:53 CLB [id number]) Physical Therapy Treatment Exercises Exercises Ankle Pumps Quad Sets Other Treatments Other Treatment Performed Pt refused SCD's M7 PT-IP Assessment and Plan Start: 05/20/19 14:26 Freq: NEEDED Status: Active Protocol: Document 05/25/19 15:00 GGD (Rec: 05/25/19 16:18 GGD [id number]) PT Summary Assessment and Plan Summary Assessment Summary Pt improving slowly. She was able to porgress gait to SPC, but unsteady with gait without AD. Recommendations To Nursing Amount of Assist Needed Standby Assistance Discharge Recommendations PT Discharge Recommendations Home with Assistance
--- NOTE | 2019-05-25 17:53 | PM.PN.1 ---
Subjective Date Patient Seen: 05/25/19 Time Patient Seen: 11:30 Interval history: Case reviewed today with Radiology and Family Medicine On repeat imaging patient has a non loculated but rim enhancing fluid collection on the right side of the pelvis just above the dome of the bladder -this has multiple air bubbles in it adjacent to the patient's vaginal cough after recent hysterectomy. Radiographically it does appear to be infected. Clinically on my exam patient has tenderness in her right pelvis on abdominal exam. She does not have generalized peritonitis. She is not toxic. I think a possible explanation of this is that she developed ascites in the setting of her heart failure -there was certainly more numerous pockets of fluid and volume of fluid seen on her initial CT scan. Think is possible that this fluid then subsequently became infected from vaginal cuff leak -leading to a dependent large infected fluid collection within the pelvis. Is encouraging that she does not have significant abdominal tenderness elsewhere on exam. Discussing with Radiology there is good anterior window to the fluid collection. Think it is reasonable to correct her INR, and move forward with a pigtail drain into the space. Agree with ongoing diuresis to resolve her ascites. One unresolved question -is the cause of her elevated INR. Microangiopathic hemolytic anemia and/consumptive process have been ruled out. She has been on substantial amounts of warfarin -and also on bile acid sequesters to interrupt enterohepatic cycling of warfarin within a dysfunctional gut -and has not corrected. Given her persistently elevated bilirubin without evidence of biliary obstruction, elevated INR despite interventions as above -I am concerned she may have underlying hepatic synthetic dysfunction. Rec: Correct INR w FFP ahead of procedure IR pigtail for source control into infect fluid collection Diuresis as above Discussion with well logging operator mud analysis management of cuff leak Consider Telemed hepatology consult re question of liver dysfuntion -with persistently elevated bilirubin and INR Exam Vital Signs (past 8 hours): - 05/25/19 11:30 05/25/19 15:15 05/25/19 16:00 Temperature 98.1 F 98.4 F Pulse Rate 60 66 Respiratory Rate 16 16 Blood Pressure 101/59 L 108/68 Pulse Oximetry 97 95 95 Oxygen Delivery Method Room Air,CPAP Oxygen Flow Rate 0 Objective Labs Result Diagrams: 05/25/19 06:15 05/25/19 06:15 Labs: Laboratory Results - last 24 hr 05/25/19 05/25/19 05/25/19 06:15 06:15 06:15 WBC 13.8 H RBC 4.47 Hgb 13.0 Hct 39.0 MCV 87.3 MCH 29.1 MCHC 33.3 RDW 17.3 H Plt Count 505 H Neut % (Auto) 73.7 Lymph % (Auto) 11.2 L [place] % (Auto) 12.4 Eos % (Auto) 1.9 L Baso % (Auto) 0.8 Neut # (Auto) 67301 H Lymph # (Auto) 1500 [place] # (Auto) 1700 H Eos # (Auto) 300 Baso # (Auto) 100 ESR PT 42.2 H D INR 3.6 H Sodium 135 L Potassium 3.8 Chloride 99 Carbon Dioxide 26 BUN 9 Creatinine 0.70 Estimated GFR > 60.0 BUN/Creatinine Ratio 12.9 Glucose 92 Calcium 8.5 Total Bilirubin 3.3 H AST 20 ALT 9 Alkaline Phosphatase 140 H C-Reactive Protein Total Protein 7.6 Albumin 3.1 L Globulin 4.5 H Albumin/Globulin Ratio 0.7 L 05/25/19 05/25/19 06:15 06:15 WBC RBC Hgb Hct MCV MCH MCHC RDW Plt Count Neut % (Auto) Lymph % (Auto) [place] % (Auto) Eos % (Auto) Baso % (Auto) Neut # (Auto) Lymph # (Auto) [place] # (Auto) Eos # (Auto) Baso # (Auto) ESR 49 H PT INR Sodium Potassium Chloride Carbon Dioxide BUN Creatinine Estimated GFR BUN/Creatinine Ratio Glucose Calcium Total Bilirubin AST ALT Alkaline Phosphatase C-Reactive Protein 5.0 H Total Protein Albumin Globulin Albumin/Globulin Ratio Quality VTE Deep Vein Thrombosis/Pulmonary Embolism Present on Admission: No
--- NOTE | 2019-05-25 17:59 | P.PN_ITS ---
Subjective Date Patient Seen: 05/25/19 Time Patient Seen: 11:30 Interval history: Case reviewed today with Radiology and Family Medicine On repeat imaging patient has a non loculated but rim enhancing fluid collection on the right side of the pelvis just above the dome of the bladder -this has multiple air bubbles in it adjacent to the patient's vaginal cough after recent hysterectomy. Radiographically it does appear to be infected. Clinically on my exam patient has tenderness in her right pelvis on abdominal exam. She does not have generalized peritonitis. She is not toxic. I think a possible explanation of this is that she developed ascites in the setting of her heart failure -there was certainly more numerous pockets of fluid and volume of fluid seen on her initial CT scan. Think is possible that this fluid then subsequently became infected from vaginal cuff leak -leading to a dependent large infected fluid collection within the pelvis. Is encouraging that she does not have significant abdominal tenderness elsewhere on exam. Discussing with Radiology there is good anterior window to the fluid collection. Think it is reasonable to correct her INR, and move forward with a pigtail drain into the space. Agree with ongoing diuresis to resolve her ascites. One unresolved question -is the cause of her elevated INR. Microangiopathic hemolytic anemia and/consumptive process have been ruled out. She has been on substantial amounts of warfarin -and also on bile acid sequesters to interrupt enterohepatic cycling of warfarin within a dysfunctional gut -and has not corrected. Given her persistently elevated bilirubin without evidence of biliary obstruction, elevated INR despite interventions as above -I am concerned she may have underlying hepatic synthetic dysfunction. Rec: Correct INR w FFP ahead of procedure IR pigtail for source control into infect fluid collection Diuresis as above Discussion with police clerk management of cuff leak Consider Telemed hepatology consult re question of liver dysfuntion -with persistently elevated bilirubin and INR Exam Vital Signs (past 8 hours): - 05/25/19 11:30 05/25/19 15:15 05/25/19 16:00 Temperature 98.1 F 98.4 F Pulse Rate 60 66 Respiratory Rate 16 16 Blood Pressure 101/59 L 108/68 Pulse Oximetry 97 95 95 Oxygen Delivery Method Room Air,CPAP Oxygen Flow Rate 0 Objective Labs Result Diagrams: 05/25/19 06:15 05/25/19 06:15 Labs: Laboratory Results - last 24 hr 05/25/19 05/25/19 05/25/19 06:15 06:15 06:15 WBC 13.8 H RBC 4.47 Hgb 13.0 Hct 39.0 MCV 87.3 MCH 29.1 MCHC 33.3 RDW 17.3 H Plt Count 505 H Neut % (Auto) 73.7 Lymph % (Auto) 11.2 L [place] % (Auto) 12.4 Eos % (Auto) 1.9 L Baso % (Auto) 0.8 Neut # (Auto) 99236 H Lymph # (Auto) 1500 [place] # (Auto) 1700 H Eos # (Auto) 300 Baso # (Auto) 100 ESR PT 42.2 H D INR 3.6 H Sodium 135 L Potassium 3.8 Chloride 99 Carbon Dioxide 26 BUN 9 Creatinine 0.70 Estimated GFR > 60.0 BUN/Creatinine Ratio 12.9 Glucose 92 Calcium 8.5 Total Bilirubin 3.3 H AST 20 ALT 9 Alkaline Phosphatase 140 H C-Reactive Protein Total Protein 7.6 Albumin 3.1 L Globulin 4.5 H Albumin/Globulin Ratio 0.7 L 05/25/19 05/25/19 06:15 06:15 WBC RBC Hgb Hct MCV MCH MCHC RDW Plt Count Neut % (Auto) Lymph % (Auto) [place] % (Auto) Eos % (Auto) Baso % (Auto) Neut # (Auto) Lymph # (Auto) [place] # (Auto) Eos # (Auto) Baso # (Auto) ESR 49 H PT INR Sodium Potassium Chloride Carbon Dioxide BUN Creatinine Estimated GFR BUN/Creatinine Ratio Glucose Calcium Total Bilirubin AST ALT Alkaline Phosphatase C-Reactive Protein 5.0 H Total Protein Albumin Globulin Albumin/Globulin Ratio Quality VTE Deep Vein Thrombosis/Pulmonary Embolism Present on Admission: No
[2019-05-26] VITALS (20 sets, daily range): BP systolic 92–124; BP diastolic 49–80; PULSE 59–63; RESP 16–20; TEMP 36.3–37.1; O2SAT 94–97
--- NOTE | 2019-05-26 00:23 | PC.NURSE ---
shift summary-1599- Pt showered, midline drsg changed, pt requested to eat dinner prior to starting FFP. 1744- went down to get FFP, blood band did not match with Lab. Reported to Ivania Nieves nursing fuel system maintenance supervisor. 2148- finally have bands matching and started FFP, VSS, ended 0004 without any reactions or issues. NPO @ midnight. Telemetry in place with A paced and AV paced, AICD implant. 95%RA LS clear. BRP to void with SBA FWW. ALICIA midline SL. Zosyn and protonix held at 2100 due to FFP infusing. ABD distended/bloated, tender to RLQ, denies nausea. Own CPAP for sleep. Bed alarm on.
--- NOTE | 2019-05-26 01:27 | PC.NURSE ---
Addendum entered by Melania Ocampo R.N. 05/26/19 07:28: Hand off report given to Licha BONE Original Note: Assumed care of pt at 2330 on 05/25/19. Pt sleeping during bedside hand-off. FFP transfusion completed by Zulay Bryant RN. This abstract writer called Dr. Montoya to clarify FFP order as there was not a quantity off units written. Per Dr. Montoya 1 unit is probably not enough but it can be addressed in the morning. The abstract writer inquired about the delay in drain placement if INR correction is not done. He verbalized it can be addressed in the morning. This abstract writer also called pharmacy to retime zosyn and protonix as the last doses were not given.
[2019-05-26] MEDS: PIPERACILLIN-TAZO 3.375 GM/50 ML FROZ.PIGGY IV ×4 (02:01→20:13)
[2019-05-26] MEDS: PANTOPRAZOLE 40 MG VIAL IV ×3 (02:01→22:02)
[2019-05-26] MEDS: SODIUM CHLORIDE 0.9% FLUSH 10 ML IV ×3 (02:02→22:02)
[2019-05-26] MEDS: SODIUM CHLORIDE 0.9% 250 ML 21 ML IV (02:02)
[2019-05-26 06:34] LABS: Add Manual Diff / Slide Review NO; Basophils Absolute Auto 100 /uL (0-100); Basophils Percent Auto 1.1 % (0-2); Eosinophils Absolute Auto 200 /uL (0-450); Eosinophils Percent Auto 1.9 % (2-4); Hematocrit 40.1 % (36-46); Hemoglobin 13.3 g/dL (12.0-16.0); Lymphocytes Absolute Auto 1500 /uL (1100-4500); Lymphocytes Percent Auto 12.1 % (25-40); Mean Corpuscular HGB Conc 33.1 % (30-36); Mean Corpuscular Hemoglobin 28.9 PG (26-34); Mean Corpuscular Volume 87.4 fL (80-100); Monocytes Absolute Auto 1400 /uL (0-900); Monocytes Percent Auto 10.8 % (3-14); Neutrophils Absolute Auto 9300 /uL (1500-7000); Neutrophils Percent Auto 74.1 % (50-75); Platelet Count 487 X10^3/uL (150-400); Red Blood Cell Count 4.59 X10^6/uL (4.0-5.2); Red Cell Distribution Width 17.6 % (11.6-14.8); White Blood Cell Count 12.5 X10^3/uL (4.5-11.0)
[2019-05-26 06:36] LABS: INR 2.2 (0.9-1.3); Prothrombin Time 25.6 SECONDS (10.1-12.7)
[2019-05-26 06:42] LABS: Alanine Aminotransferase 8 IU/L (9-52); Albumin 3.3 g/dL (3.5-5.0); Albumin Globulin Ratio 0.7 (1.0-2.8); Alkaline Phosphatase 143 U/L (38-126); Aspartate Aminotransferase 21 IU/L (14-36); BUN Creatinine Ratio 15.7 (6-22); Bilirubin Total 3.9 mg/dL (0.2-1.3); Blood Urea Nitrogen 11 mg/dL (7-17); Calcium 8.7 mg/dL (8.4-10.2); Carbon Dioxide 26 mmol/L (22-32); Chloride 100 mmol/L (98-107); Estimated Glomerular Filt Rate > 60.0 mL/min (>60); Globulin 4.5 g/dL (1.7-4.1); Glucose 106 mg/dL (80-110); HEMOLYSIS < 15 (0-50); Potassium 3.8 mmol/L (3.4-5.1); Sodium 137 mmol/L (137-145); Total Protein 7.8 g/dL (6.3-8.2)
[2019-05-26] MEDS: SPIRONOLACTONE 25 MG TABLET PO ×2 (08:15→16:50)
[2019-05-26] MEDS: ATENOLOL 50 MG TABLET PO (08:15)
[2019-05-26] MEDS: FUROSEMIDE 40 MG/4 ML VIAL IV (08:16)
[2019-05-26] MEDS: PHYTONADIONE (VIT K1) 5 MG TABLET 10 MG PO (08:16)
[2019-05-26] MEDS: LORazepam 0.5 MG TABLET PO (09:23)
--- NOTE | 2019-05-26 10:00 | PT.IPTN ---
Current Diagnoses Unspecified intestinal obstruction, unspecified as to partial versus complete obstruction (05/17/19) Physical Therapy Treatment Note M2 PT-IP Current Condition Start: 05/20/19 14:26 Freq: NEEDED Status: Active Protocol: Document 05/20/19 09:48 AB (Rec: 05/20/19 14:42 AB [id number]) Physical Therapy Current Condition Current Condition Evaluation Date 05/20/19 Treatment Diagnosis enteritis; generalized weakness Onset Date 05/17/19 M3 PT-IP Subjective Start: 05/20/19 14:26 Freq: NEEDED Status: Active Protocol: Document 05/26/19 10:00 LRN (Rec: 05/26/19 16:43 LRN [id number]) Subjective Physical Therapy Visit Type Type Treatment Note Visit Start Time 10:00 Visit Stop Time 10:24 Total Visit Minutes 24 Physical Therapy Visit Comments Patient Comments Pt agreeable to therapy. States she has a cane and walker at home and feels stable with a walker. She would be comfortable being able to go home using a walker . Therapy Pain Assessment Pain Present Pain Present Denied Pain M4 PT-IP Mobility and Gait Start: 05/20/19 14:26 Freq: NEEDED Status: Active Protocol: Document 05/26/19 10:00 LRN (Rec: 05/26/19 16:43 LRN [id number]) PT-Bed Mobility Assessment Supine to Sit Supine to Sit Independent Sit to Supine Sit to Supine Independent Scooting Scooting to Edge of Bed Independent PT-Transfer Assessment Sit to and From Stand Sit to and from Stand Independent Standby Assistance Equipment Transfer Assistive Device Gait Belt Front Wheeled Walker Transfers Transfer Destination Bed Toilet Transfer Ability Level of Assist Independent Standby Assistance Comments Mobility Comments Pt was able to get in bed and on/off commode independently. She initially was independent >SBA for getting out of bed because of slow moving. Gait Assessment Gait Gait Assistance Required: Independent Standby Assistance Distance (Feet) 100 Able to Maintain Weight Bearing Status Yes During Gait Assistive Devices Assistive Device Gait Belt Front Wheeled Walker Comments Gait Comments Assistance needed for gait due to IV pole and slowness of pt 's gait. No c/o pain with gait. Stair Climbing Assessment Evaluation Level of Assist On Stairs Independent Standby Assistance Devices Stair Climbing Assistive Devices Left Railing Technique/Endurance Stair Climbing Direction Ascend and Descend Stair Climbing Technique Step Over Step Number of Steps Climbed 3 Stair Climbing Set # Repetitions (reps) 1 Comments Stair Climbing Comments Pt was able to go up/down steps with pt confident in ability using railing. M5 PT-IP Objective Assessments Start: 05/20/19 14:26 Freq: NEEDED Status: Active Protocol: Document 05/20/19 09:48 AB (Rec: 05/20/19 14:42 AB [id number]) Orientation Orientation/Cognition Orientation Name Place Situation Language Function Ability No Deficits Noted Safety Awareness Decreased Safety Awareness Gross Range of Motion Lower Extremity ROM Assessment Within Functional Limits Strength Lower Extremity Strength Assessment Bilaterally Impaired Hip 4-/5 Knee 4-/5 Coordination Assessment Gross Coordination Gross Coordination WNL Sensation Assessment Sensation Gross Sensation WNL Muscle Tone Muscle Tone WNL Yes M6 PT-IP Treatment Start: 05/20/19 14:26 Freq: NEEDED Status: Active Protocol: Document 05/26/19 10:00 LRN (Rec: 05/26/19 16:43 LRN [id number]) Physical Therapy Treatment Other Treatments Other Treatment Performed Pt did not have SCD's on at start of therapy; therefore SCD's not placed when returned to bed. M7 PT-IP Assessment and Plan Start: 05/20/19 14:26 Freq: NEEDED Status: Active Protocol: Document 05/26/19 10:00 LRN (Rec: 05/26/19 16:43 LRN [id number]) PT Summary Assessment and Plan Summary Assessment Summary Pt is steady with gait using a walker. She felt she could use a cane but was more comfortable and stable using a walker. She is okay going home using a walker. She is having a drain placed this afternoon; therefore recheck on ADL performance is needed tomorrow for independence with ADLs for possible DC from PT. Goals Bed Mobility Goal Independent Transfer Goal Independent Gait Goal Independent Four Wheel Walker Gait Distance 200 Other Goals up/down 2 steps with R rail ascending SBA Days to Meet Goals 5 Frequency of Treatment Frequency Of Treatment Once a Day Treatment Plan Physical Therapy Treatment Plan Bed Mobility Training Transfer Training Gait Training Therapeutic Exercise Balance Retraining Discharge Planning Neuromuscular Re-ed Other Recommendations and Next Treatment Reassess pt's functional Focus ability with ADLs s/p abdominal drain placement. Reassess for DC from PT. Recommendations To Nursing Amount of Assist Needed Standby Assistance Discharge Recommendations PT Discharge Recommendations Home with Assistance Equipment Needed for Home Before Pt has own cane and walker. Discharge
[2019-05-26 11:57] LABS: Prothrombin Time 23.5 SECONDS (10.1-12.7)
--- NOTE | 2019-05-26 15:26 | PC.NURSE ---
Resp/GI: Pt additional 3units of FFP were omitted overnight. There was issues with the arm band not matching and lab consolidating and cancelling orders. MD Bailey made aware and she came in and saw pt. Pt will get FFP w/INR check after each to see if she can still have procedure today. After first unit INR was 2.0, second unit has been given and INR has been drawn and awaiting results. Pt is teary since she has been npo for so long and she is sick of being sick. Now she has had to wait for this procedure. Spouse at bedside and has been reassuring. Pt has been given time to ventilate feelings. Pt has maintained npo status. Does have some crampy pain to the lower quads, morphine has been offered and refused. She knows she can have it if she changes her mind. Cont w/poc.
[2019-05-26 15:55] LABS: INR 1.8 (0.9-1.3); Prothrombin Time 20.7 SECONDS (10.1-12.7)
--- NOTE | 2019-05-26 18:55 | PM.PN.1 ---
Subjective Date Patient Seen: 05/26/19 Time Patient Seen: 08:21 Interval history: Met with patient and reviewed her chart and discussed with Dr. Thakur who has seen over the last several days. Reviewed notes from Dr. Villavicencio, Dr. Montoya and Dr. Morgan. Appreciate their input. Patient is receiving fresh frozen plasma with an INR this morning of 2 and they are unable to do her percutaneous drain due to her INR being too high. She is NPO for the procedure but has eaten yesterday and is passing gas and has had normal bowel movements. No problems with urination. No nausea or vomiting. She is having mild lower abdominal pain. She denies shortness of breath she denies chest pain. She has severe fatigue. She is frustrated with her illness but denies acute depression. She does feel anxious. She has had no bleeding Twelve point review systems is negative other than HPI Exam Vital Signs (past 8 hours): - 05/26/19 12:00 05/26/19 12:45 05/26/19 13:06 Temperature 98.4 F 98.4 F 98.5 F Pulse Rate 60 60 59 L Respiratory Rate 16 16 16 Blood Pressure 124/63 124/63 104/71 Pulse Oximetry 05/26/19 13:14 05/26/19 14:25 05/26/19 16:00 Temperature 98.5 F 98.8 F 97.4 F L Pulse Rate 59 L 61 61 Respiratory Rate 16 20 16 Blood Pressure 104/71 92/57 L 110/80 Pulse Oximetry 97 94 05/26/19 17:56 05/26/19 18:00 05/26/19 18:13 Temperature 97.3 F L 97.3 F L 98.2 F Pulse Rate 63 63 60 Respiratory Rate 18 18 20 Blood Pressure 104/49 L 104/49 L 92/56 L Pulse Oximetry 05/26/19 18:20 Temperature 98.2 F Pulse Rate 60 Respiratory Rate 20 Blood Pressure 92/56 L Pulse Oximetry Oxygen Delivery Method Room Air Oxygen Flow Rate 0 Narrative Exam Narrative: Patient is in no apparent distress but appears chronically ill and appears cachectic, lying in hospital bed with her by her bedside She is afebrile and vital signs are stable. Blood pressure is low normal HEENT shows mild scleral icterus and mucous membranes moist and pink Neck: No bruit, no masses, no thyromegaly, no lymphadenopathy. 1+ jugular venous distention bilaterally Cor: Regular rate and rhythm with distant S1 and S2 Lungs: Clear to auscultation with decreased breath sounds in bilateral bases minimally. No increased work of breathing Abdomen: Positive bowel sounds, decreased distension but still tenderness bilateral lower quadrant right greater than left with some guarding Extremities: Trace nonpitting edema markedly improved from my last examination on May 19 Objective Labs Result Diagrams: 05/26/19 06:15 05/26/19 06:15 Labs: Laboratory Results - last 24 hr 05/25/19 05/26/19 05/26/19 19:25 06:15 06:15 WBC 12.5 H RBC 4.59 Hgb 13.3 Hct 40.1 MCV 87.4 MCH 28.9 MCHC 33.1 RDW 17.6 H Plt Count 487 H Neut % (Auto) 74.1 Lymph % (Auto) 12.1 L [place] % (Auto) 10.8 Eos % (Auto) 1.9 L Baso % (Auto) 1.1 Neut # (Auto) 9300 H Lymph # (Auto) 1500 [place] # (Auto) 1400 H Eos # (Auto) 200 Baso # (Auto) 100 PT INR Sodium 137 Potassium 3.8 Chloride 100 Carbon Dioxide 26 BUN 11 Creatinine 0.70 Estimated GFR > 60.0 BUN/Creatinine Ratio 15.7 Glucose 106 Calcium 8.7 Total Bilirubin 3.9 H AST 21 ALT 8 L Alkaline Phosphatase 143 H Total Protein 7.8 Albumin 3.3 L Globulin 4.5 H Albumin/Globulin Ratio 0.7 L Blood Type AB Positive Antibody Screen Negative 05/26/19 05/26/19 05/26/19 06:15 11:44 14:44 WBC RBC Hgb Hct MCV MCH MCHC RDW Plt Count Neut % (Auto) Lymph % (Auto) [place] % (Auto) Eos % (Auto) Baso % (Auto) Neut # (Auto) Lymph # (Auto) [place] # (Auto) Eos # (Auto) Baso # (Auto) PT 25.6 H D 23.5 H 20.7 H INR 2.2 H 2.0 H 1.8 H Sodium Potassium Chloride Carbon Dioxide BUN Creatinine Estimated GFR BUN/Creatinine Ratio Glucose Calcium Total Bilirubin AST ALT Alkaline Phosphatase Total Protein Albumin Globulin Albumin/Globulin Ratio Blood Type Antibody Screen Assessment & Plan Assessment & Plan narrative: 69-year-old female Assessment 1. Admitted with possible small bowel obstruction with enteritis that has improved Reviewed workup including GI studies and stool studies which were all negative. Patient is currently not having symptoms. Assessment 2. Pelvic abscess. Suspect postoperative complications from hysterectomy and BSO by Dr. Dia at [facility] on March 28. Plan is for percutaneous drainage and evaluation of fluid. This will happen later today. Assessment 3. Hyperbilirubinemia of unclear etiology with concern for liver dysfunction possible liver failure with workup thus far unrevealing normal ultrasounds. Fractionated bilirubin shows presence of conjugated bilirubin. Coagulopathy has persisted despite no Coumadin. Patient needs evaluation by reconciliation manager. If we are unable to do percutaneous drainage in the a.m. I think she needs to be transferred to a higher level of care for definitive diagnosis and treatment. Will reassess labs in the a.m.. Assessment 4. Recent hysterectomy and BSO for ovarian mass with elevated CA 125 but begun on surgeon states no evidence of ovarian cancer after surgery and pathology. Still unclear of the etiology of the elevated CA 125. Phone call into Dr. dia to discuss. Assessment 5. Cardiomyopathy with severe left ventricular hypertrophy concentric and currently appears euvolemic with significant diuresis. Cardiologists are in [place]. No current issues. Will continue with the 40 mg IV Lasix and the Aldactone and the atenolol. Atenolol was started in January of 2018 and symptoms of elevated alkaline phosphatase started in October of 2018 I do not think this is related although patient is convinced that atenolol contributed to her lower extremity edema. We will recheck BNP in a.m. will check electrolytes and magnesium as well. Assessment 6. Atrial fibrillation with current well-controlled rate Plan: Continue with same atenolol Assessment 7. Coagulopathy Plan: Unclear etiology. Treat with fresh frozen plasma. Plan for surgical procedure and will need Gastroenterology or hepatology evaluation. Quality VTE Deep Vein Thrombosis/Pulmonary Embolism Present on Admission: No
[2019-05-26] MEDS: CHOLESTYRAMINE/ASPARTAME 4 GM PACK PO (22:02)
--- NOTE | 2019-05-26 23:32 | PC.NURSE ---
Addendum entered by Vee Rees R.N. 05/26/19 23:43: Per CT they are available from 12pm-1pm for her procedure. Original Note: Pt is A&Ox3. 97% RA. 2+ BLE edema. 1 FFP infused for price shift and VTO to infuse 1 FFP at [address] Bailey regarding 5 beat v-tach around 1900.
[2019-05-27] VITALS (7 sets, daily range): BP systolic 100–141; BP diastolic 60–84; PULSE 60–61; RESP 16–18; TEMP 36.4–36.8; O2SAT 93–95
[2019-05-27] MEDS: SODIUM CHLORIDE 0.9% FLUSH 10 ML IV ×3 (01:31→08:55)
[2019-05-27] MEDS: PIPERACILLIN-TAZO 3.375 GM/50 ML FROZ.PIGGY IV ×2 (01:31→09:27)
--- NOTE | 2019-05-27 02:25 | TAR.TRANSNT ---
Infusing FFP thawed; all checks verified by Miroslava Pringle RN
--- NOTE | 2019-05-27 02:52 | PC.NURSE ---
Addendum entered by Kamilla Leigh R.N. 05/27/19 03:52: Infusion of FFP completed. VSS Original Note: 0130 Patient has been asleep since shift change, now awakened for assessment and to start IV ATB. Is alert and oriented. Breath sounds diminished in right mid/lower lobes with RA sat of 94%. HRR; telemetry was a-paced/SB at 0000 with rate of 59. Denies nausea. BT present; abdomen remains distended but soft and non tender. Has some burning with urination and after taking diuretic experiences frequency and urgency. Is able to turn self in bed. Assisted when out of bed with walker and SBA. Wearing bilateral SCD's. Denies pain. Has 1+ edema in bilateral LE. Wearing CPAP for sleep. Fall risk score is high and bed alarm is activated. 0220 Following ATB infusion FFP started as per MD order.
[2019-05-27 05:45] LABS: Add Manual Diff / Slide Review NO; Basophils Absolute Auto 0 /uL (0-100); Basophils Percent Auto 0.4 % (0-2); Eosinophils Absolute Auto 200 /uL (0-450); Eosinophils Percent Auto 1.6 % (2-4); Lymphocytes Absolute Auto 1200 /uL (1100-4500); Lymphocytes Percent Auto 9.9 % (25-40); Mean Corpuscular HGB Conc 33.4 % (30-36); Mean Corpuscular Hemoglobin 29.2 PG (26-34); Mean Corpuscular Volume 87.2 fL (80-100); Monocytes Absolute Auto 1400 /uL (0-900); Monocytes Percent Auto 11.4 % (3-14); Neutrophils Absolute Auto 9200 /uL (1500-7000); Neutrophils Percent Auto 76.7 % (50-75); Platelet Count 411 X10^3/uL (150-400); Red Blood Cell Count 4.13 X10^6/uL (4.0-5.2); Red Cell Distribution Width 17.5 % (11.6-14.8)
[2019-05-27 05:48] LABS: INR 1.6 (0.9-1.3); Prothrombin Time 18.6 SECONDS (10.1-12.7)
[2019-05-27 05:50] LABS: PTT Partial Thromboplastin Tim 38 SECONDS (26.4-36.2)
[2019-05-27 05:56] LABS: Magnesium 1.9 mg/dL (1.6-2.3)
[2019-05-27 05:57] LABS: Alanine Aminotransferase 13 IU/L (9-52); Albumin 3.2 g/dL (3.5-5.0); Albumin Globulin Ratio 0.8 (1.0-2.8); Alkaline Phosphatase 119 U/L (38-126); Aspartate Aminotransferase 19 IU/L (14-36); BUN Creatinine Ratio 15.7 (6-22); Bilirubin Total 3.7 mg/dL (0.2-1.3); Blood Urea Nitrogen 11 mg/dL (7-17); Calcium 8.9 mg/dL (8.4-10.2); Carbon Dioxide 28 mmol/L (22-32); Chloride 100 mmol/L (98-107); Estimated Glomerular Filt Rate > 60.0 mL/min (>60); Glucose 93 mg/dL (80-110); HEMOLYSIS < 15 (0-50); Potassium 3.2 mmol/L (3.4-5.1); Sodium 137 mmol/L (137-145); Total Protein 7.2 g/dL (6.3-8.2)
[2019-05-27 06:35] LABS: B Type Natriuretic Peptide 784 (<100)
[2019-05-27] MEDS: FUROSEMIDE 40 MG/4 ML VIAL IV (08:52)
[2019-05-27] MEDS: PANTOPRAZOLE 40 MG VIAL IV (08:52)
[2019-05-27] MEDS: SPIRONOLACTONE 25 MG TABLET PO (08:53)
[2019-05-27] MEDS: ATENOLOL 50 MG TABLET PO (08:55)
[2019-05-27] MEDS: PHYTONADIONE (VIT K1) 5 MG TABLET 10 MG PO (08:56)
--- NOTE | 2019-05-27 12:59 | PC.NURSE ---
PT is going to be transferring to [facility] this afternoon. Her ct guided biopsy has been cancelled and she is on a general diet now. She denies pain and is at bedside visiting. IV lasix and IV protonix infused this morning. PTs BS are cta, and she is on ra. BTx4, Pt has had a couple of normal bowel movements and is voiding well.
--- NOTE | 2019-05-27 13:14 | PM.DS.1 ---
History of Present Illness Chief complaint: vomiting since yesterday stomach ache Discharge Providers Date of admission: 05/17/19 10:18 Discharge Date: 05/27/19 Primary care physician: Lizzie Bailey MD Consults: 05/19/19 12:41 Consult to General Surgery Routine Comment: Consulting Provider: Nelson Trevino Reason for consultation: vomiting Has provider been notified: Yes 05/20/19 08:31 Consult to Physical Therapy Evaluate & Treat Comment: decreased mobility - needs strong encouragement Physician Instructions: Evaluate and Treat 05/21/19 08:10 Consult to Occupational Therapy Evaluate & Treat Comment: may need help with adl's Physician Instructions: Evaluate and treat 05/24/19 08:39 Consult to Physician Routine Comment: Consulting Provider: Carlee Villavicencio Reason for consultation: chf and liver failure abd pain Has provider been notified: Yes 05/25/19 08:47 Consult to Physician Routine Comment: Consulting Provider: Nelson Trevino Reason for consultation: abd pain Has provider been notified: Yes Discharge provider: Lizzie Bailey MD Summary Discharge Diagnosis: Assessment 1. Nauseaa, vomiting, enteritis improved Assessment 2. E coli urinary tract infection, resolved and successfully treated with IV antibiotics Assessment 3. Pelvic abscess. Still present patient is stable on Zosyn day 3.. In need of drainage Assessment 4. Coagulopathy of unclear etiology. Last Coumadin was prior to hospitalization on May 17. Patient has been receiving vitamin K and also received fresh frozen plasma. Assessment 5. Chronic right pleural effusion, unchanged Assessment 6. Hyperbilirubinemia of unclear etiology present since October 2018 but worsen during hospitalization with maximum at 3.9 this hospitalization and conjugated bili 1.3. Ultrasounds and CTs unrevealing for etiology. Transaminase is normal. Minimal elevation of alkaline phosphatase which is normal at transfer. Assessment 7. Ascites suspect multifactorial including cardiomyopathy as well as liver dysfunction. Assessment 8. Status post hysterectomy and bilateral salpingo-oophorectomy due to adnexal mass with elevated CA 125 in the 400s and negative AG 4 with negative pathology of adnexal mass. Surgery done 03/28/[address]att at [facility] Assessment 9. Paroxysmal, symptomatic atrial fibrillation status post Lilly Maze procedure in 2014 at [facility] in [facility] by Dr. Holder. Networking Technology Instructor Dr. Pendleton. On chronic anticoagulation secondary to this also on atenolol since January of 2018 and spironolactone. Patient on 20 mg of Lasix as outpatient. Hospital Course: Patient admitted to [facility] with intractable nausea vomiting and suspected small-bowel obstruction. Patient was placed NPO and supportive treatment then suspicion was for infectious gastroenteritis with coagulopathy secondary to dysmotility of the intestines. Patient recovered from enteritis and it was not felt the initial diagnosis small bowel obstruction was accurate. Patient was found to have E coli urinary tract infection and was placed on ceftriaxone and patient continue to improve. The patient received aggressive diuresis with Lasix and profound lower extremity edema abdominal edema and ascites improved with diuresis. Patient continued to have coagulopathy was given vitamin K on a daily basis. Patient did not receive any Coumadin during her hospitalization. Patient was able to tolerate p.o. intake and was having normal bowel movements but persistent abdominal pain and distension as well as leukocytosis warranted further evaluation and on reexamination it was suspected that patient had a pelvic abscess. Patient was given fresh frozen plasma with anticipation of transcutaneous drain to drain the pelvic abscess. Patient continued to have progressive worsening hyperbilirubinemia. CT scans of the abdomen and abdominal ultrasounds showed no biliary or hepatic abnormality. Transaminases remain normal. Alkaline phosphatase was slightly elevated. Workup for evidence of DIC was negative. Hospitalist followed along intermittently during hospitalization as did General surgery per . Patient was noted to have potassium of 3.2 on date of transfer and was given oral potassium 40 mEq. Patient received IV Lasix of 40 mg on day of discharge and had good diuresis. Her BNP was above her norm in the 700's on this date. Due to persistent and progressively worsening hyperbilirubinemia and new finding of pelvic abscess and need for drainage as well as cardiomyopathy it was felt that patient needed transfer care for a higher level of care where she could be treated by infectious disease specialist, nut steamer, electronic musical instrument repairer and possibly surgery as well. Patient understands risk of transfer and I discussed the case was with both Jennifer Marks MD and Dr. Lizzie Johnson who our hospitalist at [facility]. 90 minutes was spent with patient in counseling and coordination care during this transfer Status at Discharge Cognitive/behavioral status at discharge: oriented Functional status at discharge: independent ambulation Overall status at discharge: patient is not back to baseline Time Spent with Patient Greater than 30 minutes Exam Vital Signs (past 8 hours): - 05/27/19 08:00 Temperature 97.7 F Pulse Rate 60 Respiratory Rate 16 Blood Pressure 110/60 Pulse Oximetry 93 Oxygen Delivery Method Room Air Oxygen Flow Rate 0 Narrative Exam Narrative: Patient is alert and oriented in no apparent distress. She has scleral icterus and appears jaundice on her facial skin. She appears gaunt and chronically ill. Her vital signs are stable HEENT shows mucous membranes are moist and pink without any lesions or evidence of candidiasis Neck: Shows 2+ jugular venous distension without masses Chest: Decreased breath sounds right base otherwise no wheezes, rhonchi or crackles Cor: Regular rate and rhythm without murmur, distant S1 and S2 Abdomen: Positive bowel sounds x4. Patient is laparoscopic incisions are well healed with some purplish discoloration around them. Abdomen is mildly distended but overall decrease in distention. There is no guarding but there is tenderness in her right lower quadrant and lesser in her left lower quadrant. No evidence of ascites on exam today. No evidence of hepatosplenomegaly Extremities: Show trace edema pretibial overall markedly declined from her initial presentation, pulses intact, Skin exam shows no rashes Neurologic exam is nonfocal Objective Labs Result Diagrams: 05/27/19 05:32 05/27/19 05:32 Labs: Laboratory Results - last 24 hr 05/25/19 05/26/19 05/27/19 19:25 14:44 05:32 WBC 12.0 H RBC 4.13 Hgb 12.0 Hct 36.0 MCV 87.2 MCH 29.2 MCHC 33.4 RDW 17.5 H Plt Count 411 H Neut % (Auto) 76.7 H Lymph % (Auto) 9.9 L [place] % (Auto) 11.4 Eos % (Auto) 1.6 L Baso % (Auto) 0.4 Neut # (Auto) 9200 H Lymph # (Auto) 1200 [place] # (Auto) 1400 H Eos # (Auto) 200 Baso # (Auto) 0 PT 20.7 H INR 1.8 H APTT Sodium Potassium Chloride Carbon Dioxide BUN Creatinine Estimated GFR BUN/Creatinine Ratio Glucose Calcium Magnesium Total Bilirubin AST ALT Alkaline Phosphatase B-Natriuretic Peptide Total Protein Albumin Globulin Albumin/Globulin Ratio Blood Type AB Positive Antibody Screen Negative 05/27/19 05/27/19 05/27/19 05:32 05:32 05:32 WBC RBC Hgb Hct MCV MCH MCHC RDW Plt Count Neut % (Auto) Lymph % (Auto) [place] % (Auto) Eos % (Auto) Baso % (Auto) Neut # (Auto) Lymph # (Auto) [place] # (Auto) Eos # (Auto) Baso # (Auto) PT 18.6 H INR 1.6 H APTT 38 H D Sodium 137 Potassium 3.2 L Chloride 100 Carbon Dioxide 28 BUN 11 Creatinine 0.70 Estimated GFR > 60.0 BUN/Creatinine Ratio 15.7 Glucose 93 Calcium 8.9 Magnesium 1.9 Total Bilirubin 3.7 H AST 19 ALT 13 Alkaline Phosphatase 119 B-Natriuretic Peptide Total Protein 7.2 Albumin 3.2 L Globulin 4.0 Albumin/Globulin Ratio 0.8 L Blood Type Antibody Screen 05/27/19 05:32 WBC RBC Hgb Hct MCV MCH MCHC RDW Plt Count Neut % (Auto) Lymph % (Auto) [place] % (Auto) Eos % (Auto) Baso % (Auto) Neut # (Auto) Lymph # (Auto) [place] # (Auto) Eos # (Auto) Baso # (Auto) PT INR APTT Sodium Potassium Chloride Carbon Dioxide BUN Creatinine Estimated GFR BUN/Creatinine Ratio Glucose Calcium Magnesium Total Bilirubin AST ALT Alkaline Phosphatase B-Natriuretic Peptide 784 H Total Protein Albumin Globulin Albumin/Globulin Ratio Blood Type Antibody Screen Discharge Plan Discharge Plan Patient Disposition: [facility] Transfer to: [facility] Under care of provider: Dr. Lizzie Johnson Discharge comment: Patient being discharged to [facility] for higher level of care that she is in need of evaluation by infectious disease specialist and nut steamer as well as Cardiology. Discharge Med Rec/Prescriptions Prescriptions: Discontinued warfarin [Coumadin] 2.5 MG tablet 1.25 mg PO QDAY Qty: 0 RF: 0 Cholest Off 450 mg Tablet 1 tab PO DAILY RF: 0 [place] DHA 92 mg (43 mg-22 [id number]) Tablet,Chewable 1 tab PO DAILY RF: 0 latanoprost 0.005 % drops 1 applic EYE-BOTH QPM RF: 0 torsemide 20 mg tablet 20 mg PO BID RF: 0 atenolol 50 mg Tablet 50 mg PO QPM RF: 0 potassium chloride 10 mEq tablet extended release 10 meq PO DAILY RF: 0 spironolactone 50 mg tablet 25 mg PO DAILY RF: 0 metoclopramide HCl 10 mg tablet 10 mg PO PRN PRN (Reason: Nausea) RF: 0 Co Q-10 300 mg Capsule 300 mg PO DAILY RF: 0 cholecalciferol (vitamin D3) [Vitamin D3] 5,000 unit Tablet 5,000 unit PO DAILY RF: 0 Cysto Protek 2 cap PO BID RF: 0 Ortho Molecular Probiotic 1 cap PO QPM RF: 0 Follow up/Referrals: Lizzie Bailey MD [Primary Care Provider] - Discharge Health Status Precautions: [place] Provider Discharge Instructions Diet: Low-sodium Liquid consistency: Normal/Thin Food texture: Regular Diet comment: Needs a dietary consult Activity: As tolerated Discharge Data Primary Care Provider: Lizzie Bailey Attending Provider: Lizzie Bailey Admit Date/Time: 05/17/19 10:18 Quality VTE Deep Vein Thrombosis/Pulmonary Embolism Present on Admission: No
[2019-05-27] MEDS: POTASSIUM CHLORIDE 20 MEQ TAB 40 MEQ PO (13:23)
--- NOTE | 2019-05-27 15:03 | PC.NURSE ---
Pt transferred to psychiatric in [place] and report called. Sent with [facility] and followed pt up.
== END 2019-05-27 14:45 | disposition short-term general hospital (02) | DRG 863 ==
LOC: ED 09:30 → AC 10:19 → ICU 05-18 07:40 → AC 05-23 10:49 → ICU 05-23 10:49
PROVIDERS: Emergency Medicine; Family Medicine; Internal Medicine; Nurse Practitioner Gerontology; Surgery; Admitting Provider Internal Medicine; Emergency Provider Emergency Medicine; PCP Family Medicine; Visit Provider Family Medicine
DX: T81.40XA Infection following a procedure, unspecified, initial encounter (principal); I42.2 Other hypertrophic cardiomyopathy; N39.0 Urinary tract infection, site not specified; R18.8 Other ascites; D68.9 Coagulation defect, unspecified; J90 Pleural effusion, not elsewhere classified; N73.8 Other specified female pelvic inflammatory diseases; K52.9 Noninfective gastroenteritis and colitis, unspecified; Z79.01 Long term (current) use of anticoagulants; B96.20 Unspecified Escherichia coli [E. coli] as the cause of diseases classified elsewhere; K75.9 Inflammatory liver disease, unspecified; E80.6 Other disorders of bilirubin metabolism; I48.0 Paroxysmal atrial fibrillation; Z95.810 Presence of automatic (implantable) cardiac defibrillator; Z98.890 Other specified postprocedural states; F41.9 Anxiety disorder, unspecified; F32.9 Major depressive disorder, single episode, unspecified
CPT/HCPCS: 36415; 36430; 36591; 71046; 74018; 74177; 76700; 76705; 80048; 80053; 81003; 81015; 82248; 83010; 83605; 83615; 83690; 83735; 83880; 84145; 84443; 84484; 85025; 85384; 85610; 85651; 85730; 86140; 86850; 86900; 86901; 86927; 87040; 87045; 87077; 87086; 87147; 87186; 87493; 87507; 87797; 87899; 93005; 93010; 93306; 94760; 96361; 96374; 96375; 97116; 97161; 97165; 97530; 97535; 99231; 99232; 99285; P9016; C9113; J1170; J1940; J2060; J2270; J2405; J2543; J3480; J7050; Q9967

== ENCOUNTER → 2019-06-10 12:22 | Outpatient (ROUT) | payer MEDICARE, OTHER, SELFPAY ==
[2019-05-17 11:02] VITALS: BMI 31.5
[2019-06-10 12:45] LABS: INR 1.6 (0.9-1.3); Prothrombin Time 18.4 SECONDS (10.1-12.7)
== END ==
PROVIDERS: PCP Family Medicine; Visit Provider Family Medicine
DX: I50.9 Heart failure, unspecified (principal); E80.7 Disorder of bilirubin metabolism, unspecified; R60.9 Edema, unspecified; Z79.01 Long term (current) use of anticoagulants; I48.0 Paroxysmal atrial fibrillation; R73.01 Impaired fasting glucose
CPT/HCPCS: 85610